=== PATIENT | female | born 1945 | race Caucasian/White ===

== ENCOUNTER 2017-07-23 12:07 | Inpatient (IN) | payer MEDICARE, OTHER ==
[~2017-07-23] VITALS: Ht 157.5 cm; Wt 73.9 kg
[~2017-07-23 12:07] MED LIST: ASPI-630 PO; CETI10CA12 PO; CITA40TA5 PO; HYDR-971 PO; HYDR12.58 PO; ISOS30TA4 PO; LEVO100T5 PO; LEVO500T59 PO; LOSA100T6 PO; NEBI10TA3 PO; POTA20TA4 PO; SIMV40TA3 PO; ZOLP10TA4 PO
[2017-07-23] MEDS ORDERED: NITROGLYCERIN SUBLINGUAL 0.4 MG BOTTLE OF 25. SL ONE (12:30)
--- NOTE | 2017-07-23 12:45 | RAD ---
INDICATION: Short of air, atrial fibrillation. TECHNIQUE: AP upright portable chest radiograph was obtained. Comparison is from December 03, 2015. FINDINGS: The lungs are clear. Calcified granuloma is noted on the right. The heart is not enlarged. The pulmonary vasculature is mildly cephalized. There is no interstitial prominence. There is no pleural effusion. Leads overlie the patient. IMPRESSION: Mild vascular congestion suspected. Electronically signed by: Rai Pandey MD (07/23/2017 12:42 PM) [id number]
[2017-07-23 12:53] LABS: BASO # 0.2 x10^3/uL (0.0-0.2); BASO % 1 % (0-3); EOS # 0.5 x10^3/uL (0.0-0.7); EOS % 5 % (0-3); HEMATOCRIT 48.8 % (36.0-47.0); HEMOGLOBIN 15.6 g/dL (12.0-15.5); LYMPH # 1.2 x10^3/uL (1.0-4.8); LYMPH % 10 % (24-48); MEAN CORPUSCULAR HEMOGLOBIN 24 pg (25-35); MEAN CORPUSCULAR HGB CONC 32 g/dL (31-37); MEAN CORPUSCULAR VOLUME 73 fL (79-100); MONO # 0.2 x10^3/uL (0.0-1.1); MONO % 2 % (0-9); NEUT # 9.8 x10^3uL (1.8-7.7); NEUT % 82 % (31-73); PLATELET COUNT 466 x10^3/uL (140-400); RED BLOOD COUNT 6.67 x10^6/uL (3.50-5.40); RED CELL DISTRIBUTION WIDTH 20.1 % (11.5-14.5); WHITE BLOOD COUNT 11.9 x10^3/uL (4.0-11.0)
[2017-07-23 13:13] LABS: ALBUMIN 3.6 g/dL (3.4-5.0); ALBUMIN/GLOBULIN RATIO 1.2 (1.0-1.7); CALCIUM 8.5 mg/dL (8.5-10.1); GFR 54.5; POTASSIUM 3.3 mmol/L (3.5-5.1); TOTAL BILIRUBIN 1.1 mg/dL (0.2-1.0); TOTAL PROTEIN 6.6 g/dL (6.4-8.2)
[2017-07-23 13:31] LABS: ANISOCYTOSIS MOD; HYPOCHROMIA SLIGHT; OVALOCYTES FEW; PLT ESTIMATE INCREASED (ADEQUATE); POLYCHROMASIA SLIGHT; SCHISTOCYTES OCC; TEAR DROP CELLS OCC
--- NOTE | 2017-07-23 13:45 | ED.ADGEN ---
Past History Past Medical History: A-Fib, COPD, MD, Migraines Past Surgical History: Appendectomy Alcohol Use: None Drug Use: None Adult General Chief Complaint Chief Complaint Dizziness HPI HPI Patient is a 8-year-old female with history of CAD, A. fib, currently on daily aspirin and COPD who presents with dizziness and confusion. Patient observed to have peculiar behavior not acting herself and appeared to have. Unsteady gait. Patient also reports mild epigastric pain and shortness breath over the past 3 days. Denies chest pain, palpitations, headache extremity weakness or loss of sensation. Patient does have chronic memory impairment and is a poor historian. Additional history obtained from the patient's daughter who is at bedside., The patient's on A. fib, rate controlled. The pressure is stable. Patient is unaware that she is currently in A. fib but has had prior diagnosis. She is not on anticoagulation therapy. Reports chronic smoker's cough. No nausea vomiting or sweats. No increased leg pain or swelling. No other acute symptoms or complaints. Patient is a current smoker. 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 Review of Systems Review of Systems ROS as per HPI. All other systems were reviewed and found to be within normal limits, except as documented in this note. Current Medications Current Medications Current Medications Medications (Trade) Dose Ordered Sig/[facility] Start Time Stop Time Status Last Admin Dose Admin Furosemide (Lasix) 20 mg 1X ONCE 07/23/17 13:45 07/23/17 13:46 UNV Nitroglycerin (Nitrostat) 0.4 mg 1X ONCE 07/23/17 12:30 07/23/17 12:31 DC 07/23/17 12:30 0.4 MG Allergies Allergies Allergies Coded Allergies Type Severity Reaction Last Updated Verified amlodipine Allergy Intermediate 08/11/14 Yes hydralazine Allergy Intermediate 08/11/14 Yes sulfamethoxazole Allergy Intermediate 08/11/14 Yes trimethoprim Allergy Intermediate 08/11/14 Yes morphine Adverse Reaction Intermediate 08/11/14 Yes Physical Exam Physical Exam Constitutional: Well developed, well nourished, no acute distress, non-toxic appearance. [] HENT: Normocephalic, atraumatic, bilateral external ears normal, oropharynx moist, no oral exudates, nose normal. [] Eyes: PERRLA, EOMI, conjunctiva normal, no discharge. [] Neck: Normal range of motion, no tenderness, supple, no stridor. [] Cardiovascular: Irregular. [] Lungs & Thorax: Bilateral breath sounds clear to auscultation [] Abdomen: Bowel sounds normal, soft, no tenderness, no masses, no pulsatile masses. [] Skin: Warm, dry.[] Back: No tenderness, no CVA tenderness. [] Extremities: No tenderness, no cyanosis, no clubbing, ROM intact, no edema. [] Neurologic: Alert and oriented X 2 normal motor function, normal sensory function, no focal deficits noted. [] Psychologic: Affect normal, judgement normal, mood normal. [] Current Patient Data Vital Signs Vital Signs Date Time Temp Pulse Resp B/P (MAP) Pulse Ox O2 Delivery O2 Flow Rate FiO2 07/23/17 13:13 74 22 171/72 (105) 98 07/23/17 12:19 97.7 Lab Results Laboratory Tests Test 07/23/17 12:38 White Blood Count 11.9 x10^3/uL (4.0-11.0) H Red Blood Count 6.67 x10^6/uL (3.50-5.40) H Hemoglobin 15.6 g/dL (12.0-15.5) H Hematocrit 48.8 % (36.0-47.0) H Mean Corpuscular Volume 73 fL (79-100) L Mean Corpuscular Hemoglobin 24 pg (25-35) L Mean Corpuscular Hemoglobin Concent 32 g/dL (31-37) Red Cell Distribution Width 20.1 % (11.5-14.5) H Platelet Count 466 x10^3/uL (140-400) H Neutrophils (%) (Auto) 82 % (31-73) H Lymphocytes (%) (Auto) 10 % (24-48) L Monocytes (%) (Auto) 2 % (0-9) Eosinophils (%) (Auto) 5 % (0-3) H Basophils (%) (Auto) 1 % (0-3) Neutrophils # (Auto) 9.8 x10^3uL (1.8-7.7) H Lymphocytes # (Auto) 1.2 x10^3/uL (1.0-4.8) Monocytes # (Auto) 0.2 x10^3/uL (0.0-1.1) Eosinophils # (Auto) 0.5 x10^3/uL (0.0-0.7) Basophils # (Auto) 0.2 x10^3/uL (0.0-0.2) Platelet Estimate Increased (ADEQUATE) Large Platelets Occ Polychromasia Slight Hypochromasia Slight Anisocytosis Mod Tear Drop Cells Occ Ovalocytes Few Schistocytes Occ Prothrombin Time 12.1 SEC (9.4-11.4) H Prothrombin Time INR 1.2 (0.9-1.1) H Sodium Level 139 mmol/L (136-145) Potassium Level 3.3 mmol/L (3.5-5.1) L Chloride Level 101 mmol/L (98-107) Carbon Dioxide Level 27 mmol/L (21-32) Anion Gap 11 (6-14) Blood Urea Nitrogen 9 mg/dL (7-20) Creatinine 1.0 mg/dL (0.6-1.0) Estimated GFR (Cockcroft-Gault) 54.5 BUN/Creatinine Ratio 9 (6-20) Glucose Level 132 mg/dL (70-99) H Calcium Level 8.5 mg/dL (8.5-10.1) Total Bilirubin 1.1 mg/dL (0.2-1.0) H Aspartate Amino Transferase (AST) 17 U/L (15-37) Alanine Aminotransferase (ALT) 13 U/L (14-59) L Alkaline Phosphatase 82 U/L (46-116) Troponin I Quantitative < 0.017 ng/mL (0-0.055) DD-Bbu-G-Type Natriuretic Peptide 2068 pg/mL (0-124) H Total Protein 6.6 g/dL (6.4-8.2) Albumin 3.6 g/dL (3.4-5.0) Albumin/Globulin Ratio 1.2 (1.0-1.7) EKG EKG [] Radiology/Procedures Radiology/Procedures [Chest x-ray: Pulmonary vascular congestion per radiology report.] Course & Med Decision Making Course & Med Decision Making Pertinent Labs and Imaging studies reviewed. (See chart for details) [Patient with A. fib with acute congestive heart failure. Rate controlled. No focal neurologic deficits on exam. Lasix given. Will admit to the hospital service. ] Final Impression Final Impression [1. Afib 2. CHF exacerbation] Dragon Disclaimer Dragon Disclaimer This electronic medical record was generated, in whole or in part, using a voice recognition dictation system. KADEN RODRÍGUEZ DO July 23, 2017 13:45
[2017-07-23] MEDS ORDERED: ONDANSETRON ODT 4 MG TAB.RAPDIS PO PRN (14:00)
[2017-07-23] MEDS ORDERED: FUROSEMIDE 40 MG/4 ML VIAL IVP ONE (14:00)
--- NOTE | 2017-07-23 15:01 | EKG ---
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
[2017-07-23] MEDS ORDERED: POTASSIUM CHLORIDE 20 MEQ TABLET.ER. PO ONE ×2 (15:30→17:00)
[2017-07-23 15:57] VITALS: BP 116/76
[2017-07-23] MEDS ORDERED: ZOLPIDEM 5 MG TABLET. PO PRN (17:30)
[2017-07-23] MEDS ORDERED: HYDROcodone/APAP 5/325MG 1 TAB TABLET PO PRN (17:30)
--- NOTE | 2017-07-23 18:35 | HP ---
ADMIT DATE: 07/23/2017 HISTORY OF PRESENT ILLNESS: The patient is a 72-year-old female patient who basically came to the Emergency Room with a complaint of dizziness and confusion and her daughter observed her mom to have abnormal behaviors today, not acting herself, appeared to have unsteady gait. The patient herself reported mild epigastric pain and shortness of breath over the last 3 days; however, she denied any chest pain, palpitation, headache, extremity weakness, or loss of sensation. She does have chronic memory impairment and she is a poor historian. Apparently, the patient is known to have atrial fibrillation, rate controlled. Her pressure is stable. The patient herself is unaware that she is currently in AFib, but has had prior diagnosis. She is not on anticoagulation therapy. She also used to be a heavy smoker, but denied any other complaint. 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 She was extensively investigated in the Emergency Room and was found to be in atrial fibrillation and what seemed to be congestive heart failure exacerbation. The patient was admitted to the hospital for further evaluation. Her first set of cardiac enzyme was normal at less than 0.017. She has also hypokalemia. Her EKG showed that she was in atrial fibrillation, but no evidence of ST segment elevation or depression, so we will do 2 more sets of cardiac enzyme and check her fasting lipid profile and also consult the Cardiology. PAST MEDICAL HISTORY: Significant for hyperlipidemia, hypertension, hypothyroidism, headaches. She is known to have coronary artery disease, status post myocardial infarction and she underwent PCI with stent deployment x 5, all done at [facility]. She is known to have chronic kidney disease and chronic bronchitis. She actually has obstructive sleep apnea and had multiple sleep studies, but she does not tolerate the CPAP or BiPAP. She is not even on oxygen at home. PAST SURGICAL HISTORY: Significant for bilateral cataract extractions, appendectomy, left foot fracture, status post open reduction and internal fixation. She has had coronary artery disease status post PCI with stent deployment x 5. She has also underwent colonoscopy. ALLERGIES: She is allergic to AMLODIPINE, HYDRALAZINE, MORPHINE, SULFAMETHOXAZOLE, and TRIMETHOPRIM. MEDICATIONS: She is currently on following medications: She is on Zyrtec 10 mg once a day, simvastatin 40 mg at bedtime, isosorbide mononitrate that she takes 30 mg, she takes only half a tablet. She is on Bystolic 10 mg once a day, losartan potassium 100 mg once a day, aspirin 81 mg once a day. She is on citalopram hydrobromide that she takes only 20 mg once a day, Ambien 10 mg at bedtime, potassium chloride 20 mEq once a day, hydrochlorothiazide 12.5 mg once a day, and levothyroxine that she takes only 50 mcg. FAMILY HISTORY: She has 2 brothers and 2 sisters. Her older brother in his 70s because of COPD, lung cancer, and liver cirrhosis. Her other brother is still alive and had coronary artery bypass surgery. Her oldest sister of CVA and myocardial infarction in her 70s and her younger sister at the age of 68 is known to have COPD. Her father at the age of 76 because of myocardial infarction, COPD, and TIA. Her mother in her 70s because of myocardial infarction. SOCIAL HISTORY: She is , has only 1 daughter, ex-smoker, quit 41 years ago. She used to smoke 4 packs per day and smoked for 20 years. She does not drink alcohol or use any recreational drugs. 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 REVIEW OF SYSTEMS: The patient denied any blurring of vision, cataract, glaucoma, or macular degeneration. Denied any earache, tinnitus, or sensorineural deafness. Denied any nosebleeds, stuffy nose or postnasal drip. Denied any sore throat, sore tongue, toothache, hoarseness of voice, or difficulty swallowing. Denied any nausea, vomiting, diarrhea, or constipation. Denied any hematemesis, melena, or hematochezia. Denied any dysuria, frequency, or hematuria. Did complain of chest pain occasionally on exertion, but denied any orthopnea or paroxysmal nocturnal dyspnea. Denied any cough, phlegm, or hemoptysis. Denied any chills, rigors, or fever. Denied any dizziness, lightheadedness, or vertigo. PHYSICAL EXAMINATION: GENERAL: On arrival to the Emergency Room, she apparently was somewhat pale, but no jaundice, cyanosis, or thyromegaly. No jugular venous distension. No limb edema. VITAL SIGNS: Her heart rate was 88, blood pressure was 171/72, temperature was 97.7, respiratory rate was 22, and oxygen saturation was 95% on room air. HEAD, EYES, EARS, NOSE, AND THROAT: Showed normocephalic, atraumatic. NECK: Supple. HEART: Showed normal first and second heart sounds. No gallop, rub, or murmur. CHEST: Clear to auscultation. No crepitation or rhonchi. ABDOMEN: Distended, soft, nontender. NEUROLOGIC: She is awake, alert, responding appropriately. All cranial nerves intact. She moves extremities without difficulty. She ambulates without assistance or assistive devices. LABORATORY DATA: On admission showed that her white cell count was 11,900; hemoglobin 15.6, hematocrit 48.8, MCV 73 and platelet count of 466,000 with normal manual differential. Her prothrombin time was 12.1, INR of 1.2. Her serum sodium was 139, potassium 3.3, chloride 101, bicarbonate 27, anion gap of 11, BUN 9, creatinine 1, estimated GFR was 55 mL per minute. Her glucose was 132, calcium was 8.5. Total bilirubin, AST, ALT, alkaline phosphatase were normal. Her total protein was 6.6, albumin 3.6. ASSESSMENT AND PLAN: In summary, this is a 72-year-old female patient who was admitted. Her chest x-ray showed that the lungs are clear. Calcified granuloma is noted on the right. The heart is not enlarged, no pneumothorax. She ____. There is no interstitial prominence. There is no pleural effusion, leads overlie the patient and the impression is that the patient has mild vascular congestion suspected. So the patient was admitted with atrial fibrillation and congestive heart failure, although when I saw her, the patient was really not in any respiratory distress, although she was already given Lasix by the time she arrived to the hospital. We will do 2 more sets of cardiac enzymes, monitor her heart rate, and we will consult the cardiology team tomorrow. MARIA E FERRARA MD DR: JAVI/francis JOB#: [id number] / [id number]
[2017-07-23 19:20] VITALS: BP 144/86
[2017-07-23] MEDS ORDERED: CITALOPRAM 20 MG TABLET. PO SCH (21:00)
[2017-07-23] MEDS ORDERED: SIMVASTATIN 40 MG TABLET. PO SCH (21:00)
[2017-07-23] MEDS: METOPROLOL TART IMMED RELEASE 50 MG TABLET PO SCH (21:19)
[2017-07-23 23:05] VITALS: BP 149/87
[2017-07-24 05:40] VITALS: BP 150/94
[2017-07-24 06:25] LABS: HEMOGLOBIN 15.8 g/dL (12.0-15.5); RED BLOOD COUNT 6.74 x10^6/uL (3.50-5.40); RED CELL DISTRIBUTION WIDTH 19.7 % (11.5-14.5); WHITE BLOOD COUNT 11.8 x10^3/uL (4.0-11.0)
[2017-07-24 06:42] LABS: ALBUMIN 3.7 g/dL (3.4-5.0); ALBUMIN/GLOBULIN RATIO 1.3 (1.0-1.7); C REACTIVE PROTEIN 1.5 mg/L (0-3.3); CALCIUM 8.9 mg/dL (8.5-10.1); GFR 54.5; POTASSIUM 3.8 mmol/L (3.5-5.1); TOTAL BILIRUBIN 0.9 mg/dL (0.2-1.0); TOTAL PROTEIN 6.6 g/dL (6.4-8.2)
[2017-07-24] MEDS ORDERED: LEVOTHYROXINE 50 MCG TABLET PO SCH (07:30)
[2017-07-24] MEDS ORDERED: LEVOTHYROXINE 100 MCG TABLET PO SCH (07:30)
[2017-07-24] MEDS ORDERED: ASPIRIN 81 MG TAB.CHEW PO SCH (08:00)
[2017-07-24] MEDS: METOPROLOL TART IMMED RELEASE 50 MG TABLET PO SCH (08:05)
[2017-07-24] MEDS ORDERED: hydroCHLOROthiazide 12.5 MG CAPSULE PO SCH (09:00)
[2017-07-24] MEDS ORDERED: POTASSIUM CHLORIDE 20 MEQ TABLET.ER. PO SCH (09:00)
[2017-07-24] MEDS ORDERED: ISOSORBIDE MONONITRATE ER 30 MG TAB.ER.24H PO SCH ×2 (09:00)
[2017-07-24] MEDS ORDERED: LOSARTAN 50 MG TABLET. PO SCH (09:00)
[2017-07-24] MEDS ORDERED: CETIRIZINE HCL 10 MG TABLET PO SCH (09:00)
--- NOTE | 2017-07-24 11:30 | PDOC2 ---
CONSULT Date of Admission DATE: 07/24/17 TIME: 11:30 Reason for Consult: Atrial fibrillation Referring Physician: Dr. Brady Chief Complaint Syncope Source: Chart review, Patient Problem List Problems Medical Problems: (1) Afib Status: Acute History of Present Illness 72-year-old female with history of coronary artery disease presented with 2-3 day history of shortness of breath and one episode of syncope prior to presentation. She denied any chest pain as such. She also denied any orthopnea/ PND, palpitations. She used to live in [place] and followed up with Dr. Duncan at [facility] and has recently moved to [place]. Past Medical History Coronary artery disease s/p PCI/stents placement Hypertension Hyperlipidemia Hypothyroidism Chronic kidney disease Obstructive sleep apnea Past Surgical History Cataract surgery Appendectomy Family History Coronary artery disease and stroke Social History Patient quit smoking 40 years ago and denied any alcohol or drug use Current Medications Current Medications Nitroglycerin (Nitrostat) 0.4 mg 1X ONCE SL Last administered on 07/23/17at 12: 30; Start 07/23/17 at 12:30; Stop 07/23/17 at 12:31; Status DC Furosemide (Lasix) 20 mg 1X ONCE IVP Last administered on 07/23/17at 13:53; Start 07/23/17 at 14:00; Stop 07/23/17 at 14:01; Status DC Ondansetron HCl (Zofran Odt) 4 mg PRN Q4HRS PRN PO NAUSEA/VOMITING Last administered on 07/23/17at 13:54; Start 07/23/17 at 14:00 Potassium Chloride (Klor-Con) 40 meq 1X ONCE PO Last administered on at 15:37; Start 07/23/17 at 15:30; Stop 07/23/17 at 15:31; Status DC Potassium Chloride (Klor-Con) 40 meq 1X ONCE PO Last administered on at 20:05; Start 07/23/17 at 17:00; Stop 07/23/17 at 17:01; Status DC Isosorbide Mononitrate (Imdur) 30 mg DAILY PO ; Start 07/24/17 at 09:00; Stop at 09:00; Status DC Levothyroxine Sodium (Synthroid) 100 mcg DAILYAC PO ; Start 07/24/17 at 07:30; Stop 07/24/17 at 07:30; Status DC Potassium Chloride (Klor-Con) 20 meq DAILY PO Last administered on 07/24/17at 08 :04; Start 07/24/17 at 09:00 Simvastatin (Zocor) 40 mg HS PO Last administered on 07/23/17 21:19; Start at 21:00 Aspirin (Children'S Aspirin) 81 mg DAILYWBKFT PO Last administered on at 08:02; Start 07/24/17 at 08:00 Cetirizine HCl (ZyrTEC) 10 mg DAILY PO Last administered on 07/24/17at 08:06; Start 07/24/17 at 09:00 Citalopram Hydrobromide (CeleXA) 40 mg HS PO ; Start 07/23/17 at 21:00; Stop at 21:00; Status DC Hydrochlorothiazide (Microzide) 12.5 mg DAILY PO Last administered on at 08:06; Start 07/24/17 at 09:00 Acetaminophen/ Hydrocodone Bitart (Lortab 5/325) 1 tab PRN Q6HRS PRN PO PAIN; Start 07/23/17 at 17:30 Losartan Potassium (Cozaar) 100 mg DAILY PO Last administered on 07/24/17at 08: 03; Start 07/24/17 at 09:00 Metoprolol Tartrate (Lopressor) 50 mg BID PO Last administered on 07/24/17at 08: 05; Start 07/23/17 at 21:00 Zolpidem Tartrate (Ambien) 10 mg PRN QHS PRN PO INSOMNIA Last administered on 21:19; Start 07/23/17 at 17:30 Citalopram Hydrobromide (CeleXA) 20 mg HS PO ; Start 07/24/17 at 21:00 Isosorbide Mononitrate (Imdur) 15 mg DAILY PO Last administered on 07/24/17at 08 :04; Start 07/24/17 at 09:00 Levothyroxine Sodium (Synthroid) 50 mcg DAILYAC PO Last administered on at 08:02; Start 07/24/17 at 07:30 Active Scripts Active Keene 5-325 Tablet (Hydrocodone Bit/Acetaminophen) 1 Each Tablet 1 Tab PO PRN Q6HRS PRN Reported Bystolic (Nebivolol Hcl) 10 Mg Tablet 10 Mg PO DAILY LAST DOSE GIVEN: DATE: TIME: AM NEXT DOSE DUE: DATE: TODAY TIME: AM Levothyroxine Sodium 100 Mcg Tablet 100 Mcg PO DAILYAC LAST DOSE GIVEN: DATE: TIME: AM NEXT DOSE DUE: DATE: ORR TIME: AM Isosorbide Mononitrate Er (Isosorbide Mononitrate) 30 Mg Tab.er.24h 30 Mg PO DAILY LAST DOSE GIVEN: DATE: TIME: AM NEXT DOSE DUE: DATE: ORR TIME: AM Hydrochlorothiazide Tablet (Hydrochlorothiazide) 12.5 Mg Tablet 12.5 Mg PO DAILY LAST DOSE GIVEN: DATE: TIME: AM NEXT DOSE DUE: DATE: TIME: AM Losartan Potassium 100 Mg Tablet 100 Mg PO DAILY LAST DOSE GIVEN: DATE: TIME: AM NEXT DOSE DUE: DATE: TIME: AM Citalopram Hbr (Citalopram Hydrobromide) 40 Mg Tablet 40 Mg PO QHS LAST DOSE GIVEN: DATE: TIME: AT BEDTIME NEXT DOSE DUE: DATE: TIME: AT BEDTIME Simvastatin 40 Mg Tablet 40 Mg PO HS LAST DOSE GIVEN: DATE: TIME: AT BEDTIME NEXT DOSE DUE: DATE: TIME: AT BEDTIME Aspirin 81 Mg Tab.chew 81 Mg PO DAILY LAST DOSE GIVEN: DATE: TIME: AM NEXT DOSE DUE: DATE: TIME: AM Klor-Con M20 (Potassium Chloride) 20 Meq Tab.er.prt 20 Meq PO DAILY LAST DOSE GIVEN: DATE: TIME: AM NEXT DOSE DUE: DATE: ORR TIME: AM Zolpidem Tartrate 10 Mg Tablet 10 Mg PO PRN QHS PRN LAST DOSE GIVEN: DATE: TIME: NEXT DOSE DUE: DATE: TIME: AT BEDTIME, IF NEEDED Wal-Zyr (Cetirizine HCl) 10 Mg Capsule 10 Mg PO DAILY LAST DOSE GIVEN: DATE: TIME: AM NEXT DOSE DUE: DATE: ORR TIME: AM Allergies: Coded Allergies: amlodipine (Verified Allergy, Intermediate, 08/11/14) hydralazine (Verified Allergy, Intermediate, 6/6/15) sulfamethoxazole (Verified Allergy, Intermediate, 08/11/14) trimethoprim (Verified Allergy, Intermediate, 08/11/14) morphine (Verified Adverse Reaction, Intermediate, 08/11/14) PSYCHOLOGICAL ROS: No: Hallucinations Eyes: No: Loss of vision HEENT: No: Epistaxis Respiratory: YES: Shortness of breath; No: Hemoptysis Cardiovascular: No: Palpitations Gastrointestinal: No: Vomiting, Diarrhea Neurological: YES: Other (syncope); No: Confusion, Seizures Skin: No: Rash General: Alert, Oriented X3 HEENT: Atraumatic, PERRLA Lungs: Clear to auscultation Heart: No murmurs, Other (HR irregular) Extremities: No edema Psych/Mental Status: Mood NL VITALS Vital Signs Date Time Temp Pulse Resp B/P (MAP) Pulse Ox O2 Delivery O2 Flow Rate FiO2 07/24/17 08:05 78 150/94 07/24/17 08:00 Room Air 07/24/17 05:40 98.5 14 93 Labs Laboratory Tests Test 07/23/17 12:38 07/23/17 16:35 07/24/17 05:53 White Blood Count 11.9 x10^3/uL (4.0-11.0) 11.8 x10^3/uL (4.0-11.0) Red Blood Count 6.67 x10^6/uL (3.50-5.40) 6.74 x10^6/uL (3.50-5.40) Hemoglobin 15.6 g/dL (12.0-15.5) 15.8 g/dL (12.0-15.5) Hematocrit 48.8 % (36.0-47.0) 49.0 % (36.0-47.0) Mean Corpuscular Volume 73 fL (79-100) 73 fL (79-100) Mean Corpuscular Hemoglobin 24 pg (25-35) 23 pg (25-35) Mean Corpuscular Hemoglobin Concent 32 g/dL (31-37) 32 g/dL (31-37) Red Cell Distribution Width 20.1 % (11.5-14.5) 19.7 % (11.5-14.5) Platelet Count 466 x10^3/uL (140-400) 443 x10^3/uL (140-400) Neutrophils (%) (Auto) 82 % (31-73) Lymphocytes (%) (Auto) 10 % (24-48) Monocytes (%) (Auto) 2 % (0-9) Eosinophils (%) (Auto) 5 % (0-3) Basophils (%) (Auto) 1 % (0-3) Neutrophils # (Auto) 9.8 x10^3uL (1.8-7.7) Lymphocytes # (Auto) 1.2 x10^3/uL (1.0-4.8) Monocytes # (Auto) 0.2 x10^3/uL (0.0-1.1) Eosinophils # (Auto) 0.5 x10^3/uL (0.0-0.7) Basophils # (Auto) 0.2 x10^3/uL (0.0-0.2) Platelet Estimate Increased (ADEQUATE) Large Platelets Occ Polychromasia Slight Hypochromasia Slight Anisocytosis Mod Tear Drop Cells Occ Ovalocytes Few Schistocytes Occ Prothrombin Time 12.1 SEC (9.4-11.4) Prothromb Time International Ratio 1.2 (0.9-1.1) Sodium Level 139 mmol/L (136-145) 141 mmol/L (136-145) Potassium Level 3.3 mmol/L (3.5-5.1) 3.8 mmol/L (3.5-5.1) Chloride Level 101 mmol/L (98-107) 101 mmol/L (98-107) Carbon Dioxide Level 27 mmol/L (21-32) 33 mmol/L (21-32) Anion Gap 11 (6-14) 7 (6-14) Blood Urea Nitrogen 9 mg/dL (7-20) 12 mg/dL (7-20) Creatinine 1.0 mg/dL (0.6-1.0) 1.0 mg/dL (0.6-1.0) Estimated GFR (Cockcroft-Gault) 54.5 54.5 BUN/Creatinine Ratio 9 (6-20) 12 (6-20) Glucose Level 132 mg/dL (70-99) 99 mg/dL (70-99) Calcium Level 8.5 mg/dL (8.5-10.1) 8.9 mg/dL (8.5-10.1) Total Bilirubin 1.1 mg/dL (0.2-1.0) 0.9 mg/dL (0.2-1.0) Aspartate Amino Transf (AST/SGOT) 17 U/L (15-37) 16 U/L (15-37) Alanine Aminotransferase (ALT/SGPT) 13 U/L (14-59) 12 U/L (14-59) Alkaline Phosphatase 82 U/L (46-116) 81 U/L (46-116) Troponin I Quantitative < 0.017 ng/mL (0-0.055) < 0.017 ng/mL (0-0.055) JJ-Prf-X-Type Natriuretic Peptide 2068 pg/mL (0-124) Total Protein 6.6 g/dL (6.4-8.2) 6.6 g/dL (6.4-8.2) Albumin 3.6 g/dL (3.4-5.0) 3.7 g/dL (3.4-5.0) Albumin/Globulin Ratio 1.2 (1.0-1.7) 1.3 (1.0-1.7) Erythrocyte Sedimentation Rate 1 (0-25) C-Reactive Protein 1.5 mg/L (0-3.3) Assessment/Plan 1. Atrial fibrillation, most probably newly diagnosed. Patient not sure if she had a previous history of atrial fibrillation but stated that she had event monitor placement by primary food and beverage analyst in the past. Heart rate well- controlled. Continue metoprolol. Start Eliquis for stroke prophylaxis and plan outpatient cardioversion in 4 weeks. Check 2-D echocardiogram as outpatient. 2. Mild congestive heart failure, most probably acute on chronic diastolic. Better compensated after diuretics given in ED. Check 2-D echo and Lexiscan nuclear stress test as an outpatient. 3. Syncope: Telemetry did not show any significant pauses. Plan for outpatient event monitor to rule out sick sinus syndrome. 4. Hypertensive: Controlled 5. Hyperlipidemia: Continue statins 6. Hypothyroidism: Continue levothyroxine 7. Coronary artery disease s/p multivessel PCI/stents placement in the past, presently chest pain-free. Continue current secondary prevention measures. Thank you for your consultation DYLAN SANTIAGO MD July 24, 2017 11:30
[2017-07-24 12:36] VITALS: BP 123/74
[2017-07-24] MEDS ORDERED: APIX5TAB3 PO (16:48)
[2017-07-24] MEDS ORDERED: APIXABAN 5 MG TABLET. PO SCH (21:00)
[2017-07-24] MEDS ORDERED: CITALOPRAM 20 MG TABLET. PO SCH (21:00)
--- NOTE | 2017-07-25 08:57 | DS ---
DATE OF DISCHARGE: 07/24/2017 HOSPITAL COURSE: The patient was admitted what seems to be syncopal episode. She also was found to have an atrial fibrillation, although it is not clear whether this is a new presentation or she had it before; however, she denied any chest pain and denied any dyspnea, orthopnea, nocturnal dyspnea. She was extensively investigated, has had 3 sets of cardiac enzymes, so the myocardial infarction was ruled out. We did consult the Cardiology team and they basically recommended that the patient can be discharged. She was started on Eliquis for stroke prevention and to continue with metoprolol for outpatient cardioversion in 4 weeks' time. I also checked 2-dimensional echocardiogram as an outpatient and also a Lexiscan nuclear stress test as an outpatient. They will also arrange for an event monitor as an outpatient to rule out sick sinus syndrome. PHYSICAL EXAMINATION: GENERAL: When I saw her today, she looked well and was clearly in no apparent respiratory distress, slightly pale, but no jaundice, cyanosis, or thyromegaly. No jugular venous distension. No limb edema. VITAL SIGNS: Her heart rate was 18, blood pressure 123/74, temperature was 98.2, respiratory rate was 18, and oxygen saturation was 95%. HEAD, EYES, EARS, NOSE, AND THROAT: Showed normocephalic, atraumatic. NECK: Supple. HEART: Showed normal first and second heart sounds with no gallop, rub, or murmur. CHEST: Clear to auscultation. No crepitation or rhonchi. ABDOMEN: Distended, soft, nontender. No guarding or rigidity. No organomegaly. Hernial orifice intact. Bowel sounds normal. NEUROLOGIC: She was awake, alert, responding appropriately. Cranial nerves intact. EXTREMITIES: She moves extremities without difficulty. She ambulates without assistance or assistive devices. LABORATORY DATA: This morning showed a serum sodium 141, potassium 3.8, chloride 101, bicarbonate 33, anion gap of 7, BUN 12, creatinine 1, estimated GFR was 55 mL per minute. Her glucose was 99, calcium was 8.9. Total bilirubin, AST, ALT, alkaline phosphatase were normal. Her total protein was 6.6, albumin 3.7. Her sed rate was 1 and C-reactive protein was 1.5 mg/dL. Her white cell count was 11,800, hemoglobin 15.8, hematocrit 49, MCV 73, and platelet count of 443,000. Her prothrombin time was 12.1, INR 1.2. DISCHARGE MEDICATIONS: The patient was discharged home to continue on her apixaban 5 mg p.o. b.i.d., citalopram hydrobromide 20 mg at bedtime, isosorbide mononitrate 50 mg daily, losartan potassium 100 mg once a day, hydrochlorothiazide 12.5 mg daily, cetirizine 10 mg once a day, potassium chloride 20 mEq once a day, aspirin 81 mg once a day, levothyroxine 50 mcg once a day, metoprolol tartrate 50 mg twice a day, simvastatin 40 mg at bedtime, Ambien 10 mg at bedtime, hydrocodone/CPAP one tablet every 6 hours, and ondansetron 4 mg every 4 hours as needed. FINAL DISCHARGE DIAGNOSES: 1. Atrial fibrillation, rate controlled. To continue with metoprolol and Eliquis was added for stroke prophylaxis in preparation for outpatient cardioversion in 4 weeks' time. 2. Mild congestive heart failure, improved. 3. Syncope. Telemetry did not show any significant pauses. Plan for outpatient event monitor to rule out sick sinus syndrome. 4. Hypertension, well controlled. 5. Hyperlipidemia, on statins. 6. Hypothyroidism, to continue with levothyroxine. 7. Coronary artery disease status post multivessel percutaneous coronary intervention and stent placement in the past. She is chest pain free. The Cardiology team will call the patient to arrange for cardioversion in 4 weeks' time. She will also have an echocardiogram as an outpatient as well as Lexiscan nuclear stress test and event monitor. MARIA E FERRARA MD DR: JAVI/francis JOB#: [id number] / [id number]
== END 2017-07-24 17:46 | disposition home or self-care (01) | DRG 309 ==
LOC: ER 12:07 → 1 SOUTH 15:39
PROVIDERS: ADMIT Internal Medicine; ATTEND Internal Medicine
DX: I48.91 Unspecified atrial fibrillation (principal); I13.0 Hypertensive heart and chronic kidney disease with heart failure and stage 1 through stage 4 chronic kidney disease, or unspecified chronic kidney disease; I50.9 Heart failure, unspecified; I49.5 Sick sinus syndrome; J44.9 Chronic obstructive pulmonary disease, unspecified; E03.9 Hypothyroidism, unspecified; E78.5 Hyperlipidemia, unspecified; E87.6 Hypokalemia; F17.200 Nicotine dependence, unspecified, uncomplicated; G47.33 Obstructive sleep apnea (adult) (pediatric); I25.10 Atherosclerotic heart disease of native coronary artery without angina pectoris; N18.9 Chronic kidney disease, unspecified; G43.909 Migraine, unspecified, not intractable, without status migrainosus; I25.2 Old myocardial infarction; Z79.82 Long term (current) use of aspirin; Z80.1 Family history of malignant neoplasm of trachea, bronchus and lung; Z82.3 Family history of stroke; Z82.49 Family history of ischemic heart disease and other diseases of the circulatory system; Z82.5 Family history of asthma and other chronic lower respiratory diseases; Z90.49 Acquired absence of other specified parts of digestive tract; Z95.5 Presence of coronary angioplasty implant and graft; Z98.41 Cataract extraction status, right eye; Z98.42 Cataract extraction status, left eye; Z88.2 Allergy status to sulfonamides; Z88.8 Allergy status to other drugs, medicaments and biological substances
CPT/HCPCS: 36415; 71045; 80053; 83880; 84484; 85025; 85027; 85610; 85651; 86140; 93005; 96374; J1940; Q0162; 99285-25

== ENCOUNTER 2018-07-29 11:51 | Inpatient (IN) | payer MEDICARE, OTHER ==
[~2018-07-29] VITALS: Ht 157.5 cm; Wt 56.8 kg
[~2018-07-29 11:51] MED LIST changes: +APIX5TAB3 PO; +HYDR-3165 PO; -HYDR-971 PO; +LOSA100T14 PO; -LOSA100T6 PO
[2018-07-29 12:14] LABS: BASO % 0 % (0-3); EOS # 0.1 x10^3/uL (0.0-0.7); EOS % 1 % (0-3); HEMATOCRIT 48.7 % (36.0-47.0); HEMOGLOBIN 15.6 g/dL (12.0-15.5); LYMPH # 0.8 x10^3/uL (1.0-4.8); LYMPH % 5 % (24-48); MEAN CORPUSCULAR HEMOGLOBIN 27 pg (25-35); MEAN CORPUSCULAR HGB CONC 32 g/dL (31-37); MEAN CORPUSCULAR VOLUME 85 fL (79-100); MONO # 0.4 x10^3/uL (0.0-1.1); MONO % 3 % (0-9); NEUT % 92 % (31-73); PLATELET COUNT 538 x10^3/uL (140-400); RED BLOOD COUNT 5.73 x10^6/uL (3.50-5.40); RED CELL DISTRIBUTION WIDTH 18.7 % (11.5-14.5); WHITE BLOOD COUNT 16.3 x10^3/uL (4.0-11.0)
--- NOTE | 2018-07-29 12:21 | PHYS DOC ---
Past History Past Medical History: A-Fib, COPD, MS, Migraines Past Surgical History: Appendectomy Smoking: Quit Greater Than 1 Year Alcohol Use: None Drug Use: None Adult General Chief Complaint Chief Complaint: CHEST PAIN HPI HPI Patient is a 73-year-old female presents with lower chest discomfort that has b een present for the past 2 days. Nothing seems to make it better or worse. There is no radiation. No nausea or vomiting. Patient was brought in by EMS and was given aspirin in route. She reports the pain is mild to moderate in intensity. She was admitted earlier this month to the hospital for syncopal episode and noted to be in atrial fibrillation at that time and was started apixaban. She denies any more recent syncopal episode, no new head injury. [] Review of Systems Review of Systems Constitutional: Denies fever or chills [] Eyes: Denies change in visual acuity, redness, or eye pain [] HENT: Denies nasal congestion or sore throat [] Respiratory: Denies cough or shortness of breath [] Cardiovascular: No additional information not addressed in HPI [] GI: Denies abdominal pain, nausea, vomiting, bloody stools or diarrhea [] : Denies dysuria or hematuria [] Musculoskeletal: Denies back pain or joint pain [] Integument: Denies rash or skin lesions [] Neurologic: Denies headache, focal weakness or sensory changes [] Endocrine: Denies polyuria or polydipsia [] All other systems were reviewed and found to be within normal limits, except as documented in this note. Allergies Allergies Allergies Coded Allergies Type Severity Reaction Last Updated Verified amlodipine Allergy Intermediate 08/11/14 Yes hydralazine Allergy Intermediate 08/11/14 Yes sulfamethoxazole Allergy Intermediate 08/11/14 Yes trimethoprim Allergy Intermediate 08/11/14 Yes morphine Adverse Reaction Intermediate 08/11/14 Yes Physical Exam Physical Exam Constitutional: Well developed, well nourished, no acute distress, non-toxic appearance. [] HENT: Normocephalic, atraumatic, bilateral external ears normal, oropharynx moist, no oral exudates, nose normal. [] Eyes: PERRLA, EOMI, conjunctiva normal, no discharge. [] Neck: Normal range of motion, no tenderness, supple, no stridor. [] Cardiovascular:Heart rate is tachycardic with an irregularly irregular rhythm, no murmur [] Lungs & Thorax: Bilateral breath sounds clear to auscultation [] Abdomen: Bowel sounds normal, soft, no tenderness, no masses, no pulsatile masses. [] Skin: Warm, dry, no erythema, no rash. [] Back: No tenderness, no CVA tenderness. [] Extremities: No tenderness, no cyanosis, no clubbing, ROM intact, no edema. [] Neurologic: Alert and oriented X 3, normal motor function, normal sensory function, no focal deficits noted. [] Psychologic: Affect normal, judgement normal, mood normal. [] EKG EKG EKG shows atrial fibrillation with rapid ventricular response, heart rate of 129 bpm, left axis, QTC of 491 ms. When compared with EKG of 07/23/2017, there are ST depressions present now, patient was in atrial fibrillation in July 2017 with a rate of 70 bpm. There are no ST elevations present today. This was interpreted by me at 1203[] Radiology/Procedures Radiology/Procedures PROCEDURE: PORTABLE CHEST 1V EXAM: AP View of the chest DATE: 07/29/2018 12:03 PM INDICATION: Chest pain COMPARISON: 07/23/2017, 12/03/2015 FINDINGS: Moderate cardiomegaly. Atherosclerotic calcifications of the tortuous aorta are seen. Mediastinal and hilar contours are stable. No focal parenchymal airspace opacity. Right upper lung calcified granulomas again seen. No pleural effusion or pneumothorax. IMPRESSION: 1. No radiographic evidence for acute cardiopulmonary process. 2. Stable cardiomegaly and tortuous aorta[] Course & Med Decision Making Course & Med Decision Making Pertinent Labs and Imaging studies reviewed. (See chart for details) ED course: Patient arrived, was placed in bed, and tolerated exam well. She was given a dose of beta aaron given her calcium channel aaron allergy which improved her heart rate down into the lower 100s to 110s which improved her discomfort and eliminated it. Given the EKG changes and the improvement in her discomfort with rate control, consultation was made with the hospitalist service who graciously admitted the patient. Medical decision making: Patient is anticoagulated on apixaban , while the d- dimer is noted to be elevated, she is not a candidate for CT angiogram given her low GFR. That this is a cardiac issue rather than pulmonary issue/PE issue given that her discomfort improved with rate control. There is no evidence of pneumonia, pneumothorax, dissecting thoracic aneurysm, nor esophageal rupture based on history, imaging, and physical exam findings.[] Dragon Disclaimer Dragon Disclaimer This electronic medical record was generated, in whole or in part, using a voice recognition dictation system. Departure Departure: Impression: Primary Impression: Chest pain Additional Impressions: Atrial fibrillation with rapid ventricular response Elevated brain natriuretic peptide (BNP) level Disposition: ADMITTED INPATIENT Admitting Physician: Henry Brady Condition: IMPROVED Referrals: PCP,UNKNOWN (PCP) Problem Qualifiers Primary Impression: Chest pain Chest pain type: unspecified Qualified Codes: R07.9 - Chest pain, unspecified MIGUEL A MACE DO July 29, 2018 12:21
--- NOTE | 2018-07-29 12:22 | RAD ---
EXAM: AP View of the chest DATE: 07/29/2018 12:03 PM INDICATION: Chest pain COMPARISON: 07/23/2017, 12/03/2015 FINDINGS: Moderate cardiomegaly. Atherosclerotic calcifications of the tortuous aorta are seen. Mediastinal and hilar contours are stable. No focal parenchymal airspace opacity. Right upper lung calcified granulomas again seen. No pleural effusion or pneumothorax. IMPRESSION: 1. No radiographic evidence for acute cardiopulmonary process. 2. Stable cardiomegaly and tortuous aorta Electronically signed by: Davonte Lopez MD (07/29/2018 12:20 PM) [facility]
--- NOTE | 2018-07-29 12:27 | EKG ---
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
[2018-07-29] MEDS ORDERED: METOPROLOL TARTRATE 5 MG/5 ML VIAL. IV ONE (12:30)
[2018-07-29 12:36] LABS: ALBUMIN 4.1 g/dL (3.4-5.0); ALBUMIN/GLOBULIN RATIO 1.4 (1.0-1.7); CALCIUM 9.7 mg/dL (8.5-10.1); CREATININE 1.3 mg/dL (0.6-1.0); GFR 40.2; MAGNESIUM 1.9 mg/dL (1.8-2.4); POTASSIUM 4.1 mmol/L (3.5-5.1); TOTAL BILIRUBIN 1.9 mg/dL (0.2-1.0)
[2018-07-29 13:00] LABS: % BANDS 10 % (0-9); % BASOS 1 % (0-3); % EOS 0 % (0-5); % LYMPHS 2 % (24-48); % MONOS 3 % (0-10); % SEGS 84 % (35-66); ANISOCYTOSIS PRESENT; PLT ESTIMATE INCREASED (ADEQUATE); TEAR DROP CELLS PRESENT
[2018-07-29] MEDS ORDERED: ONDANSETRON PF 4 MG/2 ML VIAL. IV PRN (13:00)
[2018-07-29] MEDS ORDERED: ACETAMINOPHEN 325 MG TABLET PO PRN (13:00)
--- NOTE | 2018-07-29 13:20 | NUR ---
NURSING NOTE ADMIT PT ADMIT TO ROOM 124 AT 1316 VIA EMS FOR DX OF CHEST PAIN, A FIB RVR. PT STATES SHE HAS BEEN HAVING TROUBLE BREATHING, WEIGHT LOSS OF OVER 20 POUNDS, NAUSEA. PT STATES HER DAUGHTER ON JULY 06. PT STATES SHE IS HAVING DEPRESSION, STATES SHE DOESNT HAVE A WILL TO LIVE. PT HAS GIVEN SEVERAL NUMBERS TO CONTACT FAMILY. SISTER JUAN LUIS [phone] BROTHER ROXANA NO NUMBER ALSO GAVE ME [phone] NOT WORKING. CALLED [employer] TO FIND OUT IF THEY CAN HELP, UNABLE TO FIND ANY INFORMATION. PT SETTLED IN ROOM 124.
[2018-07-29] MEDS ORDERED: LORA0.5T PO (13:29)
[2018-07-29 13:35] VITALS: BP 175/102
[2018-07-29] MEDS ORDERED: DIGOXIN IV 500 MCG/2 ML AMPUL. IV ONE (14:30)
--- NOTE | 2018-07-29 14:44 | NUR ---
CONSULT CARDIOLOGY CONSULT CALLED AT 0652. TERRY REA
[2018-07-29] MEDS ORDERED: HYDROcodone/APAP 5/325MG 1 TAB TABLET PO PRN (14:45)
--- NOTE | 2018-07-29 14:54 | HP ---
ADMIT DATE: 07/29/2018 HISTORY OF PRESENT ILLNESS: The patient is a 73-year-old female patient who presented to the Emergency Room with a complaint of lower chest discomfort that has been present for the last 2 days. Nothing seems to make it better or worse. There is no radiation, no nausea, no vomiting. She did complain of shortness of breath, but denied any diaphoresis. The EMS had given her an aspirin en route. She reports the pain is mild to moderate intensity. She was admitted in July of last year for syncope. At that time, she was found to be in atrial fibrillation with rapid ventricular response, for which she was started on apixaban. She apparently lost her daughter recently to a massive heart attack and since then has been extremely depressed, has some suicidal ideation, although no specific plan. She has not also been compliant with her medication and has not been taking them on a regular basis as she should be, according to her. She just basically extremely tired, depressed and has no interest in staying around, would like to follow her daughter, according to her. She was investigated in the Emergency Room and she was in atrial fibrillation with rapid ventricular response with a heart rate of 129 beats per minute. Compared to previous EKG, she has ST depression present now, but there is no ST segment elevation. Her chest x-ray showed mild cardiomegaly, atherosclerotic calcification and the tortuous aorta is seen. Mediastinal hilar contours are stable. No focal parenchymal airspace opacity. Right upper lobe calcified granulomas again seen, but the patient has no pleural effusion or pneumothorax. The patient did complain of dysuria and burning sensation, but denied any fever, chills or rigors. Her lab work also revealed that she has elevated D-dimer with D-dimer of 2.31 and she has leukocytosis with a white cell count of 16,300. She has also acute kidney injury as her creatinine 1 year ago was only 1, now it is 1.3. Her first set of cardiac enzyme was less than 0.017. The patient was admitted with atrial fibrillation with rapid ventricular response. She has also acute on chronic kidney injury, leukocytosis and possible urinary tract infection. She has been noncompliant and her D-dimer is high, which obviously with this D-dimer, chest discomfort and shortness of breath, makes the possibility of a PE highly likely. PLAN: I spoke with the radiology team and the plan was to hydrate her from now so that tomorrow hopefully her kidney function improves, then we can do CT angio of the chest. Meanwhile, I will resume all her medication. I will start her on IV fluid at 75 mL per hour and IV ceftriaxone after obtaining urine for culture and sensitivity. We will consult Dr. Ballesteros to evaluate and treat her depression and suicidal ideation. We will also consult the cardiology team to assist for management of her atrial fibrillation. She is already on Nebivolol; however, she apparently has been noncompliant given her severe depression after the of her daughter. MARIA E FERRARA MD DR: JAVI/francis JOB#: [id number] / [id number]
[2018-07-29] MEDS: IV DEXTROSE 5 %-0.45 % NACL 1,000 ML IV SCH (15:02)
[2018-07-29] MEDS: ISOSORBIDE MONONITRATE ER 30 MG TAB.ER.24H PO SCH (15:05)
[2018-07-29] MEDS: METOPROLOL TART IMMED RELEASE 50 MG TABLET PO SCH ×2 (15:06→20:50)
[2018-07-29 15:21] LABS: BILIRUBIN,URINE MOD (NEG); CLARITY,URINE CLOUDY; COLOR,URINE AMBER; GLUCOSE,URINE NEG (NEG); NITRITE,URINE NEG (NEG); UROBILINOGEN,URINE 1 mg/dL (0.2 mg/dL)
[2018-07-29 15:22] LABS: BACTERIA,URINE MOD /HPF (0-FEW); SQUAMOUS EPITHELIAL CELL,UR OCC /LPF; WBC,URINE 20-40 /HPF (0-4)
--- NOTE | 2018-07-29 15:56 | NUR ---
CONSULT DR WEBER FAXED FOR DEPRESSION TERRY REA.
--- NOTE | 2018-07-29 17:07 | PDOC2 ---
CONSULT Date of Admission DATE: 07/29/18 TIME: 17:06 Reason for Consult: Atrial fibrillation Referring Physician: Dr. Brady Chief Complaint Chest pain Source: Chart review, Patient Problem List Problems Medical Problems: (1) Atrial fibrillation with rapid ventricular response Status: Acute (2) Chest pain Status: Acute (3) Elevated brain natriuretic peptide (BNP) level Status: Acute History of Present Illness 73 y/o female with history of atrial fibrillation diagnosed one year ago at [facility] presented with retrosternal aching chest pain. The only daughter she had apparently from heart attack one month ago and she has been severely depressed and has not been taking her medications. She was found to be in atrial fibrillation with RVR and admitted for further management. She denied any orthopnea/PND, palpitations or syncope. Cardiovascular: AFIB, CAD, HTN, hyperipidemia Endocrine: Hypothyroidism Past Surgical History: Appendectomy, Cataract Removal Family History: Coronary Artery Disease, Hypertension Smoke: No ALCOHOL: none Drugs: None Current Medications Current Medications Metoprolol Tartrate (Lopressor Vial) 5 mg 1X ONCE IV Last administered on 07/29/18at 12:22; Start 07/29/18 at 12:30; Stop 07/29/18 at 12:31; Status DC Ondansetron HCl (Zofran) 4 mg PRN Q4HRS PRN IV NAUSEA/VOMITING; Start 07/29/18 at 13:00; Stop 07/30/18 at 12:59 Acetaminophen (Tylenol) 650 mg PRN Q4HRS PRN PO FEVER; Start 07/29/18 at 13:00; Stop 07/30/18 at 12:59 Ceftriaxone Sodium 1 gm/ Sodium Chloride 50 ml @ 100 mls/hr Q24H IV Last administered on 07/29/18at 16:26; Start 07/29/18 at 14:30 Dextrose/Sodium Chloride 1,000 ml @ 75 mls/hr [id number] IV Last administered on 07/29/18at 15:02; Start 07/29/18 at 14:30 Isosorbide Mononitrate (Imdur) 15 mg DAILY PO Last administered on 07/29/18at 15:05; Start 07/29/18 at 15:00 Levothyroxine Sodium (Synthroid) 75 mcg DAILY06 PO ; Start 07/30/18 at 06:00 Simvastatin (Zocor) 40 mg HS PO ; Start 07/29/18 at 21:00 Citalopram Hydrobromide (CeleXA) 40 mg QHS PO ; Start 07/29/18 at 21:00 Acetaminophen/ Hydrocodone Bitart (Lortab 5/325) 1 tab PRN Q6HRS PRN PO PAIN; Start 07/29/18 at 14:45 Lorazepam (Ativan) 0.5 mg Q8HRS PO ; Start 07/29/18 at 22:00 Metoprolol Tartrate (Lopressor) 50 mg BID PO Last administered on 07/29/18at 15:06; Start 07/29/18 at 15:00 Zolpidem Tartrate (Ambien) 10 mg PRN QHS PRN PO INSOMNIA; Start 07/29/18 at 14:45 Apixaban (Eliquis) 5 mg BID PO ; Start 07/29/18 at 21:00 Digoxin (Lanoxin) 500 mcg 1X ONCE IV Last administered on 07/29/18at 14:56; Start 07/29/18 at 14:30; Stop 07/29/18 at 14:42; Status DC Active Scripts Active Eliquis (Apixaban) 5 Mg Tablet 5 Mg PO BID 30 Days [place] 5-325 Tablet (Hydrocodone Bit/Acetaminophen) 1 Each Tablet 1 Tab PO PRN Q6HRS PRN Reported Lorazepam 0.5 Mg Tablet 1 Tab PO Q8HRS Bystolic (Nebivolol Hcl) 10 Mg Tablet 20 Mg PO DAILY LAST DOSE GIVEN: DATE: TODAY TIME: AM NEXT DOSE DUE: DATE: TODAY TIME: AM Levothyroxine Sodium 100 Mcg Tablet 75 Mcg PO DAILYAC LAST DOSE GIVEN: DATE: TODAY TIME: AM NEXT DOSE DUE: DATE: TOMORROW TIME: AM Isosorbide Mononitrate Er (Isosorbide Mononitrate) 30 Mg Tab.er.24h 15 Mg PO DAILY LAST DOSE GIVEN: DATE: TODAY TIME: AM NEXT DOSE DUE: DATE: TOMORROW TIME: AM Losartan Potassium 100 Mg Tablet 100 Mg PO DAILY LAST DOSE GIVEN: DATE: TODAY TIME: AM NEXT DOSE DUE: DATE: TOMORROW TIME: AM Citalopram Hbr (Citalopram Hydrobromide) 40 Mg Tablet 40 Mg PO QHS LAST DOSE GIVEN: DATE: YESTERDAY TIME: AT BEDTIME NEXT DOSE DUE: DATE: TODAY TIME: AT BEDTIME Simvastatin 40 Mg Tablet 40 Mg PO HS LAST DOSE GIVEN: DATE: YESTERDAY TIME: AT BEDTIME NEXT DOSE DUE: DATE: TODAY TIME: AT BEDTIME Zolpidem Tartrate 10 Mg Tablet 10 Mg PO PRN QHS PRN LAST DOSE GIVEN: DATE: TIME: NEXT DOSE DUE: DATE: TODAY TIME: AT BEDTIME, IF NEEDED Allergies: Coded Allergies: amlodipine (Verified Allergy, Intermediate, 08/11/14) hydralazine (Verified Allergy, Intermediate, 08/11/14) sulfamethoxazole (Verified Allergy, Intermediate, 08/11/14) trimethoprim (Verified Allergy, Intermediate, 08/11/14) morphine (Verified Adverse Reaction, Intermediate, 08/11/14) PSYCHOLOGICAL ROS: No: Hallucinations Eyes: No: Loss of vision HEENT: No: Epistaxis Respiratory: No: Hemoptysis Cardiovascular: yes: Chest Pain Gastrointestinal: No: Vomiting, Diarrhea Genitourinary: No: [place] Neurological: No: Seizures Skin: No: Rash General: Alert, No acute distress HEENT: Atraumatic, PERRLA Lungs: Clear to auscultation Heart: Other Abdomen: Soft, No tenderness Extremities: No edema Neuro: Normal speech VITALS Vital Signs Date Time Temp Pulse Resp B/P (MAP) Pulse Ox O2 Delivery O2 Flow Rate FiO2 07/29/18 15:29 Room Air 07/29/18 15:06 115 175/102 07/29/18 13:35 98.1 20 97 Labs Laboratory Tests Test 07/29/18 11:57 07/29/18 14:45 07/29/18 16:08 White Blood Count 16.3 x10^3/uL (4.0-11.0) Red Blood Count 5.73 x10^6/uL (3.50-5.40) Hemoglobin 15.6 g/dL (12.0-15.5) Hematocrit 48.7 % (36.0-47.0) Mean Corpuscular Volume 85 fL (79-100) Mean Corpuscular Hemoglobin 27 pg (25-35) Mean Corpuscular Hemoglobin Concent 32 g/dL (31-37) Red Cell Distribution Width 18.7 % (11.5-14.5) Platelet Count 538 x10^3/uL (140-400) Neutrophils (%) (Auto) 92 % (31-73) Lymphocytes (%) (Auto) 5 % (24-48) Monocytes (%) (Auto) 3 % (0-9) Eosinophils (%) (Auto) 1 % (0-3) Basophils (%) (Auto) 0 % (0-3) Neutrophils # (Auto) 15.0 x10^3uL (1.8-7.7) Lymphocytes # (Auto) 0.8 x10^3/uL (1.0-4.8) Monocytes # (Auto) 0.4 x10^3/uL (0.0-1.1) Eosinophils # (Auto) 0.1 x10^3/uL (0.0-0.7) Basophils # (Auto) 0.0 x10^3/uL (0.0-0.2) Segmented Neutrophils % 84 % (35-66) Band Neutrophils % 10 % (0-9) Lymphocytes % 2 % (24-48) Monocytes % 3 % (0-10) Eosinophils % 0 % (0-5) Basophils % 1 % (0-3) Platelet Estimate Increased (ADEQUATE) Large Platelets Few Anisocytosis Present Tear Drop Cells Present Crenated Cell Present Prothrombin Time 13.8 SEC (9.4-11.4) Prothromb Time International Ratio 1.4 (0.9-1.1) Activated Partial Thromboplast Time 28 SEC (23-33) D-Dimer (Tracy) 2.31 mg/L (0.00-0.50) Sodium Level 142 mmol/L (136-145) Potassium Level 4.1 mmol/L (3.5-5.1) Chloride Level 102 mmol/L (98-107) Carbon Dioxide Level 28 mmol/L (21-32) Anion Gap 12 (6-14) Blood Urea Nitrogen 18 mg/dL (7-20) Creatinine 1.3 mg/dL (0.6-1.0) Estimated GFR (Cockcroft-Gault) 40.2 BUN/Creatinine Ratio 14 (6-20) Glucose Level 144 mg/dL (70-99) Calcium Level 9.7 mg/dL (8.5-10.1) Magnesium Level 1.9 mg/dL (1.8-2.4) Total Bilirubin 1.9 mg/dL (0.2-1.0) Aspartate Amino Transf (AST/SGOT) 22 U/L (15-37) Alanine Aminotransferase (ALT/SGPT) 20 U/L (14-59) Alkaline Phosphatase 82 U/L (46-116) Troponin I Quantitative < 0.017 ng/mL (0-0.055) < 0.017 ng/mL (0-0.055) PT-Oiv-H-Type Natriuretic Peptide 32408 pg/mL (0-124) Total Protein 7.0 g/dL (6.4-8.2) Albumin 4.1 g/dL (3.4-5.0) Albumin/Globulin Ratio 1.4 (1.0-1.7) Lipase 99 U/L (73-393) Urine Collection Type Unknown Urine Color Janiya Urine Clarity Cloudy Urine pH 6.0 Urine Specific [place] 1.025 Urine Protein 100 mg/dl (NEG-TRACE) Urine Glucose (UA) Neg mg/dL (NEG) Urine Ketones (Stick) 15 mg/dL (NEG) Urine Blood Neg (NEG) Urine Nitrite Neg (NEG) Urine Bilirubin Mod (NEG) Urine Urobilinogen Dipstick 1 mg/dL (0.2 mg/dL) Urine Leukocyte Esterase Small (NEG) Urine RBC 3-5 /HPF (0-2) Urine WBC 20-40 /HPF (0-4) Urine Squamous Epithelial Cells Occ /LPF Urine Bacteria Mod /HPF (0-FEW) Urine Mucus Mod /LPF Assessment/Plan 1. Persistent Atrial fibrillation with RVR probably from stopping all her meds. Start metoprolol for rate control and resume her eliquis for stroke prophylaxis. Plan 2D echo as outpatient. 2. Chest pain probably from RVR: presently resolved. CA ruled out. She has hi story of CAD with remote PCI. Plan Lexiscan nuclear stress test as outpatient. 3. HTN: BP elevated. Start metoprolol as stated above 4. HLP: statins 5. Depression with suicidal ideation: Psych consult Thank you for your consultation DYLAN SANTIAGO MD July 29, 2018 17:07
--- NOTE | 2018-07-29 18:51 | NUR ---
NURSING NOTE DR GUS WEBER SUGGEST THAT PT COME UPSTAIRS FOR MEDICATION ADJUSTMENT AFTER MEDICALLY STABLE. PT SEVERELY DEPRESSED AND VOICING SUICIDAL THOUGHTS. TERRY REA.
[2018-07-29 19:27] VITALS: BP 198/101
[2018-07-29] MEDS ORDERED: LABETALOL 20 MG/4 ML DISP.SYRIN. IVP PRN (19:30)
[2018-07-29] MEDS: APIXABAN 5 MG TABLET. PO SCH (20:46)
[2018-07-29] MEDS: SIMVASTATIN 40 MG TABLET. PO SCH (20:46)
[2018-07-29] MEDS: LORazepam 0.5 MG TABLET PO SCH (20:53)
--- NOTE | 2018-07-29 20:57 | NUR ---
2200 Ativan given early per Patient request. Patient stated "I want to go to sleep."
[2018-07-29] MEDS ORDERED: CITALOPRAM 20 MG TABLET. PO SCH (21:00)
[2018-07-29] MEDS: cloNIDine HCL 0.1 MG TABLET PO PRN (21:08)
--- NOTE | 2018-07-29 21:08 | NUR ---
B/P 188/105, pulse 78. Scheduled metoprolol given earlier and call to [facility] Pharmacist to verify giving PRN B?P med with metoprolol. [facility] stated Clonidine okay to give with metoprolol. Clonidine given per order. Will monitor.
[2018-07-29 22:12] VITALS: BP 185/94
[2018-07-30] VITALS (7 sets, daily range): BP systolic 99–200; BP diastolic 61–103
[2018-07-30] MEDS: LORazepam 0.5 MG TABLET PO SCH ×3 (05:16→21:09)
[2018-07-30] MEDS: IV DEXTROSE 5 %-0.45 % NACL 1,000 ML IV SCH ×2 (05:16→19:56)
[2018-07-30] MEDS: LEVOTHYROXINE 75 MCG TABLET PO SCH (05:16)
[2018-07-30] MEDS: APIXABAN 5 MG TABLET. PO SCH ×2 (09:16→21:09)
[2018-07-30] MEDS: LACTOBACILLUS RHAMNOSUS GG 1 CAPSULE. PO SCH ×2 (09:16→21:09)
[2018-07-30] MEDS: ISOSORBIDE MONONITRATE ER 30 MG TAB.ER.24H PO SCH (09:16)
[2018-07-30] MEDS: METOPROLOL TART IMMED RELEASE 50 MG TABLET PO SCH ×2 (09:16→21:09)
[2018-07-30 13:46] LABS: HEMATOCRIT 42.9 % (36.0-47.0); HEMOGLOBIN 13.9 g/dL (12.0-15.5); RED BLOOD COUNT 5.06 x10^6/uL (3.50-5.40); RED CELL DISTRIBUTION WIDTH 18.5 % (11.5-14.5); WHITE BLOOD COUNT 9.8 x10^3/uL (4.0-11.0)
[2018-07-30 13:54] LABS: CALCIUM 8.3 mg/dL (8.5-10.1); CREATININE 1.1 mg/dL (0.6-1.0); GFR 48.7; POTASSIUM 3.3 mmol/L (3.5-5.1)
--- NOTE | 2018-07-30 14:19 | PN ---
DATE: 07/30/2018 SUBJECTIVE: The patient is resting slightly propped up in bed, in no apparent distress. Awake, alert. On questioning her, she denied any chest discomfort. Denied any dysuria or frequency. The nursing staff stated that apparently she has had episodes of anxiety, during which her blood pressure was high, however her heart rate is much better now that she is on metoprolol 50 mg twice a day. OBJECTIVE: GENERAL: When I examined her, there is no pallor, jaundice, cyanosis, or thyromegaly. No jugular venous distension. No lower limb edema. VITAL SIGNS: Her heart rate was 84, blood pressure was 125/83, temperature was 98.2, respiratory rate was 22, and oxygen saturation was 95%. HEAD, EYES, EARS, NOSE, AND THROAT: Showed normocephalic, atraumatic. NECK: Supple. HEART: Showed normal first and second heart sounds. No gallop, rub, or murmur. CHEST: Clear to auscultation. No crepitation or rhonchi. ABDOMEN: Slightly distended, soft, nontender. No guarding or rigidity. No organomegaly. All hernial orifices were intact. Bowel sounds normal. NEUROLOGIC: She was awake, alert, responding appropriately. All her cranial nerves were intact. She moved her extremities without difficulty. ASSESSMENT: 1. Atrial fibrillation with rapid ventricular response. 2. Chest pain, for which she had 3 sets of cardiac enzymes which were all negative. Her D-dimer was high at 2.3. The patient was supposed to be on apixaban. However, after the of her daughter, she was not really compliant with her medication. Unfortunately, we could not do the CT angio yesterday because of her impaired kidney function and we did start her on IV fluid. Today's labs are still pending at the time of this dictation. 3. Other medical problems include hypertension, hyperlipidemia, and hypothyroidism. PLAN: To continue with IV antibiotic in the form of ceftriaxone. Await the result of the urine culture and sensitivity. Continue with IV fluid for now and await the results of the lab work and continue with metoprolol. We will start a course of physical and occupational therapy and we have consulted Dr. Ballesteros as the patient continued to be extremely depressed and has some suicidal ideation after the of her daughter. MARIA E FERRARA MD DR: Sharmin JOB#: [id number] / [id number]
[2018-07-30] MEDS: cloNIDine HCL 0.1 MG TABLET PO PRN ×3 (16:03→21:51)
--- NOTE | 2018-07-30 19:41 | CONS ---
DATE OF CONSULTATION: 07/30/2018 PSYCHIATRIC CONSULTATION This late entry, 07/29/2018, covers elements not covered in my initial note of 07/29/2018. I met with the patient evening of 07/29/2018. Discussed with nursing staff, reviewed the chart. IDENTIFYING DATA: The patient is a 73-year-old female seen in bed 124, 1 [facility] for a psychiatric consult requested by Dr. Brady on account of the patient's worsening symptoms of depression, anxiety, presenting with somatic symptoms, hopelessness, suicidal ideation, but with no active plan, intent or attempt. All of this has worsened since the sudden of her approximately 50-year-old daughter who of an CA within the last 3 weeks. The patient had been living with the daughter and essentially the two of them were the entire support for each other. I have been asked to consult from a psychiatric standpoint to make recommendations for her depression and suicidal ideation. CHIEF COMPLAINT: "Yes, I have been depressed. I can't go on living without my daughter. She of heart attack 2 days ago." The patient is confused, somewhat forgetful. In fact, the daughter around 07/06/2018 and the patient believes is 07/08/2018 and therefore believes it, which is 2 days ago. HISTORY OF PRESENT ILLNESS: The patient has a history of worsening symptoms of bereavement/depression. She has had significant insomnia admits to feeling helpless, hopeless and worthless. She has had some short-term memory deficits. No clear history of psychotic symptoms, but suicidal ideation noted above. No homicidal ideation. No history of bipolar disorder. PAST PSYCHIATRIC HISTORY: As above. MEDICAL HISTORY: Positive for chest pain and the patient presented to the ER for this. She has leukocytosis, acute kidney injury, possible history of pulmonary embolism, atrial fibrillation with RVR and hypothyroidism. DRUG ALLERGIES: AMLODIPINE, HYDRALAZINE, MORPHINE, SULFAMETHOXAZOLE, TRIMETHOPRIM. CURRENT PSYCHOTROPICS: Ambien 10 mg at bedtime p.r.n., Celexa 40 mg a day, Ativan 0.5 mg q. 8 hours scheduled. She is also on Zocor, metoprolol, Synthroid 75 mcg a day and she is on Rocephin as well. FAMILY HISTORY: Noncontributory. 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 She just had the one daughter who recently. No alcohol or drug abuse. MENTAL STATUS EXAMINATION: The patient was seen individually evening of 07/29/2018. She is oriented to herself, situation, unaware of the date, but knew the year. She knew the name of the president. Speech coherent, has some latency. Abstraction fair, computation impaired, language function intact, attention span short. Mood is depressed, anxious. Affect is mood congruent. No active suicidal ideation, but she does admit to feeling hopeless, helpless, worthless with fleeting suicidal ideation. LABORATORY DATA: Reviewed. IMPRESSION: Major depressive disorder, recurrent; bereavement; mild cognitive impairment versus major neurocognitive disorder; early vascular with depression; anxiety disorder, unspecified. Rest as above. PLAN: From a psychiatric standpoint, I would suggest changing the Celexa to Zoloft 50 mg a day, may need to be increased gradually and add Abilify 2 mg a day to augment the Zoloft given the fact that she has failed treatment on Celexa 40 mg a day. She may need to be transferred [facility] when she is medically stabilized and may need out of home placement depending on what services can be provided in the home. Dr. Brady, thank you for the opportunity to participate in your patient's care. We will follow with you. LEMUEL WEBER MD DR: MARCELO/francis JOB#: [id number] / [id number]
[2018-07-30] MEDS: SIMVASTATIN 40 MG TABLET. PO SCH (21:09)
[2018-07-30] MEDS: ZOLPIDEM 5 MG TABLET. PO PRN (21:52)
--- NOTE | 2018-07-30 23:13 | PDOC ---
Exam Note: Konstantin Note: Please also refer to the separate dictated note~for this date of service dictated separately.~Patient seen individually. Discussed the patient with Nursing staff reviewed the chart.~Reviewed interim history and current functioning. Reviewed vital signs,~Labs/ Radiology~and current medications noted below. Continue current treatment with the changes noted in the dictated addendum note Assessment: Vital Signs: Vital Signs Date Time Temp Pulse Resp B/P (MAP) Pulse Ox O2 Delivery O2 Flow Rate FiO2 07/30/18 21:56 97.0 77 18 99/61 (74) 97 Room Air I&O Intake and Output 07/30/18 06:59 Intake Total 1290 ml Output Total 100 ml Balance 1190 ml Intake Oral 240 ml IV Total 1050 ml Output Urine Total 100 ml # Voids 1 Labs: Laboratory Tests Test 07/30/18 13:40 White Blood Count 9.8 x10^3/uL (4.0-11.0) Red Blood Count 5.06 x10^6/uL (3.50-5.40) Hemoglobin 13.9 g/dL (12.0-15.5) Hematocrit 42.9 % (36.0-47.0) Mean Corpuscular Volume 85 fL (79-100) Mean Corpuscular Hemoglobin 27 pg (25-35) Mean Corpuscular Hemoglobin Concent 32 g/dL (31-37) Red Cell Distribution Width 18.5 % (11.5-14.5) H Platelet Count 338 x10^3/uL (140-400) Sodium Level 142 mmol/L (136-145) Potassium Level 3.3 mmol/L (3.5-5.1) L Chloride Level 104 mmol/L (98-107) Carbon Dioxide Level 30 mmol/L (21-32) Anion Gap 8 (6-14) Blood Urea Nitrogen 12 mg/dL (7-20) Creatinine 1.1 mg/dL (0.6-1.0) H Estimated GFR (Cockcroft-Gault) 48.7 Glucose Level 89 mg/dL (70-99) Calcium Level 8.3 mg/dL (8.5-10.1) L Current Medications: Meds: Current Medications Metoprolol Tartrate (Lopressor Vial) 5 mg 1X ONCE IV Last administered on 07/29/18at 12:22; Start 07/29/18 at 12:30; Stop 07/29/18 at 12:31; Status DC Ondansetron HCl (Zofran) 4 mg PRN Q4HRS PRN IV NAUSEA/VOMITING; Start 07/29/18 at 13:00; Stop 07/30/18 at 12:59; Status DC Acetaminophen (Tylenol) 650 mg PRN Q4HRS PRN PO FEVER; Start 07/29/18 at 13:00; Stop 07/30/18 at 12:59; Status DC Ceftriaxone Sodium 1 gm/ Sodium Chloride 50 ml @ 100 mls/hr Q24H IV Last administered on 07/30/18 14:04; Start 07/29/18 at 14:30 Dextrose/Sodium Chloride 1,000 ml @ 75 mls/hr [id number] IV Last administered on 07/30/18 19:56; Start 07/29/18 at 14:30 Isosorbide Mononitrate (Imdur) 15 mg DAILY PO Last administered on 07/30/18 09:16; Start 07/29/18 at 15:00 Levothyroxine Sodium (Synthroid) 75 mcg DAILY06 PO Last administered on 07/30/18 05:16; Start 07/30/18 at 06:00 Simvastatin (Zocor) 40 mg HS PO Last administered on 07/30/18 21:09; Start 07/29/18 at 21:00 Citalopram Hydrobromide (CeleXA) 40 mg QHS PO Last administered on 07/29/18 20:46; Start 07/29/18 at 21:00; Stop 07/30/18 at 18:49; Status DC Acetaminophen/ Hydrocodone Bitart (Lortab 5/325) 1 tab PRN Q6HRS PRN PO PAIN; Start 07/29/18 at 14:45 Lorazepam (Ativan) 0.5 mg Q8HRS PO Last administered on 07/30/18 21:09; Start 07/29/18 at 22:00 Metoprolol Tartrate (Lopressor) 50 mg BID PO Last administered on 07/30/18 21:09; Start 07/29/18 at 15:00 Zolpidem Tartrate (Ambien) 10 mg PRN QHS PRN PO INSOMNIA Last administered on 5/25/19at 21:52; Start 07/29/18 at 14:45 Apixaban (Eliquis) 5 mg BID PO Last administered on 07/30/18at 21:09; Start 07/29/18 at 21:00 Digoxin (Lanoxin) 500 mcg 1X ONCE IV Last administered on 07/29/18at 14:56; Start 07/29/18 at 14:30; Stop 07/29/18 at 14:42; Status DC Labetalol HCl (Normodyne) 10 mg PRN Q2HR PRN IVP HYPERTENSION; Start 07/29/18 at 19:30 Clonidine HCl (Catapres) 0.1 mg PRN Q2HR PRN PO HYPERTENSION Last administered on 07/30/18at 21:51; Start 07/29/18 at 19:30 Lactobacillus Rhamnosus (Culturelle) 1 cap BID PO Last administered on 07/30/18at 21:09; Start 07/30/18 at 09:00 Sertraline HCl (Zoloft) 50 mg DAILY PO ; Start 07/31/18 at 09:00 Aripiprazole (Abilify) 2 mg DAILY PO ; Start 07/31/18 at 09:00 Active Scripts Active Eliquis (Apixaban) 5 Mg Tablet 5 Mg PO BID 30 Days [place] 5-325 Tablet (Hydrocodone Bit/Acetaminophen) 1 Each Tablet 1 Tab PO PRN Q6HRS PRN Reported Lorazepam 0.5 Mg Tablet 1 Tab PO Q8HRS Bystolic (Nebivolol Hcl) 10 Mg Tablet 20 Mg PO DAILY LAST DOSE GIVEN: DATE: TODAY TIME: AM NEXT DOSE DUE: DATE: TODAY TIME: AM Levothyroxine Sodium 100 Mcg Tablet 75 Mcg PO DAILYAC LAST DOSE GIVEN: DATE: TODAY TIME: AM NEXT DOSE DUE: DATE: TOMORROW TIME: AM Isosorbide Mononitrate Er (Isosorbide Mononitrate) 30 Mg Tab.er.24h 15 Mg PO DAILY LAST DOSE GIVEN: DATE: TODAY TIME: AM NEXT DOSE DUE: DATE: TOMORROW TIME: AM Losartan Potassium 100 Mg Tablet 100 Mg PO DAILY LAST DOSE GIVEN: DATE: TODAY TIME: AM NEXT DOSE DUE: DATE: TOMORROW TIME: AM Citalopram Hbr (Citalopram Hydrobromide) 40 Mg Tablet 40 Mg PO QHS LAST DOSE GIVEN: DATE: YESTERDAY TIME: AT BEDTIME NEXT DOSE DUE: DATE: TODAY TIME: AT BEDTIME Simvastatin 40 Mg Tablet 40 Mg PO HS LAST DOSE GIVEN: DATE: YESTERDAY TIME: AT BEDTIME NEXT DOSE DUE: DATE: TODAY TIME: AT BEDTIME Zolpidem Tartrate 10 Mg Tablet 10 Mg PO PRN QHS PRN LAST DOSE GIVEN: DATE: TIME: NEXT DOSE DUE: DATE: TODAY TIME: AT BEDTIME, IF NEEDED I have reviewed the current psychotropics carefully including drug interactions. Risk benefit ratio favors no change other than as noted in my dictated progress note. Diagnosis: Problems: (1) Anxiety disorder (2) Major depressive disorder, recurrent episode (3) Mild cognitive impairment (4) Major neurocognitive disorder (5) Syncope LEMUEL WEBER MD July 30, 2018 23:13
--- NOTE | 2018-07-31 04:42 | NUR ---
Per Dr. Ballesteros, new medications to be started 07/31 am. Discussed new medications with PT. PT stated she needed something for sleep and was given her PRN Ambien. PT has been very disoriented throughout the night following administration of Ambien which is outside normal for her. PT still stating suicide thoughts, no plan. PT has been either sitting quietly watching TV or sleeping throughout the night for this shift. PT is very pleasant and cooperative with cares and medications.
[2018-07-31] MEDS: LEVOTHYROXINE 75 MCG TABLET PO SCH (06:17)
[2018-07-31] MEDS: LORazepam 0.5 MG TABLET PO SCH ×3 (06:17→21:16)
[2018-07-31 06:27] VITALS: BP 169/100
[2018-07-31 07:32] LABS: CALCIUM 8.5 mg/dL (8.5-10.1); CREATININE 0.9 mg/dL (0.6-1.0); GFR 61.4; HEMATOCRIT 45.3 % (36.0-47.0); HEMOGLOBIN 14.7 g/dL (12.0-15.5); RED BLOOD COUNT 5.34 x10^6/uL (3.50-5.40); RED CELL DISTRIBUTION WIDTH 18.3 % (11.5-14.5); WHITE BLOOD COUNT 8.6 x10^3/uL (4.0-11.0)
[2018-07-31 07:57] LABS: POTASSIUM 2.9 mmol/L (3.5-5.1)
[2018-07-31] MEDS ORDERED: POTASSIUM CHLORIDE 20 MEQ TABLET.ER. PO ONE ×3 (08:30→10:30)
[2018-07-31] MEDS: LACTOBACILLUS RHAMNOSUS GG 1 CAPSULE. PO SCH ×2 (08:56→20:49)
[2018-07-31] MEDS: APIXABAN 5 MG TABLET. PO SCH ×2 (08:57→20:49)
[2018-07-31] MEDS: SERTRALINE 50 MG TABLET. PO SCH (08:57)
[2018-07-31] MEDS: ARIPiprazole 2 MG TABLET PO SCH (08:57)
[2018-07-31] MEDS: ISOSORBIDE MONONITRATE ER 30 MG TAB.ER.24H PO SCH (08:58)
[2018-07-31] MEDS: METOPROLOL TART IMMED RELEASE 50 MG TABLET PO SCH ×2 (08:58→20:49)
[2018-07-31] MEDS: IV DEXTROSE 5 %-0.45 % NACL 1,000 ML IV SCH (09:48)
[2018-07-31] MEDS ORDERED: POTASSIUM CHLORIDE 20 MEQ/15 ML ORAL LIQUID. PEG ONE ×2 (10:00→11:00)
[2018-07-31 11:13] VITALS: BP 189/107
[2018-07-31 12:54] LABS: CALCIUM 8.5 mg/dL (8.5-10.1); GFR 54.3; POTASSIUM 4.2 mmol/L (3.5-5.1)
[2018-07-31 13:06] LABS: THYROXINE 10.9 ug/dL (4.5-12.0)
[2018-07-31 14:51] VITALS: BP 197/122
--- NOTE | 2018-07-31 19:17 | PN ---
DATE: 07/30/2018 PSYCHIATRIC PROGRESS NOTE This late entry 07/30/2018 covers elements not covered in my initial note. SUBJECTIVE: I met with the patient in the evening of 07/30/2018. Overall, per nursing report, the patient is doing a little better. She is still depressed, hopeless, somewhat worthless, but denies active suicidal ideation. She remains on q.15-minute checks. REVIEW OF SYSTEMS: Positive for impaired ambulation, lying in her bed. No CV, , pulmonary, eye, ENT system symptoms on review. MENTAL STATUS EXAM: Oriented to herself and situation. Speech has some latency, low in rate and rhythm, low in volume. Abstraction fair, computation impaired, language function intact, attention span short. Mood and affect remains depressed, anxious. LABORATORY DATA: Reviewed. IMPRESSION: 1. Major depressive disorder, severe. 2. Bereavement. PLAN: We had a lengthy discussion. We have changed the Celexa to Zoloft 50 mg a day and augmented it with Abilify 2 mg daily. I have received informed consent from the patient for this. She may need [facility] when she is medically stable. Given her ongoing significant depressive symptoms, suicidal ideation, even though they are not active remain problematic because she lives alone at home. There is limited family involvement and the main support system she had was with her daughter who was noted has recently . We had to have to all this assessed and stabilized prior to appropriate transition to a level of care, appropriate for her functioning and suicidality and mood symptoms. LEMUEL WEBER MD DR: MARCELO/francis JOB#: [id number] / [id number]
[2018-07-31 19:50] VITALS: BP 162/88
--- NOTE | 2018-07-31 20:12 | NUR ---
Went over plan of care with patient. Patient voiced understanding. Call light within reach. Will continue to monitor.
[2018-07-31] MEDS: SIMVASTATIN 40 MG TABLET. PO SCH (20:49)
[2018-07-31 21:05] VITALS: BP 146/82
--- NOTE | 2018-07-31 21:33 | PDOC ---
Exam Note: Konstantin Note: Please also refer to the separate dictated note~for this date of service dictated separately.~Patient seen individually. Discussed the patient with Nursing staff reviewed the chart.~Reviewed interim history and current functioning. Reviewed vital signs,~Labs/ Radiology~and current medications noted below. Continue current treatment with the changes noted in the dictated addendum note Assessment: Vital Signs: Vital Signs Date Time Temp Pulse Resp B/P (MAP) Pulse Ox O2 Delivery O2 Flow Rate FiO2 07/31/18 21:05 97 20 146/82 (103) 96 Room Air 07/31/18 19:50 98.2 I&O Intake and Output 07/31/18 07:00 Intake Total 1890 ml Output Total 1300 ml Balance 590 ml Intake Oral 840 ml IV Total 1050 ml Output Urine Total 1300 ml # Voids 2 Labs: Laboratory Tests Test 07/31/18 06:36 07/31/18 12:42 White Blood Count 8.6 x10^3/uL (4.0-11.0) Red Blood Count 5.34 x10^6/uL (3.50-5.40) Hemoglobin 14.7 g/dL (12.0-15.5) Hematocrit 45.3 % (36.0-47.0) Mean Corpuscular Volume 85 fL (79-100) Mean Corpuscular Hemoglobin 28 pg (25-35) Mean Corpuscular Hemoglobin Concent 33 g/dL (31-37) Red Cell Distribution Width 18.3 % (11.5-14.5) H Platelet Count 335 x10^3/uL (140-400) Sodium Level 142 mmol/L (136-145) 141 mmol/L (136-145) Potassium Level 2.9 mmol/L (3.5-5.1) *L 4.2 mmol/L (3.5-5.1) # Chloride Level 104 mmol/L (98-107) 105 mmol/L (98-107) Carbon Dioxide Level 29 mmol/L (21-32) 30 mmol/L (21-32) Anion Gap 9 (6-14) 6 (6-14) Blood Urea Nitrogen 10 mg/dL (7-20) 8 mg/dL (7-20) Creatinine 0.9 mg/dL (0.6-1.0) 1.0 mg/dL (0.6-1.0) Estimated GFR (Cockcroft-Gault) 61.4 54.3 Glucose Level 99 mg/dL (70-99) 104 mg/dL (70-99) H Calcium Level 8.5 mg/dL (8.5-10.1) 8.5 mg/dL (8.5-10.1) Current Medications: Meds: Current Medications Metoprolol Tartrate (Lopressor Vial) 5 mg 1X ONCE IV Last administered on 07/29/18at 12:22; Start 07/29/18 at 12:30; Stop 07/29/18 at 12:31; Status DC Ondansetron HCl (Zofran) 4 mg PRN Q4HRS PRN IV NAUSEA/VOMITING; Start 07/29/18 at 13:00; Stop 07/30/18 at 12:59; Status DC Acetaminophen (Tylenol) 650 mg PRN Q4HRS PRN PO FEVER; Start 07/29/18 at 13:00; Stop 07/30/18 at 12:59; Status DC Ceftriaxone Sodium 1 gm/ Sodium Chloride 50 ml @ 100 mls/hr Q24H IV Last administered on 07/31/18 14:09; Start 07/29/18 at 14:30 Dextrose/Sodium Chloride 1,000 ml @ 75 mls/hr [id number] IV Last administered on 07/31/18at 09:48; Start 07/29/18 at 14:30; Stop 07/31/18 at 15:18; Status DC Isosorbide Mononitrate (Imdur) 15 mg DAILY PO Last administered on 07/31/18at 08:58; Start 07/29/18 at 15:00 Levothyroxine Sodium (Synthroid) 75 mcg DAILY06 PO Last administered on 07/31/18 06:17; Start 07/30/18 at 06:00 Simvastatin (Zocor) 40 mg HS PO Last administered on 07/31/18at 20:49; Start 07/29/18 at 21:00 Citalopram Hydrobromide (CeleXA) 40 mg QHS PO Last administered on 07/29/18at 20:46; Start 07/29/18 at 21:00; Stop 07/30/18 at 18:49; Status DC Acetaminophen/ Hydrocodone Bitart (Lortab 5/325) 1 tab PRN Q6HRS PRN PO PAIN; Start 07/29/18 at 14:45 Lorazepam (Ativan) 0.5 mg Q8HRS PO Last administered on 07/31/18 21:16; Start 07/29/18 at 22:00 Metoprolol Tartrate (Lopressor) 50 mg BID PO Last administered on 07/31/18 20:49; Start 07/29/18 at 15:00 Zolpidem Tartrate (Ambien) 10 mg PRN QHS PRN PO INSOMNIA Last administered on 07/30/18 21:52; Start 07/29/18 at 14:45 Apixaban (Eliquis) 5 mg BID PO Last administered on 07/31/18 20:49; Start 07/29/18 at 21:00 Digoxin (Lanoxin) 500 mcg 1X ONCE IV Last administered on 07/29/18 14:56; Start 07/29/18 at 14:30; Stop 07/29/18 at 14:42; Status DC Labetalol HCl (Normodyne) 10 mg PRN Q2HR PRN IVP HYPERTENSION; Start 07/29/18 at 19:30 Clonidine HCl (Catapres) 0.1 mg PRN Q2HR PRN PO HYPERTENSION Last administered on 07/30/18 21:51; Start 07/29/18 at 19:30 Lactobacillus Rhamnosus (Culturelle) 1 cap BID PO Last administered on 07/31/18 20:49; Start 07/30/18 at 09:00 Sertraline HCl (Zoloft) 50 mg DAILY PO Last administered on 07/31/18 08:57; Start 07/31/18 at 09:00 Aripiprazole (Abilify) 2 mg DAILY PO Last administered on 07/31/18 08:57; Start 07/31/18 at 09:00 Potassium Chloride (Klor-Con) 40 meq 1X ONCE PO Last administered on 07/31/18 08:57; Start 07/31/18 at 08:30; Stop 07/31/18 at 08:31; Status DC Potassium Chloride (Klor-Con) 40 meq 1X ONCE PO ; Start 07/31/18 at 09:30; Stop 07/31/18 at 09:31; Status Cancel Potassium Chloride (Klor-Con) 40 meq 1X ONCE PO ; Start 07/31/18 at 10:30; Stop 07/31/18 at 10:31; Status Cancel Potassium Chloride (KCl Oral Soln) 40 meq 1X ONCE PEG Last administered on 07/31/18at 10:31; Start 07/31/18 at 10:00; Stop 07/31/18 at 10:01; Status DC Potassium Chloride (KCl Oral Soln) 40 meq 1X ONCE PEG Last administered on 07/31/18at 11:40; Start 07/31/18 at 11:00; Stop 07/31/18 at 11:01; Status DC Active Scripts Active Eliquis (Apixaban) 5 Mg Tablet 5 Mg PO BID 30 Days [place] 5-325 Tablet (Hydrocodone Bit/Acetaminophen) 1 Each Tablet 1 Tab PO PRN Q6HRS PRN Reported Lorazepam 0.5 Mg Tablet 1 Tab PO Q8HRS Bystolic (Nebivolol Hcl) 10 Mg Tablet 20 Mg PO DAILY LAST DOSE GIVEN: DATE: TODAY TIME: AM NEXT DOSE DUE: DATE: TODAY TIME: AM Levothyroxine Sodium 100 Mcg Tablet 75 Mcg PO DAILYAC LAST DOSE GIVEN: DATE: TODAY TIME: AM NEXT DOSE DUE: DATE: TOMORROW TIME: AM Isosorbide Mononitrate Er (Isosorbide Mononitrate) 30 Mg Tab.er.24h 15 Mg PO D AILY LAST DOSE GIVEN: DATE: TODAY TIME: AM NEXT DOSE DUE: DATE: TOMORROW TIME: AM Losartan Potassium 100 Mg Tablet 100 Mg PO DAILY LAST DOSE GIVEN: DATE: TODAY TIME: AM NEXT DOSE DUE: DATE: TOMORROW TIME: AM Citalopram Hbr (Citalopram Hydrobromide) 40 Mg Tablet 40 Mg PO QHS LAST DOSE GIVEN: DATE: YESTERDAY TIME: AT BEDTIME NEXT DOSE DUE: DATE: TODAY TIME: AT BEDTIME Simvastatin 40 Mg Tablet 40 Mg PO HS LAST DOSE GIVEN: DATE: YESTERDAY TIME: AT BEDTIME NEXT DOSE DUE: DATE: TODAY TIME: AT BEDTIME Zolpidem Tartrate 10 Mg Tablet 10 Mg PO PRN QHS PRN LAST DOSE GIVEN: DATE: TIME: NEXT DOSE DUE: DATE: TODAY TIME: AT BEDTIME, IF NEEDED I have reviewed the current psychotropics carefully including drug interactions. Risk benefit ratio favors no change other than as noted in my dictated progress note. Diagnosis: Problems: (1) Major depressive disorder, recurrent episode (2) Anxiety disorder (3) Mild cognitive impairment LEMUEL WEBER MD July 31, 2018 21:33
--- NOTE | 2018-08-01 00:33 | PN ---
DATE: 07/31/2018 SUBJECTIVE: The patient is resting slightly propped up in bed, in no apparent distress. She denied any further episodes of dysuria or frequency. Denied any chills, rigors or fever. She continued to be depressed and has some suicidal ideation. Her potassium was low, also down to 2.9. OBJECTIVE: GENERAL: When I examined her, she was somewhat pale, but no jaundice, cyanosis, or thyromegaly. No jugular venous distension. No lower limb edema. VITAL SIGNS: Her heart rate was 67, blood pressure was 169/100, temperature was 98, respiratory rate was 18 and oxygen saturation was 94% on room air. HEAD, EYES, EARS, NOSE AND THROAT: Normocephalic, atraumatic. NECK: Supple. HEART: Showed normal first and second heart sounds with no gallop, rub or murmur. CHEST: Clear to auscultation. No crepitation or rhonchi. ABDOMEN: Distended, soft, nontender. No guarding or rigidity. No organomegaly. All hernial orifice intact. Bowel sounds normal. NEUROLOGIC: She is awake, alert, responding appropriately. All cranial nerves intact. He moves extremities without difficulty. She ambulates without assistance or assistive devices. Her intake over the last 24 hours was 1300, no output was recorded. LABORATORY DATA: Her lab work this morning showed a serum sodium 142, potassium 2.9, chloride 104, bicarbonate 29, anion gap of 9, BUN 10, creatinine 0.9, estimated GFR was 61 mL per minute. Her glucose was 99, calcium was 8.5. ASSESSMENT: 1. Atrial fibrillation with rapid ventricular response, much improved now. Her heart rate is well controlled. 2. Chest pain for which she has 3 sets of cardiac enzymes, they were all negative. Her D-dimer was elevated. I could not do the CT angio because of her abnormal kidney function initially; however, she is already on apixaban and I decided against doing the CT angio of the chest. 3. Urinary tract infection, responding to IV ceftriaxone. Her white cell count is down from 16,000 to 8000. 4. Other medical problems including: A. Hypertension. B. Hyperlipidemia. C. Hypothyroidism, however, her TSH was extremely low, so I did order T3, T4, free T4. 5. Severe depression with suicidal ideation for which she was seen by Dr. Ballesteros, who discontinued her Celexa and start her on Zoloft and Abilify. 6. Hypokalemia with serum potassium 2.9 for which we will start her on oral replacement protocol. I will repeat her labs tomorrow and we will decide whether she might require to go [facility] for [facility] psychiatric stabilization. MARIA E FERRARA MD DR: JAVI/francis JOB#: [id number] / [id number]
[2018-08-01] MEDS: LORazepam 0.5 MG TABLET PO SCH ×3 (05:05→21:40)
[2018-08-01] MEDS: LEVOTHYROXINE 75 MCG TABLET PO SCH (05:05)
[2018-08-01 05:55] VITALS: BP 157/87
[2018-08-01 06:28] LABS: CREATININE 0.9 mg/dL (0.6-1.0); GFR 61.4; MAGNESIUM 1.8 mg/dL (1.8-2.4); POTASSIUM 4.2 mmol/L (3.5-5.1)
[2018-08-01] MEDS: LACTOBACILLUS RHAMNOSUS GG 1 CAPSULE. PO SCH ×2 (08:15→21:40)
[2018-08-01] MEDS: METOPROLOL TART IMMED RELEASE 50 MG TABLET PO SCH (08:16)
[2018-08-01] MEDS: SERTRALINE 50 MG TABLET. PO SCH (08:18)
[2018-08-01] MEDS: APIXABAN 5 MG TABLET. PO SCH ×2 (08:18→21:40)
[2018-08-01] MEDS: ISOSORBIDE MONONITRATE ER 30 MG TAB.ER.24H PO SCH (08:18)
[2018-08-01] MEDS: ARIPiprazole 2 MG TABLET PO SCH (08:18)
--- NOTE | 2018-08-01 09:21 | NUR ---
NURSING NOTE SPOKE WITH PT THIS AM, TOLD HER DR WEBER MENTIONED ADMITTING HER UPSTAIRS ON OUR [facility] UNIT SO THAT WE CAN MONITOR HER MEDICATIONS AND SAFETY. PT STATES SHE WOULD BE OKAY WITH THAT. PT WAS STATED SHE IS DEPRESSED AND HAS NO WILL TO LIVE. PT HAS NO CURRENT PLAN OF SUICIDE BUT DOES STATE THAT SHE HAS SUICIDAL THOUGHTS AND THAT SHE DOES NOT LIKE TO BE HOME ALONE. TERRY REA.
--- NOTE | 2018-08-01 10:42 | NUR ---
NURSING NOTE CONTACT INFORMATION PT WAS HAVING A LOT OF TROUBLE REMEMBERING PHONE NUMBERS WHEN SHE FIRST WAS ADMITTED LAST WEEK. TODAY PT RECEIVED A CALL FROM JAC. [phone] CELL [phone] HOME CAN USE THIS HER CONTACT INFORMATION. TERRY REA.
[2018-08-01 11:00] VITALS: BP 170/107
[2018-08-01] MEDS: cloNIDine HCL 0.1 MG TABLET PO PRN ×4 (11:05→22:55)
[2018-08-01 15:28] VITALS: BP 180/100
--- NOTE | 2018-08-01 17:19 | PDOC ---
PROVIDER NOTE PROVIDER NOTE PROVIDER NOTE S: No new events. Awaiting transfer to psych floor. O: VS- BP elevated. 180/80's Irregular heart tones. Normal lung sounds. No edema. Labs reviewed: hgb/plts/cr/k stable. Meds: Metoprolol 50mg bid. Losartan 100mg daily Eliquis 5mg bid simvastatin 40mg daily Clonidine 0.1 mg prn Imdur 15mg daily Impression: 1. Afib with RVR -stable 2. Labile BP's. 3. Acute psychosis with MDD Plan 1. Stop metoprolol. Change to diltiazem. Noted several BP med allergies. Continue other meds. Supportive care. Thanks. RAJ BIRD MD August 01, 2018 17:19
[2018-08-01] MEDS: MIRTAZAPINE 7.5 MG TABLET. PO SCH (21:40)
[2018-08-01] MEDS: SIMVASTATIN 40 MG TABLET. PO SCH (21:40)
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
--- NOTE | 2018-08-01 22:24 | PN ---
DATE: 07/31/2018 PSYCHIATRIC PROGRESS NOTE This late entry 07/31/2018 covers elements not covered in my initial note. SUBJECTIVE: I met with the patient in the evening of 07/31/2018. Per nursing report, the patient remains depressed with some short-term memory deficits, fleeting suicidal ideation. Short term memory is impaired. She still believes her daughter about 2 days previously, whereas in fact she lost her daughter on 07/06/2018. She does complain of some ongoing insomnia. REVIEW OF SYSTEMS: No CV, , pulmonary, eye, ENT system symptoms on review. Reliability varies. MENTAL STATUS EXAM: Oriented to herself and situation. Speech coherent, abstraction fair, computation impaired, language function intact, attention span short. Mood and affect still remains depressed. LABORATORY DATA: Reviewed. IMPRESSION: Major depressive disorder, recurrent bereavement; anxiety disorder, unspecified; mild cognitive impairment. PLAN: Continue psychotropics from initial note. Add Remeron 7.5 mg p.o. at bedtime for insomnia and anxiety. She may need transfer to inpatient psychiatric service when she is medically stabilized. We will reassess this at that time. LEMUEL WEBER MD DR: MARCELO/francis JOB#: [id number] / [id number]
--- NOTE | 2018-08-01 23:38 | PN ---
DATE: 08/01/2018 SUBJECTIVE: The patient is resting, slightly propped up in bed, in no apparent respiratory distress. She is awake, alert, continues obviously to complain of being depressed and suicidal and the suicidal ideation continued to be persistent. Her hypokalemia resolved. Her white cell count came down from 16,000 to 8000. Her TSH was undetectable and therefore we checked her T3, T4 and free T4, and clearly her free T4 was high at 1.67, so I cut down her Synthroid or levothyroxine from 75 to 50. Her urine culture showed growth of Staphylococcus saprophyticus, which is basically sensitive to all antibiotic, although there is only 25,000 colony forming units per mL. PHYSICAL EXAMINATION: GENERAL: When I examined her this afternoon, she looked well and was clearly in no apparent respiratory distress, pale, but no jaundice, cyanosis, or thyromegaly. No jugular venous distension. No lower limb edema. VITAL SIGNS: Her heart rate was 88, blood pressure was 170/107, temperature was 97.8, respiratory rate was 18 and oxygen saturation was 96% on room air. HEAD, EYES, EARS, NOSE AND THROAT: Showed normocephalic, atraumatic. NECK: Supple. HEART: Showed normal first and second heart sounds. No gallop, rub or murmur. CHEST: Clear to auscultation. No crepitation or rhonchi. ABDOMEN: Distended, soft, nontender. No guarding or rigidity. No organomegaly. All hernial orifice intact. Bowel sounds normal. NEUROLOGIC: She was awake, alert, responding appropriately. All cranial nerves are intact. She moves extremities without difficulty. She ambulates without assistance or assistive devices. Her intake over the last 24 hours was 1890, output was 1300. LABORATORY DATA: Her lab work this morning showed a white cell count of 8600, hemoglobin 15, hematocrit 45, MCV 85 and platelet count of 335,000. Her serum sodium was 141, potassium 4.2, chloride 104, bicarbonate 31, anion gap of 6, BUN 10, creatinine 0.9. Estimated GFR was 61 mL per minute. Her glucose was 85, calcium was 9, magnesium was 1.8. Her TSH was extremely low at 0.286. Her free T4 was high at 1.67. The upper limit of normal is 1.46. Her free T4 was 10.9 and total T3 was 102 ng/dL. ASSESSMENT: 1. Atrial fibrillation with rapid ventricular response, much improved now. Her heart rate is well controlled. 2. Hypertension, suboptimally controlled, so I added lisinopril as she is ALLERGIC TO AMLODIPINE and HYDRALAZINE. She was actually on losartan. For her low TSH and high free T4, I cut down her Synthroid or levothyroxine to 50 mcg once a day. I will resume her losartan and apparently the plan was for her to go [facility] inpatient psychiatric stabilization for depression and suicidal ideation; however, her insurance would not authorize that transfer unless she was refused by other Psych Unit. MARIA E FERRARA MD DR: JAVI/francis JOB#: [id number] / [id number]
[2018-08-01 23:53] VITALS: BP 178/107
[2018-08-02] VITALS (7 sets, daily range): BP systolic 102–164; BP diastolic 63–85
[2018-08-02] MEDS: LEVOTHYROXINE 50 MCG TABLET PO SCH (05:11)
[2018-08-02] MEDS: LORazepam 0.5 MG TABLET PO SCH ×3 (05:12→21:02)
[2018-08-02] MEDS: LACTOBACILLUS RHAMNOSUS GG 1 CAPSULE. PO SCH ×2 (07:54→21:02)
[2018-08-02] MEDS: SERTRALINE 50 MG TABLET. PO SCH (07:54)
[2018-08-02] MEDS: APIXABAN 5 MG TABLET. PO SCH ×2 (07:55→21:03)
[2018-08-02] MEDS: ARIPiprazole 2 MG TABLET PO SCH (07:55)
[2018-08-02] MEDS: ISOSORBIDE MONONITRATE ER 30 MG TAB.ER.24H PO SCH (07:56)
[2018-08-02] MEDS ORDERED: LOSARTAN 50 MG TABLET. PO SCH (09:00)
[2018-08-02] MEDS ORDERED: LISINOPRIL 10 MG TABLET PO SCH (09:00)
--- NOTE | 2018-08-02 11:36 | NUR ---
NURSING NOTE BLOOD PRESSURE PT BLOOD PRESSURE HAS BEEN ELEVATED. SPOKE WITH DR Huddleston LAST NIGHT AND ADDED CARDIZEM. PT BLOOD PRESSURE THIS MORNING WAS 129/69 WITH PULSE OF 63. CARDIZEM AND IMDUR ADMINISTERED. LOSARTAN HELD FOR A BIT UNTIL BLOOD PRESSURE CAN BE RECHECKED AND HASNT DROPPED. RECHECK BLOOD PRESSURE AT 11 VITAS, BLOOD PRESSURE IS 105/65 PULSE 53. PT STATES SHE IS DIZZY WHEN SHE STANDS UP TO WALK TO THE BATHROOM. DR FERRARA NOTIFIED. DR FERRARA IS HERE, WILL SEE PT AND ADJUST MEDICATIONS IF NEEDED. TERRY REA.
--- NOTE | 2018-08-02 11:55 | NUR ---
NURSING NOTE BLOOD PRESSURE 250 mL BOLUS STARTED FOR PT PER DR FERRARA, PT C/O DIZZY WHEN STANDING UP. TERRY REA.
[2018-08-02] MEDS ORDERED: IV NORMAL SALINE 500ML 500 ML IV ONE (12:00)
--- NOTE | 2018-08-02 14:43 | NUR ---
NURSING NOTE BLOOD PRESSURE MEDICATION ADJUSTMENT CALLED DR BIRD, DECREASED CARDIZEM TO 120MG, AND DECREASED LOSARTAN TO 50MG. HOLD ALL FOR TONIGHT. RESTART TOMORROW IF WNL. TERRY REA
--- NOTE | 2018-08-02 19:19 | PDOC ---
Exam Note: Konstantin Note: Please also refer to the separate dictated note~for this date of service dictated separately.~Patient seen individually. Discussed the patient with Nursing staff reviewed the chart.~Reviewed interim history and current functioning. Reviewed vital signs,~Labs/ Radiology~and current medications noted below. Continue current treatment with the changes noted in the dictated addendum note Assessment: Vital Signs: Vital Signs Date Time Temp Pulse Resp B/P (MAP) Pulse Ox O2 Delivery O2 Flow Rate FiO2 08/02/18 14:52 97.6 45 102/63 (76) 95 08/02/18 08:00 Room Air 08/02/18 05:43 16 I&O Intake and Output 08/02/18 07:00 Intake Total 1390 ml Output Total 650 ml Balance 740 ml Intake Oral 1340 ml IV Total 50 ml Output Urine Total 650 ml # Voids 6 Current Medications: Meds: Current Medications Metoprolol Tartrate (Lopressor Vial) 5 mg 1X ONCE IV Last administered on 07/29/18at 12:22; Start 07/29/18 at 12:30; Stop 07/29/18 at 12:31; Status DC Ondansetron HCl (Zofran) 4 mg PRN Q4HRS PRN IV NAUSEA/VOMITING; Start 07/29/18 at 13:00; Stop 07/30/18 at 12:59; Status DC Acetaminophen (Tylenol) 650 mg PRN Q4HRS PRN PO FEVER; Start 07/29/18 at 13:00; Stop 07/30/18 at 12:59; Status DC Ceftriaxone Sodium 1 gm/ Sodium Chloride 50 ml @ 100 mls/hr Q24H IV Last administered on 08/02/18at 14:32; Start 07/29/18 at 14:30; Stop 08/02/18 at 15:26; Status DC Dextrose/Sodium Chloride 1,000 ml @ 75 mls/hr [id number] IV Last administered on 07/31/18at 09:48; Start 07/29/18 at 14:30; Stop 07/31/18 at 15:18; Status DC Isosorbide Mononitrate (Imdur) 15 mg DAILY PO Last administered on 08/02/18at 07:56; Start 07/29/18 at 15:00 Levothyroxine Sodium (Synthroid) 75 mcg DAILY06 PO Last administered on 08/01/18 05:05; Start 07/30/18 at 06:00; Stop 08/01/18 at 11:30; Status DC Simvastatin (Zocor) 40 mg HS PO Last administered on 08/01/18 21:40; Start 07/29/18 at 21:00 Citalopram Hydrobromide (CeleXA) 40 mg QHS PO Last administered on 07/29/18 20:46; Start 07/29/18 at 21:00; Stop 07/30/18 at 18:49; Status DC Acetaminophen/ Hydrocodone Bitart (Lortab 5/325) 1 tab PRN Q6HRS PRN PO PAIN; Start 07/29/18 at 14:45 Lorazepam (Ativan) 0.5 mg Q8HRS PO Last administered on 08/02/18 05:12; Start 07/29/18 at 22:00 Metoprolol Tartrate (Lopressor) 50 mg BID PO Last administered on 08/01/18 08:16; Start 07/29/18 at 15:00; Stop 08/01/18 at 16:12; Status DC Zolpidem Tartrate (Ambien) 10 mg PRN QHS PRN PO INSOMNIA Last administered on 07/30/18 21:52; Start 07/29/18 at 14:45 Apixaban (Eliquis) 5 mg BID PO Last administered on 08/02/18 07:55; Start 07/29/18 at 21:00 Digoxin (Lanoxin) 500 mcg 1X ONCE IV Last administered on 07/29/18 14:56; Start 07/29/18 at 14:30; Stop 07/29/18 at 14:42; Status DC Labetalol HCl (Normodyne) 10 mg PRN Q2HR PRN IVP HYPERTENSION; Start 07/29/18 at 19:30 Clonidine HCl (Catapres) 0.1 mg PRN Q2HR PRN PO HYPERTENSION Last administered on 08/01/18 22:55; Start 07/29/18 at 19:30 Lactobacillus Rhamnosus (Culturelle) 1 cap BID PO Last administered on 08/02/18 07:54; Start 07/30/18 at 09:00 Sertraline HCl (Zoloft) 50 mg DAILY PO Last administered on 5/28/19at 07:54; Start 07/31/18 at 09:00 Aripiprazole (Abilify) 2 mg DAILY PO Last administered on 08/02/18at 07:55; Start 07/31/18 at 09:00 Potassium Chloride (Klor-Con) 40 meq 1X ONCE PO Last administered on 07/31/18at 08:57; Start 07/31/18 at 08:30; Stop 07/31/18 at 08:31; Status DC Potassium Chloride (Klor-Con) 40 meq 1X ONCE PO ; Start 07/31/18 at 09:30; Stop 07/31/18 at 09:31; Status Cancel Potassium Chloride (Klor-Con) 40 meq 1X ONCE PO ; Start 07/31/18 at 10:30; Stop 07/31/18 at 10:31; Status Cancel Potassium Chloride (KCl Oral Soln) 40 meq 1X ONCE PEG Last administered on 07/31/18at 10:31; Start 07/31/18 at 10:00; Stop 07/31/18 at 10:01; Status DC Potassium Chloride (KCl Oral Soln) 40 meq 1X ONCE PEG Last administered on 07/31/18at 11:40; Start 07/31/18 at 11:00; Stop 07/31/18 at 11:01; Status DC Mirtazapine (Remeron) 7.5 mg QHS PO Last administered on 08/01/18at 21:40; Start 08/01/18 at 21:00 Lisinopril (Prinivil) 10 mg DAILY PO ; Start 08/02/18 at 09:00; Stop 08/02/18 at 09:00; Status DC Levothyroxine Sodium (Synthroid) 50 mcg DAILY06 PO Last administered on 08/02/18at 05:11; Start 08/02/18 at 06:00 Losartan Potassium (Cozaar) 100 mg DAILY PO ; Start 08/02/18 at 09:00; Stop 08/02/18 at 14:03; Status DC Diltiazem HCl (Cardizem 24hr Cd) 240 mg DAILY PO Last administered on 08/02/18at 07:54; Start 08/01/18 at 16:30; Stop 08/02/18 at 14:03; Status DC Sodium Chloride 500 ml @ 0 mls/hr 1X ONCE IV Last administered on 08/02/18at 12:11; Start 08/02/18 at 12:00; Stop 08/02/18 at 12:01; Status DC Diltiazem HCl (Cardizem 24hr Cd) 120 mg DAILY PO ; Start 08/03/18 at 09:00 Losartan Potassium (Cozaar) 50 mg DAILY PO ; Start 08/03/18 at 09:00 Levofloxacin (Levaquin) 500 mg DAILY06 PO ; Start 08/03/18 at 06:00 Active Scripts Active Eliquis (Apixaban) 5 Mg Tablet 5 Mg PO BID 30 Days [place] 5-325 Tablet (Hydrocodone Bit/Acetaminophen) 1 Each Tablet 1 Tab PO PRN Q6HRS PRN Reported Lorazepam 0.5 Mg Tablet 1 Tab PO Q8HRS Bystolic (Nebivolol Hcl) 10 Mg Tablet 20 Mg PO DAILY LAST DOSE GIVEN: DATE: TODAY TIME: AM NEXT DOSE DUE: DATE: TODAY TIME: AM Levothyroxine Sodium 100 Mcg Tablet 75 Mcg PO DAILYAC LAST DOSE GIVEN: DATE: TODAY TIME: AM NEXT DOSE DUE: DATE: TOMORROW TIME: AM Isosorbide Mononitrate Er (Isosorbide Mononitrate) 30 Mg Tab.er.24h 15 Mg PO DAILY LAST DOSE GIVEN: DATE: TODAY TIME: AM NEXT DOSE DUE: DATE: TOMORROW TIME: AM Losartan Potassium 100 Mg Tablet 100 Mg PO DAILY LAST DOSE GIVEN: DATE: TODAY TIME: AM NEXT DOSE DUE: DATE: TOMORROW TIME: AM Citalopram Hbr (Citalopram Hydrobromide) 40 Mg Tablet 40 Mg PO QHS LAST DOSE GIVEN: DATE: YESTERDAY TIME: AT BEDTIME NEXT DOSE DUE: DATE: TODAY TIME: AT BEDTIME Simvastatin 40 Mg Tablet 40 Mg PO HS LAST DOSE GIVEN: DATE: YESTER TIME: AT BEDTIME NEXT DOSE DUE: DATE: TODAY TIME: AT BEDTIME Zolpidem Tartrate 10 Mg Tablet 10 Mg PO PRN QHS PRN LAST DOSE GIVEN: DATE: TIME: NEXT DOSE DUE: DATE: TODAY TIME: AT BEDTIME, IF NEEDED I have reviewed the current psychotropics carefully including drug interactions. Risk benefit ratio favors no change other than as noted in my dictated progress note. Diagnosis: Problems: (1) Major neurocognitive disorder (2) Mild cognitive impairment (3) Major depressive disorder, recurrent episode (4) Anxiety disorder GUS,MAN M MD August 02, 2018 19:18
[2018-08-02] MEDS ORDERED: POLYETHYLENE GLYCOL 3350 17 GM PACKET. PO PRN (21:00)
[2018-08-02] MEDS: MIRTAZAPINE 7.5 MG TABLET. PO SCH (21:02)
[2018-08-02] MEDS: SIMVASTATIN 40 MG TABLET. PO SCH (21:02)
--- NOTE | 2018-08-02 22:17 | PN ---
DATE: 08/01/2018 PSYCHIATRIC PROGRESS NOTE This late entry 08/01/2018 covers elements not covered in my initial note. SUBJECTIVE: I met with the patient in the evening in her room. Per nursing report, the patient is doing better, still depressed about the loss of her daughter. She lives alone at home and consideration is being given to transitioning to an inpatient psychiatry unit before finding appropriate placement for her in-home or out of home. She will be receiving Remeron for the first time night of 08/01/2018 for her insomnia. REVIEW OF SYSTEMS: Positive for some tiredness. No CV, , pulmonary, eye system symptoms on review. Family has expressed concerns about her short-term memory deficits and these are evident. MENTAL STATUS EXAM: Oriented to herself and situation. Speech has some latency, coherent. Abstraction fair, computation impaired, language function intact. Mood and affect still depressed, but she denies active suicidal ideation. LABORATORY DATA: Reviewed. IMPRESSION: Major depressive disorder, recurrent. Bereavement. Mild cognitive impairment versus major neurocognitive disorder, Alzheimer, vascular with depression. PLAN: Continue psychotropics mentioned in my initial note. Start Remeron 7.5 mg p.o. at bedtime. Rest unchanged. MAN Stevie WEBER MD DR: MARCELO/francis JOB#: [id number] / [id number]
--- NOTE | 2018-08-03 03:49 | PN ---
DATE: 08/02/2018 SUBJECTIVE: The patient is resting slightly propped up in bed, in no apparent respiratory distress. She was supposed to be discharged to an inpatient psych unit. Unfortunately, she developed marked bradycardia and dizziness. 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 She was started on diltiazem 240 mg and this was marked sinus bradycardia as well as hypertension, and therefore, a decision was made to postpone the discharge. We cut down her Cardizem as well as losartan and we will evaluate her again tomorrow, and if she is medically stable, she can be discharged to the inpatient psychiatric unit. OBJECTIVE: GENERAL: When I saw her this afternoon, she looked pale, but no jaundice, cyanosis, or thyromegaly. No jugular venous distension. No lower limb edema. VITAL SIGNS: Her heart rate was 45, blood pressure was 102/63, temperature was 97.6, respiratory rate was 18 and oxygen saturation was 95%. HEAD, EYES, EARS, NOSE AND THROAT: Showed normocephalic, atraumatic. NECK: Supple. HEART: Showed normal first and second heart sounds with no gallop, rub or murmur. CHEST: Clear to auscultation. No crepitation or rhonchi. ABDOMEN: Distended, soft, nontender. No guarding or rigidity. No organomegaly. All hernial orifice intact. Bowel sounds normal. NEUROLOGIC: She is awake, alert, responding appropriately. All cranial nerves are intact. She moves extremities without difficulty. Her intake over the last 24 hours was 1390, output was 650. LABORATORY DATA: As of yesterday, her serum sodium 141, potassium 4.2, chloride 104, bicarbonate 31, anion gap of 6, BUN 10, creatinine 0.9. Estimated GFR was 61 mL per minute. Her glucose was 85, calcium was 9 and magnesium was 1.8. Her white cell count was 8600, hemoglobin 14, hematocrit 45, MCV 85 and platelet count 335,000. ASSESSMENT: 1. Atrial fibrillation with rapid ventricular response, rate controlled. In fact, the patient is now in marked bradycardia and hypotension, so we cut down losartan and Cardizem. 2. Hypertension, much better controlled. 3. Chest pain for which she has 3 sets of cardiac enzymes that were all negative. The D-dimer was elevated. Initially, I could not do the CT angio of the chest because of her abnormal kidney function; however, she is already on apixaban and decided against doing CT scan as her treatment would be the same. 4. Urinary tract infection growing, responding to IV ceftriaxone. Her white cell count came down from 16,000 to 8000. 5. Other medical problems include hyperlipidemia, hypothyroidism. Her T3, T4 were normal. Free T4 was elevated and TSH was undetectable, and therefore, we cut down her levothyroxine to 50 mcg. 6. Hypokalemia with serum potassium that has improved to about 4. PLAN: My plan is to repeat her lab works tomorrow, and if she remained hemodynamically stable, she will be discharged to inpatient psychiatric unit. MARIA E FERRARA MD DR: JAVI/francis JOB#: [id number] / [id number]
[2018-08-03 05:10] VITALS: BP 154/75
[2018-08-03] MEDS: LORazepam 0.5 MG TABLET PO SCH ×3 (05:41→21:24)
[2018-08-03] MEDS: levoFLOXacin 500 MG TABLET PO SCH (05:41)
[2018-08-03] MEDS: LEVOTHYROXINE 50 MCG TABLET PO SCH (05:41)
[2018-08-03 07:01] LABS: BASO # 0.1 x10^3/uL (0.0-0.2); BASO % 1 % (0-3); EOS # 0.5 x10^3/uL (0.0-0.7); EOS % 4 % (0-3); HEMATOCRIT 47.4 % (36.0-47.0); HEMOGLOBIN 15.2 g/dL (12.0-15.5); LYMPH # 1.1 x10^3/uL (1.0-4.8); LYMPH % 9 % (24-48); MEAN CORPUSCULAR HEMOGLOBIN 27 pg (25-35); MEAN CORPUSCULAR HGB CONC 32 g/dL (31-37); MEAN CORPUSCULAR VOLUME 84 fL (79-100); MONO # 0.3 x10^3/uL (0.0-1.1); MONO % 3 % (0-9); NEUT # 10.6 x10^3uL (1.8-7.7); NEUT % 83 % (31-73); PLATELET COUNT 380 x10^3/uL (140-400); RED BLOOD COUNT 5.63 x10^6/uL (3.50-5.40); WHITE BLOOD COUNT 12.6 x10^3/uL (4.0-11.0)
[2018-08-03 07:12] LABS: ALBUMIN 3.6 g/dL (3.4-5.0); ALBUMIN/GLOBULIN RATIO 1.2 (1.0-1.7); CALCIUM 9.3 mg/dL (8.5-10.1); GFR 54.3; POTASSIUM 3.7 mmol/L (3.5-5.1); TOTAL BILIRUBIN 0.8 mg/dL (0.2-1.0); TOTAL PROTEIN 6.5 g/dL (6.4-8.2)
[2018-08-03] MEDS: LACTOBACILLUS RHAMNOSUS GG 1 CAPSULE. PO SCH ×2 (07:54→20:47)
[2018-08-03] MEDS: ISOSORBIDE MONONITRATE ER 30 MG TAB.ER.24H PO SCH (07:54)
[2018-08-03] MEDS: SERTRALINE 50 MG TABLET. PO SCH (07:55)
[2018-08-03] MEDS: APIXABAN 5 MG TABLET. PO SCH ×2 (07:55→20:48)
[2018-08-03] MEDS: LOSARTAN 50 MG TABLET. PO SCH (07:55)
[2018-08-03] MEDS: ARIPiprazole 2 MG TABLET PO SCH (07:55)
[2018-08-03] MEDS ORDERED: hydrALAZINE 20 MG/ML VIAL. IV PRN (08:45)
--- NOTE | 2018-08-03 08:51 | PDOC ---
CARDIO Progress Notes Date & Time Date of Service DATE: 08/03/18 TIME: 08:49 Time of Evaluation 08:49 Subjective Notes Feeling better overall. Vitals Vitals Vital Signs Date Time Temp Pulse Resp B/P (MAP) Pulse Ox O2 Delivery O2 Flow Rate FiO2 08/03/18 08:01 58 154/75 08/03/18 05:10 98.3 18 94 Room Air Weight Weight [ ] Input and Output I.O. Intake and Output 08/03/18 07:00 Intake Total 895 ml Balance 895 ml Intake Oral 570 ml IV Total 325 ml # Voids 4 Laboratory Labs Laboratory Tests Test 08/03/18 06:28 White Blood Count 12.6 x10^3/uL (4.0-11.0) Red Blood Count 5.63 x10^6/uL (3.50-5.40) Hemoglobin 15.2 g/dL (12.0-15.5) Hematocrit 47.4 % (36.0-47.0) Mean Corpuscular Volume 84 fL (79-100) Mean Corpuscular Hemoglobin 27 pg (25-35) Mean Corpuscular Hemoglobin Concent 32 g/dL (31-37) Red Cell Distribution Width 19.0 % (11.5-14.5) Platelet Count 380 x10^3/uL (140-400) Neutrophils (%) (Auto) 83 % (31-73) Lymphocytes (%) (Auto) 9 % (24-48) Monocytes (%) (Auto) 3 % (0-9) Eosinophils (%) (Auto) 4 % (0-3) Basophils (%) (Auto) 1 % (0-3) Neutrophils # (Auto) 10.6 x10^3uL (1.8-7.7) Lymphocytes # (Auto) 1.1 x10^3/uL (1.0-4.8) Monocytes # (Auto) 0.3 x10^3/uL (0.0-1.1) Eosinophils # (Auto) 0.5 x10^3/uL (0.0-0.7) Basophils # (Auto) 0.1 x10^3/uL (0.0-0.2) Sodium Level 143 mmol/L (136-145) Potassium Level 3.7 mmol/L (3.5-5.1) Chloride Level 105 mmol/L (98-107) Carbon Dioxide Level 29 mmol/L (21-32) Anion Gap 9 (6-14) Blood Urea Nitrogen 15 mg/dL (7-20) Creatinine 1.0 mg/dL (0.6-1.0) Estimated GFR (Cockcroft-Gault) 54.3 BUN/Creatinine Ratio 15 (6-20) Glucose Level 98 mg/dL (70-99) Calcium Level 9.3 mg/dL (8.5-10.1) Total Bilirubin 0.8 mg/dL (0.2-1.0) Aspartate Amino Transf (AST/SGOT) 14 U/L (15-37) Alanine Aminotransferase (ALT/SGPT) 14 U/L (14-59) Alkaline Phosphatase 72 U/L (46-116) Total Protein 6.5 g/dL (6.4-8.2) Albumin 3.6 g/dL (3.4-5.0) Albumin/Globulin Ratio 1.2 (1.0-1.7) Microbiology Micro Microbiology 07/29/18 Urine Culture - Final, Complete 07/29/18 Urine Culture Result 1 (SEAN) - Final, Complete 07/29/18 Antimicrobic Susceptibility - Final, Complete Physical Exams HEENT: Neck Supple W Full Motion Chest: Symmetric Lungs: Clear to Auscultation Heart: S1S2, irregularly irregular Abdomen: Soft N/T Extremities: No Edema Neurology: alert, oriented, follow commands Assessment Assessment 1. AFIB wtih RVR. Remains in AFIB. 2. Bradycardia; lowest HR 40. Now low 60's- Cardizem held 3. Hypertension; labile 4. CAD s/p PCI/stent 5. Hyperlipidemia; statin 6. Hyperthyroidism 7. Depression secondary to recent loss of daughter Recommendations D/c clonidine Convert cardizem to short acting BID and hold as warranted for bradycardia Outpatient event monitor; patient would like this conducted through primary labor commissioner, Dr. Perla Schroeder for stroke prevention Increase losartan if BP remains labile Consider outpatient ischemic evaluation; will defer to primary labor commissioner PRERNA SPAIN APRN August 03, 2018 08:51
[2018-08-03 11:01] VITALS: BP 171/69
[2018-08-03] MEDS ORDERED: dilTIAZem HCL 30 MG TABLET PO SCH (12:00)
--- NOTE | 2018-08-03 13:07 | NUR ---
On 08/02/18 was informed that Philly needed in patient psych treatment for mood. Philly has [facility] part C plan which is out of network for [facility]. Call placed to [facility] who is an in network provider and faxed referral for review. However, Philly had BP incident and was not medically stable for transfer. Follow up call placed to [facility] unit this date. Re-faxed referral information for review. Awaiting outcome.
[2018-08-03 14:55] VITALS: BP 174/73
--- NOTE | 2018-08-03 16:25 | NUR ---
NURSING NOTE PT FAMILY MEMBER CALLED, STATES THEY WENT TO HER HOUSE LOOKING FOR HER INSURANCE CARDS, STATES THE WHOLE HOUSE WAS TORE UP, MATTRESS FLIPPED OFF THE RAILS, PULLED BLINDS OFF WINDOWS, TV KICKED OVER AND SOME OTHER THINGS. TERRY REA.
[2018-08-03 19:41] VITALS: BP 186/91
[2018-08-03] MEDS: MIRTAZAPINE 7.5 MG TABLET. PO SCH (20:47)
[2018-08-03] MEDS: dilTIAZem HCL 30 MG TABLET PO SCH (20:47)
[2018-08-03] MEDS: SIMVASTATIN 40 MG TABLET. PO SCH (20:47)
--- NOTE | 2018-08-03 21:34 | NUR ---
Patient noted to be increasingly more restless and confused this evening. Patient wandering down the cochran, saying that she need to find the number she left on the fridge. Reoriented patient to hospital environment, to which she state, "Oh, I know honey." Attempted to call her niece, Julienne, with no answer. Patient reported to staff that she is a psychic and she had predicted her brother's car accident. Patient then tells this nurse that she needs to cover her up. When asked who we were covering up, patient gestures to the chair next to the bed saying we need to cover Julienne up. Attempted to reoriented, she states that Julienne will need a cover in the morning when she comes. Reassured patient that if Julienne came we would help her out, but it was getting late so we should try to get some rest. Patient is assisted back to bed and bed alarm in placed.
--- NOTE | 2018-08-03 21:53 | PN ---
DATE: 08/02/2018 PSYCHIATRIC PROGRESS NOTE This late entry 08/02/2018 covers elements not covered in my initial note 08/02/2018. Discussed with nursing staff, reviewed the chart and earlier in the day, I discussed with nursing staff as well as the patient's health insurance is unable to cover her [facility]. She remains somewhat depressed, though she denies active suicidal ideation. She would benefit from inpatient psychiatric care and we discussed looking at alternate options for this. In the interim, the patient did sleep better on the Remeron 7.5 mg p.o. at bedtime. REVIEW OF SYSTEMS: No CV, , pulmonary, eye system symptoms on review. MENTAL STATUS EXAM: Oriented to herself and situation. Speech is coherent, has some latency. Abstraction fair, computation impaired, language function intact. Short-term memory has some deficits. She was somewhat confused about her discussion about transition to [facility] and I discussed various options. LABORATORY DATA: Reviewed. IMPRESSION: Major depressive disorder, recurrent. Bereavement. Mild cognitive impairment. Rest unchanged. PLAN: From a psychiatric standpoint, I would not recommend any further changes in her psychotropics. She should be assessed for transition to an inpatient psychiatric service if this can be arranged. We will defer to case management to help facilitate this. LEMUEL WEBER MD DR: MARCELO/francis JOB#: [id number] / [id number]
[2018-08-03 22:05] VITALS: BP 176/89
--- NOTE | 2018-08-03 22:17 | PDOC ---
Exam Note: Konstantin Note: Please also refer to the separate dictated note~for this date of service dictated separately.~Patient seen individually. Discussed the patient with Nursing staff reviewed the chart.~Reviewed interim history and current functioning. Reviewed vital signs,~Labs/ Radiology~and current medications noted below. Continue current treatment with the changes noted in the dictated addendum note Assessment: Vital Signs: Vital Signs Date Time Temp Pulse Resp B/P (MAP) Pulse Ox O2 Delivery O2 Flow Rate FiO2 08/03/18 22:05 73 176/89 (118) 08/03/18 19:41 98.2 22 96 08/03/18 19:30 Room Air I&O Intake and Output 08/03/18 07:00 Intake Total 895 ml Balance 895 ml Intake Oral 570 ml IV Total 325 ml # Voids 4 Labs: Laboratory Tests Test 08/03/18 06:28 White Blood Count 12.6 x10^3/uL (4.0-11.0) H Red Blood Count 5.63 x10^6/uL (3.50-5.40) H Hemoglobin 15.2 g/dL (12.0-15.5) Hematocrit 47.4 % (36.0-47.0) H Mean Corpuscular Volume 84 fL (79-100) Mean Corpuscular Hemoglobin 27 pg (25-35) Mean Corpuscular Hemoglobin Concent 32 g/dL (31-37) Red Cell Distribution Width 19.0 % (11.5-14.5) H Platelet Count 380 x10^3/uL (140-400) Neutrophils (%) (Auto) 83 % (31-73) H Lymphocytes (%) (Auto) 9 % (24-48) L Monocytes (%) (Auto) 3 % (0-9) Eosinophils (%) (Auto) 4 % (0-3) H Basophils (%) (Auto) 1 % (0-3) Neutrophils # (Auto) 10.6 x10^3uL (1.8-7.7) H Lymphocytes # (Auto) 1.1 x10^3/uL (1.0-4.8) Monocytes # (Auto) 0.3 x10^3/uL (0.0-1.1) Eosinophils # (Auto) 0.5 x10^3/uL (0.0-0.7) Basophils # (Auto) 0.1 x10^3/uL (0.0-0.2) Sodium Level 143 mmol/L (136-145) Potassium Level 3.7 mmol/L (3.5-5.1) Chloride Level 105 mmol/L (98-107) Carbon Dioxide Level 29 mmol/L (21-32) Anion Gap 9 (6-14) Blood Urea Nitrogen 15 mg/dL (7-20) Creatinine 1.0 mg/dL (0.6-1.0) Estimated GFR (Cockcroft-Gault) 54.3 BUN/Creatinine Ratio 15 (6-20) Glucose Level 98 mg/dL (70-99) Calcium Level 9.3 mg/dL (8.5-10.1) Total Bilirubin 0.8 mg/dL (0.2-1.0) Aspartate Amino Transferase (AST) 14 U/L (15-37) L Alanine Aminotransferase (ALT) 14 U/L (14-59) Alkaline Phosphatase 72 U/L (46-116) Total Protein 6.5 g/dL (6.4-8.2) Albumin 3.6 g/dL (3.4-5.0) Albumin/Globulin Ratio 1.2 (1.0-1.7) Current Medications: Meds: Current Medications Metoprolol Tartrate (Lopressor Vial) 5 mg 1X ONCE IV Last administered on 07/29/18at 12:22; Start 07/29/18 at 12:30; Stop 07/29/18 at 12:31; Status DC Ondansetron HCl (Zofran) 4 mg PRN Q4HRS PRN IV NAUSEA/VOMITING; Start 07/29/18 at 13:00; Stop 07/30/18 at 12:59; Status DC Acetaminophen (Tylenol) 650 mg PRN Q4HRS PRN PO FEVER; Start 07/29/18 at 13:00; Stop 07/30/18 at 12:59; Status DC Ceftriaxone Sodium 1 gm/ Sodium Chloride 50 ml @ 100 mls/hr Q24H IV Last administered on 08/02/18at 14:32; Start 07/29/18 at 14:30; Stop 08/02/18 at 15:26; Status DC Dextrose/Sodium Chloride 1,000 ml @ 75 mls/hr [id number] IV Last administered on 07/31/18 09:48; Start 07/29/18 at 14:30; Stop 07/31/18 at 15:18; Status DC Isosorbide Mononitrate (Imdur) 15 mg DAILY PO Last administered on 08/03/18 07:54; Start 07/29/18 at 15:00 Levothyroxine Sodium (Synthroid) 75 mcg DAILY06 PO Last administered on 08/01/18 05:05; Start 07/30/18 at 06:00; Stop 08/01/18 at 11:30; Status DC Simvastatin (Zocor) 40 mg HS PO Last administered on 08/03/18 20:47; Start 07/29/18 at 21:00 Citalopram Hydrobromide (CeleXA) 40 mg QHS PO Last administered on 07/29/18 20:46; Start 07/29/18 at 21:00; Stop 07/30/18 at 18:49; Status DC Acetaminophen/ Hydrocodone Bitart (Lortab 5/325) 1 tab PRN Q6HRS PRN PO PAIN; Start 07/29/18 at 14:45 Lorazepam (Ativan) 0.5 mg Q8HRS PO Last administered on 08/03/18 21:24; Start 07/29/18 at 22:00 Metoprolol Tartrate (Lopressor) 50 mg BID PO Last administered on 08/01/18 08:16; Start 07/29/18 at 15:00; Stop 08/01/18 at 16:12; Status DC Zolpidem Tartrate (Ambien) 10 mg PRN QHS PRN PO INSOMNIA Last administered on 07/30/18 21:52; Start 07/29/18 at 14:45 Apixaban (Eliquis) 5 mg BID PO Last administered on 08/03/18 20:48; Start 07/29/18 at 21:00 Digoxin (Lanoxin) 500 mcg 1X ONCE IV Last administered on 07/29/18 14:56; Start 07/29/18 at 14:30; Stop 07/29/18 at 14:42; Status DC Labetalol HCl (Normodyne) 10 mg PRN Q2HR PRN IVP HYPERTENSION; Start 07/29/18 at 19:30 Clonidine HCl (Catapres) 0.1 mg PRN Q2HR PRN PO HYPERTENSION Last administered on 08/01/18 22:55; Start 07/29/18 at 19:30; Stop 08/03/18 at 08:37; Status DC Lactobacillus Rhamnosus (Culturelle) 1 cap BID PO Last administered on 08/03/18at 20:47; Start 07/30/18 at 09:00 Sertraline HCl (Zoloft) 50 mg DAILY PO Last administered on 08/03/18at 07:55; Start 07/31/18 at 09:00 Aripiprazole (Abilify) 2 mg DAILY PO Last administered on 08/03/18at 07:55; Start 07/31/18 at 09:00 Potassium Chloride (Klor-Con) 40 meq 1X ONCE PO Last administered on 07/31/18 08:57; Start 07/31/18 at 08:30; Stop 07/31/18 at 08:31; Status DC Potassium Chloride (Klor-Con) 40 meq 1X ONCE PO ; Start 07/31/18 at 09:30; Stop 07/31/18 at 09:31; Status Cancel Potassium Chloride (Klor-Con) 40 meq 1X ONCE PO ; Start 07/31/18 at 10:30; Stop 07/31/18 at 10:31; Status Cancel Potassium Chloride (KCl Oral Soln) 40 meq 1X ONCE PEG Last administered on 07/31/18at 10:31; Start 07/31/18 at 10:00; Stop 07/31/18 at 10:01; Status DC Potassium Chloride (KCl Oral Soln) 40 meq 1X ONCE PEG Last administered on 07/31/18at 11:40; Start 07/31/18 at 11:00; Stop 07/31/18 at 11:01; Status DC Mirtazapine (Remeron) 7.5 mg QHS PO Last administered on 08/03/18at 20:47; Start 08/01/18 at 21:00 Lisinopril (Prinivil) 10 mg DAILY PO ; Start 08/02/18 at 09:00; Stop 08/02/18 at 09:00; Status DC Levothyroxine Sodium (Synthroid) 50 mcg DAILY06 PO Last administered on 08/03/18at 05:41; Start 08/02/18 at 06:00 Losartan Potassium (Cozaar) 100 mg DAILY PO ; Start 08/02/18 at 09:00; Stop 08/02/18 at 14:03; Status DC Diltiazem HCl (Cardizem 24hr Cd) 240 mg DAILY PO Last administered on 08/02/18at 07:54; Start 08/01/18 at 16:30; Stop 08/02/18 at 14:03; Status DC Sodium Chloride 500 ml @ 0 mls/hr 1X ONCE IV Last administered on 08/02/18at 1 2:11; Start 08/02/18 at 12:00; Stop 08/02/18 at 12:01; Status DC Diltiazem HCl (Cardizem 24hr Cd) 120 mg DAILY PO ; Start 08/03/18 at 09:00; Stop 08/03/18 at 09:00; Status DC Losartan Potassium (Cozaar) 50 mg DAILY PO Last administered on 08/03/18at 07:5 5; Start 08/03/18 at 09:00 Levofloxacin (Levaquin) 500 mg DAILY06 PO Last administered on 08/03/18at 05:41; Start 08/03/18 at 06:00 Polyethylene Glycol (miraLAX) 17 gm PRN DAILY PRN PO CONSTIPATION Last administered on 08/02/18at 22:11; Start 08/02/18 at 21:00 Hydralazine HCl (Apresoline) 10 mg PRN Q4HRS PRN IV ELEVATED BP, SEE COMMENTS; Start 08/03/18 at 08:45; Stop 08/03/18 at 09:28; Status DC Diltiazem HCl (Cardizem) 30 mg Q6HRS PO ; Start 08/03/18 at 12:00; Stop 08/03/18 at 12:11; Status DC Diltiazem HCl (Cardizem) 30 mg BID PO Last administered on 08/03/18at 20:47; Start 08/03/18 at 21:00 Active Scripts Active Eliquis (Apixaban) 5 Mg Tablet 5 Mg PO BID 30 Days [place] 5-325 Tablet (Hydrocodone Bit/Acetaminophen) 1 Each Tablet 1 Tab PO PRN Q6HRS PRN Reported Lorazepam 0.5 Mg Tablet 1 Tab PO Q8HRS Bystolic (Nebivolol Hcl) 10 Mg Tablet 20 Mg PO DAILY LAST DOSE GIVEN: DATE: TODAY TIME: AM NEXT DOSE DUE: DATE: TODAY TIME: AM Levothyroxine Sodium 100 Mcg Tablet 75 Mcg PO DAILYAC LAST DOSE GIVEN: DATE: TIME: AM NEXT DOSE DUE: DATE: ORR TIME: AM Isosorbide Mononitrate Er (Isosorbide Mononitrate) 30 Mg Tab.er.24h 15 Mg PO DAILY LAST DOSE GIVEN: DATE: TIME: AM NEXT DOSE DUE: DATE: ORR TIME: AM Losartan Potassium 100 Mg Tablet 100 Mg PO DAILY LAST DOSE GIVEN: DATE: TIME: AM NEXT DOSE DUE: DATE: ORR TIME: AM Citalopram Hbr (Citalopram Hydrobromide) 40 Mg Tablet 40 Mg PO QHS LAST DOSE GIVEN: DATE: YESTER TIME: AT BEDTIME NEXT DOSE DUE: DATE: TIME: AT BEDTIME Simvastatin 40 Mg Tablet 40 Mg PO HS LAST DOSE GIVEN: DATE: YES TIME: AT BEDTIME NEXT DOSE DUE: DATE: TIME: AT BEDTIME Zolpidem Tartrate 10 Mg Tablet 10 Mg PO PRN QHS PRN LAST DOSE GIVEN: DATE: TIME: NEXT DOSE DUE: DATE: TODAY TIME: AT BEDTIME, IF NEEDED I have reviewed the current psychotropics carefully including drug interactions. Risk benefit ratio favors no change other than as noted in my dictated progress note. Diagnosis: Problems: (1) Major neurocognitive disorder (2) Major depressive disorder, recurrent episode (3) Mild cognitive impairment (4) Anxiety disorder (5) Syncope LEMUEL WEBER MD August 03, 2018 22:17
[2018-08-03 23:07] VITALS: BP 180/66
[2018-08-04] MEDS: ZOLPIDEM 5 MG TABLET. PO PRN (01:34)
[2018-08-04] MEDS: OLANZapine 2.5 MG TABLET PO PRN ×3 (01:50→13:17)
--- NOTE | 2018-08-04 02:00 | NUR ---
Patient is growing very suspicious of staff, stating, "I don't know what kind of game you are playing!" Patient requesting her belongings at this time, belongings found in the table at the bedside. Patient then starts sorting through her purse, accusing staff of taking all her money and keys. Attempted to deescalated and redirect patient, patient increasingly more agitated towards staff. Patient starts demanding to call her daughter, saying, "You don't want to get her upset", "It's really important that I get in contact with my daughter now, you don't get it". Patient refusing to take anything from staff members, and starts to get dressed in her personal clothes. Patient attempting to walk off the unit, she was redirected back to her room. Dr. Ballesteros notified and PRN IV Ativan orders obtained and administered. Patient attempting to pull out her IV, saying she does not need it, this is where the infection is. Patient agreed to let staff members to assist her with braiding her hair, while coffee was made. Patient talk into laying back into bed, until breakfast and so she could talk to the doctor in the morning. Staff member at bedside with patient at this time.
[2018-08-04 04:07] LABS: BACTERIA,URINE 0 /HPF (0-FEW); BILIRUBIN,URINE NEG (NEG); CLARITY,URINE CLEAR; COLOR,URINE YELLOW; GLUCOSE,URINE NEG (NEG); NITRITE,URINE NEG (NEG); RBC,URINE 0 /HPF (0-2); SQUAMOUS EPITHELIAL CELL,UR OCC /LPF; UROBILINOGEN,URINE 0.2 mg/dL (0.2 mg/dL); WBC,URINE OCC /HPF (0-4)
--- NOTE | 2018-08-04 05:28 | NUR ---
patient removed her alarm security or surveillance monitor and refusing to leave it in place.
[2018-08-04] MEDS: LORazepam 0.5 MG TABLET PO SCH ×3 (06:00→12:49)
[2018-08-04] MEDS ORDERED: ISOSORBIDE MONONITRATE ER 30 MG TAB.ER.24H PO SCH (09:00)
[2018-08-04] MEDS: levoFLOXacin 500 MG TABLET PO SCH (10:25)
[2018-08-04] MEDS: dilTIAZem HCL 30 MG TABLET PO SCH (10:25)
[2018-08-04] MEDS: LEVOTHYROXINE 50 MCG TABLET PO SCH (10:25)
[2018-08-04] MEDS: SERTRALINE 50 MG TABLET. PO SCH (10:25)
[2018-08-04] MEDS: ARIPiprazole 2 MG TABLET PO SCH (10:26)
[2018-08-04] MEDS: LOSARTAN 50 MG TABLET. PO SCH (10:26)
[2018-08-04] MEDS: APIXABAN 5 MG TABLET. PO SCH (10:26)
[2018-08-04] MEDS: LACTOBACILLUS RHAMNOSUS GG 1 CAPSULE. PO SCH (10:27)
[2018-08-04 11:05] VITALS: BP 194/93
--- NOTE | 2018-08-04 13:06 | PN ---
DATE: 08/03/2018 SUBJECTIVE: The patient is resting, sitting on the edge of the bed comfortably, in no apparent respiratory distress. On questioning her, denied any complaint except she continued to have the suicidal ideation. Her heart rate is slightly better now. PHYSICAL EXAMINATION: GENERAL: When I examined her, she was pale, but no jaundice, cyanosis or thyromegaly. No jugular venous distention. No lower limb edema. VITAL SIGNS: Her heart rate was 61, blood pressure was 174/73, temperature was 98.1, respiratory rate was 20 and oxygen saturation was 93%. HEENT: Examination of the head, eyes, ears, nose and throat showed normocephalic, atraumatic. NECK: Supple. HEART: Showed normal first and second heart sounds. No gallop, rub or murmur. CHEST: Clear to auscultation. No crepitation or rhonchi. ABDOMEN: Distended, soft, nontender. No guarding or rigidity. No organomegaly. All hernial orifices are intact. Bowel sounds normal. NEUROLOGIC: She was awake, alert, responding appropriately. All her cranial nerves are intact. She moves extremities without difficulty. She ambulates without assistance or assistive devices. LABORATORY DATA: Her lab work showed a white cell count 12,600, hemoglobin 15, hematocrit 47, MCV 84 and platelet count of 380,000. Her serum sodium was 143, potassium 3.7, chloride 105, bicarbonate 29, anion gap of 9, BUN 15, creatinine 1, estimated GFR was 54 mL per minute. Her glucose was 98, calcium was 9.3, magnesium was 1.8. Total bilirubin, AST, ALT, alkaline phosphatase were normal. Total protein was 6.5, albumin 3.6. Her prothrombin time was 15.8, INR 1.4, aPTT was 28 and D-dimer was 2.31. Urinalysis showed that she was positive for leukocyte esterase. There were 20-40 WBCs and moderate amount of bacteria. Her urine culture has grown Staphylococcus saprophyticus and did grow 10,000-25,000 colony forming units per mL, sensitive to all antibiotics. ASSESSMENT AND PLAN: 1. Atrial fibrillation with rapid ventricular response, rate controlled. The patient developed bradycardia and hypotension, on 240 mg of diltiazem. She is now on Cardizem 30 mg twice a day. 2. Hypertension. Reasonably controlled. 3. Chest pain for which she had 3 sets of cardiac enzymes that were all negative. The D-dimer was elevated. Initially, I could not do the CT angio because of normal kidney function; however, she is already on apixaban, I decided against doing CT scan. 4. Urinary tract infection, although she treated initially with IV ceftriaxone. Her white cell count came down from 16,000-8000. She did grow Staphylococcus saprophyticus. 5. Other medical problems include, A. Hyperlipidemia. B. Hypothyroidism. Her TSH was undetectable and free T4 was high, so I cut down her Synthroid to only 50 mcg. C. Hypokalemia. Her serum potassium has actually improved. We are waiting for placement for her to be discharged to an inpatient psychiatric unit. MARIA E FERRARA MD DR: JAVI/francis JOB#: [id number] / [id number]
--- NOTE | 2018-08-04 13:23 | NUR ---
NURSING NOTE BEHAVIOR PT IS RESTLESS TODAY, PACING THE HALLS, STATES SHE IS LEAVING AND IS NOT STAYING HERE ANY LONGER IN THIS CORRECTION. PT IS CONFUSED, WANDERING INTO OTHER PATIENTS ROOMS, PT IS SUSPICIOUS OF STAFF STATING THAT WE ARE GIVING HER MEDICATIONS TO MAKE HER ACT LIKE THIS. PT REFUSING ALL CARE AND NOT EASILY REDIRECTED. PRN ZYPREXA GIVEN TO PT TO HELP PT RELAX. REACHED OUT TO THE FAMILY, THEY STATE THEY ARE GOING TO TRY AND GET EMERGENCY DPOA PAPERWORK. AT THIS TIME, PT IS NOT ABLE TO SIGN HERSELF IN TO [facility] AT THIS TIME, [place], PT IS REFUSING TO GO NOW. PT HAS A BROTHER NAME ROXANA WHO LIVES IN [place] AND A SISTER NAMED JUAN LUIS, AND 2 NIECES WHO SHE IS IN TOUCH WITH SINCE SHE HAS BEEN IN THE HOSPITAL. SPEAKING WITH JAC NIECE, STATES SHE CANNOT TAKE CARE OF HER, HER SISTER JUAN LUIS IS NOT ABLE TO TAKE CARE OF HER DUE TO RESPIRATORY ISSUES. PT OTHER NIECE SHUKRI GOING TO SEE ABOUT DPOA AND SEE IF THEY CAN GET HER INTO A FACILITY. WILL CONTINUE TO MONITOR. TERRY REA.
--- NOTE | 2018-08-04 15:54 | NUR ---
NURSING NOTE BEHAVIOR PT BROTHER, ROXANA, HERE TO VISIT PT TO HELP CALM HER DOWN. PT CURRENTLY REFUSING VITALS AND HEART MONITOR AND IS IN THE ROOM SPEAKING WITH HER BROTHER. PT BROTHER STATES THE OA PAPERWORK COSTS OVER 500 DOLLARS AND THEY CANNOT AFFORD IT. TERRY REA.
--- NOTE | 2018-08-04 16:04 | NUR ---
NURSING NOTE DPOA DISCUSSION WITH FAMILY PT FAMILY (BROTHER ROXANA ) STATES THEY CANNOT AFFORD TO OBTAIN DPOA PAPERWORK OVER THE PATIENT. EXPLAINED TO FAMILY THAT SHE IS MEDICALLY STABLE AND PT IS TO BE DISCHARGED. PT IS CURRENTLY REFUSING TO SIGN INTO A PSYCH FACILITY TO RECEIVE HELP. PT IS REFUSING ALL CARE HERE AT THE HOSPITAL AT THIS TIME, VITALS, TELE, MEDS, ETC. IF SOMEONE OBTAINED THE DPOA, THEY WOULD BE ABLE TO SIGN HER IN TO A UNIT TO GET HELP FOR HER SUICIDAL THOUGHTS, DEPRESSION, AND PSYCHOSIS. PT HAS BEEN IN HER ROOM FOR THE LAST 20 MIN WITH HER BROTHER ROXANA DURING THE DISCUSSION OF THIS MATTER AND STATES SHE IS GOING BACK TO HER HOUSE AND "NO ONE CAN STOP ME". TERRY REA.
[2018-08-04 16:25] VITALS: BP 176/97
[2018-08-04] MEDS ORDERED: ARIP2TAB35 PO (16:36)
[2018-08-04] MEDS ORDERED: SERT50TA PO (16:36)
[2018-08-04] MEDS ORDERED: MIRT15TA3 PO (16:36)
--- NOTE | 2018-08-04 17:10 | NUR ---
NURSING NOTE DISCHARGE PT DISCHARGED TO HOME VIA AMBULATION ACCOMPANIED BY SILVERIO RANDOLPH AT 1710. WRITTEN AND VERBAL DISCHARGE INSTRUCTIONS GIVEN TO PT. WRITTEN SCRIPTS GIVEN TO PT. PT FAMILY INFORMED THAT WITH NO DPOA PT IS A SELF SIGN TO GET HELP. PT REFUSING ALL CARE AND TO GET HELP AT THIS TIME. PT FAMILY UNDERSTANDS THE RISKS OF PT BEING DISCHARGED HOME. PT FAMILY INFORMED THAT PT SHOULD BE ADMITTED TO A PSYCHIATRIC FACILITY TO BE EVALUATED AND TREATED FOR HER DEPRESSION, SUICIDAL THOUGHTS, AND PSYCHOSIS. PT IS NO LONGER ABLE TO MAKE SAFE DECISIONS FOR HERSELF. TERRY REA.
--- NOTE | 2018-08-04 23:10 | PN ---
DATE: 08/03/2018 PSYCHIATRIC PROGRESS NOTE This late entry 08/03/2018 covers elements not covered in my initial note. SUBJECTIVE: I met with the patient in the evening of 08/03/2018. Per nursing report, the patient has done somewhat better. The patient still remains depressed, hopeless, helpless, able to state that she does not know how she could live without her daughter who has . She does appear more confused with short-term memory deficits. I was called by nursing staff around midnight or soon after that on account of the patient's agitation, confusion, psychotic symptoms and being unmanageable. She was refusing all her medications. We did give an order for IV Ativan to be repeated x 1. We will consider using Haldol as well. REVIEW OF SYSTEMS: No CV, , pulmonary, eye system symptoms on review. Does admit to some tiredness. MENTAL STATUS EXAM: Oriented to herself, situations. Speech has some latency, coherent. Abstraction fair, computation impaired, short-term memory deficits are evident. She denies active plans to hurt herself, but does admit to the fleeting suicidal ideation and the hopelessness. IMPRESSION: Unchanged from initial note. PLAN: No change from initial note. Case management is still looking for inpatient psychiatric hospitalization options for the patient since she is unable to be transferred to the [facility]. LEMUEL WEBER MD DR: MARCELO/francis JOB#: [id number] / [id number]
--- NOTE | 2018-08-05 01:38 | DS ---
DATE OF DISCHARGE: 08/04/2018 HOSPITAL COURSE: The patient is a 73-year-old female patient who was originally admitted on 07/29/2018 complaining of chest pain for which she has 3 sets of cardiac enzymes, which were all negative. Her D-dimer was elevated at 2.3; however, she was supposed to be on apixaban, but after the of her daughter, she was not really compliant with her medication. Unfortunately, I could not do the CT angio because of her impaired kidney function and we did start her on IV fluid. She was also noted to be in atrial fibrillation with rapid ventricular response for which initially she was treated with metoprolol 50 mg twice a day; however, her blood pressure was not well controlled, so she was started on diltiazem 240 mg that caused marked hypotension, dizziness and severe bradycardia. The dose of diltiazem was cut down to 120. The patient continued to have symptomatic bradycardia and therefore she was switched to diltiazem immediate release 30 mg and it was tapered down. Eventually, she is on diltiazem 30 mg twice a day only. Her blood pressure and heart rate are well controlled and she did have also urinary tract infection and she grew Staphylococcus saprophyticus. We did treat her with IV ceftazidime and was switched to oral Levaquin to which is she is sensitive and she was here for almost 6 days and they felt that she has received enough antibiotics beside a number of colonies was only 10,000-25,000. The patient also was extremely depressed and has suicidal ideation and thoughts of harming himself that she has nothing left to live for after the of her daughter and we did consult Dr. Ballesteros and the recommendation was for her to being as an inpatient and admit her to a psychiatric facility. She refused to go there, signed for herself voluntarily and her family refused to pay for the [facility] and basically we could not force her and a decision was made to discharge her home and to inform the senior services and other protective services. PHYSICAL EXAMINATION: GENERAL: When I saw her today, she looked well and was clearly in no apparent respiratory distress. No pallor, jaundice, cyanosis, or thyromegaly. No jugular venous distension. No lower limb edema. VITAL SIGNS: Her heart rate was 81, blood pressure was 176/97, temperature was 98.2, respiratory rate 20 and oxygen saturation was 97%. HEENT: Examination of the head, eyes, ears, nose and throat showed normocephalic, atraumatic. NECK: Supple. HEART: Showed normal first and second heart sounds with no gallop, rub or murmur. CHEST: Clear to auscultation. No crepitation or rhonchi. ABDOMEN: Distended, soft, nontender and no guarding or rigidity. No organomegaly. All hernial orifices are intact. Bowel sounds normal. NEUROLOGIC: She is awake, alert, responding appropriately. All her cranial nerves are intact. EXTREMITIES: She moves extremities without difficulty. She ambulates without assistance or assistive devices. LABORATORY DATA: Her most recent lab work showed a serum sodium 143, potassium 3.7, chloride 105, bicarbonate 29, anion gap of 9, BUN 15, creatinine 1, estimated GFR was 54 mL per minute. Her glucose was 98, calcium was 9.3. Total bilirubin, AST, ALT, alkaline phosphatase were normal. Total protein was 6.5, albumin was 3.6. Her TSH was extremely low at 0.86. Her free T4 was high at 1.67 making her chemically thyrotoxic, so I cut down her Synthroid to 50 mcg instead of 75. DISCHARGE MEDICATIONS: She was discharged home to continue isosorbide mononitrate 30 mg once a day, diltiazem 30 mg twice a day, losartan potassium 50 mg daily, polyethylene glycol 17 grams daily, levothyroxine sodium 50 mcg once a day, mirtazapine 7.5 mg at bedtime, aripiprazole 2 mg daily, sertraline 50 mg daily, lactobacillus rhamnosus 1 capsule twice a day, lorazepam 0.5 mg every 8 hours, apixaban 5 mg twice a day, simvastatin 40 mg daily, Ambien 10 mg at bedtime, and hydrocodone/APAP 5/325 one tablet every 6 hours. FINAL DISCHARGE DIAGNOSES: 1. Atrial fibrillation with rapid ventricular response, rate controlled. The patient developed marked bradycardia and hypotension and was on Cardizem of 240 mg she is now on only 30 mg twice a day. 2. Hypertension, reasonably controlled. 3. Chest pain for which she had 3 sets of cardiac enzymes that were all negative. D-dimer was elevated initially, I could not do the CT angio because of abnormal kidney function; however, she is already on apixaban, I decided again doing CT scan. 4. Urinary tract infection, although she was treated initially with IV ceftriaxone. Her white cell count came down from 16,000-8000. She did grow Staphylococcus saprophyticus and I switched her to Levaquin. 5. Acute kidney injury, resolved. 6. The patient has multiple other medical problems including: A. Hyperlipidemia. B. Hypothyroidism and she was chemically thyrotoxic, so I cut down her Synthroid from 75 to 50. C. Hypokalemia with the serum potassium that has actually improved. 7. Severe depression and suicidal ideation. DISPOSITION: The patient refused to go voluntarily. She was accepted at ____ psych unit and given that she was psychotic, we actually held the family to obtain DPOA from the court as they refused to pay 500 dollars. The patient basically was discharged home and we made it clear to her and her brother and [id number] that she is going home at her own risks. MARIA E FERRARA MD DR: JAVI/francis JOB#: [id number] / [id number]
== END 2018-08-04 17:13 | disposition home or self-care (01) | DRG 871 ==
LOC: ER 11:51 → 1 SOUTH 13:08
PROVIDERS: ADMIT Internal Medicine; ATTEND Internal Medicine
DX: A41.9 Sepsis, unspecified organism (principal); N17.0 Acute kidney failure with tubular necrosis; N39.0 Urinary tract infection, site not specified; F33.2 Major depressive disorder, recurrent severe without psychotic features; F23 Brief psychotic disorder; I48.1 Persistent atrial fibrillation; J44.0 Chronic obstructive pulmonary disease with (acute) lower respiratory infection; R45.851 Suicidal ideations; E03.9 Hypothyroidism, unspecified; E05.90 Thyrotoxicosis, unspecified without thyrotoxic crisis or storm; E78.5 Hyperlipidemia, unspecified; E87.6 Hypokalemia; F01.50 Vascular dementia, unspecified severity, without behavioral disturbance, psychotic disturbance, mood disturbance, and anxiety; F02.80 Dementia in other diseases classified elsewhere, unspecified severity, without behavioral disturbance, psychotic disturbance, mood disturbance, and anxiety; G30.9 Alzheimer's disease, unspecified; I13.10 Hypertensive heart and chronic kidney disease without heart failure, with stage 1 through stage 4 chronic kidney disease, or unspecified chronic kidney disease; F41.9 Anxiety disorder, unspecified; I25.10 Atherosclerotic heart disease of native coronary artery without angina pectoris; G43.909 Migraine, unspecified, not intractable, without status migrainosus; J20.9 Acute bronchitis, unspecified; J70.5 Respiratory conditions due to smoke inhalation; N18.9 Chronic kidney disease, unspecified; T59.811A Toxic effect of smoke, accidental (unintentional), initial encounter; Z63.4 Disappearance and death of family member; Z79.01 Long term (current) use of anticoagulants; Z79.899 Other long term (current) drug therapy; Z82.49 Family history of ischemic heart disease and other diseases of the circulatory system; Z90.49 Acquired absence of other specified parts of digestive tract; Z91.14 Patient's other noncompliance with medication regimen; Z91.19 Patient's noncompliance with other medical treatment and regimen; Z95.5 Presence of coronary angioplasty implant and graft; Z87.891 Personal history of nicotine dependence; B95.8 Unspecified staphylococcus as the cause of diseases classified elsewhere
CPT/HCPCS: 36415; 71045; 80048; 80053; 81001; 83690; 83735; 83880; 84436; 84439; 84443; 84480; 84484; 85007; 85025; 85027; 85379; 85610; 85730; 87086; 87186; 93005; 96374; J0696; J1160; J2060; J3490; J7040; 99285-25

== ENCOUNTER 2018-09-06 15:01 | Emergency (ER) | payer MEDICARE ==
[~2018-09-06] VITALS: Ht 157.5 cm; Wt 58.1 kg
[~2018-09-06 15:01] MED LIST changes: +ARIP2TAB35 PO; +LORA0.5T PO; +MIRT15TA3 PO; +SERT50TA PO
[2018-09-06 15:10] VITALS: BP 144/74
--- NOTE | 2018-09-06 16:17 | RAD ---
2 view study of the left hip and AP view of the pelvis Clinical indications: Left hip and buttock pain. FINDINGS: No acute fracture or dislocation or lytic process is seen. No significant arthritic change is evident. Contrast is seen within the urinary bladder consistent with a recent contrast study. IMPRESSION: No acute osseous abnormality. Electronically signed by: Parker Tamayo MD (09/06/2018 4:15 PM) [facility]
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
[2018-09-06] MEDS: ACETAMINOPHEN 325 MG TABLET PO ONE (16:49)
[2018-09-06] MEDS: KETOROLAC 60 MG/2 ML VIAL. IM ONE (16:49)
== END 2018-09-06 18:13 | disposition home or self-care (01) ==
LOC: ER 15:01
DX: S70.02XA Contusion of left hip, initial encounter (principal); S50.12XA Contusion of left forearm, initial encounter; M54.5 Low back pain; I48.91 Unspecified atrial fibrillation; E78.00 Pure hypercholesterolemia, unspecified; I10 Essential (primary) hypertension; G43.909 Migraine, unspecified, not intractable, without status migrainosus; Z90.89 Acquired absence of other organs; Z87.891 Personal history of nicotine dependence; Z88.8 Allergy status to other drugs, medicaments and biological substances; Z88.5 Allergy status to narcotic agent; Z88.1 Allergy status to other antibiotic agents; Z88.2 Allergy status to sulfonamides; Y04.2XXA Assault by strike against or bumped into by another person, initial encounter; Y93.89 Activity, other specified; Y92.89 Other specified places as the place of occurrence of the external cause; Y99.8 Other external cause status
CPT/HCPCS: 73502; 96372; 99284; J1885

== ENCOUNTER 2019-12-13 04:21 | Inpatient (IN) | payer MEDICARE ==
[~2019-12-13] VITALS: Ht 157.5 cm; Wt 59.5 kg
[2019-12-13] VITALS (14 sets, daily range): BP systolic 105–168; BP diastolic 53–103
[~2019-12-13 04:21] MED LIST changes: +SIMV40TA18 PO; -SIMV40TA3 PO
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
--- NOTE | 2019-12-13 05:07 | RAD ---
AP chest x-ray HISTORY: Shortness of breath. COMPARISON: Chest x-ray July 29, 2018. FINDINGS: Skinfold artifact right lateral lung base. Cardiomegaly stable. Aortic arch calcified plaque. No pneumothorax. No pleural effusions. Development of pulmonary vascular congestion and pulmonary edema with interstitial edema and fissural thickening. IMPRESSION: Congestive heart failure with moderate cardiomegaly, pulmonary vascular congestion and pulmonary interstitial edema. No pleural effusions. Electronically signed by: Nagi Noble MD (12/13/2019 5:04 AM) [facility]
[2019-12-13] MEDS ORDERED: METOPROLOL TARTRATE 5 MG/5 ML VIAL. IV ONE ×2 (05:15→07:00)
[2019-12-13] MEDS ORDERED: CONTRAST GIVEN. MC PRN (05:15)
[2019-12-13] MEDS ORDERED: ONDANSETRON PF 4 MG/2 ML VIAL. IVP ONE ×2 (05:30→07:45)
[2019-12-13 05:37] LABS: CALCIUM 8.6 mg/dL (8.5-10.1); CREATININE 1.3 mg/dL (0.6-1.0); POTASSIUM 4.9 mmol/L (3.5-5.1)
[2019-12-13 05:41] LABS: BASO # 0.1 x10^3/uL (0.0-0.2); BASO % 1 % (0-3); EOS # 0.4 x10^3/uL (0.0-0.7); EOS % 2 % (0-3); HEMATOCRIT 42.2 % (36.0-47.0); HEMOGLOBIN 12.7 g/dL (12.0-15.5); LYMPH # 1.9 x10^3/uL (1.0-4.8); LYMPH % 9 % (24-48); MEAN CORPUSCULAR HEMOGLOBIN 27 pg (25-35); MEAN CORPUSCULAR HGB CONC 30 g/dL (31-37); MEAN CORPUSCULAR VOLUME 89 fL (79-100); MONO # 0.4 x10^3/uL (0.0-1.1); MONO % 2 % (0-9); NEUT # 18.3 x10^3uL (1.8-7.7); NEUT % 87 % (31-73); PLATELET COUNT 572 x10^3/uL (140-400); RED BLOOD COUNT 4.76 x10^6/uL (3.50-5.40); RED CELL DISTRIBUTION WIDTH 27.3 % (11.5-14.5); WHITE BLOOD COUNT 21.1 x10^3/uL (4.0-11.0)
[2019-12-13] MEDS: IOHEXOL 350 MG/ML 100 ML VIAL. IV ONE ×2 (05:46→06:21)
[2019-12-13 05:49] LABS: ALBUMIN 3.5 g/dL (3.4-5.0); ALBUMIN/GLOBULIN RATIO 1.1 (1.0-1.7); TOTAL BILIRUBIN 1.7 mg/dL (0.2-1.0); TOTAL PROTEIN 6.6 g/dL (6.4-8.2)
[2019-12-13 05:56] LABS: % BANDS 5 % (0-9); % LYMPHS 7 % (24-48); % MONOS 1 % (0-10); % SEGS 87 % (35-66); ANISOCYTOSIS MOD; MICROCYTOSIS SLIGHT; PLT ESTIMATE INCREASED (ADEQUATE)
[2019-12-13] MEDS ORDERED: VANCOMYCIN PER PHARMACY MC PRN (06:30)
[2019-12-13] MEDS ORDERED: IV NORMAL SALINE 1,000ML 1,000 ML IV ONE ×2 (06:45)
[2019-12-13] MEDS ORDERED: BUMETANIDE 1 MG/4 ML VIAL. IVP ONE (06:45)
[2019-12-13] MEDS ORDERED: ASPIRIN 325 MG TABLET PO ONE (06:45)
[2019-12-13] MEDS ORDERED: VANCOMYCIN 1.5 GM in IV NORMAL SALINE 500ML 500 ML IV ONE (07:00)
[2019-12-13] MEDS ORDERED: PIPERACILLIN/TAZOBACTAM 4.5 GM in IV NORMAL SALINE 50ML 50 ML IV ONE (07:00)
[2019-12-13] MEDS ORDERED: IV NORMAL SALINE 50ML 50 ML ONE (07:08)
[2019-12-13] MEDS ORDERED: PIPERACILLIN/TAZOBACTAM 4.5 GM VIAL IV ONE (07:08)
[2019-12-13] MEDS ORDERED: DIGOXIN IV 500 MCG/2 ML AMPUL. IV ONE ×2 (07:30→09:45)
--- NOTE | 2019-12-13 08:41 | RAD ---
VENOUS LOWER EXT BILATERAL History: Reason: BLE edema, elevated d-dimer / Spl. Instructions: PULSATILE FLOW SEEN BILAT / History: Comparison: None. Discussion: Multiple longitudinal and transverse high resolution real-time images of the venous system of bilateral lower extremity were obtained with color and Doppler sampling. The common femoral, superficial femoral, popliteal and proximal calf veins are all patent and demonstrate normal flow and compressibility. Normal respiratory phasicity and augmentation is present. Impression: 1. No evidence of deep vein thrombosis. Electronically signed by: Partha Sofia DO (12/13/2019 8:38 AM) [id number]
--- NOTE | 2019-12-13 08:43 | PDOC2 ---
CARDIAC CONSULT DATE OF CONSULT DOS: DATE: 12/13/19 TIME: 08:39 REASON FOR CONSULT Reason for Consult CHF AFIB with RVR REFERRING PHYSICIAN Referring Physician Dr. Rucker SOURCE Source: Chart review, Patient HPI History of Present Illness This is a 74 yo female who presented secondary to shortness of breath. Reports she has been more short of breath for the last couple of days. Significantly worse yesterday. Also noted with palpitations, chest pressure. No dizziness, diaphoresis, or nausea/vomiting. Was noted in AFIB with RVR upon arrival. CXR with CHF. Does have a history of PAFIB. Previous admission for RVR and also noted with bradycardia. Follow with [facility] cardiology, Dr. Duncan. Reports having recent event monitor, which she cannot tell me the results of. Does not have a med list available. States some medication that she krissenlty takes, but does not reports any rate control medications. Is on Eliquis for stroke prophylaxis. Did have a fall 2-3 weeks ago. Have facial contusion requiring sutures. Was treated at [place]. PAST MEDICAL HISTORY Past Medical History Coronary artery disease s/p PCI/stents placement CHF PAFIB Hypertension Hyperlipidemia Hypothyroidism Chronic kidney disease Obstructive sleep apnea PAST SURGICAL HISTORY Past Surgical History Cataract surgery Appendectomy FAMILY HISTORY Family History Coronary artery disease and stroke SOCIAL HISTORY Smoke: Quit ALCOHOL: none Drugs: None Lives: with Family CURRENT MEDICATIONS Current Medications Current Medications Metoprolol Tartrate (Lopressor Vial) 5 mg 1X ONCE IV Last administered on 12/13/19at 05:32; Start 12/13/19 at 05:15; Stop 12/13/19 at 05:16; Status DC Iohexol (Omnipaque 350 Mg/ml) 100 ml 1X ONCE IV ; Start 12/13/19 at 05:15; Stop 12/13/19 at 06:25; Status DC Info (Do NOT chart on this entry -- for MONITORING) 1 each PRN DAILY PRN MC SEE COMMENTS; Start 12/13/19 at 05:15; Stop 12/13/19 at 06:25; Status DC Ondansetron HCl (Zofran) 4 mg 1X ONCE IVP Last administered on 12/13/19at 0 5:31; Start 12/13/19 at 05:30; Stop 12/13/19 at 05:39; Status DC Piperacillin Sod/ Tazobactam Sod 4.5 gm/Sodium Chloride 50 ml @ 100 mls/hr 1X ONCE IV Last administered on 12/13/19at 07:25; Start 12/13/19 at 07:00; Stop 12/13/19 at 07:29; Status DC Bumetanide (Bumex) 0.5 mg 1X ONCE IVP Last administered on 12/13/19at 07:43; Start 12/13/19 at 06:45; Stop 12/13/19 at 06:46; Status DC Aspirin (José Aspirin) 325 mg 1X ONCE PO Last administered on 12/13/19at 07:25; Start 12/13/19 at 06:45; Stop 12/13/19 at 06:46; Status DC Vancomycin HCl (Vanco Per Pharmacy) 1 each PRN DAILY PRN MC SEE COMMENTS; Start 12/13/19 at 06:30 Sodium Chloride 1,000 ml @ 1,000 mls/hr 1X ONCE IV Last administered on 12/13/19at 07:17; Start 12/13/19 at 06:45; Stop 12/13/19 at 07:18; Status DC Sodium Chloride 1,000 ml @ 1,000 mls/hr 1X ONCE IV Last administered on 12/13/19at 07:18; Start 12/13/19 at 06:45; Stop 12/13/19 at 07:44; Status DC Vancomycin HCl 1.5 gm/Sodium Chloride 500 ml @ 250 mls/hr 1X ONCE IV Last administered on 12/13/19at 07:52; Start 12/13/19 at 07:00; Stop 12/13/19 at 08:59 Metoprolol Tartrate (Lopressor Vial) 5 mg 1X ONCE IV Last administered on 12/13/19at 07:35; Start 12/13/19 at 07:00; Stop 12/13/19 at 07:01; Status DC Sodium Chloride 50 ml @ As Directed STK-MED ONCE .ROUTE ; Start 12/13/19 at 07:08; Stop 12/13/19 at 07:09; Status DC Piperacillin Sod/ Tazobactam Sod (Zosyn) 4.5 gm STK-MED ONCE IV ; Start 12/13/19 at 07:08; Stop 12/13/19 at 07:09; Status DC Digoxin (Lanoxin) 250 mcg 1X ONCE IV ; Start 12/13/19 at 07:30; Stop 12/13/19 at 07:34; Status DC Ondansetron HCl (Zofran) 4 mg 1X ONCE IVP ; Start 12/13/19 at 07:45; Stop 12/13/19 at 07:46; Status DC Acetaminophen (Tylenol) 650 mg PRN Q6HRS PRN PO MILD PAIN / TEMP > 100.3'F; Start 12/13/19 at 08:45 Ondansetron HCl (Zofran) 4 mg PRN Q6HRS PRN IVP NAUSEA/VOMITING; Start 12/13/19 at 08:45 Active Scripts Active Mirtazapine 15 Mg Tablet 0.5 Tab PO QHS Zoloft (Sertraline Hcl) 50 Mg Tablet 1 Tab PO DAILY Abilify (Aripiprazole) 2 Mg Tablet 2 Mg PO DAILY 30 Days Eliquis (Apixaban) 5 Mg Tablet 5 Mg PO BID 30 Days [place] 5-325 Tablet (Hydrocodone Bit/Acetaminophen) 1 Each Tablet 1 Tab PO PRN Q6HRS PRN Reported Lorazepam 0.5 Mg Tablet 1 Tab PO Q8HRS Levothyroxine Sodium 100 Mcg Tablet 75 Mcg PO DAILYAC LAST DOSE GIVEN: DATE: TODAY TIME: AM NEXT DOSE DUE: DATE: TOMORROW TIME: AM Isosorbide Mononitrate Er (Isosorbide Mononitrate) 30 Mg Tab.er.24h 15 Mg PO DAILY LAST DOSE GIVEN: DATE: TODAY TIME: AM NEXT DOSE DUE: DATE: TOMORROW TIME: AM Losartan Potassium 100 Mg Tablet 100 Mg PO DAILY LAST DOSE GIVEN: DATE: TODAY TIME: AM NEXT DOSE DUE: DATE: TOMORROW TIME: AM Citalopram Hbr (Citalopram Hydrobromide) 40 Mg Tablet 40 Mg PO QHS LAST DOSE GIVEN: DATE: YESTERDAY TIME: AT BEDTIME NEXT DOSE DUE: DATE: TODAY TIME: AT BEDTIME Simvastatin 40 Mg Tablet 40 Mg PO HS LAST DOSE GIVEN: DATE: YESTERDAY TIME: AT BEDTIME NEXT DOSE DUE: DATE: TODAY TIME: AT BEDTIME Zolpidem Tartrate 10 Mg Tablet 10 Mg PO PRN QHS PRN LAST DOSE GIVEN: DATE: TIME: NEXT DOSE DUE: DATE: TODAY TIME: AT BEDTIME, IF NEEDED ALLERGIES Allergies: Coded Allergies: amlodipine (Verified Allergy, Intermediate, 08/11/14) hydralazine (Verified Allergy, Intermediate, 08/11/14) sulfamethoxazole (Verified Allergy, Intermediate, 08/11/14) trimethoprim (Verified Allergy, Intermediate, 08/11/14) morphine (Verified Adverse Reaction, Intermediate, 08/11/14) ROS Review of Systems 14 point ROS conducted with pertinent positives noted above in HPI PHYSICAL EXAM General: Alert, Oriented X3, Cooperative, No acute distress HEENT: Mucous membr. moist/pink, Other (Faiding facial bruising) Lungs: Other (bibasilar crackles ) Heart: Other (AFIB with RVR) Abdomen: Soft, No tenderness Extremities: Other (trace bilateral LE edema. right richards heeling abrasion. ) Skin: No rashes Neuro: Normal speech, Sensation intact Psych/Mental Status: Mental status NL, Mood NL MUSCULOSKELETAL: Osteoarthritic changes both hands VITALS Vital Signs Vital Signs Date Time Temp Pulse Resp B/P (MAP) Pulse Ox O2 Delivery O2 Flow Rate FiO2 12/13/19 08:23 113 26 126/84 (98) 99 Nasal Cannula 2.0 12/13/19 04:56 97.7 LABS LABS Laboratory Tests Test 12/13/19 05:08 12/13/19 06:57 White Blood Count 21.1 x10^3/uL (4.0-11.0) Red Blood Count 4.76 x10^6/uL (3.50-5.40) Hemoglobin 12.7 g/dL (12.0-15.5) Hematocrit 42.2 % (36.0-47.0) Mean Corpuscular Volume 89 fL (79-100) Mean Corpuscular Hemoglobin 27 pg (25-35) Mean Corpuscular Hemoglobin Concent 30 g/dL (31-37) Red Cell Distribution Width 27.3 % (11.5-14.5) Platelet Count 572 x10^3/uL (140-400) Neutrophils (%) (Auto) 87 % (31-73) Lymphocytes (%) (Auto) 9 % (24-48) Monocytes (%) (Auto) 2 % (0-9) Eosinophils (%) (Auto) 2 % (0-3) Basophils (%) (Auto) 1 % (0-3) Neutrophils # (Auto) 18.3 x10^3uL (1.8-7.7) Lymphocytes # (Auto) 1.9 x10^3/uL (1.0-4.8) Monocytes # (Auto) 0.4 x10^3/uL (0.0-1.1) Eosinophils # (Auto) 0.4 x10^3/uL (0.0-0.7) Basophils # (Auto) 0.1 x10^3/uL (0.0-0.2) Segmented Neutrophils % 87 % (35-66) Band Neutrophils % 5 % (0-9) Lymphocytes % 7 % (24-48) Monocytes % 1 % (0-10) Platelet Estimate Increased (ADEQUATE) Anisocytosis Mod Microcytosis Slight Sodium Level 140 mmol/L (136-145) Potassium Level 4.9 mmol/L (3.5-5.1) Chloride Level 103 mmol/L (98-107) Carbon Dioxide Level 25 mmol/L (21-32) Anion Gap 12 (6-14) Blood Urea Nitrogen 23 mg/dL (7-20) Creatinine 1.3 mg/dL (0.6-1.0) Estimated GFR (Cockcroft-Gault) 40.0 BUN/Creatinine Ratio 18 (6-20) Glucose Level 119 mg/dL (70-99) Lactic Acid Level 3.1 mmol/L (0.4-2.0) Calcium Level 8.6 mg/dL (8.5-10.1) Total Bilirubin 1.7 mg/dL (0.2-1.0) Aspartate Amino Transf (AST/SGOT) 57 U/L (15-37) Alanine Aminotransferase (ALT/SGPT) 37 U/L (14-59) Alkaline Phosphatase 139 U/L (46-116) Troponin I Quantitative 0.019 ng/mL (0-0.055) LW-Cfa-D-Type Natriuretic Peptide 92947 pg/mL (0-124) Total Protein 6.6 g/dL (6.4-8.2) Albumin 3.5 g/dL (3.4-5.0) Albumin/Globulin Ratio 1.1 (1.0-1.7) Prothrombin Time 12.7 SEC (9.4-11.4) Prothromb Time International Ratio 1.2 (0.9-1.1) Activated Partial Thromboplast Time 27 SEC (23-33) D-Dimer (Tracy) 2.24 mg/L (0.00-0.50) ASSESSMENT/PLAN Assessment/Plan 1. Acute on chronic probable diastolic CHF; improved with IV diuresis in ED. induced by RVR? 2. PAFIB with RVR; rate remains uncontrolled despite metoprolol IV 5mg x2 3. H/o bradycardia. ? tachy-kathy. Reports recent event monitor with primary diaper folder, [facility]. Duncan at [facility] 4. Leukocytosis, lactic acidosis; received IV antibiotic therapy 5. Hypertension; controlled overall 6. CAD s/p PCI/stents; primary diaper folder, Dr. Duncan 7. Hyperlipidemia; statin 8. YUE on CKD 9. Hypothyroidism Recommendations Div IV x1 now TSH, lipids Diuresis with monitoring of renal function Obtain accurate med list Obtain cardiac records from [facility] including recent event monitor, stress test, echocardiogram Eliquis for stroke prevention Continue current secondary prevention measures. Further pending review of cardiac records PRERNA SPAIN APRN Dec 13, 2019 08:43
[2019-12-13] MEDS ORDERED: ONDANSETRON PF 4 MG/2 ML VIAL. IVP PRN (08:45)
--- NOTE | 2019-12-13 08:46 | NUR ---
IP: patient PUI for COVID-19, requires contact and airborne precautions.
--- NOTE | 2019-12-13 09:36 | NUR ---
The patient, TOMASA BAER, 74 y/o, F admitted by MARIA E FERRARA MD, was given written information regarding hospital policies, unit procedures and contact persons. medications and belongings reviewed with patient. pt was brought to ICU 4 by EMS and ED staff on a gurney. Pt is A&Ox4, poor historian at times and somewhat forgetful. she is on 2L NC at this time, O2 sat 99%. pt is SOA "feels like I can't catch my breath". otherwise, VSS at this time. Arely ORTEGA from cardiology at bedside assessing pt at this time. Valuables were checked and left with pt. Kassandra STEWART
[2019-12-13] MEDS ORDERED: FERR325T20 PO (11:15)
[2019-12-13] MEDS ORDERED: QUET25TA5 PO (11:21)
[2019-12-13] MEDS ORDERED: NEBI20TA2 PO (11:21)
[2019-12-13] MEDS ORDERED: ASPI-630 PO (11:21)
[2019-12-13] MEDS ORDERED: HYDR25TA PO (11:21)
[2019-12-13] MEDS ORDERED: POTA10TA12 PO (11:21)
[2019-12-13] MEDS ORDERED: FURO20TA3 PO (11:21)
[2019-12-13] MEDS ORDERED: ERGO500027 PO (11:21)
--- NOTE | 2019-12-13 12:38 | RAD ---
PULMONARY PERFUSION IMG PARTIC History:Reason: Hypoxia, Elevated d-dimer / Spl. Instructions: no vent during Covid per radiologist / History: Comparison: Chest x-ray December 13, 2019 Findings: Perfusion examination was performed. Ventilation images were not obtained due to Covid protocol. Perfusion images were acquired after the patient was injected with 5.3 mCi of technetium 99m MAA. Heterogeneous perfusion with small regions of perfusion defects predominantly centrally within the lungs. No medial or large peripheral perfusion defect identified. Impression: 1. Low probability for pulmonary embolic disease. Electronically signed by: Partha Sofia DO (12/13/2019 12:35 PM) [id number]
--- NOTE | 2019-12-13 13:27 | NUR ---
Pharmacy Vancomycin Dosing Note S:Consulted to monitor and dose vancomycin started . O:TOMASA BAER is a 74 year old F with Pneumonia, . Height: 5 feet, 2 inches Weight: 61.2 kg [place] Body Weight: 50.10 Adjusted Body Weight: 54.46 Dosing Weight: Actual Other Antibiotics: LABS: Last BUN: 23 Last Creatinine: 1.3 Creatinine Clearance: Last WBC: 21.1 Last Procalcitonin: Tmax (past 24 hours): Microbiology: I/O: Drug Levels: Last level: on at Last dose given 12/13/19 at 0900 Vancomycin Dosing: Loading Dose: 1500 mg x1 Dosing Weight: Actual Target Trough: 15-20 A: Based on: P: 1. Begin Vancomycin 1000 mg IV q24h 2. Follow up Trough level on 12/15/19 at 0830 3. Pharmacy will continue to monitor, follow and adjust therapy as needed. KAREN DUEÑAS RPH, 12/13/19 [id number]
[2019-12-13] MEDS ORDERED: FUROSEMIDE 40 MG/4 ML VIAL IVP ONE (14:00)
[2019-12-13] MEDS ORDERED: POTASSIUM CHLORIDE 20 MEQ TABLET.ER. PO ONE (14:00)
--- NOTE | 2019-12-13 14:15 | NUR ---
Patient had a fall in room with getting from bed to bedside commode. pt was pulling brief down, with assistance and felt sudden dizziness and weak in legs. pt fell and hit back of head and complains of lower back pain near posterior ribs and back of head at a rate of 7-8/10. Dr alves notified and held eliquis and ASA and ordered STAT CT head and neck and CT of lumbar spine. Will continue to monitor.
[2019-12-13 14:19] LABS: BACTERIA,URINE 0 /HPF (0-FEW); BILIRUBIN,URINE NEG (NEG); CLARITY,URINE CLEAR; COLOR,URINE AMBER; GLUCOSE,URINE NEG (NEG); NITRITE,URINE NEG (NEG); UROBILINOGEN,URINE 0.2 mg/dL (0.2 mg/dL); WBC,URINE OCC /HPF (0-4)
[2019-12-13 15:23] LABS: THYROID STIM HORMONE (TSH) 149.24 uIU/mL (0.358-3.740)
[2019-12-13] MEDS: FUROSEMIDE 20 MG TABLET PO SCH (17:00)
--- NOTE | 2019-12-13 18:05 | RAD ---
CT HEAD AND CERVICAL SPINE WO dated 12/13/2019 4:16 PM. Comparison: None. Clinical Indication: Reason: fall / Spl. Instructions: / History: Technical factors: Contiguous 5 mm axial images of the head were obtained from the skullbase to the vertex. No contrast was administered. In addition, 3 mm axial images of the cervical spine were acquired with thin cut coronal and sagittal reconstructions. Findings head: Ventricles and sulci are mildly prominent for age. No midline shift or mass effect. Moderate patchy low density in the deep/subcortical periventricular white matter. No hemorrhage or extra-axial collection. There is a small remote lacunar infarct of the left thalamus. Posterior fossa and brainstem unremarkable. Visualized paranasal sinuses and mastoid air cells are clear. No apparent calvarial abnormality. IMPRESSION HEAD: 1. No evidence of acute intracranial hemorrhage or mass. 2. Moderate chronic small vessel ischemic changes and atrophy. Findings cervical spine: Images were acquired from the skull base to C7. There is straightening of the normal cervical lordosis, otherwise sagittal alignment is anatomic. Vertebral body heights are maintained. No prevertebral soft tissue swelling. Posterior elements are intact. No fractures are identified. Mild endplate hypertrophic changes throughout. There is partial fusion at the C6-C7 disc level and posterior elements. Mild multilevel uncovertebral spurring and facet arthropathy with mild endplate hypertrophic changes throughout. There is mild right foraminal stenosis at C5-C6 no apparent focal disc herniation or significant central canal compromise. Visualized soft tissue structures are unremarkable. IMPRESSION CERVICAL SPINE: 1. No evidence of fracture or malalignment. 2. Mild multilevel spondylosis with fusion anomaly at C6-C7. Electronically signed by: Abdelrahman Humphries MD (12/13/2019 6:02 PM) JAMIR
[2019-12-13] MEDS: ACETAMINOPHEN 325 MG TABLET PO PRN ×2 (18:24→20:32)
[2019-12-13] MEDS: PIPERACILLIN/TAZOBACTAM 2.25 GM in IV NORMAL SALINE 50ML 50 ML IV SCH (18:24)
[2019-12-13] MEDS: LOSARTAN 50 MG TABLET. PO SCH (18:25)
--- NOTE | 2019-12-13 18:28 | HP ---
ADMIT DATE: 12/13/2019 HISTORY OF PRESENT ILLNESS: The patient is a 74-year-old female patient who came to the Emergency Room complaining of shortness of breath. She stated she started to feel more short of breath about 90 minutes prior to arrival. She has woken up from sleep, feeling more short of breath. She has a history of recent trauma. She fell down an escalator for which she was seen at [facility] and admitted for several days. She has been placed on a new blood thinner, as she has atrial fibrillation at baseline. She is not on rate controlling medications as far as she knows. She stated that she has atrial fibrillation that comes and goes. She denies any fevers or chills. She has some chest discomfort. She has not had this since she had a fall. Her chest is very sore. On arrival, her oxygen saturation was 88%-89%. Her oxygen improved to 95% on 2 liters of oxygen. The patient is not on oxygen at home. She is known to have no official diagnosis of COPD, even though she is a former smoker. She was extensively investigated. Her lab work showed that her white cell count was extremely high at 21,000, hemoglobin and hematocrit were normal. Her MCV was 89 and platelet count of 572,000. Her D-dimer was high at 2.24. Her prothrombin time, INR slightly elevated and aPTT was 27. Her chemistry showed that she has elevated BUN and creatinine. Her total bilirubin is also slightly elevated. Her beta-natriuretic peptide was 2024. Her troponin was 0.019 and her lactic acid was high at 3.1. Her TSH was extremely high at ____. Urinalysis essentially unremarkable. Her chest x-ray showed congestive heart failure with moderate cardiomegaly, pulmonary vascular congestion, pulmonary interstitial edema, no pleural effusion, and she did have pulmonary perfusion imaging without ventilation and basically it showed that the patient has heterogenous perfusion with small regions of perfusion defects predominantly centrally within the lungs. No medial or large peripheral perfusion defects identified, and the impression is that the patient has low probability for pulmonary embolic disease. She did have ultrasound of both lower extremities, which showed no evidence of deep vein thrombosis. She was admitted with atrial fibrillation with rapid ventricular response, acute congestive heart failure, severe sepsis, acute hypoxic respiratory failure, and suspected 2019 novel coronavirus infection. She was admitted to ICU, was treated initially with IV fluid; however, she became more short of breath, was treated with vancomycin and Zosyn. PAST MEDICAL HISTORY: Significant for atrial fibrillation with rapid ventricular response, coronary artery disease, hypertension, hyperlipidemia and hypothyroidism. PAST SURGICAL HISTORY: Significant for appendectomy and bilateral cataract extraction. FAMILY HISTORY: Positive for coronary artery disease and hypertension. SOCIAL HISTORY: She lives alone. She is an ex-smoker, does not drink alcohol or use any recreational drugs. REVIEW OF SYSTEMS: As per history of present illness. ALLERGIES: She is allergic to AMLODIPINE, HYDRALAZINE, MORPHINE, SULFAMETHOXAZOLE, TRIMETHOPRIM. MEDICATIONS: She is currently on ferrous sulfate 325 mg once a day, apixaban 5 mg twice a day, simvastatin 40 mg at bedtime, isosorbide mononitrate 15 mg daily, Bystolic 20 mg once a day, losartan potassium 100 mg once a day, aspirin 81 mg once a day, quetiapine fumarate 25 mg twice a day, hydroxyzine 25 mg at bedtime, potassium chloride 20 mEq twice a day, furosemide 20 mg once a day, levothyroxine sodium 100 mcg once a day. PHYSICAL EXAMINATION: GENERAL: On arrival to the Emergency Room, she was pale, not jaundiced or cyanosed. No lymphadenopathy, no thyromegaly. No jugular venous distention. Mild bilateral lower limb edema. VITAL SIGNS: Her heart rate was 125, blood pressure was 145/106, temperature was 97.7, respiratory rate 22, and oxygen saturation was 95% on 2 liters of oxygen. HEAD, EYES, EARS, NOSE AND THROAT: Showed normocephalic, atraumatic. She has multiple bruises around her eyes and both sides of her cheeks. NECK: Supple. HEART: Showed normal first and second heart sounds. No gallop or murmur. CHEST: Showed central trachea, equal bilateral expansion, air entry equal expansion, bilateral basal crepitation. I could not appreciate any rhonchi. ABDOMEN: Distended, soft, nontender. NEUROLOGIC: She was awake, alert, responding appropriately. All cranial nerves intact. EXTREMITIES: She moves extremities without difficulty. She has multiple bruises on both upper and lower extremities that resulted from her fall in the escalator when she was at [facility]. LABORATORY DATA: Her lab work on arrival showed a white cell count 21,100, hemoglobin 12.7, hematocrit 42, MCV 89 and platelet count 572,000. Her chemistry showed a serum sodium 140, potassium 4.9, chloride 103, bicarbonate 25, anion gap of 12, BUN 23, creatinine 1.3, estimated GFR was 40 mL per minute. Her glucose was ____, calcium was 8.6. Total bilirubin, AST, ALT, alkaline phosphatase were normal. Troponin was less than 0.019. Beta-natriuretic peptide was 2024. Total protein 6.6, albumin 3.5. PT was 12.7, INR 1.2, aPTT was 27. D-dimer was 2.24. Urinalysis essentially unremarkable. Her chest x-ray showed that the patient has congestive heart failure with moderate cardiomegaly, pulmonary vascular congestion and pulmonary interstitial edema, no pleural effusion. Her pulmonary perfusion scan was read as low probability for pulmonary embolic disease and her bilateral lower extremity venous Doppler ultrasound showed no evidence of deep vein thrombosis. ASSESSMENT AND PLAN: The patient was treated with metoprolol and was given also digoxin 250 mcg IV and furosemide 40 mg IV together with potassium chloride. She was started on vancomycin and Zosyn. We will continue with these both antibiotics. We will reconcile her medication. I will hold her apixaban given that she has fallen and we will monitor her closely. MARIA E FERRARA MD DR: JAVI/francis JOB#: [id number] / [id number]
--- NOTE | 2019-12-13 18:32 | RAD ---
CT LUMBAR SPINE WO CONTRAST Indication: Fall Technique: Noncontrast CT imaging was performed of the lumbar spine, multiplanar reconstruction images submitted. One or more of the following individualized dose reduction techniques were utilized for this examination: 1. Automated exposure control 2. Adjustment of the mA and/or kV according to patient size 3. Use of iterative reconstruction technique. Comparison: None Findings: There is transitional anatomy of the lumbar spine. For the purpose of this report, most inferior fully formed intervertebral disc space will be considered L5-S1, assumption of 5 lumbar type vertebral bodies although there are very small bilateral ribs at what is considered L1. There is mild degenerative disc disease with vacuum phenomenon at L5-S1. Lumbar vertebral body stature and AP alignment are maintained. There is mild superior endplate concavity of what is considered T11 without osseous retropulsion. There is multilevel lumbar facet degenerative change greater inferiorly. Disc osteophyte complex and dissecting contributes to [id number] narrowing of the right L5-S1 neural foramen. No significant lumbar spinal stenosis is identified on this nonmyelographic exam. There is very mild lumbar dextroscoliosis. There is more solid-appearing left adnexal mass about 4.4 cm, although also some adjacent cystic density more superiorly and anteriorly at least 6.8 cm. There is mild free fluid in the pelvis. There are small bilateral pleural effusions right greater than left. There is coronary calcification. IMPRESSION: 1. There is transitional anatomy of the lumbar spine, most inferior fully formed intervertebral space considered L5-S1 with assumption of 5 lumbar vertebral bodies. There are very small bilateral rib at what is considered L1. 2. There is mild superior endplate concavity of what is considered T11 without osseous retropulsion, could be acute. 3. Not fully evaluated, there is more solid-appearing left adnexal mass, also adjacent focus of cystic density more superiorly. Concern would be for ovarian neoplasm although it is possible the more solid-appearing mass arises from the left aspect of the uterus. There is mild free fluid in the pelvis. 3. There are small bilateral pleural effusions greater on the right. There is some coronary calcification. Electronically signed by: Paresh Holder MD (12/13/2019 6:29 PM) [facility]
[2019-12-13] MEDS: hydrOXYzine HCL 25 MG TABLET PO SCH (20:32)
[2019-12-13] MEDS: POTASSIUM CHLORIDE 10 MEQ TABLET.ER. PO SCH (20:32)
[2019-12-13] MEDS: SIMVASTATIN 40 MG TABLET. PO SCH (20:32)
[2019-12-13] MEDS: QUEtiapine 25 MG TABLET. PO SCH (20:32)
[2019-12-13] MEDS: METOPROLOL TART IMMED RELEASE 50 MG TABLET PO SCH (20:32)
[2019-12-13] MEDS: oxyCODONE IR 5 MG TABLET PO PRN (20:32)
--- NOTE | 2019-12-13 21:11 | EKG ---
[address] [address] Test Date: 2019-12-13 Test Time: 04:36:36 Pat Name: TOMASA BAER Department: Room: Gender: F Office Executive: : 1945 Requested By: KADEN LONGORIA Order Number: [id number] Reading MD: Measurements Intervals [place] Rate: 124 P: RI: QRS: -2 QRSD: 84 T: 129 QT: 336 QTc: 487 Interpretive Statements IRREGULAR RHYTHM, NO P-WAVE FOUND LEFTWARD AXIS LOW LIMB LEAD VOLTAGE QRS(T) CONTOUR ABNORMALITY CONSIDER INFERIOR MYOCARDIAL DAMAGE ST & T ABNORMALITY, CONSIDER LATERAL ISCHEMIA OR LEFT VENTRICULAR STRAIN ABNORMAL ECG RI6.02 No previous ECG available for comparison
[2019-12-14] VITALS (14 sets, daily range): BP systolic 95–146; BP diastolic 52–85
[2019-12-14] MEDS: PIPERACILLIN/TAZOBACTAM 2.25 GM in IV NORMAL SALINE 50ML 50 ML IV SCH ×4 (00:05→23:19)
--- NOTE | 2019-12-14 05:33 | NUR ---
Shift Note: Pt is a/o x4 (forgetful), VSS (2 liters oxygen required during HS), unsteady gait observed (fall precautions followed), pt has no c/o nausea, pt continues to c/o generalized body aches and pains (Oxycodone ordered and administered at HS, pt able to sleep, advised pt we would wait until dayshift nurse assesses pt to administer another dose so she is not so sleepy, pt agrees w/plan), pt given bed bath this am, pt voiding clear yellow urine (pull ups for some intermittent incontinence), antibiotics administered as ordered, Covid results pending.
[2019-12-14 07:12] LABS: ALBUMIN 2.2 g/dL (3.4-5.0); ALBUMIN/GLOBULIN RATIO 0.8 (1.0-1.7); CALCIUM 7.6 mg/dL (8.5-10.1); CREATININE 1.2 mg/dL (0.6-1.0); GFR 43.9; TOTAL PROTEIN 4.9 g/dL (6.4-8.2)
[2019-12-14] MEDS ORDERED: LEVOTHYROXINE 88 MCG TABLET PO SCH (08:00)
[2019-12-14 08:25] LABS: HEMATOCRIT 36.1 % (36.0-47.0); HEMOGLOBIN 10.9 g/dL (12.0-15.5); RED BLOOD COUNT 3.98 x10^6/uL (3.50-5.40); RED CELL DISTRIBUTION WIDTH 26.6 % (11.5-14.5); WHITE BLOOD COUNT 12.2 x10^3/uL (4.0-11.0)
--- NOTE | 2019-12-14 08:38 | PDOC ---
CARDIO Progress Notes Date & Time Date of Service DATE: 12/14/19 TIME: 08:36 Time of Evaluation 08:36 Subjective Notes no chest pain, pain palpitation. SOA better. Vitals Vitals Vital Signs Date Time Temp Pulse Resp B/P (MAP) Pulse Ox O2 Delivery O2 Flow Rate FiO2 12/14/19 07:00 74 15 137/83 (101) 99 Nasal Cannula 2.0 12/14/19 05:35 98.5 Weight Weight [ ] Input and Output I.O. Intake and Output 12/14/19 07:00 Intake Total 2660 ml Balance 2660 ml Intake Oral 1000 ml IV Total 1660 ml # Voids 5 Laboratory Labs Laboratory Tests Test 12/13/19 04:29 12/13/19 05:08 12/13/19 06:57 12/13/19 08:40 Urine Collection Type Unknown Urine Color Janiya Urine Clarity Clear Urine pH 6.0 Urine Specific Goodwin 1.020 Urine Protein Neg (NEG-TRACE) Urine Glucose (UA) Neg mg/dL (NEG) Urine Ketones (Stick) Neg mg/dL (NEG) Urine Blood Neg (NEG) Urine Nitrite Neg (NEG) Urine Bilirubin Neg (NEG) Urine Urobilinogen Dipstick 0.2 mg/dL (0.2 mg/dL) Urine Leukocyte Esterase Neg (NEG) Urine RBC 1-2 /HPF (0-2) Urine WBC Occ /HPF (0-4) Urine Bacteria 0 /HPF (0-FEW) White Blood Count 21.1 x10^3/uL (4.0-11.0) Red Blood Count 4.76 x10^6/uL (3.50-5.40) Hemoglobin 12.7 g/dL (12.0-15.5) Hematocrit 42.2 % (36.0-47.0) Mean Corpuscular Volume 89 fL (79-100) Mean Corpuscular Hemoglobin 27 pg (25-35) Mean Corpuscular Hemoglobin Concent 30 g/dL (31-37) Red Cell Distribution Width 27.3 % (11.5-14.5) Platelet Count 572 x10^3/uL (140-400) Neutrophils (%) (Auto) 87 % (31-73) Lymphocytes (%) (Auto) 9 % (24-48) Monocytes (%) (Auto) 2 % (0-9) Eosinophils (%) (Auto) 2 % (0-3) Basophils (%) (Auto) 1 % (0-3) Neutrophils # (Auto) 18.3 x10^3uL (1.8-7.7) Lymphocytes # (Auto) 1.9 x10^3/uL (1.0-4.8) Monocytes # (Auto) 0.4 x10^3/uL (0.0-1.1) Eosinophils # (Auto) 0.4 x10^3/uL (0.0-0.7) Basophils # (Auto) 0.1 x10^3/uL (0.0-0.2) Segmented Neutrophils % 87 % (35-66) Band Neutrophils % 5 % (0-9) Lymphocytes % 7 % (24-48) Monocytes % 1 % (0-10) Platelet Estimate Increased (ADEQUATE) Anisocytosis Mod Microcytosis Slight Sodium Level 140 mmol/L (136-145) Potassium Level 4.9 mmol/L (3.5-5.1) Chloride Level 103 mmol/L (98-107) Carbon Dioxide Level 25 mmol/L (21-32) Anion Gap 12 (6-14) Blood Urea Nitrogen 23 mg/dL (7-20) Creatinine 1.3 mg/dL (0.6-1.0) Estimated GFR (Cockcroft-Gault) 40.0 BUN/Creatinine Ratio 18 (6-20) Glucose Level 119 mg/dL (70-99) Lactic Acid Level 3.1 mmol/L (0.4-2.0) 2.5 mmol/L (0.4-2.0) Calcium Level 8.6 mg/dL (8.5-10.1) Total Bilirubin 1.7 mg/dL (0.2-1.0) Aspartate Amino Transf (AST/SGOT) 57 U/L (15-37) Alanine Aminotransferase (ALT/SGPT) 37 U/L (14-59) Alkaline Phosphatase 139 U/L (46-116) Troponin I Quantitative 0.019 ng/mL (0-0.055) 0.017 ng/mL (0-0.055) SI-Sqr-O-Type Natriuretic Peptide 94836 pg/mL (0-124) Total Protein 6.6 g/dL (6.4-8.2) Albumin 3.5 g/dL (3.4-5.0) Albumin/Globulin Ratio 1.1 (1.0-1.7) Triglycerides Level 131 mg/dL (0-150) Cholesterol Level 128 mg/dL (0-200) LDL Cholesterol, Calculated 43 mg/dL (0-100) VLDL Cholesterol, Calculated 26 mg/dL (0-40) Non-HDL Cholesterol Calculated 69 mg/dL (0-129) HDL Cholesterol 59 mg/dL (40-60) Cholesterol/HDL Ratio 2.0 Thyroid Stimulating Hormone (TSH) 149.240 uIU/mL (0.358-3.740) Prothrombin Time 12.7 SEC (9.4-11.4) Prothromb Time International Ratio 1.2 (0.9-1.1) Activated Partial Thromboplast Time 27 SEC (23-33) D-Dimer (Tracy) 2.24 mg/L (0.00-0.50) Test 12/13/19 13:10 12/14/19 06:08 Troponin I Quantitative 0.024 ng/mL (0-0.055) White Blood Count 12.2 x10^3/uL (4.0-11.0) Red Blood Count 3.98 x10^6/uL (3.50-5.40) Hemoglobin 10.9 g/dL (12.0-15.5) Hematocrit 36.1 % (36.0-47.0) Mean Corpuscular Volume 91 fL (79-100) Mean Corpuscular Hemoglobin 27 pg (25-35) Mean Corpuscular Hemoglobin Concent 30 g/dL (31-37) Red Cell Distribution Width 26.6 % (11.5-14.5) Platelet Count 373 x10^3/uL (140-400) Sodium Level 140 mmol/L (136-145) Potassium Level 4.0 mmol/L (3.5-5.1) Chloride Level 108 mmol/L (98-107) Carbon Dioxide Level 23 mmol/L (21-32) Anion Gap 9 (6-14) Blood Urea Nitrogen 19 mg/dL (7-20) Creatinine 1.2 mg/dL (0.6-1.0) Estimated GFR (Cockcroft-Gault) 43.9 BUN/Creatinine Ratio 16 (6-20) Glucose Level 89 mg/dL (70-99) Calcium Level 7.6 mg/dL (8.5-10.1) Total Bilirubin 1.0 mg/dL (0.2-1.0) Aspartate Amino Transf (AST/SGOT) 28 U/L (15-37) Alanine Aminotransferase (ALT/SGPT) 20 U/L (14-59) Alkaline Phosphatase 96 U/L (46-116) Total Protein 4.9 g/dL (6.4-8.2) Albumin 2.2 g/dL (3.4-5.0) Albumin/Globulin Ratio 0.8 (1.0-1.7) Microbiology Micro Microbiology 12/13/19 Blood Culture - Preliminary, Resulted NO GROWTH AFTER 1 DAY... Physical Exams HEENT: Neck Supple W Full Motion Chest: Symmetric Lungs: Other Heart: irregularly irregular (AFIB- rate controlled ) Abdomen: Soft N/T Extremities: Other (left arm ecchymosis) Neurology: alert, oriented, follow commands, other (forgetful) Assessment Assessment 1. Acute on chronic probable diastolic CHF; improved with IV diuresis in ED. induced by RVR? 2. PAFIB with RVR; rate now well controlled with resumption of BB. Now bradycardia noted. Reports recent event monitor with primary alarm installation technician, Dr. Duncan at [facility]. Awaiting these records 3. Leukocytosis, lactic acidosis; received IV antibiotic therapy 4. Hypertension; controlled overall 5. CAD s/p PCI/stents; primary alarm installation technician, Dr. Duncan 6. Hyperlipidemia; statin 7. YUE on CKD; improved 8. Hypothyroidism; TSH 149. as per PCP 9. ? Noncompliance Recommendations Resume oral diuresis Obtain cardiac records from [facility] Continue metoprolol for rate control Agree with holding Eliquis therapy due to recent, recurrent falls, ecchymosis Continue current secondary prevention measures. Patient will likely need HH upon discharge Further pending review of cardiac records PRERNA SPAIN APRN Dec 14, 2019 08:38
[2019-12-14] MEDS: METOPROLOL TART IMMED RELEASE 50 MG TABLET PO SCH ×2 (09:08→20:37)
[2019-12-14] MEDS: ISOSORBIDE MONONITRATE ER 30 MG TAB.ER.24H PO SCH (09:09)
[2019-12-14] MEDS: FUROSEMIDE 20 MG TABLET PO SCH (09:09)
[2019-12-14] MEDS: QUEtiapine 25 MG TABLET. PO SCH ×2 (09:09→20:37)
[2019-12-14] MEDS: POTASSIUM CHLORIDE 10 MEQ TABLET.ER. PO SCH ×2 (09:09→20:36)
[2019-12-14] MEDS: LOSARTAN 50 MG TABLET. PO SCH (09:10)
[2019-12-14] MEDS: VANCOMYCIN 1 GM in IV NORMAL SALINE 250ML 250 ML IV SCH (09:11)
[2019-12-14] MEDS: FERROUS SULFATE 325 MG TABLET. PO SCH (17:15)
--- NOTE | 2019-12-14 17:57 | NUR ---
SHIFT NOTE: pt has been sleeping alot of the day. arousable to name. Has gotten up to BSC with assistance by RN and gait belt. has not complained of pain, only "sore" but not requesting any medication. Pt COVID swab resulted negative today so precautions have been lifted. A&Ox4(forgetful) but pleasant. PT/OT consulted for evaluation.
--- NOTE | 2019-12-14 18:15 | NUR ---
Patients felicity Adams at [phone] called and patient gave this RN permission to release information and give updates to her.
[2019-12-14] MEDS: LACTOBACILLUS RHAMNOSUS GG 1 CAPSULE. PO SCH (20:36)
[2019-12-14] MEDS: hydrOXYzine HCL 25 MG TABLET PO SCH (20:36)
[2019-12-14] MEDS: oxyCODONE IR 5 MG TABLET PO PRN (20:36)
[2019-12-14] MEDS: APIXABAN 5 MG TABLET. PO SCH (20:36)
[2019-12-14] MEDS: SIMVASTATIN 40 MG TABLET. PO SCH (20:36)
[2019-12-15] VITALS (7 sets, daily range): BP systolic 129–157; BP diastolic 65–99
--- NOTE | 2019-12-15 01:37 | PN ---
DATE: 12/14/2019 SUBJECTIVE: The patient is resting, slightly propped up in bed, in no apparent distress. She is definitely more awake, alert, feeling much better in terms of her shortness of breath. She has mild discomfort in her back and her ecchymosis on her face particularly are fading away slowly. Nursing staff did not voice any concerns that she had an uneventful night. PHYSICAL EXAMINATION: GENERAL: When I examined her, she was pale, no jaundice, cyanosis or thyromegaly. No jugular venous distention. No lower limb edema. VITAL SIGNS: Her heart rate was 66, blood pressure was 138/66, temperature was 98.5, respiratory rate was 15 and oxygen saturation was 99% on 2 liters of oxygen. HEAD, EYES. EARS, NOSE, AND THROAT: Showed normocephalic and atraumatic. NECK: Supple. HEART: Showed normal first and second heart sounds. No gallop or murmur. CHEST: Clear to auscultation. No crepitation or rhonchi. ABDOMEN: Distended, soft, and nontender. NEUROLOGIC: She is grossly intact. Her intake and output are incompletely recorded. LABORATORY DATA: Her lab work this morning showed a white cell count of 12,200, hemoglobin 11, hematocrit 36, MCV 91, and platelet count 373,000. Serum sodium was 140, potassium 4, chloride 108, bicarbonate 23, anion gap of 9, BUN 19, creatinine 1.2. Her estimated GFR was 44 mL per minute. Her glucose was 89. Calcium was 7.6. Total bilirubin, AST, ALT, alkaline phosphatase were normal. Total protein was ____. Albumin was 2.2. Her prothrombin time showed a D-dimer of 2.24 and urinalysis was essentially unremarkable. Her coronavirus by PCR was not detected. ASSESSMENT: Acute probably on chronic diastolic congestive heart failure, cardiomegaly, pulmonary vascular congestion, pulmonary interstitial edema, probably has also healthcare-associated pneumonia superimposed. Her pulmonary perfusion scan was read as low probability for pulmonary emboli. She has also obviously atrial fibrillation with rapid ventricular response, hypertension, hyperlipidemia and hypothyroidism. Her TSH was extremely high at 143. PLAN: My plan is to obviously continue with IV antibiotic. Continue with diuresis. She was started on Eliquis for stroke prevention. I will arrange to check her free T4, free T3 and we will decide further management accordingly. MARIA E FERRARA MD DR: Sharmin JOB#: [id number] / [id number]
[2019-12-15] MEDS: LEVOTHYROXINE 88 MCG TABLET PO SCH (05:49)
[2019-12-15 06:23] LABS: HEMATOCRIT 35.6 % (36.0-47.0); RED BLOOD COUNT 4.02 x10^6/uL (3.50-5.40); RED CELL DISTRIBUTION WIDTH 25.7 % (11.5-14.5); WHITE BLOOD COUNT 10.3 x10^3/uL (4.0-11.0)
[2019-12-15 06:48] LABS: CALCIUM 7.5 mg/dL (8.5-10.1); CREATININE 1.2 mg/dL (0.6-1.0); GFR 43.9; POTASSIUM 3.9 mmol/L (3.5-5.1)
[2019-12-15] MEDS: PIPERACILLIN/TAZOBACTAM 2.25 GM in IV NORMAL SALINE 50ML 50 ML IV SCH ×3 (08:23→23:47)
[2019-12-15] MEDS: LACTOBACILLUS RHAMNOSUS GG 1 CAPSULE. PO SCH ×2 (08:24→20:13)
[2019-12-15] MEDS: ISOSORBIDE MONONITRATE ER 30 MG TAB.ER.24H PO SCH (08:24)
[2019-12-15] MEDS: POTASSIUM CHLORIDE 10 MEQ TABLET.ER. PO SCH ×2 (08:24→20:13)
[2019-12-15] MEDS: METOPROLOL TART IMMED RELEASE 50 MG TABLET PO SCH ×2 (08:24→20:14)
[2019-12-15] MEDS: FUROSEMIDE 20 MG TABLET PO SCH (08:24)
[2019-12-15] MEDS: APIXABAN 5 MG TABLET. PO SCH ×2 (08:25→20:12)
[2019-12-15] MEDS: FERROUS SULFATE 325 MG TABLET. PO SCH (08:25)
[2019-12-15] MEDS: QUEtiapine 25 MG TABLET. PO SCH ×2 (08:25→20:13)
[2019-12-15] MEDS: LOSARTAN 50 MG TABLET. PO SCH (08:25)
--- NOTE | 2019-12-15 08:50 | PDOC ---
PRERNA SPAIN JORDAN 12/15/19 0850: CARDIO Progress Notes Date & Time Date of Service DATE: 12/15/19 TIME: 08:49 Time of Evaluation 08:49 Subjective Notes no chest pain, palpitations, dizziness, diaphoresis Vitals Vitals Vital Signs Date Time Temp Pulse Resp B/P (MAP) Pulse Ox O2 Delivery O2 Flow Rate FiO2 12/15/19 08:25 74 153/84 12/15/19 06:11 98.4 18 97 Nasal Cannula 2.0 Weight Weight [ ] Input and Output I.O. Intake and Output 12/15/19 07:00 Intake Total 1100 ml Balance 1100 ml Intake Oral 700 ml IV Total 400 ml # Voids 4 Laboratory Labs Laboratory Tests Test 12/13/19 13:10 12/14/19 06:08 12/15/19 06:10 Troponin I Quantitative 0.024 ng/mL (0-0.055) White Blood Count 12.2 x10^3/uL (4.0-11.0) 10.3 x10^3/uL (4.0-11.0) Red Blood Count 3.98 x10^6/uL (3.50-5.40) 4.02 x10^6/uL (3.50-5.40) Hemoglobin 10.9 g/dL (12.0-15.5) 11.0 g/dL (12.0-15.5) Hematocrit 36.1 % (36.0-47.0) 35.6 % (36.0-47.0) Mean Corpuscular Volume 91 fL (79-100) 88 fL (79-100) Mean Corpuscular Hemoglobin 27 pg (25-35) 27 pg (25-35) Mean Corpuscular Hemoglobin Concent 30 g/dL (31-37) 31 g/dL (31-37) Red Cell Distribution Width 26.6 % (11.5-14.5) 25.7 % (11.5-14.5) Platelet Count 373 x10^3/uL (140-400) 392 x10^3/uL (140-400) Sodium Level 140 mmol/L (136-145) 141 mmol/L (136-145) Potassium Level 4.0 mmol/L (3.5-5.1) 3.9 mmol/L (3.5-5.1) Chloride Level 108 mmol/L (98-107) 107 mmol/L (98-107) Carbon Dioxide Level 23 mmol/L (21-32) 30 mmol/L (21-32) Anion Gap 9 (6-14) 4 (6-14) Blood Urea Nitrogen 19 mg/dL (7-20) 15 mg/dL (7-20) Creatinine 1.2 mg/dL (0.6-1.0) 1.2 mg/dL (0.6-1.0) Estimated GFR (Cockcroft-Gault) 43.9 43.9 BUN/Creatinine Ratio 16 (6-20) Glucose Level 89 mg/dL (70-99) 74 mg/dL (70-99) Calcium Level 7.6 mg/dL (8.5-10.1) 7.5 mg/dL (8.5-10.1) Total Bilirubin 1.0 mg/dL (0.2-1.0) Aspartate Amino Transf (AST/SGOT) 28 U/L (15-37) Alanine Aminotransferase (ALT/SGPT) 20 U/L (14-59) Alkaline Phosphatase 96 U/L (46-116) Total Protein 4.9 g/dL (6.4-8.2) Albumin 2.2 g/dL (3.4-5.0) Albumin/Globulin Ratio 0.8 (1.0-1.7) VR-Axn-C-Type Natriuretic Peptide 9356 pg/mL (0-124) Microbiology Micro Microbiology 12/13/19 Blood Culture - Preliminary, Resulted NO GROWTH AFTER 2 DAYS... Physical Exams HEENT: Neck Supple W Full Motion Chest: Symmetric Lungs: Clear to Auscultation, Other Heart: irregularly irregular (AFIB- rate controlled ) Abdomen: Soft N/T Extremities: Other (left arm ecchymosis) Neurology: alert, oriented, follow commands, other (forgetful) Assessment Assessment 1. Acute on chronic probable diastolic CHF; improved with IV diuresis in ED. induc 2. PAFIB with RVR; Reports recent event monitor with primary converter skimmer, Dr. Duncan at [facility]. Did not receive these records 3. Leukocytosis, lactic acidosis; received IV antibiotic therapy 4. Hypertension; controlled overall 5. CAD s/p PCI/stents; clinically stable. CP free 6. Hyperlipidemia; statin 7. YUE on CKD; improved 8. Hypothyroidism; TSH 149. as per PCP 9. ? Noncompliance Recommendations Oral diuresis Continue metoprolol for rate control Eliquis for stroke prophylaxis; would discontinue if further fall occur and place on ASA only Consider for LAAO, will defer to primary converter skimmer, Dr. Duncan Continue current secondary prevention measures. Plans for SNU upon discharge DYLAN SANTIAGO MD 12/15/19 2017: CARDIO Progress Notes Assessment Assessment Patient seen and examined. Agree with DIRECTOR COMMUNICATIONS's assessment and plan. Ac on chr diast HF better compensated AF rate controlled - continue eliquis for stroke prophylaxis CAD clinically stable Follow up with primary converter skimmer PRERNA SPAIN APRN Dec 15, 2019 08:50 DYLAN SANTIAGO MD Dec 15, 2019 20:17
[2019-12-15 09:03] LABS: VANC TR 15.7 mcg/mL (10.0-20.0)
[2019-12-15] MEDS: VANCOMYCIN 1 GM in IV NORMAL SALINE 250ML 250 ML IV SCH (09:49)
[2019-12-15] MEDS: VANCOMYCIN PER PHARMACY MC PRN (11:12)
--- NOTE | 2019-12-15 11:12 | NUR ---
Pharmacy Vancomycin Dosing Note S:Consulted to monitor and dose vancomycin started . O:TOMASA BAER is a 74 year old F with Pneumonia, . Height: 5 feet, 2 inches Weight: 59.7 kg [place] Body Weight: 50.10 Adjusted Body Weight: 53.66 Dosing Weight: Actual Other Antibiotics: ZOSYN 2.25GRAM Q8HRS LABS: Last BUN: 15 Last Creatinine: 1.2 Creatinine Clearance: Last WBC: 10.3 Last Procalcitonin: Tmax (past 24 hours): Microbiology: I/O: Drug Levels: Last Trough level: 15.7 on 12/15/19 at 0830 Last dose given 12/14/19 at 0900 Vancomycin Dosing: Loading Dose: 1500 mg x1 Dosing Weight: Actual Target Trough: 15-20 A: Based on: P: 1. Continue Vancomycin 1000 mg IV q24h 2. Follow up Trough level on 12/17/19 at 0830 3. Pharmacy will continue to monitor, follow and adjust therapy as needed. KAREN DUEÑAS [facility], 12/15/19 0325
--- NOTE | 2019-12-15 13:40 | NUR ---
ORTHOS DONE PER PHYSICIAN REQUEST
--- NOTE | 2019-12-15 13:47 | NUR ---
ATTEMPTED TO TAKE PT OFF O2 EARLIER, SHE DOES NOT NORMALLY WEAR O2 AT HOME, ON RA PT WAS CONSISTENTLY 89% WHEN AWAKE AND DROPPED TO 85% WHEN SHE WAS SLEEPING Addendum: 12/15/19 at 1348 by DAVID URIAS RN REPLACED Cami ALVARENGA
[2019-12-15] MEDS: hydrOXYzine HCL 25 MG TABLET PO SCH (20:13)
[2019-12-15] MEDS: SIMVASTATIN 40 MG TABLET. PO SCH (20:13)
[2019-12-15] MEDS: oxyCODONE IR 5 MG TABLET PO PRN (20:14)
--- NOTE | 2019-12-15 20:25 | PN ---
DATE: 12/15/2019 SUBJECTIVE: The patient was resting slightly propped up in bed, in no apparent respiratory distress. On questioning her, she continued to have some weakness, has no evidence of any postural hypertension. Her bruises are fading slowly. Nursing staff did not voice any concern. PHYSICAL EXAMINATION: GENERAL: When I examined her, she was pale, no jaundice, cyanosis or thyromegaly. No jugular venous distention or limb edema. VITAL SIGNS: Her heart rate was 72, blood pressure was 146/78 supine, 145/86 sitting and 140/80 standing, her temperature was 98.4, respiratory rate was 12 and oxygen saturation was 92% on room air. HEENT: Showed normocephalic, atraumatic. NECK: Supple. HEART: Showed normal first and second heart sounds. No gallop or murmur. CHEST: Showed central trachea, equal bilateral expansion, air entry, vesicular sounds with bilateral basal crepitation posteriorly. I could not appreciate any rhonchi. ABDOMEN: Distended, soft, nontender. NEUROLOGIC: She is confused at times; however, all her cranial nerves are intact. She moves extremities without difficulty. She apparently was able to ambulate with a walker and participated in physical therapy today. Her intake was 2616, output was recorded. LABORATORY DATA: Her lab work this morning showed a white cell count of 10,000, hemoglobin 11, hematocrit 35, MCV 88 and platelet count 392,000. Serum sodium was 141, potassium 3.9, chloride 107, bicarbonate 30, anion gap of 4, BUN 15, creatinine 1.2, estimated GFR was 44 mL per minute. Her glucose was 74, calcium 7.5. Beta natriuretic peptide was 9356. Her prothrombin time was 12.7, INR 1.2, APTT was 27 and D-dimer was 2.24. Urinalysis was unremarkable. Toxic screen showed vancomycin trough level was 15 and her coronavirus by PCR was not detectable. ASSESSMENT: 1. Acute on chronic diastolic congestive heart failure. 2. Pulmonary edema. 3. Healthcare-associated pneumonia. 4. Pulmonary perfusion scan was read as low probability for pulmonary emboli. 5. Atrial fibrillation with rapid ventricular response. 6. Hypertension. 7. Hyperlipidemia. 8. Hypothyroidism. Her TSH is extremely high at 143. PLAN: My plan is obviously to continue with IV antibiotic. We will continue with diuresis. She was started on Eliquis for stroke prevention. I did check her free T4 and free T3, the results of which are still pending at the time of this dictation. She was seen by the Cardiology team and apparently their recommendation is to contact her tail trimmer at [facility] for perhaps Watchman procedure given that she is high risk for bleeding given her multiple falls. MARIA E FERRARA MD DR: JAVI/francis JOB#: [id number] / [id number]
[2019-12-16] MEDS: LEVOTHYROXINE 88 MCG TABLET PO SCH (04:53)
[2019-12-16 05:45] VITALS: BP 159/90
[2019-12-16] MEDS: PIPERACILLIN/TAZOBACTAM 2.25 GM in IV NORMAL SALINE 50ML 50 ML IV SCH ×2 (08:30→17:15)
[2019-12-16] MEDS: FERROUS SULFATE 325 MG TABLET. PO SCH (08:31)
[2019-12-16] MEDS: APIXABAN 5 MG TABLET. PO SCH ×2 (08:31→20:44)
[2019-12-16] MEDS: QUEtiapine 25 MG TABLET. PO SCH ×2 (08:31→20:45)
[2019-12-16] MEDS: LOSARTAN 50 MG TABLET. PO SCH (08:31)
[2019-12-16] MEDS: POTASSIUM CHLORIDE 10 MEQ TABLET.ER. PO SCH ×2 (08:31→20:44)
[2019-12-16] MEDS: LACTOBACILLUS RHAMNOSUS GG 1 CAPSULE. PO SCH ×2 (08:31→20:44)
[2019-12-16] MEDS: FUROSEMIDE 20 MG TABLET PO SCH (08:31)
[2019-12-16] MEDS: METOPROLOL TART IMMED RELEASE 50 MG TABLET PO SCH ×2 (08:32→20:44)
[2019-12-16] MEDS: ISOSORBIDE MONONITRATE ER 30 MG TAB.ER.24H PO SCH (08:32)
[2019-12-16] MEDS: VANCOMYCIN 1 GM in IV NORMAL SALINE 250ML 250 ML IV SCH (09:34)
[2019-12-16 11:00] VITALS: BP 125/74
[2019-12-16] MEDS: oxyCODONE IR 5 MG TABLET PO PRN ×2 (12:13→17:39)
--- NOTE | 2019-12-16 12:15 | NUR ---
Patient pain almost unbearable now, change from this morning when she was comfortable. Pain intensified by working w PT, sitting up in chair ~90 min, and being repositioned in the bed. Pain primarily in her L hip (swollen, very tender to the lightest touch, slight bruising) and L rib pain, unable to take a proper deep breath. Pt in no distress while lying still. Dr Brady notified of changes, orders for xray L hip, L rib placed. Addendum: 12/16/19 at 1303 by ANDRAE GRANGER RN Correction-pain effecting Right side of body, R rib and R Hip. Orders corrected to reflect the correct side for imaging.
--- NOTE | 2019-12-16 14:00 | RAD ---
EXAM: Right hip, 2 views. HISTORY: Fall. Pain. COMPARISON: 09/06/2018 FINDINGS: 2 views of the right hip are obtained. No acute fracture is seen. There is decreased femoral head-neck offset, a finding which can be seen with chronic hip impingement. There is degenerative change at the lumbosacral junction. IMPRESSION: 1. No acute osseous finding. 2. Findings suggesting a component of chronic hip impingement. Electronically signed by: Charlene Goel MD (12/16/2019 1:57 PM) [id number]
--- NOTE | 2019-12-16 14:01 | RAD ---
EXAM: Chest and right ribs, 4 views. HISTORY: Pain. Fall. COMPARISON: 12/13/2019 FINDINGS: A frontal view of the chest and 3 views of the right ribs are obtained. There are increased or new small bilateral pleural effusions. There is stable trace pulmonary congestion with suspected superimposed lower lobe atelectasis or infiltrate. There is a stable enlarged cardiac silhouette. There is no pneumothorax. No displaced rib fracture is seen. There are coronary artery stents. IMPRESSION: 1. New or increased small pleural effusions. 2. Stable trace pulmonary congestion with suspected superimposed lower lobe atelectasis or infiltrate. Electronically signed by: Charlene Goel MD (12/16/2019 1:58 PM) [id number]
--- NOTE | 2019-12-16 15:53 | PDOC ---
DATE OF SERVICE: DOS: DATE: 12/16/19 TIME: 15:49 SUBJECTIVE: Patient seen and examined OBJECTIVE: Problems: Problems Medical Problems: (1) Acute CHF (congestive heart failure) Status: Acute (2) Elevated d-dimer Status: Acute (3) Hypoxia Status: Acute (4) Severe sepsis Status: Acute (5) Suspected 2019 novel coronavirus infection Status: Acute Vital Signs/I&O: Vital Signs Date Time Temp Pulse Resp B/P (MAP) Pulse Ox O2 Delivery O2 Flow Rate FiO2 12/16/19 13:45 16 Nasal Cannula 12/16/19 12:13 2.0 12/16/19 11:00 75 125/74 (91) 98 12/16/19 05:45 98.5 I & O 12/15/19 12/15/19 12/16/19 15:00 23:00 07:00 Intake Total 0 ml Output Total 600 ml Balance -600 ml 0 ml Physical Exam: Chest. Mildly decreased breath sounds. CV. Regular rate and rhythm. Abdomen. Soft ASSESSMENT: 1. Acute on chronic probable diastolic CHF; continue oral diuresis. 2. PAFIB with RVR; Reports recent event monitor with primary business services officer, Dr. Duncan at [facility]. Continue present treatments including beta-blockers and Eliquis. 3. Leukocytosis, lactic acidosis; received IV antibiotic therapy 4. Hypertension; controlled overall 5. CAD s/p PCI/stents; clinically stable. CP free 6. Hyperlipidemia; statin 7. YUE on CKD; improving 8. Hypothyroidism; TSH 149. as per PCP CARDIO Progress Notes Justification of Admission: Justification of Admission: Justification of Admission Dx: Yes KAREN REDDY MD Dec 16, 2019 15:53
[2019-12-16 16:41] VITALS: BP 153/100
[2019-12-16 20:00] VITALS: BP 146/93
[2019-12-16] MEDS: hydrOXYzine HCL 25 MG TABLET PO SCH (20:44)
[2019-12-16] MEDS: SIMVASTATIN 40 MG TABLET. PO SCH (20:44)
--- NOTE | 2019-12-16 20:53 | PN ---
DATE: 12/16/2019 SUBJECTIVE: The patient is resting, slightly propped up in bed, in no apparent distress. She is complaining of pain along the sternum, pain in her back and also in her right gluteal area. Pain is aggravated by movement, coughing and taking a deep breath. OBJECTIVE: GENERAL: When I examined her this afternoon, she looked pale. No jaundice, cyanosis or thyromegaly. No jugular venous distention. No limb edema. VITAL SIGNS: Her heart rate was 75, blood pressure was 125/74, temperature was 98.5, respiratory rate was 16, and oxygen saturation was 98% on 2 liters of oxygen. HEAD, EYES, EARS, NOSE AND THROAT: Showed normocephalic, atraumatic. NECK: Supple. HEART: Showed normal first and second heart sounds with no gallop, rub or murmur. CHEST: Clear to auscultation. No crepitation or rhonchi. ABDOMEN: Distended, soft, nontender. NEUROLOGIC: She was awake, alert. All her cranial nerves intact. She moves extremities without difficulty. DIAGNOSTIC DATA: We did actually CT scan of the rib views, which showed no new or increased small pleural effusion, stable trace pulmonary congestion with suspected superimposed lower lobe atelectasis or infiltrate. Her x-ray of the right hip showed no acute fracture is seen. There is decreased femoral head and neck offset finding, which can be seen with chronic hip impingement. There are degenerative changes at the lumbosacral junction. PLAN: To change her Lasix to be given IV at 40 mg, starting tomorrow morning. I will also arrange for her to have a bone scan. She has multiple areas of pain after she fell about almost 2 weeks ago. DICTATION ENDS HERE MARIA E FERRARA MD DR: JAVI/francis JOB#: [id number] / [id number]
[2019-12-17 00:01] VITALS: BP 144/97
[2019-12-17] MEDS: PIPERACILLIN/TAZOBACTAM 2.25 GM in IV NORMAL SALINE 50ML 50 ML IV SCH ×3 (00:43→16:30)
--- NOTE | 2019-12-17 01:14 | NUR ---
Pt states, "I feel better." Call light at bedside. Will continue to monitor.
[2019-12-17 05:44] VITALS: BP 161/90
[2019-12-17] MEDS: LOSARTAN 50 MG TABLET. PO SCH (05:46)
[2019-12-17] MEDS: LEVOTHYROXINE 88 MCG TABLET PO SCH (05:46)
[2019-12-17] MEDS: METOPROLOL TART IMMED RELEASE 50 MG TABLET PO SCH ×2 (06:39→20:10)
[2019-12-17 06:40] VITALS: BP 170/81
[2019-12-17] MEDS: oxyCODONE IR 5 MG TABLET PO PRN ×4 (06:43→21:00)
[2019-12-17] MEDS: ISOSORBIDE MONONITRATE ER 30 MG TAB.ER.24H PO SCH (06:54)
[2019-12-17] MEDS: FERROUS SULFATE 325 MG TABLET. PO SCH (08:13)
[2019-12-17] MEDS: FUROSEMIDE 40 MG/4 ML VIAL IVP SCH (08:13)
[2019-12-17] MEDS: LACTOBACILLUS RHAMNOSUS GG 1 CAPSULE. PO SCH ×2 (08:13→20:09)
[2019-12-17] MEDS: POTASSIUM CHLORIDE 10 MEQ TABLET.ER. PO SCH ×2 (08:13→20:10)
[2019-12-17] MEDS: QUEtiapine 25 MG TABLET. PO SCH ×2 (08:13→20:10)
[2019-12-17] MEDS: APIXABAN 5 MG TABLET. PO SCH ×2 (08:13→20:09)
[2019-12-17 08:55] LABS: HEMATOCRIT 35.6 % (36.0-47.0); HEMOGLOBIN 11.1 g/dL (12.0-15.5); RED BLOOD COUNT 4.04 x10^6/uL (3.50-5.40); RED CELL DISTRIBUTION WIDTH 25.5 % (11.5-14.5); WHITE BLOOD COUNT 14.5 x10^3/uL (4.0-11.0)
--- NOTE | 2019-12-17 08:59 | NUR ---
Nuc med here to admin medication for bone scan, Keon from Nuc Med recommended hydration d/t pt creatinine clearance. Dr Brady called to request IVF for this, per Dr Brady no IVF for concerns of pt heart failure. No new orders.
[2019-12-17 09:13] LABS: ALBUMIN 2.7 g/dL (3.4-5.0); ALBUMIN/GLOBULIN RATIO 0.9 (1.0-1.7); CALCIUM 7.9 mg/dL (8.5-10.1); CREATININE 1.1 mg/dL (0.6-1.0); GFR 48.6; TOTAL BILIRUBIN 0.9 mg/dL (0.2-1.0); TOTAL PROTEIN 5.7 g/dL (6.4-8.2); VANC TR 14.6 mcg/mL (10.0-20.0)
[2019-12-17] MEDS: VANCOMYCIN PER PHARMACY MC PRN (10:06)
[2019-12-17] MEDS ORDERED: VANCOMYCIN IV SCH (10:30)
[2019-12-17] MEDS ORDERED: NORMAL SALINE IV SCH (10:30)
[2019-12-17 13:00] VITALS: BP 151/74
--- NOTE | 2019-12-17 13:25 | RAD ---
Nuclear medicine whole body bone scan History: Reason: fall with severe pain in multiple areas Comparison: CT head and cervical spine and lumbar spine without contrast, December 13, 2019. Left rib and hip radiographs December 16, 2019. Technique: Examination performed after intravenous administration of 25 mCi Technetium 99m MDP. Images of the whole body were obtained in the anterior and posterior projections. Findings: There is abnormal increased tracer uptake at the inferior tip of the sternum. Tracer distribution in the spine is mildly heterogeneous. No significantly increased tracer uptake localizing to the T11 vertebral body is identified to suggest that the fracture noted on CT is definitely acute. Tracer uptake in the pelvis is symmetric. No abnormal tracer uptake of ribs is identified. Mildly increased tracer uptake acromioclavicular, glenohumeral, and sternoclavicular bilaterally is likely degenerative. Kidneys are less well seen than expected. Impression: There is abnormal increased tracer uptake of the inferior tip of the sternum which may be posttraumatic. Electronically signed by: Ezra Sanon MD (12/17/2019 1:22 PM) GEOVANY
--- NOTE | 2019-12-17 14:36 | NUR ---
Pharmacy Vancomycin Dosing Note S:Consulted to monitor and dose vancomycin started . O:TOMASA BAER is a 74 year old F with Sepsis Pneumonia Height: 5 feet, 2 inches Weight: 60.9 kg [place] Body Weight: 50.10 Adjusted Body Weight: 54.42 Dosing Weight: Actual Other Antibiotics: ZOSYN 2.25GRAM Q8HRS LABS: Last BUN: 13 Last Creatinine: 1.1 Creatinine Clearance: 38.5 Last WBC: 14.5 Drug Levels: Last Trough level: 15.7 on 12/15/19 at 0830 Last dose given 12/14/19 at 0900 Vancomycin Dosing: Loading Dose: 1500 mg x1 Dosing Weight: Actual Target Trough: 15-20 A: Based on: Patient admitted for sepsis, trough slightly below goal with increasing renal clearance. Will adjust dose and frequency for goal trough 15-20. P: 1. Change Vancomycin 500 mg IV q12h 2. Follow up Trough level on 12/17/19 at 0830 3. Pharmacy will continue to monitor, follow and adjust therapy as needed. MICHELLE ENGLAND, 12/17/19 [id number]
--- NOTE | 2019-12-17 14:47 | PDOC ---
DATE OF SERVICE: DOS: DATE: 12/17/19 TIME: 14:45 SUBJECTIVE: Patient seen and examined OBJECTIVE: Problems: Problems Medical Problems: (1) Acute CHF (congestive heart failure) Status: Acute (2) Elevated d-dimer Status: Acute (3) Hypoxia Status: Acute (4) Severe sepsis Status: Acute (5) Suspected 2019 novel coronavirus infection Status: Acute Vital Signs/I&O: Vital Signs Date Time Temp Pulse Resp B/P (MAP) Pulse Ox O2 Delivery O2 Flow Rate FiO2 12/17/19 13:00 90 18 151/74 (99) 95 Room Air 12/17/19 06:43 2.0 12/16/19 20:00 99.0 I & O 12/16/19 12/16/19 12/17/19 15:00 23:00 07:00 Intake Total 290 ml 600 ml 0 ml Balance 290 ml 600 ml 0 ml Labs: Laboratory Tests Test 12/17/19 08:30 White Blood Count 14.5 x10^3/uL (4.0-11.0) H Red Blood Count 4.04 x10^6/uL (3.50-5.40) Hemoglobin 11.1 g/dL (12.0-15.5) L Hematocrit 35.6 % (36.0-47.0) L Mean Corpuscular Volume 88 fL (79-100) Mean Corpuscular Hemoglobin 27 pg (25-35) Mean Corpuscular Hemoglobin Concent 31 g/dL (31-37) Red Cell Distribution Width 25.5 % (11.5-14.5) H Platelet Count 485 x10^3/uL (140-400) H Sodium Level 137 mmol/L (136-145) Potassium Level 4.0 mmol/L (3.5-5.1) Chloride Level 104 mmol/L (98-107) Carbon Dioxide Level 26 mmol/L (21-32) Anion Gap 7 (6-14) Blood Urea Nitrogen 13 mg/dL (7-20) Creatinine 1.1 mg/dL (0.6-1.0) H Estimated GFR (Cockcroft-Gault) 48.6 BUN/Creatinine Ratio 12 (6-20) Glucose Level 103 mg/dL (70-99) H Calcium Level 7.9 mg/dL (8.5-10.1) L Total Bilirubin 0.9 mg/dL (0.2-1.0) Aspartate Amino Transferase (AST) 18 U/L (15-37) Alanine Aminotransferase (ALT) 14 U/L (14-59) Alkaline Phosphatase 92 U/L (46-116) Total Protein 5.7 g/dL (6.4-8.2) L Albumin 2.7 g/dL (3.4-5.0) L Albumin/Globulin Ratio 0.9 (1.0-1.7) L Vancomycin Level Trough 14.6 mcg/mL (10.0-20.0) Vancomycin Last Dose Date 12/16/19 Vancomycin Last Dose Time 0900 Physical Exam: Chest. Mildly decreased breath sounds. CV. Regular rate and rhythm. Abdomen. Soft. ASSESSMENT: 1. Acute on chronic probable diastolic CHF; improved. Would continue present treatment. 2. PAFIB with RVR; Reports recent event monitor with primary roller gold leaf, Dr. Duncan at [facility]. Continue present treatments including beta-blockers and Eliquis. 3. Leukocytosis, lactic acidosis; IV antibiotic therapy 4. Hypertension; controlled overall 5. CAD s/p PCI/stents; clinically stable. CP free 6. Hyperlipidemia; statin 7. YUE on CKD; improving 8. Hypothyroidism; TSH 149. as per PCP Justification of Admission: Justification of Admission: Justification of Admission Dx: Yes KAREN REDDY MD Dec 17, 2019 14:47
[2019-12-17 16:07] VITALS: BP 135/62
--- NOTE | 2019-12-17 17:25 | NUR ---
Pt had good day overall, her pain was better controlled and her mobility is better today than it was yesterday. She has been sitting in her chair since she got back to room from Nuclear Medicine, 1300. She was not able to tolerate sitting for more than an hour yesterday without it bothering her hip badly.
--- NOTE | 2019-12-17 19:35 | PN ---
DATE: 12/17/2019 SUBJECTIVE: The patient is sitting comfortably in her recliner, sleeping comfortably, in no apparent distress. She did better today and has walked around. She continued to complain of back pain and pain in her chest. We did a bone scan, which showed that the patient has abnormal increased tracer uptake at the inferior tip of the sternum. A tracer distribution in the spine is mildly heterogenous, no significantly increased tracer uptake localizing to the T11 vertebral body identified to suggest that healed fracture noted. On a CT scan, it is definitely acute. The tracer uptake in the pelvis is symmetric. No abnormal tracer uptake of the ribs identified. Mildly increased tracer uptake at the acromioclavicular, glenohumeral, and sternoclavicular bilaterally is likely degenerative. Kidneys are less well seen than expected. IMPRESSION: There is abnormal increased tracer uptake at the inferior tip of the sternum, which may be posttraumatic. PHYSICAL EXAMINATION: GENERAL: When I examined her, the patient looked well and was clearly in no apparent respiratory distress. She is pale. No jaundice, cyanosis or thyromegaly. No jugular venous distention. No limb edema. VITAL SIGNS: Her heart rate was 90, blood pressure was 151/74, temperature was 99, respiratory rate was 18 and oxygen saturation was 95% on room air. HEAD, EYES, EARS, NOSE AND THROAT: Showed normocephalic, atraumatic. NECK: Supple. CARDIAC: Normal first and second heart sounds. No gallop or murmur. CHEST: Clear to auscultation. No crepitation or rhonchi. ABDOMEN: Distended, soft, nontender. NEUROLOGIC: She was grossly intact. Her intake over the last 24 hours was incompletely recorded, output was 600. LABORATORY DATA: As of this morning, her white cell count was 14,500, hemoglobin 11, hematocrit 35, MCV 88 and platelet count of 485,000. Her serum sodium was 137, potassium 4, chloride 104, bicarbonate 26, anion gap of 7, BUN 13, creatinine 1.1, estimated GFR was 48 mL per minute, her glucose 103, calcium was 7.9. Total bilirubin, AST, ALT, alkaline phosphatase were normal. Total protein 5.7, albumin was 2.7. PLAN: If her blood cultures are negative after 4 days, I will discontinue her vancomycin and hopefully arrange for her to be discharged to a nursing home facility if her insurance authorize that tomorrow. MARIA E FERRARA MD DR: JAVI/francis JOB#: [id number] / [id number]
[2019-12-17] MEDS: hydrOXYzine HCL 25 MG TABLET PO SCH (20:09)
[2019-12-17] MEDS: SIMVASTATIN 40 MG TABLET. PO SCH (20:10)
[2019-12-17 20:20] VITALS: BP 148/85
[2019-12-18] MEDS: PIPERACILLIN/TAZOBACTAM 2.25 GM in IV NORMAL SALINE 50ML 50 ML IV SCH ×2 (01:00→08:20)
[2019-12-18 05:00] VITALS: BP 146/89
[2019-12-18] MEDS: LEVOTHYROXINE 88 MCG TABLET PO SCH (05:23)
[2019-12-18 08:15] VITALS: BP 153/86
[2019-12-18] MEDS: FUROSEMIDE 40 MG/4 ML VIAL IVP SCH (08:20)
[2019-12-18] MEDS: APIXABAN 5 MG TABLET. PO SCH (08:21)
[2019-12-18] MEDS: LACTOBACILLUS RHAMNOSUS GG 1 CAPSULE. PO SCH (08:21)
[2019-12-18] MEDS: oxyCODONE IR 5 MG TABLET PO PRN (08:21)
[2019-12-18] MEDS: FERROUS SULFATE 325 MG TABLET. PO SCH (08:21)
[2019-12-18] MEDS: QUEtiapine 25 MG TABLET. PO SCH (08:22)
[2019-12-18] MEDS: POTASSIUM CHLORIDE 10 MEQ TABLET.ER. PO SCH (08:22)
[2019-12-18] MEDS: METOPROLOL TART IMMED RELEASE 50 MG TABLET PO SCH (08:23)
[2019-12-18] MEDS: ISOSORBIDE MONONITRATE ER 30 MG TAB.ER.24H PO SCH (08:23)
[2019-12-18] MEDS: LOSARTAN 50 MG TABLET. PO SCH (08:23)
[2019-12-18 11:12] VITALS: BP 106/76
--- NOTE | 2019-12-18 15:18 | NUR ---
PATIENT IS DISCHARGED TO [facility]. DISCHARGED INSTRUCTIONS DISCUSSED, PATIENT VERBALIZED UNDERSTANDING. REPORT GIVEN TO [facility] OFFICE AGENT, HARD COPY PRESCRIPTION OF OXYCODONE OBTAINED FROM MD. PATIENT LEFT UNIT VIA W/C ACCOMPANIED BY STAFF MEMBER. PATIENT TAKEN TO THE FACILITY VIA [facility] TRANSPORTATION.
--- NOTE | 2019-12-18 15:42 | DS ---
DATE OF DISCHARGE: 12/18/2019 HOSPITAL COURSE: The patient admitted a 74-year-old female patient who was admitted with shortness of breath. She stated that she has started to feel more short of breath about 90 minutes prior to the arrival. She has woken up from sleep, feeling more short of breath. She has history of recent trauma. She fell down an escalator for which she was seen at the trauma center at [facility], was admitted for several days. She has been placed on new blood thinner as she has atrial fibrillation at baseline. She has paroxysmal form of atrial fibrillation that comes and goes. She has not had any since she had a fall. Her chest is very sore. On arrival, her oxygen saturation was only 88-89% and that has improved to 95-96% on 2 liters of oxygen. She is not normally on oxygen at home and has no known official diagnosis of COPD, even though she is a former smoker. She was extensively investigated and was found to have marked leukocytosis. Her chemistry showed elevated BUN and creatinine. Her total bilirubin was also slightly elevated. Beta natriuretic peptide was 2024. Her troponin was 0.019 and her lactic acid was 3.1. TSH was extremely high at 139. Her urinalysis was essentially unremarkable. Chest x-ray showed congestive heart failure with moderate cardiomegaly, pulmonary vascular congestion, pulmonary interstitial edema, no pleural effusion and she did have pulmonary perfusion imaging without ventilation, which basically showed the patient has heterogenous perfusion with small regions of the perfusion defects predominantly centrally within the lungs. No medial or peripheral perfusion defects identified and the impression that the patient has low probability for pulmonary embolic disease. She did have ultrasound of both lower extremities, which showed no evidence of deep vein thrombosis. She was admitted with atrial fibrillation with rapid ventricular response, acute congestive heart failure, severe sepsis, acute hypoxic respiratory failure, suspected 2019 novel coronavirus infection. She was initially started on IV fluid; however, she became clear that she is more short of breath and was treated with vancomycin and Zosyn as well as IV Lasix and she did actually very well. Her heart rate is much better controlled, heart failure is much better compensated and infection has been treated, although her cultures are so far negative. We discontinued initially the vancomycin and I discontinued her piperacillin and tazobactam and switched her to Augmentin. I increased her Synthroid to 125 mcg and we did resume her apixaban and the patient was discharged to [facility] to continue the process of rehabilitation. She was advised to make an appointment with her drain technician at [facility] for Watchman procedure given her recurrent falls. PHYSICAL EXAMINATION: GENERAL: When I examined her this afternoon, she was resting, slightly propped up in bed, in no apparent respiratory distress. No pallor, jaundice, cyanosis or thyromegaly. No jugular venous distention. No lower limb edema. VITAL SIGNS: Her heart rate was 84, blood pressure was 106/76, temperature was 98.7, respiratory rate was 18 and oxygen saturation was 94% on room air. HEAD, EYES, EARS, NOSE AND THROAT: Normocephalic, atraumatic. NECK: Supple. HEART: Normal first and second heart sounds. No gallop, rub or murmur. CHEST: Clear to auscultation. No crepitation or rhonchi. ABDOMEN: Distended, soft, nontender. No guarding or rigidity. No organomegaly. Hernial orifice intact. Bowel sounds normal. NEUROLOGIC: She does have memory problems, but she is generally grossly neurologically intact. Her intake was 890, no output was recorded. Her lab work showed her serum sodium was 137, potassium 4, chloride 104, bicarbonate 26, anion gap of 7, BUN 13, creatinine 1.1, estimated GFR was 48 mL per minute. Her glucose 103, calcium was 7.9. Total bilirubin, AST, ALT, alkaline phosphatase were normal. Her total protein 5.7, albumin was 2.7. Her TSH was 139, free T4 was only 0.49, free T3 was 0.35. Her prothrombin time was 12.7, INR 1.2, APTT was 27. D-dimer was 2.24. Serology showed the patient's coronavirus PCR was not detectable. DISCHARGE MEDICATIONS: She was discharged to [facility] to continue apixaban 5 mg twice a day; aspirin 81 mg once a day; ferrous sulfate 325 mg once a day; furosemide 20 mg daily; hydroxyzine 25 mg at bedtime; isosorbide mononitrate 50 mg daily; levothyroxine, I increased the dose to 125 mcg once a day; Bystolic 20 mg once a day; potassium chloride 20 mEq twice a day; quetiapine fumarate for Seroquel 25 mg twice a day; simvastatin 40 mg at bedtime. FINAL DISCHARGE DIAGNOSES: 1. [id number] diastolic congestive heart failure. 2. Paroxysmal atrial fibrillation, rate controlled. 3. Healthcare-associated pneumonia. 4. Hypertension. 5. Hyperlipidemia. 6. Hypothyroidism. MARIA E FERRARA MD DR: JAVI/francis JOB#: [id number] / [id number]
== END 2019-12-18 15:15 | DRG 871 ==
LOC: ER 04:21 → ICU 07:19
PROVIDERS: ADMIT Internal Medicine; ATTEND Internal Medicine
DX: A41.9 Sepsis, unspecified organism (principal); J18.9 Pneumonia, unspecified organism; I50.33 Acute on chronic diastolic (congestive) heart failure; J96.01 Acute respiratory failure with hypoxia; E87.2 Acidosis; I13.0 Hypertensive heart and chronic kidney disease with heart failure and stage 1 through stage 4 chronic kidney disease, or unspecified chronic kidney disease; N17.9 Acute kidney failure, unspecified; E03.9 Hypothyroidism, unspecified; E78.00 Pure hypercholesterolemia, unspecified; E78.5 Hyperlipidemia, unspecified; I25.10 Atherosclerotic heart disease of native coronary artery without angina pectoris; I48.0 Paroxysmal atrial fibrillation; N18.9 Chronic kidney disease, unspecified; R65.20 Severe sepsis without septic shock; Y95 Nosocomial condition; G43.909 Migraine, unspecified, not intractable, without status migrainosus; G47.33 Obstructive sleep apnea (adult) (pediatric); Z60.2 Problems related to living alone; Z20.828 Contact with and (suspected) exposure to other viral communicable diseases; Z82.3 Family history of stroke; Z82.49 Family history of ischemic heart disease and other diseases of the circulatory system; Z87.891 Personal history of nicotine dependence; Z91.19 Patient's noncompliance with other medical treatment and regimen; Z98.41 Cataract extraction status, right eye; Z98.42 Cataract extraction status, left eye; Z98.61 Coronary angioplasty status; Z88.5 Allergy status to narcotic agent; Z88.8 Allergy status to other drugs, medicaments and biological substances
CPT/HCPCS: 36415; 70450; 71045; 71101; 72125; 72131; 73502; 78306; 78580; 80048; 80053; 80061; 80202; 81001; 83605; 83880; 84439; 84443; 84481; 84484; 85007; 85025; 85027; 85379; 85610; 85730; 87040; 93005; 93970; 96365; 96372; 96374; 96375; 96376; A9503; A9540; J1160; J1940; J2405; J2543; J3370; J3490; J7040; J7050; Q9967; 97110; 97530; 99291-25; J7030; U0003-CS

== ENCOUNTER 2020-01-12 08:46 | Inpatient (IN) | payer MEDICARE ==
[~2020-01-12] VITALS: Ht 157.5 cm; Wt 56.1 kg
[~2020-01-12 08:46] MED LIST changes: +ERGO500027 PO; +FERR325T20 PO; +FURO20TA3 PO; +HYDR25TA PO; +NEBI20TA2 PO; +POTA10TA12 PO; +QUET25TA5 PO
--- NOTE | 2020-01-12 09:01 | PHYS DOC ---
Past History Past Medical History: CHF Past Surgical History: Angioplasty, Appendectomy Smoking: Quit Greater Than 1 Year Alcohol Use: Occasionally Drug Use: None General Adult EDM: Chief Complaint: Shortness of breath HPI: HPI: 74-year-old female presents with shortness of breath. She has been feeling this way for the last couple of days. Patient has a recent history of trauma where she fell down an escalator. She was transferred from this facility to a trauma center. She has mostly recovered at this time, but still has a right lower leg wound over her richards and she has not been feeling great. She says that for the last 2 days she has had some worsening shortness of breath. She denies chest pain or diaphoresis. She has not been moving around very much at home. A family member called EMS today because they thought that she did not sound right on the phone. Patient denies fever or chills. She has not been taking her medications for the last 4 days because she isn't feeling well. Review of Systems: Review of Systems: Constitutional: Denies fever or chills. Fatigue. Eyes: Denies change in visual acuity HENT: Denies nasal congestion or sore throat Respiratory: shortness of breath Cardiovascular: Denies chest pain or edema GI: Denies abdominal pain, nausea, vomiting, bloody stools or diarrhea : Denies dysuria Musculoskeletal: Denies back pain or joint pain Integument: Denies rash Neurologic: Denies headache, focal weakness or sensory changes Endocrine: Denies polyuria or polydipsia Lymphatic: Denies swollen glands Psychiatric: Denies depression or anxiety Allergies: Allergies: Allergies Coded Allergies Type Severity Reaction Last Updated Verified amlodipine Allergy Intermediate 08/11/14 Yes hydralazine Allergy Intermediate 08/11/14 Yes sulfamethoxazole Allergy Intermediate 08/11/14 Yes trimethoprim Allergy Intermediate 08/11/14 Yes morphine Adverse Reaction Intermediate 12/13/19 Yes Physical Exam: PE: Constitutional: Well developed, well nourished, no acute distress, non-toxic appearance. [] HENT: Normocephalic, atraumatic, bilateral external ears normal, oropharynx moist, no oral exudates, nose normal. [] Eyes: PERRLA, EOMI, conjunctiva normal, no discharge. [] Neck: Normal range of motion, no tenderness, supple, no stridor. [] Cardiovascular:Heart rate 127, irregular rhythm, no murmur [] Lungs & Thorax: Bilateral breath sounds clear to auscultation [] Abdomen: Bowel sounds normal, soft, no tenderness, no masses, no pulsatile masses. [] Skin: healing 5cm long wound of right lower leg [] Back: No tenderness, no CVA tenderness. [] Extremities: No tenderness, no cyanosis, no clubbing, ROM intact, no edema. [] Neurologic: Alert and oriented X 3, normal motor function, normal sensory function, no focal deficits noted. [] Psychologic: Affect normal, judgement normal, mood normal. [] EKG: EKG: Irregular rhythm, rate 127, leftward axis, ST depression V4 through V6. No ST elevation. [] Radiology/Procedures: Radiology/Procedures: [] Impressions: EXAM: CT angiography of the chest with intravenous contrast. HISTORY: Shortness of breath. Tachycardia. TECHNIQUE: Computed tomographic images of the chest were obtained following the administration of intravenous contrast according to angiography protocol. Multiplanar reformatting was performed and three dimensional maximum intensity projection images were obtained. *One or more of the following individualized dose reduction techniques were utilized for this examination: 1. Automated exposure control. 2. Adjustment of the mA and/or kV according to patient size. 3. Use of iterative reconstruction technique. COMPARISON: None. FINDINGS: There is no evidence of pulmonary embolism. The aorta is normal in caliber. There is aortic atherosclerosis. The left vertebral artery originates directly from the aortic arch, a normal aortic arch branching variant. There is severe cardiomegaly. There is heavily calcified atherosclerotic plaque involving the coronary arteries. There are enlarged mediastinal and hilar lymph nodes. For reference purposes, there is a subcarinal lymph node or lymph node conglomerate measuring 2.5 cm. There are small right and trace left pleural effusions. There is mild emphysema. There is groundglass opacity with peripheral septal line thickening involving both lungs likely due to pulmonary congestion. There is bandlike atelectasis or scarring within the medial right middle lobe and lingula. There is central bronchial wall thickening likely due to the sequela of bronchitis. There is patchy interstitial infiltrate within the right lower lobe. There are few small pleural-based nodular opacities are likely due to atelectasis. There are few small groundglass opacities which are likely due to aforementioned infiltrate. There is splenomegaly. There is stranding at the root of the mesentery which is partially included on the [id number]. There is no suspicious osseous lesion. There is no acute osseous finding. There are heterogeneous sclerotic changes involving the sternum which may be due to a bone infarct or hemangioma. IMPRESSION: 1. No convincing pulmonary embolism. 2. Pulmonary congestion with suspected superimposed right lower lobe interstitial infiltrate and small right and trace left pleural effusions. 3. Severe cardiomegaly. 4. Central bronchial wall thickening likely due to bronchitis. 5. Bandlike right middle lobe and lingular pleural parenchymal scarring. 6. Mediastinal lymphadenopathy. This may be reactive in etiology. 7. Splenomegaly. Electronically signed by: Charlene Prieto MD (01/12/2020 10:40 AM) [id number] DICTATED AND SIGNED BY: CHARLENE PRIETO MD DATE: 01/12/20 1040 CC: KADEN LONGORIA DO; NOÉ KULKARNI ~ Heart Score: Risk Factors: Risk Factors: DM, Current or recent (<one month) smoker, HTN, HLP, family history of CAD, obesity. Risk Scores: Score 0 - 3: 2.5% MACE over next 6 weeks - Discharge Home Score 4 - 6: 20.3% MACE over next 6 weeks - Admit for Clinical Observation Score 7 - 10: 72.7% MACE over next 6 weeks - Early Invasive Strategies Course & Med Decision Making: Course & Med Decision Making Pertinent Labs and Imaging studies reviewed. (See chart for details) The patient has an elevated white count and some other lab abnormalities. See labs for more details. Her EKG had a rapid heart rate, A. fib. There is some ST depression especially in the lateral leads. Her troponin is 0.024. This is within normal limits. I have given her 2 different 5 mg doses of metoprolol IV. I have ordered a CT angiogram of the chest due to her risk for PE. The patient CTA is negative for pulmonary embolus. There is evidence of pneumonia. I will cover her with Zosyn and admit her to the hospital. I have ordered a liter of normal saline, but will not give the full 30 mL/kg of fluid because COVID-19 is still in the differential. She also has a history of CHF and has significant cardiomegaly. As of Dr. Brady about the patient and he has recommended 500 of digoxin and admission to the hospital. He has accepted her for admission. [] Dragon Disclaimer: Dragon Disclaimer: This electronic medical record was generated, in whole or in part, using a voice recognition dictation system. Departure Departure: Impression: Primary Impression: Atrial fibrillation with RVR Additional Impression: Pneumonia, community acquired Qualified Codes: J18.9 - Pneumonia, unspecified organism Disposition: ADMITTED INPT THIS HOSP Admitting Physician: Henry Brady Condition: GUARDED Referrals: NOÉ KULKARNI (PCP) KADEN LONGORIA DO Jan 12, 2020 09:01
[2020-01-12] MEDS ORDERED: METOPROLOL TARTRATE 5 MG/5 ML VIAL. IV ONE ×2 (09:15→10:15)
[2020-01-12] MEDS ORDERED: IV NORMAL SALINE 500ML 500 ML IV ONE ×2 (09:15→10:15)
[2020-01-12 09:33] LABS: BASO # 0.1 x10^3/uL (0.0-0.2); BASO % 0 % (0-3); EOS % 0 % (0-3); HEMATOCRIT 40.9 % (36.0-47.0); HEMOGLOBIN 12.2 g/dL (12.0-15.5); LYMPH # 2.2 x10^3/uL (1.0-4.8); LYMPH % 11 % (24-48); MEAN CORPUSCULAR HEMOGLOBIN 30 pg (25-35); MEAN CORPUSCULAR HGB CONC 30 g/dL (31-37); MEAN CORPUSCULAR VOLUME 99 fL (79-100); MONO # 0.5 x10^3/uL (0.0-1.1); MONO % 3 % (0-9); NEUT % 86 % (31-73); PLATELET COUNT 428 x10^3/uL (140-400); RED BLOOD COUNT 4.13 x10^6/uL (3.50-5.40); RED CELL DISTRIBUTION WIDTH 21.5 % (11.5-14.5); WHITE BLOOD COUNT 20.9 x10^3/uL (4.0-11.0)
[2020-01-12 09:45] LABS: CALCIUM 9.5 mg/dL (8.5-10.1); CREATININE 1.3 mg/dL (0.6-1.0); POTASSIUM 4.3 mmol/L (3.5-5.1)
[2020-01-12] MEDS ORDERED: IOHEXOL 350 MG/ML 100 ML VIAL. IV ONE (09:45)
[2020-01-12 09:51] LABS: ALBUMIN 3.7 g/dL (3.4-5.0); TOTAL BILIRUBIN 2.3 mg/dL (0.2-1.0); TOTAL PROTEIN 7.3 g/dL (6.4-8.2)
--- NOTE | 2020-01-12 09:54 | RAD ---
EXAM: Chest, single view. HISTORY: Chest pain. COMPARISON: 12/16/2019 FINDINGS: A frontal view of the chest is obtained. There is decreased right lower lobe atelectasis or interstitial infiltrate. There is a stable enlarged cardiac silhouette. There is no pleural effusion or pneumothorax. IMPRESSION: Decreased right lower lobe atelectasis or interstitial infiltrate. Electronically signed by: Charlene Goel MD (01/12/2020 9:51 AM) [id number]
--- NOTE | 2020-01-12 10:43 | RAD ---
EXAM: CT angiography of the chest with intravenous contrast. HISTORY: Shortness of breath. Tachycardia. TECHNIQUE: Computed tomographic images of the chest were obtained following the administration of intravenous contrast according to angiography protocol. Multiplanar reformatting was performed and three dimensional maximum intensity projection images were obtained. *One or more of the following individualized dose reduction techniques were utilized for this examination: 1. Automated exposure control. 2. Adjustment of the mA and/or kV according to patient size. 3. Use of iterative reconstruction technique. COMPARISON: None. FINDINGS: There is no evidence of pulmonary embolism. The aorta is normal in caliber. There is aortic atherosclerosis. The left vertebral artery originates directly from the aortic arch, a normal aortic arch branching variant. There is severe cardiomegaly. There is heavily calcified atherosclerotic plaque involving the coronary arteries. There are enlarged mediastinal and hilar lymph nodes. For reference purposes, there is a subcarinal lymph node or lymph node conglomerate measuring 2.5 cm. There are small right and trace left pleural effusions. There is mild emphysema. There is groundglass opacity with peripheral septal line thickening involving both lungs likely due to pulmonary congestion. There is bandlike atelectasis or scarring within the medial right middle lobe and lingula. There is central bronchial wall thickening likely due to the sequela of bronchitis. There is patchy interstitial infiltrate within the right lower lobe. There are few small pleural-based nodular opacities are likely due to atelectasis. There are few small groundglass opacities which are likely due to aforementioned infiltrate. There is splenomegaly. There is stranding at the root of the mesentery which is partially included on the [id number]. There is no suspicious osseous lesion. There is no acute osseous finding. There are heterogeneous sclerotic changes involving the sternum which may be due to a bone infarct or hemangioma. IMPRESSION: 1. No convincing pulmonary embolism. 2. Pulmonary congestion with suspected superimposed right lower lobe interstitial infiltrate and small right and trace left pleural effusions. 3. Severe cardiomegaly. 4. Central bronchial wall thickening likely due to bronchitis. 5. Bandlike right middle lobe and lingular pleural parenchymal scarring. 6. Mediastinal lymphadenopathy. This may be reactive in etiology. 7. Splenomegaly. Electronically signed by: Charlene Goel MD (01/12/2020 10:40 AM) [id number]
[2020-01-12] MEDS ORDERED: PIP/TAZO PER PHARMACY MC PRN (11:15)
[2020-01-12] MEDS ORDERED: DIGOXIN IV 500 MCG/2 ML AMPUL. IV ONE (11:45)
--- NOTE | 2020-01-12 11:47 | EKG ---
[address] [address] Test Date: 2020-01-12 Test Time: 08:43:25 Pat Name: TOMASA BAER Department: Room: Gender: F [employer] Attendant: GLENIS : 1945 Requested By: KADEN LONGORIA Order Number: [id number] Reading MD: Matti Whitt Measurements Intervals [place] Rate: 127 P: MT: QRS: -11 QRSD: 90 T: 114 QT: 338 QTc: 497 Interpretive Statements ATRIL FIBRILLATION WITH RVR LEFTWARD AXIS LVH WITH SECONDARY REPOLARIZATION ABNORMALITY ABNORMAL ECG Electronically Signed On 01-12-2020 18:25:40 CONTENT MANAGEMENT CONSULTANT by Matti Whitt
[2020-01-12] MEDS ORDERED: PIPERACILLIN/TAZOBACTAM 3.375 GM VIAL IV ONE (11:49)
[2020-01-12] MEDS ORDERED: IV NORMAL SALINE 50ML 50 ML ONE (11:49)
[2020-01-12 11:50] LABS: BILIRUBIN,URINE NEG (NEG); CLARITY,URINE CLEAR; COLOR,URINE AMBER; GLUCOSE,URINE NEG (NEG)
[2020-01-12 11:51] LABS: BACTERIA,URINE FEW /HPF (0-FEW); NITRITE,URINE POS (NEG); SQUAMOUS EPITHELIAL CELL,UR MOD /LPF
[2020-01-12] MEDS ORDERED: PIPERACILLIN/TAZOBACTAM 3.375 GM in IV NORMAL SALINE 50ML 50 ML IV SCH (12:00)
[2020-01-12 13:44] LABS: % BANDS 1 % (0-9); % LYMPHS 13 % (24-48); % MONOS 3 % (0-10); % SEGS 83 % (35-66); PLT ESTIMATE ADEQUATE (ADEQUATE)
[2020-01-12 13:45] LABS: ANISOCYTOSIS SLIGHT
[2020-01-12] MEDS ORDERED: ACETAMINOPHEN 325 MG TABLET PO PRN (14:00)
[2020-01-12] MEDS ORDERED: ONDANSETRON PF 4 MG/2 ML VIAL. IVP PRN (14:00)
[2020-01-12 14:04] VITALS: BP 168/97
[2020-01-12] MEDS ORDERED: OXYC10TA46 PO (14:15)
[2020-01-12] MEDS ORDERED: METO100T7 PO (14:15)
[2020-01-12] MEDS ORDERED: ASCO500T3 PO (14:15)
[2020-01-12] MEDS: METOPROLOL TART IMMED RELEASE 50 MG TABLET PO SCH ×2 (17:31→21:00)
--- NOTE | 2020-01-12 17:41 | HP ---
ADMIT DATE: 01/12/2020 HISTORY OF PRESENT ILLNESS: The patient is a 74-year-old female patient, who was brought to the Emergency Room by her niece as she has not been feeling well for the last couple of days. The patient has recent history of trauma where she fell down an escalator while at [facility]. She was transferred from that facility to a trauma center and was admitted to [facility], after which she was admitted here with an episode of atrial fibrillation with rapid ventricular response as well as congestive heart failure and eventually went to [facility]. Apparently she was discharged from there to her home, has been living on her own. She apparently has not been taking her medication for the last 4 days because she has not been feeling well, is complaining of shortness of breath. She was evaluated in the Emergency Room and was found to be in atrial fibrillation with rapid ventricular response. She has a chest x-ray, which showed decreased right lower lobe atelectasis or interval interstitial infiltrate. She has had a CT scan of the chest, which showed no convincing pulmonary embolism, pulmonary congestion with suspected superimposed right lower lobe interstitial infiltrate, small right and trace left lower lobe pleural effusion, severe cardiomegaly, central bronchial wall thickening, likely due to bronchitis, band-like right middle lobe and lingular pleural parenchymal scarring, mediastinal lymphadenopathy, ____ etiology and splenomegaly. The patient was admitted with diagnosis of atrial fibrillation with rapid ventricular response and she was also admitted with community-acquired pneumonia. She was treated with digoxin 500 mcg IV once as the patient was APPARENTLY ALLERGIC TO AMLODIPINE and ER physician said that SHE IS ALSO ALLERGIC TO DILTIAZEM. PAST MEDICAL HISTORY: Significant for atrial fibrillation with rapid ventricular response, coronary artery disease, hypertension, hyperlipidemia and hypothyroidism. PAST SURGICAL HISTORY: Significant for appendectomy and bilateral cataract extraction. FAMILY HISTORY: Positive for coronary artery disease and hypertension. SOCIAL HISTORY: She lives alone. She is an ex-smoker, does not drink alcohol or use any recreational drugs. REVIEW OF SYSTEMS: As per history of present illness. PHYSICAL EXAMINATION: GENERAL: On arrival to the Emergency Room, the patient was clearly somewhat tachypneic, tachycardic. VITAL SIGNS: Her heart rate up to 147, irregularly irregular; blood pressure 152/116, temperature was 98, respiratory rate was 18 and oxygen saturation was 96%. HEAD, EYES, EARS, NOSE AND THROAT: Showed normocephalic, atraumatic. NECK: Supple. HEART: Showed normal first and second heart sounds. No gallop, rub or murmur. CHEST: Clear to auscultation. No crepitation or rhonchi. ABDOMEN: Distended, soft, nontender. NEUROLOGIC: She was hard of hearing, otherwise all cranial nerves intact. EXTREMITIES: She moves extremities without difficulty. LABORATORY DATA: Her white cell count was 20,900, hemoglobin 12, hematocrit 40, MCV 99 and platelet count of 428,000. Her chemistry showed a serum sodium of 137, potassium 4.3, chloride 103, bicarbonate 18, anion gap of 16, BUN 28, creatinine 1.3, estimated GFR was 40 mL per minute. Her glucose was 123, calcium was 9.5. Total bilirubin 2.3. Total bilirubin, AST, ALT, alkaline phosphatase were normal. Her total protein 7.3, albumin was 3.7. Her prothrombin time was 12.7, INR 1.2, APTT was 27. D-dimer was high at 2.27. The patient has had a chest x-ray, which basically showed there is decreased right lower lobe atelectasis, interstitial infiltrate. There is a stable enlarged cardiac silhouette. There is no pleural effusion or pneumothorax; however, given her elevated D-dimer, the patient underwent CT angio of the chest, which showed that the patient has no convincing pulmonary embolism, pulmonary congestion with suspected superimposed right lower lobe interstitial infiltrate with small right and trace left pleural effusion, severe cardiomegaly, central bronchial wall thickening, likely due to bronchitis, band-like right middle lobe and lingular pulmonary parenchymal scarring. Does have also mediastinal lymphadenopathy that is reactive in etiology and she has had also splenomegaly. ASSESSMENT AND PLAN: The patient was admitted with atrial fibrillation with rapid ventricular response. She was given 500 mcg of IV digoxin. She did receive about 500 mL normal saline and was started on Zosyn and was admitted for further evaluation and treatment. I reconciled all her medication and I will basically continue with IV antibiotic. Her TSH was extremely high before so I will repeat her TSH again. I would also work with the Physical and Occupational Therapy to evaluate and treat. MARIA E FERRARA MD DR: JAVI/francis JOB#: [id number] / [id number]
[2020-01-12 18:42] VITALS: BP 126/74
[2020-01-12 19:15] VITALS: BP 171/83
[2020-01-12] MEDS: POTASSIUM CHLORIDE 20 MEQ TABLET.ER. PO SCH (20:49)
[2020-01-12] MEDS: DOXYCYCLINE HYCLATE 100 MG TABLET PO SCH (20:49)
[2020-01-12] MEDS: QUEtiapine 25 MG TABLET. PO SCH (20:49)
[2020-01-12] MEDS: APIXABAN 5 MG TABLET. PO SCH (20:49)
[2020-01-12] MEDS: LACTOBACILLUS RHAMNOSUS GG 1 CAPSULE. PO SCH (20:49)
[2020-01-12] MEDS: SIMVASTATIN 40 MG TABLET. PO SCH (20:49)
[2020-01-12] MEDS: hydrOXYzine HCL 25 MG TABLET PO SCH (20:49)
[2020-01-12 23:00] VITALS: BP 164/73
[2020-01-13 04:00] VITALS: BP 152/79
[2020-01-13] MEDS: LEVOTHYROXINE 125 MCG TABLET PO SCH (06:35)
[2020-01-13 07:08] LABS: HEMATOCRIT 33.2 % (36.0-47.0); HEMOGLOBIN 10.7 g/dL (12.0-15.5); RED BLOOD COUNT 3.54 x10^6/uL (3.50-5.40); RED CELL DISTRIBUTION WIDTH 21.2 % (11.5-14.5); WHITE BLOOD COUNT 10.4 x10^3/uL (4.0-11.0)
[2020-01-13 07:19] LABS: CALCIUM 8.4 mg/dL (8.5-10.1); GFR 54.2; POTASSIUM 3.7 mmol/L (3.5-5.1); TOTAL BILIRUBIN 0.9 mg/dL (0.2-1.0); TOTAL PROTEIN 5.9 g/dL (6.4-8.2)
[2020-01-13 07:20] VITALS: BP 159/86
[2020-01-13] MEDS: ASCORBIC ACID 500 MG TABLET PO SCH (09:20)
[2020-01-13] MEDS: QUEtiapine 25 MG TABLET. PO SCH ×2 (09:20→22:27)
[2020-01-13] MEDS: APIXABAN 5 MG TABLET. PO SCH (09:20)
[2020-01-13] MEDS: ISOSORBIDE MONONITRATE ER 30 MG TAB.ER.24H PO SCH (09:20)
[2020-01-13] MEDS: DOXYCYCLINE HYCLATE 100 MG TABLET PO SCH ×2 (09:20→22:26)
[2020-01-13] MEDS: LACTOBACILLUS RHAMNOSUS GG 1 CAPSULE. PO SCH ×2 (09:20→22:26)
[2020-01-13] MEDS: METOPROLOL TART IMMED RELEASE 50 MG TABLET PO SCH ×2 (09:20→22:26)
[2020-01-13] MEDS: LOSARTAN 50 MG TABLET. PO SCH (09:21)
[2020-01-13] MEDS: FERROUS SULFATE 325 MG TABLET. PO SCH (09:21)
[2020-01-13] MEDS: FUROSEMIDE 20 MG TABLET PO SCH (09:21)
[2020-01-13] MEDS: POTASSIUM CHLORIDE 20 MEQ TABLET.ER. PO SCH ×2 (09:22→22:27)
[2020-01-13 11:00] VITALS: BP 155/82
[2020-01-13 15:03] VITALS: BP 158/81
--- NOTE | 2020-01-13 18:17 | PN ---
DATE: 01/13/2020 SUBJECTIVE: The patient is resting, slightly propped up in bed, in no apparent respiratory distress. She is awake, alert, responding appropriately. All cranial nerves intact. On questioning her, she denied any complaint. The nursing staff did not voice any concerns, but generally has an uneventful night. PHYSICAL EXAMINATION: GENERAL: When I examined her, she was pale. No jaundice, cyanosis or thyromegaly. No jugular venous distention or limb edema. VITAL SIGNS: Her heart rate was 88, blood pressure was 164/98, temperature was 98.4, respiratory rate 22, and oxygen saturation was 95% on room air. HEAD, EYES, EARS, NOSE AND THROAT: Showed normocephalic, atraumatic. NECK: Supple. CARDIAC: Normal first and second heart sounds. No gallop, rub or murmur. CHEST: Shows central trachea. Equal bilateral expansion, air entry, vesicular breath sounds. Crepitation mostly on the right side. I could not appreciate any rhonchi. ABDOMEN: Distended, soft, nontender. NEUROLOGIC: She is hard of hearing, but otherwise all her cranial nerves are intact. Her intake and output are incompletely recorded. LABORATORY DATA: Her lab work this morning showed a white cell count down to 10,400, hemoglobin 10.7, hematocrit 33, MCV 94 and platelet count of 307,000. Her serum sodium was 141, potassium 3.7, chloride 108, bicarbonate 25, anion gap of 8, BUN 23, creatinine 1, estimated GFR was 54 mL per minute. Her glucose was 94 and calcium was 8.4. Total bilirubin, AST, ALT, alkaline phosphatase were normal. Total protein was 5.9, albumin was 3. Urinalysis was essentially unremarkable. ASSESSMENT: 1. Atrial fibrillation with rapid ventricular response. Heart rate is much better controlled this morning. She was treated with digoxin yesterday and she is now back on her beta-blockers. 2. Community-acquired pneumonia, responding very well to IV ceftriaxone and Zithromax. 3. Chronic obstructive pulmonary disease. 4. Chronic hypoxic respiratory failure. OTHER MEDICAL PROBLEMS: Include: A. Hypertension. B. Hyperlipidemia. C. Hypothyroidism. PLAN: To continue with IV antibiotic. Continue with all her other medications. We will consult Physical and Occupational Therapy. I would also consult [facility] as she is probably better off in an assisted living facility. MARIA E FERRARA MD DR: Sharmin JOB#: [id number] / [id number]
[2020-01-13 18:57] VITALS: BP 159/81
[2020-01-13] MEDS: SIMVASTATIN 40 MG TABLET. PO SCH (22:26)
[2020-01-13] MEDS: hydrOXYzine HCL 25 MG TABLET PO SCH (22:26)
[2020-01-13 23:06] VITALS: BP 153/79
[2020-01-14] MEDS: LEVOTHYROXINE 125 MCG TABLET PO SCH (05:49)
[2020-01-14] MEDS: METOPROLOL TART IMMED RELEASE 50 MG TABLET PO SCH ×2 (05:50→20:29)
[2020-01-14 06:19] VITALS: BP 175/83
[2020-01-14] MEDS: ISOSORBIDE MONONITRATE ER 30 MG TAB.ER.24H PO SCH (08:07)
[2020-01-14] MEDS: DOXYCYCLINE HYCLATE 100 MG TABLET PO SCH ×2 (08:07→20:28)
[2020-01-14] MEDS: LACTOBACILLUS RHAMNOSUS GG 1 CAPSULE. PO SCH ×2 (08:07→20:28)
[2020-01-14] MEDS: FERROUS SULFATE 325 MG TABLET. PO SCH (08:07)
[2020-01-14] MEDS: POTASSIUM CHLORIDE 20 MEQ TABLET.ER. PO SCH ×2 (08:07→20:29)
[2020-01-14] MEDS: ASCORBIC ACID 500 MG TABLET PO SCH (08:07)
[2020-01-14] MEDS: LOSARTAN 50 MG TABLET. PO SCH (08:08)
[2020-01-14] MEDS: FUROSEMIDE 20 MG TABLET PO SCH (08:08)
[2020-01-14] MEDS: QUEtiapine 25 MG TABLET. PO SCH ×2 (08:08→20:28)
[2020-01-14 08:33] LABS: HEMATOCRIT 33.1 % (36.0-47.0); HEMOGLOBIN 10.6 g/dL (12.0-15.5); RED BLOOD COUNT 3.51 x10^6/uL (3.50-5.40); RED CELL DISTRIBUTION WIDTH 20.9 % (11.5-14.5); WHITE BLOOD COUNT 7.4 x10^3/uL (4.0-11.0)
[2020-01-14 08:41] LABS: CALCIUM 8.5 mg/dL (8.5-10.1); CREATININE 0.9 mg/dL (0.6-1.0); GFR 61.2; POTASSIUM 3.7 mmol/L (3.5-5.1)
[2020-01-14 10:27] VITALS: BP 169/87
--- NOTE | 2020-01-14 10:46 | RAD ---
ABDOMEN COMPLETE History: Reason: POSTMENOPAUSAL BLEEDING / Spl. Instructions: / History: Chest pain Comparison: CT January 12, 2020 Technique: Sonographic examination of the abdomen was performed and multiple grayscale and color Doppler static images were obtained. Findings: Liver demonstrates normal echogenicity. The liver measures 15.5 cm. Portal flow is patent. Common bile duct measures 4.1 mm in diameter. Cholelithiasis. Gallbladder sludge. Mild gallbladder wall thickening with pericholecystic fluid. Visualized pancreas is homogeneous. The right kidney measures 12.0 x 4.4 x 4.1 cm. No hydronephrosis. The left kidney measures 11.0 x 4.2 x 4.1 cm. No hydronephrosis. The spleen measures 14 cm. Small accessory splenule. Visualized portions of the abdominal aorta and IVC are normal. IMPRESSION: 1. Cholelithiasis with sludge and mild gallbladder wall thickening as well as pericholecystic fluid, can be seen with acute cholecystitis in the appropriate clinical setting. If persistent clinical concern, HIDA scan can better evaluate gallbladder function. 2. Mild splenomegaly. Electronically signed by: Partha Sofia DO (01/14/2020 10:43 AM) [facility]
[2020-01-14 15:02] VITALS: BP 165/80
[2020-01-14 19:35] VITALS: BP 176/82
[2020-01-14] MEDS: hydrOXYzine HCL 25 MG TABLET PO SCH (20:28)
[2020-01-14] MEDS: SIMVASTATIN 40 MG TABLET. PO SCH (20:28)
--- NOTE | 2020-01-14 21:08 | PN ---
DATE: 01/14/2020 SUBJECTIVE: The patient is resting, almost flat in bed, in no apparent distress. She is sleepy, but arousable. On questioning her, denied any complaint. Nursing staff did not voice any concerns that she actually had a shower today and managed to walk. PHYSICAL EXAMINATION: GENERAL: When I examined her, she looked pale, no jaundice, cyanosis or thyromegaly. No jugular venous distention or limb edema. VITAL SIGNS: Her heart rate was 71, blood pressure was 169/87, temperature was 97.9, respiratory rate was 18 and oxygen saturation was 98% on room air. HEAD, EYES, EARS, NOSE AND THROAT: She is normocephalic, atraumatic. NECK: Supple. HEART: Normal first and second heart sounds. No gallop or murmur. CHEST: Clear to auscultation. No crepitation or rhonchi. ABDOMEN: Distended, soft, nontender. There is no guarding or rigidity. No organomegaly. All hernial orifice intact. Bowel sounds normal. NEUROLOGIC: She was awake, alert, hard of hearing, but all other cranial nerves are intact. She moves extremities without difficulty. She ambulates with a walker. Her intake over the last 24 hours was 1517, no output was recorded. LABORATORY DATA: Her lab work this morning showed her white cell count is down to 7400, hemoglobin 10, hematocrit 33, MCV 94 and platelet count 337,000. Her chemistry showed a serum sodium 142, potassium 3.7, chloride 107, bicarbonate 26, anion gap of 9, BUN 15, creatinine 0.9, estimated GFR was 61 mL per minute. Her glucose was 87, calcium was 8.7. Her beta natriuretic peptide was 8600. Her TSH is a way down to 27.23, down from 149 on 12/13/2019. ASSESSMENT: 1. Atrial fibrillation with rapid ventricular response. Heart rate is much better controlled now. She is treated with digoxin initially and then she was started back on her beta blockers. 2. Community-acquired pneumonia, responding to IV ceftriaxone and Zithromax. 3. Chronic obstructive pulmonary disease. 4. Chronic hypoxic respiratory failure. PLAN: We will continue with IV antibiotic for now, continue with physical and occupational therapy and hopefully discharge her home tomorrow. MARIA E FERRARA MD DR: JAVI/francis JOB#: [id number] / [id number]
[2020-01-14 23:15] VITALS: BP 152/69
[2020-01-15] MEDS: LEVOTHYROXINE 125 MCG TABLET PO SCH (05:25)
[2020-01-15 06:49] VITALS: BP 170/76
[2020-01-15] MEDS: DOXYCYCLINE HYCLATE 100 MG TABLET PO SCH (08:22)
[2020-01-15] MEDS: LACTOBACILLUS RHAMNOSUS GG 1 CAPSULE. PO SCH (08:22)
[2020-01-15] MEDS: FERROUS SULFATE 325 MG TABLET. PO SCH (08:22)
[2020-01-15] MEDS: POTASSIUM CHLORIDE 20 MEQ TABLET.ER. PO SCH (08:22)
[2020-01-15] MEDS: ISOSORBIDE MONONITRATE ER 30 MG TAB.ER.24H PO SCH (08:22)
[2020-01-15] MEDS: ASCORBIC ACID 500 MG TABLET PO SCH (08:23)
[2020-01-15] MEDS: FUROSEMIDE 20 MG TABLET PO SCH (08:23)
[2020-01-15] MEDS: LOSARTAN 50 MG TABLET. PO SCH (08:23)
[2020-01-15] MEDS: QUEtiapine 25 MG TABLET. PO SCH (08:23)
[2020-01-15 10:30] VITALS: BP 166/86
[2020-01-15 10:41] VITALS: BP 166/86
[2020-01-15] MEDS: METOPROLOL TART IMMED RELEASE 50 MG TABLET PO SCH (10:41)
[2020-01-15] MEDS ORDERED: CEFD300C PO (14:17)
[2020-01-15] MEDS ORDERED: DOXY100C2 PO (14:17)
== END 2020-01-15 16:44 | disposition home health service (06) | DRG 871 ==
LOC: ER 08:46 → ICU 11:37 → 1 SOUTH 01-13 17:10
PROVIDERS: ADMIT Internal Medicine; ATTEND Internal Medicine
DX: A41.9 Sepsis, unspecified organism (principal); J18.9 Pneumonia, unspecified organism; J44.0 Chronic obstructive pulmonary disease with (acute) lower respiratory infection; J96.11 Chronic respiratory failure with hypoxia; J98.11 Atelectasis; Z88.8 Allergy status to other drugs, medicaments and biological substances; E03.9 Hypothyroidism, unspecified; E78.5 Hyperlipidemia, unspecified; I11.0 Hypertensive heart disease with heart failure; I25.10 Atherosclerotic heart disease of native coronary artery without angina pectoris; I48.91 Unspecified atrial fibrillation; I50.9 Heart failure, unspecified; Z82.49 Family history of ischemic heart disease and other diseases of the circulatory system; Z87.891 Personal history of nicotine dependence; Z91.14 Patient's other noncompliance with medication regimen; Z98.41 Cataract extraction status, right eye; Z98.42 Cataract extraction status, left eye; Z79.899 Other long term (current) drug therapy; Z90.49 Acquired absence of other specified parts of digestive tract; Z91.81 History of falling
CPT/HCPCS: 36415; 71045; 71275; 76700; 80048; 80053; 81001; 83880; 84443; 84484; 85007; 85025; 85027; 87086; 93005; 96365; 96366; 96375; 96376; 99285; J0696; J1160; J2405; J2543; J3490; J7040; Q9967; 97110

== ENCOUNTER 2020-01-25 00:02 | Observation (INO) | payer MEDICARE ==
[~2020-01-25] VITALS: Ht 157.5 cm; Wt 55.2 kg
[~2020-01-25 00:02] MED LIST changes: +ASCO500T3 PO; +CEFD300C PO; +DOXY100C2 PO; +METO100T7 PO; +OXYC10TA46 PO
--- NOTE | 2020-01-25 00:25 | PHYS DOC ---
Past History Past Medical History: A-Fib, Anemia, CHF, Hypertension, Hypothyroid, Pneumonia, UTI Past Surgical History: Angioplasty, Appendectomy Smoking: Quit Greater Than 1 Year Alcohol Use: None Drug Use: None General Adult EDM: Chief Complaint: CHEST PAIN HPI: HPI: 75-year-old female presents with sudden onset of chest pain and shortness of breath. Patient was sitting on the couch about an hour ago when she began to feel short of breath and had a central chest discomfort. The shortness of breath is the most distressing to her. She has a history of atrial fibrillation. She is not sure what medication she is taking. She does not feel that her heart rate is elevated. She denies fever or chills. She denies any falls or trauma. Review of Systems: Review of Systems: Constitutional: Denies fever or chills Eyes: Denies change in visual acuity HENT: Denies nasal congestion or sore throat Respiratory: shortness of breath Cardiovascular: Chest pain GI: Denies abdominal pain, nausea, vomiting, bloody stools or diarrhea : Denies dysuria Musculoskeletal: Denies back pain or joint pain Integument: Denies rash Neurologic: Denies headache, focal weakness or sensory changes Endocrine: Denies polyuria or polydipsia Lymphatic: Denies swollen glands Psychiatric: Denies depression or anxiety Allergies: Allergies: Allergies Coded Allergies Type Severity Reaction Last Updated Verified amlodipine Allergy Intermediate 01/12/20 Yes hydralazine Allergy Intermediate 01/12/20 Yes sulfamethoxazole Allergy Intermediate 01/12/20 Yes trimethoprim Allergy Intermediate 01/12/20 Yes morphine Adverse Reaction Intermediate 01/12/20 Yes Physical Exam: PE: Constitutional: Well developed, well nourished, mild acute distress, non-toxic appearance. [] HENT: Normocephalic, atraumatic, bilateral external ears normal, oropharynx dry, no oral exudates, nose normal. [] Eyes: PERRLA, EOMI, conjunctiva normal, no discharge. [] Neck: Normal range of motion, no tenderness, supple, no stridor. [] Cardiovascular: Heart rate 130, irregular rhythm, no murmur [] Lungs & Thorax: Bilateral breath sounds clear to auscultation [] Abdomen: Bowel sounds normal, soft, no tenderness, no masses, no pulsatile masses. [] Skin: Warm, dry, no erythema, no rash. [] Back: No tenderness, no CVA tenderness. [] Extremities: No tenderness, no cyanosis, no clubbing, ROM intact, no edema. [] Neurologic: Alert and oriented X 3, normal motor function, normal sensory function, no focal deficits noted. [] Psychologic: Affect normal, judgement normal, mood normal. [] Current Patient Data: Vital Signs: Vital Signs Date Time Temp Pulse Resp B/P (MAP) Pulse Ox O2 Delivery O2 Flow Rate FiO2 01/25/20 00:02 130 26 121/54 (76) 100 Room Air EKG: EKG: Irregular rhythm, rate 133, normal axis, no ST patient depressions, atrial fibrillation [] Radiology/Procedures: Radiology/Procedures: [] Impressions: CHEST AP ONLY Clinical History: Reason: CP / Spl. Instructions: / History: Technique: AP view of the chest was obtained at 01/25/2020 12:10 AM. Comparison: January 12, 2020. Findings: The heart is moderately enlarged. The pulmonary vessels appear normal. Curvilinear images of the right are overlying skin folds. There is a few linear opacities in the right lung bases likely discoid atelectasis. Impression: Moderate cardiomegaly. Stable appearance of the chest. Electronically signed by: Noé Roberson III, MD (01/25/2020 1:52 AM) [facility] DICTATED AND SIGNED BY: NOÉ ROBERSON III, MD DATE: 01/25/20 0152 CC: KADEN LONGORIA DO; NOÉ KULKARNI ~ Heart Score: HEART Score for Chest Pain: HEART Score for Chest Pain Response (Comments) Value History Moderately Suspicious 1 ECG Nonspecific Repolarizatio 1 Age > 65 2 Risk Factors 1 or 2 Risk Factors 1 Troponin < Normal Limit 0 Total 5 Risk Factors: Risk Factors: DM, Current or recent (<one month) smoker, HTN, HLP, family history of CAD, obesity. Risk Scores: Score 0 - 3: 2.5% MACE over next 6 weeks - Discharge Home Score 4 - 6: 20.3% MACE over next 6 weeks - Admit for Clinical Observation Score 7 - 10: 72.7% MACE over next 6 weeks - Early Invasive Strategies Course & Med Decision Making: Course & Med Decision Making Pertinent Labs and Imaging studies reviewed. (See chart for details) Patient has multiple abnormal labs including an elevated white count of 17.3, potassium 5.3, and increased anion gap. See labs for more details. I have given the patient a liter normal saline. She has also appeared clinically dry. This is not improved her heart rate. The last time I saw this patient we gave her digoxin due to her allergy to calcium channel blockers and the fact that she is already on beta-blockers. Her blood pressure is not low, but I am hesitant to give her more beta blockers at this time. I spoke with Dr. Brady about the patient and he has accepted her for admission. He has requested a lactic acid, CT abdomen pelvis, and procalcitonin. These have been ordered. [] Dragon Disclaimer: Dragon Disclaimer: This electronic medical record was generated, in whole or in part, using a voice recognition dictation system. Departure Departure: Impression: Primary Impression: Atrial fibrillation with RVR Additional Impressions: Elevated WBC count Qualified Codes: D72.829 - Elevated white blood cell count, unspecified Elevated serum creatinine Disposition: ADMITTED INPT THIS HOSP Admitting Physician: Henry Brady Condition: GUARDED Referrals: NOÉ KULKARNI (PCP) KADEN LONGORIA DO Jan 25, 2020 00:25
[2020-01-25] MEDS ORDERED: ASPIRIN CHEWABLE 81 MG TABLET. PO ONE (00:30)
[2020-01-25 00:34] LABS: BASO # 0.1 x10^3/uL (0.0-0.2); BASO % 1 % (0-3); EOS # 0.2 x10^3/uL (0.0-0.7); EOS % 1 % (0-3); HEMATOCRIT 44.9 % (36.0-47.0); HEMOGLOBIN 13.5 g/dL (12.0-15.5); LYMPH # 2.7 x10^3/uL (1.0-4.8); LYMPH % 16 % (24-48); MEAN CORPUSCULAR HEMOGLOBIN 30 pg (25-35); MEAN CORPUSCULAR HGB CONC 30 g/dL (31-37); MEAN CORPUSCULAR VOLUME 99 fL (79-100); MONO # 0.3 x10^3/uL (0.0-1.1); MONO % 2 % (0-9); NEUT # 13.9 x10^3uL (1.8-7.7); NEUT % 81 % (31-73); PLATELET COUNT 542 x10^3/uL (140-400); RED BLOOD COUNT 4.56 x10^6/uL (3.50-5.40); RED CELL DISTRIBUTION WIDTH 20.4 % (11.5-14.5); WHITE BLOOD COUNT 17.2 x10^3/uL (4.0-11.0)
[2020-01-25 00:38] LABS: CALCIUM 9.9 mg/dL (8.5-10.1); CREATININE 1.8 mg/dL (0.6-1.0); GFR 27.4; POTASSIUM 5.3 mmol/L (3.5-5.1)
--- NOTE | 2020-01-25 00:40 | EKG ---
[address] [address] Test Date: 2020-01-25 Test Time: 00:10:23 Pat Name: TOMASA BARE Department: Room: Gender: F Photoresist Contact Printer: MAYUR : 1945 Requested By: KADEN LONGORIA Order Number: [id number] Reading MD: Measurements Intervals Chandler Rate: 133 P: CA: QRS: 102 QRSD: 106 T: 221 QT: 340 QTc: 507 Interpretive Statements IRREGULAR RHYTHM, NO P-WAVE FOUND RIGHTWARD AXIS LVH WITH REPOLARIZATION ABNORMALITY ABNORMAL ECG RI6.02 No previous ECG available for comparison
[2020-01-25 00:44] LABS: ALBUMIN 4.2 g/dL (3.4-5.0); ALBUMIN/GLOBULIN RATIO 1.3 (1.0-1.7); TOTAL BILIRUBIN 2.5 mg/dL (0.2-1.0); TOTAL PROTEIN 7.5 g/dL (6.4-8.2)
[2020-01-25] MEDS ORDERED: IV NORMAL SALINE 1,000ML 1,000 ML IV ONE (01:00)
--- NOTE | 2020-01-25 01:55 | RAD ---
CHEST AP ONLY Clinical History: Reason: CP / Spl. Instructions: / History: Technique: AP view of the chest was obtained at 01/25/2020 12:10 AM. Comparison: January 12, 2020. Findings: The heart is moderately enlarged. The pulmonary vessels appear normal. Curvilinear images of the right are overlying skin folds. There is a few linear opacities in the right lung bases likely discoid atelectasis. Impression: Moderate cardiomegaly. Stable appearance of the chest. Electronically signed by: Abilio Tolbert III, MD (01/25/2020 1:52 AM) [facility]
[2020-01-25] MEDS ORDERED: DIGOXIN IV 500 MCG/2 ML AMPUL. IV ONE (02:15)
[2020-01-25] MEDS ORDERED: ONDANSETRON PF 4 MG/2 ML VIAL. ONE (02:44)
[2020-01-25] MEDS ORDERED: NITROGLYCERIN SUBLINGUAL 0.4 MG BOTTLE OF 25. SL PRN (03:00)
[2020-01-25] MEDS ORDERED: ACETAMINOPHEN 325 MG TABLET PO PRN (03:00)
[2020-01-25] MEDS ORDERED: ONDANSETRON PF 4 MG/2 ML VIAL. IVP PRN (03:00)
[2020-01-25] MEDS ORDERED: ONDANSETRON PF 4 MG/2 ML VIAL. IVP ONE (03:00)
--- NOTE | 2020-01-25 03:13 | RAD ---
Abdominal and Pelvis CT, Without Contrast: History: Reason: Elevated WBC without cause.Non contrast due to lab values / Spl. Instructions: / History: Comparison: None. Procedure: Axial images are obtained of the abdomen and pelvis, without IV or oral contrast. Oral Contrast: No Findings: Evaluation of solid organs is limited without contrast. The heart is moderately dilated. There is significant coronary artery calcium patients. The gallbladder is not well seen and there is fluid and edema around the gallbladder fossa and loss of fat planes between the gallbladder and the lyric hepatis and liver and distal stomach and duodenal sweep and pancreatic head. Small amount of fluid is seen tracking along the right paracolic gutter. There is a 4.0 x 3.6 cm solid mass to the left of the uterus and there is a 8.7 cm x 4.9 cm septated cystic structure more anteriorly in the left adnexa. Liver: Normal. Spleen: Mildly enlarged. Pancreas: Normal. Adrenal Glands: Normal. Kidneys: Normal. There is no free air. There is no lymphadenopathy. The urinary bladder appears normal. There is no pericolonic inflammation identified. Impression: 1. Coronary artery calcifications. Moderately dilated cardiomegaly likely secondary to ischemic cardiomyopathy. 2. Poor visualization of the gallbladder with fluid and edema and loss of fat planes between the gallbladder fossa and surrounding structures suggest acute cholecystitis. Gallbladder cancer is felt be less likely. 3. Mild splenomegaly. 4. Mild ascites. 5. Cystic and solid lesions in the left adnexa likely ovarian cancer. End impression PQRS Compliance Statement: One or more of the following individualized dose reduction techniques were utilized for this examination: 1. Automated exposure control 2. Adjustment of the mA and/or kV according to patient size 3. Use of iterative reconstruction technique Electronically signed by: Abilio Tolbert III, MD (01/25/2020 3:10 AM) [facility]
[2020-01-25 03:45] VITALS: BP 123/84
[2020-01-25 04:17] LABS: % BASOS 1 % (0-3); % LYMPHS 13 % (24-48); % MONOS 4 % (0-10); % SEGS 82 % (35-66); ANISOCYTOSIS MOD
[2020-01-25 04:18] LABS: PLT ESTIMATE INCREASED (ADEQUATE)
[2020-01-25] MEDS ORDERED: BUPR300T92 PO (04:25)
[2020-01-25] MEDS ORDERED: HYDR500C16 PO (04:25)
[2020-01-25] MEDS ORDERED: BUPR-192 PO (04:25)
[2020-01-25] MEDS ORDERED: CITA10TA4 PO (04:25)
[2020-01-25] MEDS ORDERED: CEFD300C PO (04:26)
[2020-01-25] MEDS ORDERED: DOXY100T PO (04:26)
[2020-01-25 07:41] VITALS: BP 157/103
[2020-01-25] MEDS ORDERED: IV NORMAL SALINE 1,000ML 1,000 ML IV SCH (08:00)
[2020-01-25] MEDS ORDERED: ISOSORBIDE MONONITRATE ER 30 MG TAB.ER.24H PO SCH (09:00)
[2020-01-25] MEDS ORDERED: FLU VACC QS 2020-21(6MOS+)/PF 0.5 ML SYRINGE. VAX IM ONE (09:00)
--- NOTE | 2020-01-25 09:23 | PDOC2 ---
CARDIAC CONSULT DATE OF CONSULT DOS: DATE: 01/25/20 TIME: 09:09 REASON FOR CONSULT Reason for Consult SOA, chest pain REFERRING PHYSICIAN Referring Physician Dr. Brady SOURCE Source: Chart review, Patient HPI History of Present Illness This is a 75 yo female who presented secondary to shortness of breath and chest pain/palpitation. Was here last week and treated for CAP. Was discharge home 01/15/20. [place] well upon discharge but began having palpitations, central chest pressure and shortness of breath yesterday. Also reports recent vaginal bleeding. No dizziness, diaphoresis, or nausea/vomiting. She reports compliance with medications, but cannot recall med list. PAST MEDICAL HISTORY Past Medical History Coronary artery disease s/p PCI/stents placement CHF PAFIB Hypertension Hyperlipidemia Hypothyroidism Chronic kidney disease Obstructive sleep apnea PAST SURGICAL HISTORY Past Surgical History Cataract surgery Appendectomy FAMILY HISTORY Family History: Cancer, Stroke SOCIAL HISTORY Social History Smoke: Quit ALCOHOL: none Drugs: None Lives: home alone CURRENT MEDICATIONS Current Medications Current Medications Sodium Chloride 1,000 ml @ 1,000 mls/hr 1X ONCE IV Last administered on 01/25/20at 00:23; Start 01/25/20 at 01:00; Stop 01/25/20 at 01:59; Status DC Aspirin (Aspirin Chewable) 324 mg 1X ONCE PO Last administered on 01/25/20at 00:24; Start 01/25/20 at 00:30; Stop 01/25/20 at 00:31; Status DC Digoxin (Lanoxin) 250 mcg 1X ONCE IV Last administered on 01/25/20at 02:15; Start 01/25/20 at 02:15; Stop 01/25/20 at 02:16; Status DC Ondansetron HCl (Zofran) 4 mg STK-MED ONCE .ROUTE ; Start 01/25/20 at 02:44; Stop 01/25/20 at 02:44; Status DC Ondansetron HCl (Zofran) 4 mg PRN Q4HRS PRN IVP NAUSEA/VOMITING; Start 01/25/20 at 03:00; Stop 01/26/20 at 02:59 Fentanyl Citrate (Fentanyl 2ml Vial) 50 mcg PRN Q2HR PRN IVP PAIN; Start 01/25/20 at 03:00; Stop 01/25/20 at 08:04; Status DC Acetaminophen (Tylenol) 650 mg PRN Q4HRS PRN PO FEVER > 100.3'F; Start 01/25/20 at 03:00; Stop 01/26/20 at 02:59 Nitroglycerin (Nitrostat) 0.4 mg PRN Q5MIN PRN SL CHEST PAIN; Start 01/25/20 a t 03:00; Stop 01/26/20 at 02:59 Ondansetron HCl (Zofran) 4 mg 1X ONCE IVP Last administered on 01/25/20at 03:02; Start 01/25/20 at 03:00; Stop 01/25/20 at 03:01; Status DC Influenza Virus Vaccine Quadrival (Fluzone Quad [id number] Syringe) 0.5 ml ONCE ONCE VAX IM ; Start 01/25/20 at 09:00; Stop 01/25/20 at 09:01; Status DC Sodium Chloride 1,000 ml @ 100 mls/hr Q10H IV Last administered on 01/25/20at 08:00; Start 01/25/20 at 08:00 Piperacillin Sod/ Tazobactam Sod 2.25 gm/Sodium Chloride 50 ml @ 100 mls/hr Q6HRS IV ; Start 01/25/20 at 12:00; Status UNV Linezolid (Zyvox) 600 mg BID PO ; Start 01/25/20 at 09:00; Status UNV Active Scripts Active Eliquis (Apixaban) 5 Mg Tablet 5 Mg PO BID 30 Days Reported Cefdinir 300 Mg Capsule 1 Cap PO BID Doxycycline Hyclate 100 Mg Tablet 1 Tab PO BID Bupropion Xl (Bupropion Hcl) 300 Mg Tab.er.24h 1 Tab PO DAILY Hydroxyurea 500 Mg Capsule 1 Cap PO DAILY Citalopram Hbr (Citalopram Hydrobromide) 10 Mg Tablet 1 Tab PO DAILY Bupropion Xl (Bupropion Hcl) 150 Mg Tab.er.24h 1 Tab PO QAM Oxycontin (Oxycodone HCl) 10 Mg Tab.er.12h 0.5 Tab PO PRN Q4-6HRS PRN MDD 2 Tablet(s) 30 Days Ascorbic Acid 500 Mg Tablet 500 Mg PO DAILY Metoprolol Tartrate 100 Mg Tablet 1 Tab PO BID Potassium Chloride (Potassium Chloride) 10 Meq Tab.er.prt 20 Meq PO BID Hydroxyzine Hcl 25 Mg Tablet 1 Tab PO HS Seroquel (Quetiapine Fumarate) 25 Mg Tablet 1 Tab PO BID Furosemide 20 Mg Tablet 2 Tab PO DAILY Ferosul (Ferrous Sulfate) 325 Mg Tablet 325 Mg PO DAILY Levothyroxine Sodium 100 Mcg Tablet 125 Mcg PO DAILYAC LAST DOSE GIVEN: DATE: TODAY TIME: AM NEXT DOSE DUE: DATE: TOMORROW TIME: AM Isosorbide Mononitrate Er (Isosorbide Mononitrate) 30 Mg Tab.er.24h 30 Mg PO DA NICOLAS LAST DOSE GIVEN: DATE: TODAY TIME: AM NEXT DOSE DUE: DATE: TOMORROW TIME: AM Losartan Potassium 100 Mg Tablet 100 Mg PO DAILY LAST DOSE GIVEN: DATE: TODAY TIME: AM NEXT DOSE DUE: DATE: TOMORROW TIME: AM Simvastatin 40 Mg Tablet 40 Mg PO HS LAST DOSE GIVEN: DATE: YESTERDAY TIME: AT BEDTIME NEXT DOSE DUE: DATE: TODAY TIME: AT BEDTIME ALLERGIES Allergies: Coded Allergies: amlodipine (Verified Allergy, Intermediate, 01/12/20) hydralazine (Verified Allergy, Intermediate, 01/12/20) sulfamethoxazole (Verified Allergy, Intermediate, 01/12/20) trimethoprim (Verified Allergy, Intermediate, 01/12/20) morphine (Verified Adverse Reaction, Intermediate, 01/12/20) tolerates oxycodone ROS Review of Systems 14 point ROS conducted with pertinent positives noted above in HPI PHYSICAL EXAM Physical Exam General: Alert, Oriented to person and place, Cooperative, No acute distress HEENT: Mucous membr. moist/pink Lungs: Other (CTA, diminished bases ) Heart: Other (AFIB with intermittent RVR) Abdomen: Soft, No tenderness Extremities: No edema Skin: No rashes Neuro: Normal speech, Sensation intact Psych/Mental Status: Mood NL. follows commands. forgetful MUSCULOSKELETAL: Osteoarthritic changes both hands VITALS Vital Signs Vital Signs Date Time Temp Pulse Resp B/P (MAP) Pulse Ox O2 Delivery O2 Flow Rate FiO2 01/25/20 07:41 98.1 115 20 157/103 (121) 98 Room Air LABS LABS Laboratory Tests Test 01/25/20 00:10 01/25/20 02:14 01/25/20 05:50 01/25/20 06:37 White Blood Count 17.2 x10^3/uL (4.0-11.0) Red Blood Count 4.56 x10^6/uL (3.50-5.40) Hemoglobin 13.5 g/dL (12.0-15.5) Hematocrit 44.9 % (36.0-47.0) Mean Corpuscular Volume 99 fL (79-100) Mean Corpuscular Hemoglobin 30 pg (25-35) Mean Corpuscular Hemoglobin Concent 30 g/dL (31-37) Red Cell Distribution Width 20.4 % (11.5-14.5) Platelet Count 542 x10^3/uL (140-400) Neutrophils (%) (Auto) 81 % (31-73) Lymphocytes (%) (Auto) 16 % (24-48) Monocytes (%) (Auto) 2 % (0-9) Eosinophils (%) (Auto) 1 % (0-3) Basophils (%) (Auto) 1 % (0-3) Neutrophils # (Auto) 13.9 x10^3uL (1.8-7.7) Lymphocytes # (Auto) 2.7 x10^3/uL (1.0-4.8) Monocytes # (Auto) 0.3 x10^3/uL (0.0-1.1) Eosinophils # (Auto) 0.2 x10^3/uL (0.0-0.7) Basophils # (Auto) 0.1 x10^3/uL (0.0-0.2) Segmented Neutrophils % 82 % (35-66) Lymphocytes % 13 % (24-48) Monocytes % 4 % (0-10) Basophils % 1 % (0-3) Platelet Estimate Increased (ADEQUATE) Anisocytosis Mod Sodium Level 141 mmol/L (136-145) Potassium Level 5.3 mmol/L (3.5-5.1) Chloride Level 100 mmol/L (98-107) Carbon Dioxide Level 15 mmol/L (21-32) Anion Gap 26 (6-14) Blood Urea Nitrogen 26 mg/dL (7-20) Creatinine 1.8 mg/dL (0.6-1.0) Estimated GFR (Cockcroft-Gault) 27.4 BUN/Creatinine Ratio 14 (6-20) Glucose Level 102 mg/dL (70-99) Calcium Level 9.9 mg/dL (8.5-10.1) Total Bilirubin 2.5 mg/dL (0.2-1.0) Aspartate Amino Transf (AST/SGOT) 24 U/L (15-37) Alanine Aminotransferase (ALT/SGPT) 16 U/L (14-59) Alkaline Phosphatase 86 U/L (46-116) Troponin I Quantitative < 0.017 ng/mL (0-0.055) 0.022 ng/mL (0-0.055) Total Protein 7.5 g/dL (6.4-8.2) Albumin 4.2 g/dL (3.4-5.0) Albumin/Globulin Ratio 1.3 (1.0-1.7) Lactic Acid Level 11.6 mmol/L (0.4-2.0) 8.9 mmol/L (0.4-2.0) ASSESSMENT/PLAN Assessment/Plan 1. PAFIB with RVR; rate remains elevated overnight. oral rate control therapy has not been resumed 2. Chronic probable diastolic CHF; appears compensated 3. Leukocytosis, lactic acidosis 4. YUE on CKD, hyperkalemia 5. Hypertension; controlled 6. 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 Hyperlipidemia; statin 8. Hypothyroidism; TSH 24. as per IM 9. Abnormal uterine bleeding. Abdominal CT with cystic and solid lesions in the left adnexa likely ovarian cancer. US pending 9. Abd US with cholelithiasis 10.. Encephalopathy vs dementia Recommendations Resume metopolol for rate control Can use Dig PRN Continue current secondary prevention measures. Plans for transfer to [facility] for oncology/GI evaluation Will hold Eliquis for now until seen by hemonc with uterine bleeding and concerns for CA Add ASA therapy. Supportive care PRERNA SPAIN APRN Jan 25, 2020 09:23
[2020-01-25] MEDS ORDERED: PIPERACILLIN/TAZOBACTAM 2.25 GM in IV NORMAL SALINE 50ML 50 ML IV SCH (09:30)
[2020-01-25] MEDS ORDERED: LINEZOLID 600 MG TABLET PO SCH (09:30)
[2020-01-25] MEDS ORDERED: METOPROLOL TART IMMED RELEASE 50 MG TABLET PO SCH (09:45)
[2020-01-25 10:55] VITALS: BP 155/75
--- NOTE | 2020-01-25 14:07 | RAD ---
Transabdominal pelvic ultrasound. INDICATION: Elevated white blood cell count and abnormal pelvis CT. COMPARISON: CT abdomen and pelvis with IV contrast 01/25/2020 FINDINGS: Sonographic evaluation of the pelvis shows a uterus measuring 8.3 x 4.8 x 2.3 cm with heterogeneity to the uterine parenchyma that obscures the endometrial stripe. The right ovary measures 2.4 x 1.5 x 1.8 cm and is unremarkable. The left ovary measures 6.4 x 7.4 x 3.5 cm and contains a large cyst with internal septation measuring 5.8 x 7.2 x 3.5 cm. The solid component to the left adnexal mass identified on earlier same day CT is less well seen due to bowel gas. Small amount of pelvic free fluid is present. IMPRESSION: Abnormal pelvic ultrasound showing large left adnexal 7.2 cm cyst and a small amount of pelvic free fluid. The solid mass of the left adnexa seen on earlier same day CT is obscured on transabdominal pelvic ultrasound by bowel gas but remains concerning for possible primary left ovarian neoplasm. This could be benign or malignant. Gynecologic oncology referral is recommended. Consider also endovaginal ultrasound when clinically feasible. Electronically signed by: Yanet Mejia MD (01/25/2020 2:04 PM) [id number]
[2020-01-25] MEDS ORDERED: LACTOBACILLUS RHAMNOSUS GG 1 CAPSULE. PO SCH (21:00)
[2020-01-25] MEDS ORDERED: POTASSIUM CHLORIDE 10 MEQ TABLET.ER. PO SCH (21:00)
[2020-01-25] MEDS ORDERED: SIMVASTATIN 40 MG TABLET. PO SCH (21:00)
[2020-01-26] MEDS ORDERED: LEVOTHYROXINE 100 MCG TABLET PO SCH (07:30)
== END 2020-01-25 12:20 | disposition short-term general hospital (02) ==
LOC: ER 00:02 → 1 SOUTH 03:09 → INTOOBSV 03:09
PROVIDERS: ADMIT Internal Medicine; ATTEND Internal Medicine
DX: I48.0 Paroxysmal atrial fibrillation (principal); R07.89 Other chest pain; D72.829 Elevated white blood cell count, unspecified; I13.0 Hypertensive heart and chronic kidney disease with heart failure and stage 1 through stage 4 chronic kidney disease, or unspecified chronic kidney disease; I50.30 Unspecified diastolic (congestive) heart failure; N18.9 Chronic kidney disease, unspecified; E03.9 Hypothyroidism, unspecified; I25.10 Atherosclerotic heart disease of native coronary artery without angina pectoris; E78.5 Hyperlipidemia, unspecified; E87.5 Hyperkalemia; D64.9 Anemia, unspecified; G47.33 Obstructive sleep apnea (adult) (pediatric); R74.8 Abnormal levels of other serum enzymes; N39.0 Urinary tract infection, site not specified; Z87.891 Personal history of nicotine dependence; Z90.49 Acquired absence of other specified parts of digestive tract; Z95.1 Presence of aortocoronary bypass graft; Z98.61 Coronary angioplasty status; Z98.49 Cataract extraction status, unspecified eye
CPT/HCPCS: 36415; 71045; 74176; 76856; 80053; 83605; 84145; 84484; 85007; 85025; 93005; 96361; 96365; 96375; 99285; G0378; J1160; J2405; J2543; J7030; G0379

== ENCOUNTER 2020-02-15 11:42 | Emergency (ER) | payer MEDICARE ==
[~2020-02-15] VITALS: Ht 157.5 cm; Wt 52.0 kg
[~2020-02-15 11:42] MED LIST changes: +BUPR-192 PO; +BUPR300T92 PO; +CITA10TA4 PO; +DOXY100T PO; +HYDR500C16 PO
[2020-02-15 12:17] LABS: BASO % 1 % (0-3); EOS # 0.3 x10^3/uL (0.0-0.7); EOS % 4 % (0-3); HEMATOCRIT 39.7 % (36.0-47.0); HEMOGLOBIN 12.8 g/dL (12.0-15.5); LYMPH # 0.6 x10^3/uL (1.0-4.8); LYMPH % 9 % (24-48); MEAN CORPUSCULAR HEMOGLOBIN 30 pg (25-35); MEAN CORPUSCULAR HGB CONC 32 g/dL (31-37); MEAN CORPUSCULAR VOLUME 94 fL (79-100); MONO # 0.2 x10^3/uL (0.0-1.1); MONO % 3 % (0-9); NEUT # 6.1 x10^3uL (1.8-7.7); NEUT % 84 % (31-73); PLATELET COUNT 172 x10^3/uL (140-400); RED BLOOD COUNT 4.22 x10^6/uL (3.50-5.40); RED CELL DISTRIBUTION WIDTH 20.7 % (11.5-14.5); WHITE BLOOD COUNT 7.2 x10^3/uL (4.0-11.0)
--- NOTE | 2020-02-15 12:22 | RAD ---
Examination: XR CHEST 1V History: Reason: need surgery, rt hip fracture / Spl. Instructions: / History: Comparison/Correlation: None Findings: Frontal view the chest obtained by portable technique. The patient was supine for this exam . Limited pulmonary inflation. Heart size and pulmonary vasculature are normal. No infiltrate. No def inite pneumothorax. Lurdes structures are grossly intact. Impression: No active disease. Electronically signed by: Farhan Aviles MD (02/15/2020 12:20 PM) [id number]
--- NOTE | 2020-02-15 12:22 | RAD ---
Examination: XR BILATERAL HIP (WITH OR WITHOUT PELVIS) 2 VIEWS_RIGHT History: Reason: fall, pain / Comparison/Correlation: 01/25/2020 CT abdomen and pelvis without contrast Findings: Frontal view of the pelvis, frontal view of the right hip, and frog leg lateral views right hip were obtained. Joint spaces are symmetric and unremarkable. Right femoral neck fracture is present without significant displacement or significant angulation. Soft tissue calcification densities present lateral to the right hip. Calcific density along the lateral right abdomen measuring 0.5 cm diameter is of indeterminate signif icance without a corresponding bony finding on recent CT exam of 01/25/2020. Impression: Right femoral neck fracture without displacement Electronically signed by: Farhan Aviles MD (02/15/2020 12:19 PM) [id number]
--- NOTE | 2020-02-15 12:25 | RAD ---
Examination: CT HEAD/BRAIN WO History: Reason: confusion, fall / Spl. Instructions: / History: Comparison/Correlation: 12/13/2019 Findings: Axial images of the head were obtained without contrast. Moderate atrophy is present. Chronic ischemic changes are noted. No intracranial hemorrhage, midline shift, or mass effect. Old left thalamic lacunar infarct is again seen. Bony structures are unremarka ble. Old left cerebellar lacunar infarct again seen. Impression: No suspicious process. 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 PQRS Compliance Statement: One or more of the following individualized dose reduction techniques were utilized for this examinat ion: 1. Automated exposure control 2. Adjustment of the mA and/or kV according to patient size 3. Use of iterative reconstruction technique Electronically signed by: Farhan Aviles MD (02/15/2020 12:23 PM) [id number]
[2020-02-15 12:28] LABS: CALCIUM 8.9 mg/dL (8.5-10.1); GFR 54.1; POTASSIUM 3.1 mmol/L (3.5-5.1)
[2020-02-15 12:34] LABS: ALBUMIN 3.7 g/dL (3.4-5.0); ALBUMIN/GLOBULIN RATIO 1.3 (1.0-1.7); TOTAL PROTEIN 6.5 g/dL (6.4-8.2)
[2020-02-15 12:51] LABS: PLT ESTIMATE ADEQUATE (ADEQUATE); POLYCHROMASIA PRESENT
[2020-02-15 12:52] LABS: MICROCYTOSIS SLIGHT; OVALOCYTES OCC; TEAR DROP CELLS OCC
--- NOTE | 2020-02-15 12:55 | PHYS DOC ---
Past History Past Medical History: A-Fib, Anemia, CHF, Hypertension, Hypothyroid, Pneumonia, UTI Past Surgical History: Angioplasty, Appendectomy Smoking: Quit Greater Than 1 Year Alcohol Use: None Drug Use: None Adult General Chief Complaint Chief Complaint: MECHANICAL FALL HPI HPI Patient is 75-year-old female who presents to the emergency room after having a fall. Patient was walking down the alley way of the [employer] store when she states she slipped. She was unable to get off the ground and laid there for 15 minutes. The stairs drove by and saw her stop reading. They called an ambulance for her. She is complaining of severe right hip pain. Patient also reportedly had a fall earlier this week where she fell off of the left nare into a bathtub. She is unsure if she lost consciousness. She is on Eliquis. Of note patient appears to be confused. Review of Systems Review of Systems Complete ROS is negative unless otherwise documented in HPI Current Medications Current Medications Current Medications Medications (Trade) Dose Ordered Sig/Fermin Start Time Stop Time Status Last Admin Dose Admin Fentanyl Citrate (Fentanyl 2ml Vial) 50 mcg 1X ONCE 02/15/20 12:00 02/15/20 12:01 DC Allergies Allergies Allergies Coded Allergies Type Severity Reaction Last Updated Verified amlodipine Allergy Intermediate 01/12/20 Yes hydralazine Allergy Intermediate 01/12/20 Yes sulfamethoxazole Allergy Intermediate 01/12/20 Yes trimethoprim Allergy Intermediate 01/12/20 Yes morphine Adverse Reaction Intermediate 01/12/20 Yes Physical Exam Physical Exam General: Awake, alert, NAD. Well Nourished, well hydrated. Cooperative HEENT: Atraumatic, EOMI, PERRL, airway patent, moist oral mucosa Neck: Supple, trachea midline Respiratory: CTA bilaterally, normal effort, no wheezing/crackles CV: RRR, no murmur, cap refill <2 GI: Soft, nondistended, nontender, no masses MSK: R hip tenderness and decreased ROM, 2+ DP pulse R side Skin: Warm, dry, intact Neuro: A&O x2, speech NL, sensory and motor grossly intact, no focal deficits Psych: Normal affect, normal mood, not suicidal or homicidal Current Patient Data Lab Results Laboratory Tests Test 02/15/20 11:49 02/15/20 11:52 White Blood Count 7.2 x10^3/uL (4.0-11.0) Red Blood Count 4.22 x10^6/uL (3.50-5.40) Hemoglobin 12.8 g/dL (12.0-15.5) Hematocrit 39.7 % (36.0-47.0) Mean Corpuscular Volume 94 fL (79-100) Mean Corpuscular Hemoglobin 30 pg (25-35) Mean Corpuscular Hemoglobin Concent 32 g/dL (31-37) Red Cell Distribution Width 20.7 % (11.5-14.5) H Platelet Count 172 x10^3/uL (140-400) Neutrophils (%) (Auto) 84 % (31-73) H Lymphocytes (%) (Auto) 9 % (24-48) L Monocytes (%) (Auto) 3 % (0-9) Eosinophils (%) (Auto) 4 % (0-3) H Basophils (%) (Auto) 1 % (0-3) Neutrophils # (Auto) 6.1 x10^3uL (1.8-7.7) Lymphocytes # (Auto) 0.6 x10^3/uL (1.0-4.8) L Monocytes # (Auto) 0.2 x10^3/uL (0.0-1.1) Eosinophils # (Auto) 0.3 x10^3/uL (0.0-0.7) Basophils # (Auto) 0.0 x10^3/uL (0.0-0.2) Sodium Level 143 mmol/L (136-145) Potassium Level 3.1 mmol/L (3.5-5.1) L Chloride Level 103 mmol/L (98-107) Carbon Dioxide Level 30 mmol/L (21-32) Anion Gap 10 (6-14) Blood Urea Nitrogen 16 mg/dL (7-20) Creatinine 1.0 mg/dL (0.6-1.0) Estimated GFR (Cockcroft-Gault) 54.1 BUN/Creatinine Ratio 16 (6-20) Glucose Level 72 mg/dL (70-99) Calcium Level 8.9 mg/dL (8.5-10.1) Total Bilirubin 1.0 mg/dL (0.2-1.0) Aspartate Amino Transferase (AST) 19 U/L (15-37) Alanine Aminotransferase (ALT) 12 U/L (14-59) L Alkaline Phosphatase 65 U/L (46-116) Creatine Kinase 39 U/L (26-192) Troponin I Quantitative < 0.017 ng/mL (0-0.055) Total Protein 6.5 g/dL (6.4-8.2) Albumin 3.7 g/dL (3.4-5.0) Albumin/Globulin Ratio 1.3 (1.0-1.7) Ethyl Alcohol Level < 10 mg/dL (0-10) Glucose (Fingerstick) 71 mg/dL (70-99) EKG EKG [] Radiology/Procedures Radiology/Procedures [] Heart Score Risk Factors: Risk Factors: DM, Current or recent (<one month) smoker, HTN, HLP, family history of CAD, obesity. Risk Scores: Risk Factors: DM, Current or recent (<one month) smoker, HTN, HLP, family history of CAD, obesity. Course & Med Decision Making Course & Med Decision Making Pertinent Labs and Imaging studies reviewed. (See chart for details) Patient is 75-year-old female presents to the emergency room after a fall. X- ray shows a femoral neck fracture. Orthopedic surgery at [place] was consulted. Patient does appear to be somewhat confused. It is unclear whether this is her baseline or not. Lab work was ordered. I discussed the case with Dr. Neri who is happy to accept her and evaluate her further. I discussed her with Dr Granados who will evaluate her at [facility]. Dragon Disclaimer Dragon Disclaimer This electronic medical record was generated, in whole or in part, using a voice recognition dictation system. Departure Departure: Impression: Primary Impression: Femoral neck fracture Disposition: 02 DC/TRF OTHER SHORT TERM HOS Condition: STABLE Referrals: NOÉ KULKARNI (PCP) RADHA VALDES MD Feb 15, 2020 12:55
[2020-02-15 13:27] VITALS: BP 202/71
[2020-02-15 13:41] LABS: AMPHETAMINE/METHAMPHETAMINE NEG (NEG); BARBITURATES NEG (NEG); BENZODIAZEPINES NEG (NEG); CANNABINOIDS NEG (NEG); COCAINE NEG (NEG); METHADONE NEG (NEG); OPIATES NEG (NEG); PHENCYCLIDINE NEG (NEG)
[2020-02-15] MEDS ORDERED: HYDROmorphone PF 1 MG/ML DISP.SYRIN IVP ONE (13:45)
[2020-02-15 13:46] LABS: BILIRUBIN,URINE NEG (NEG); CLARITY,URINE HAZY; COLOR,URINE AMBER; GLUCOSE,URINE NEG (NEG)
[2020-02-15 13:47] LABS: BACTERIA,URINE FEW /HPF (0-FEW); NITRITE,URINE NEG (NEG); SQUAMOUS EPITHELIAL CELL,UR FEW /LPF; UROBILINOGEN,URINE 0.2 mg/dL (0.2 mg/dL)
[2020-02-15] MEDS ORDERED: HYDROmorphone PF 1 MG/ML DISP.SYRIN IV ONE (14:45)
== END 2020-02-15 14:30 | disposition short-term general hospital (02) ==
LOC: ER 11:42
DX: S72.001A Fracture of unspecified part of neck of right femur, initial encounter for closed fracture (principal); I48.91 Unspecified atrial fibrillation; I11.0 Hypertensive heart disease with heart failure; I50.9 Heart failure, unspecified; E03.9 Hypothyroidism, unspecified; Z87.440 Personal history of urinary (tract) infections; Z86.2 Personal history of diseases of the blood and blood-forming organs and certain disorders involving the immune mechanism; Z87.891 Personal history of nicotine dependence; Z98.61 Coronary angioplasty status; Z88.2 Allergy status to sulfonamides; Z88.1 Allergy status to other antibiotic agents; Z88.8 Allergy status to other drugs, medicaments and biological substances; W18.39XA Other fall on same level, initial encounter; Y93.01 Activity, walking, marching and hiking; Y92.89 Other specified places as the place of occurrence of the external cause; Y99.8 Other external cause status
CPT/HCPCS: 36415; 51702; 70450; 71045; 73502; 80053; 80307; 81001; 82550; 82947; 84484; 85025; 96374; 96375; 99285; G0480; J1170; J3010

== ENCOUNTER 2020-02-20 16:09 | Observation (INO) | payer MEDICARE ==
[~2020-02-20] VITALS: Ht 157.5 cm; Wt 52.5 kg
--- NOTE | 2020-02-20 16:24 | PHYS DOC ---
Past History Past Medical History: A-Fib, CHF, Other Additional Past Medical Histor: cognitive impairment Past Surgical History: Angioplasty, Appendectomy Smoking: Quit Greater Than 1 Year Alcohol Use: None Drug Use: None Adult General Chief Complaint Chief Complaint: HIP PAIN HPI HPI Patient is a 75yo female presenting from home via EMS for inability to care for self. Patient recently had total right hip performed 2 days ago at [facility] ans subsequently discharged to [facility] yesterday for continued rehab. Per patient, she was discharged home from facility to home where she lives alone for continued supportive post-op care. Per EMS, patient reportedly "signed out AMA" and was transported back home. Patient was placed in her bed by EMS and did not move from this position for past 12 hours. She reports she is non- ambulatory. She suffered no falls. She states she was stuck in bed without electricity and/or heat as she forgot to pay her bills at home. Concerned friend/family member who did not hear from patient called EMS to do a wellness check this afternoon when she was found immobile in bed. On arrival, she complains of typical post-op right hip pain. She has not taken any of her daily medications and admits she does not know what daily medications she is supposed to be on. No other complaints at this time Review of Systems Review of Systems Fourteen body systems of review of systems have been reviewed. See HPI for pertinent positives and negative responses, other mak all other systems are negative, non-pertinent or non-contributory Allergies Allergies Allergies Coded Allergies Type Severity Reaction Last Updated Verified amlodipine Allergy Intermediate 01/12/20 Yes hydralazine Allergy Intermediate 01/12/20 Yes sulfamethoxazole Allergy Intermediate 01/12/20 Yes trimethoprim Allergy Intermediate 01/12/20 Yes morphine Adverse Reaction Intermediate 01/12/20 Yes Physical Exam Physical Exam Constitutional: Pt is oriented to person, place, and time. Pt appears thin and malnourished HEENT: Head: Normocephalic and atraumatic. External ears unremarkable Conjunctivae and EOM are normal. Pupils are equal, round, and reactive to light. Oropharynx is clear and dry No hematomas or lacerations or abrasions to face or scalp OP clear, no blood, no malocclusion, dentition intact Nares clear, no nasal septal hematoma Midface stable Neck: C-spine midline nontender, no step-offs Cardiovascular: Normal rate, regular rhythm and normal heart sounds. Pulmonary/Chest: Effort normal and breath sounds normal. No respiratory distress. No wheezes. CTA bilaterally Abdominal: Soft. Bowel sounds are normal. Pt exhibits no distension. There is no tenderness. Musculoskeletal: No bony tenderness to extremities, no deformities, full ROM extremities Chest wall stable Pelvis stable and tender on right s/p right EDGAR. Well appearing incision with brennon present, no wound dehiscence or other concerning signs of infection No vertebral TTP and spine without stepoffs Neurological: Pt is alert and oriented to person, place, and time. Moving all extremities willfully, able to wiggle all fingers and toes Alert and oriented x 3 Sensation grossly intact Skin: Skin is warm and dry. No abrasions, no lacerations Psychiatric: Behavior is appropriate for situation Current Patient Data Vital Signs Vital Signs Date Time Temp Pulse Resp B/P (MAP) Pulse Ox O2 Delivery O2 Flow Rate FiO2 02/20/20 18:31 60 18 192/85 (120) 97 Room Air 02/20/20 16:23 98.0 Lab Results Laboratory Tests Test 02/20/20 17:33 White Blood Count 7.2 x10^3/uL (4.0-11.0) Red Blood Count 3.35 x10^6/uL (3.50-5.40) Hemoglobin 10.4 g/dL (12.0-15.5) Hematocrit 31.9 % (36.0-47.0) Mean Corpuscular Volume 95 fL (79-100) Mean Corpuscular Hemoglobin 31 pg (25-35) Mean Corpuscular Hemoglobin Concent 33 g/dL (31-37) Red Cell Distribution Width 21.3 % (11.5-14.5) Platelet Count 290 x10^3/uL (140-400) Neutrophils (%) (Auto) 82 % (31-73) Lymphocytes (%) (Auto) 11 % (24-48) Monocytes (%) (Auto) 3 % (0-9) Eosinophils (%) (Auto) 4 % (0-3) Basophils (%) (Auto) 1 % (0-3) Neutrophils # (Auto) 5.8 x10^3uL (1.8-7.7) Lymphocytes # (Auto) 0.8 x10^3/uL (1.0-4.8) Monocytes # (Auto) 0.2 x10^3/uL (0.0-1.1) Eosinophils # (Auto) 0.3 x10^3/uL (0.0-0.7) Basophils # (Auto) 0.0 x10^3/uL (0.0-0.2) Sodium Level 134 mmol/L (136-145) Potassium Level 5.4 mmol/L (3.5-5.1) Chloride Level 101 mmol/L (98-107) Carbon Dioxide Level 29 mmol/L (21-32) Anion Gap 4 (6-14) Blood Urea Nitrogen 14 mg/dL (7-20) Creatinine 0.6 mg/dL (0.6-1.0) Estimated GFR (Cockcroft-Gault) 97.5 BUN/Creatinine Ratio 23 (6-20) Glucose Level 89 mg/dL (70-99) Calcium Level 8.2 mg/dL (8.5-10.1) Total Bilirubin 1.0 mg/dL (0.2-1.0) Aspartate Amino Transf (AST/SGOT) 36 U/L (15-37) Alanine Aminotransferase (ALT/SGPT) 8 U/L (14-59) Alkaline Phosphatase 71 U/L (46-116) Creatine Kinase 195 U/L (26-192) Troponin I Quantitative < 0.017 ng/mL (0-0.055) Total Protein 6.0 g/dL (6.4-8.2) Albumin 3.1 g/dL (3.4-5.0) Albumin/Globulin Ratio 1.1 (1.0-1.7) EKG EKG EKG ordered and interpreted by myself at 1736 hrs. as sinus rhythm at 58 bpm, prolonged QTC at 499 otherwise unremarkable intervals, left axis deviation, no acute ischemic findings, no STEMI Radiology/Procedures Radiology/Procedures Study: XR CHEST 1V Indication: Weakness. Comparison: 02/15/2020 Findings: Unchanged prominence of the cardiomediastinal silhouette. Aortic atherosclerotic calcifications. Increased lung markings not significantly different from the comparison. Faint haziness overlying the right eighth rib is favored summation artifact or a manifestation of atelectasis/scarring. No layering effusion or pneumothorax. Osteopenia. Coronary artery stents. Impression: No significant change from 02/15/2020 with redemonstration of cardiomediastinal silhouette enlargement. Electronically signed by: ALEX OLIVAS MD (02/20/2020 5:40 PM) UIC-ONOF Heart Score HEART Score for Chest Pain: HEART Score for Chest Pain Response (Comments) Value History Slighlty/Non-Suspicious 0 ECG Normal 0 Age > 65 2 Risk Factors >3 Risk Factors or Hx CAD 2 Troponin < Normal Limit 0 Total 4 Risk Factors: Risk Factors: DM, Current or recent (<one month) smoker, HTN, HLP, family history of CAD, obesity. Risk Scores: Risk Factors: DM, Current or recent (<one month) smoker, HTN, HLP, family history of CAD, obesity. Course & Med Decision Making Course & Med Decision Making Pertinent Labs and Imaging studies reviewed. (See chart for details) Discussed no obvious emergent and/or surgical pathology based on ED workup. Nonetheless, patient suffering from hyperkalemia. She is a poor historian regarding her personal health. Patient unable to safely ambulate and care for self at home. Does not have regular care at home to assist through personal deficits. Unsafe to disposition home; at minimum plan admission for home safety evaluation, social and physical therapy evaluations, possible placement. Case discussed with Dr. Del Valle who accepted patient under his care. Patient updated on plan of care and amenable to admission, all questions and concerns addressed prior to ED transport to [facility] Steve Disclaimer [facility] Disclaimer This electronic medical record was generated, in whole or in part, using a voice recognition dictation system. Departure Departure: Impression: Primary Impression: Inability to bear weight Additional Impressions: At high risk for falls Hyperkalemia Disposition: ADMITTED INPT THIS HOSP Admitting Physician: Pasha Del Valle Condition: STABLE Referrals: NOÉ KULKARNI (PCP) Problem Qualifiers ALYSE NIETO DO Feb 20, 2020 16:24
--- NOTE | 2020-02-20 17:42 | RAD ---
Study: XR CHEST 1V Indication: Weakness. Comparison: 02/15/2020 Findings: Unchanged prominence of the cardiomediastinal silhouette. Aortic atherosclerotic calcifications. Increased lung markings not significantly different from the comparison. Faint haziness overlying the right eighth rib is favored summation artifact or a manifestation of atelectasis/scarring. No layeri ng effusion or pneumothorax. Osteopenia. Coronary artery stents. Impression: No significant change from 02/15/2020 with redemonstration of cardiomediastinal silhouette theresa kaur Electronically signed by: ALEX OLIVAS MD (02/20/2020 5:40 PM) [facility]
[2020-02-20 17:45] LABS: BASO % 1 % (0-3); EOS # 0.3 x10^3/uL (0.0-0.7); EOS % 4 % (0-3); HEMATOCRIT 31.9 % (36.0-47.0); HEMOGLOBIN 10.4 g/dL (12.0-15.5); LYMPH # 0.8 x10^3/uL (1.0-4.8); LYMPH % 11 % (24-48); MEAN CORPUSCULAR HEMOGLOBIN 31 pg (25-35); MEAN CORPUSCULAR HGB CONC 33 g/dL (31-37); MEAN CORPUSCULAR VOLUME 95 fL (79-100); MONO # 0.2 x10^3/uL (0.0-1.1); MONO % 3 % (0-9); NEUT # 5.8 x10^3uL (1.8-7.7); NEUT % 82 % (31-73); PLATELET COUNT 290 x10^3/uL (140-400); RED BLOOD COUNT 3.35 x10^6/uL (3.50-5.40); RED CELL DISTRIBUTION WIDTH 21.3 % (11.5-14.5); WHITE BLOOD COUNT 7.2 x10^3/uL (4.0-11.0)
--- NOTE | 2020-02-20 17:46 | EKG ---
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
[2020-02-20 17:53] LABS: CALCIUM 8.2 mg/dL (8.5-10.1); CREATININE 0.6 mg/dL (0.6-1.0); GFR 97.5; POTASSIUM 5.4 mmol/L (3.5-5.1)
[2020-02-20 17:59] LABS: ALBUMIN 3.1 g/dL (3.4-5.0); ALBUMIN/GLOBULIN RATIO 1.1 (1.0-1.7)
[2020-02-20] MEDS ORDERED: FUROSEMIDE 40 MG TABLET PO ONE (18:30)
[2020-02-20] MEDS: ACETAMINOPHEN 325 MG TABLET PO PRN (18:32)
--- NOTE | 2020-02-20 18:33 | RAD ---
EXAM: PELVIS 1 VIEW. HISTORY: Fracture fixation. COMPARISON: 02/15/2020. FINDINGS: A right femoral neck fracture is fixed by 3 cannulated screws. There is mild impaction wilian g the fracture line. Surrounding soft tissue swelling is noted. Skin brennon are noted. The joint spaces and alignment of the left hip are maintained. There are mild degenerative changes of the lower lumbar spine. IMPRESSION: 1. Internal fixation of a right femoral neck fracture as above. Electronically signed by: Leny Middleton MD (02/20/2020 6:31 PM) [facility]
[2020-02-20 19:30] VITALS: BP 198/81
[2020-02-20 21:06] LABS: % EOS 2 % (0-5); % LYMPHS 9 % (24-48); % MONOS 4 % (0-10); % SEGS 85 % (35-66); ANISOCYTOSIS MOD; PLT ESTIMATE ADEQUATE (ADEQUATE)
[2020-02-20] MEDS ORDERED: NEBI20TA2 PO (21:38)
[2020-02-20] MEDS ORDERED: POTA10CA PO (21:38)
[2020-02-20] MEDS ORDERED: APIX2.5T PO (21:54)
[2020-02-20] MEDS ORDERED: HYDR25TA PO (21:56)
[2020-02-20] MEDS ORDERED: HYDR25CA75 PO (22:11)
[2020-02-20 23:59] VITALS: BP 205/79
[2020-02-21] MEDS ORDERED: CLON1PAT3 TD (00:04)
[2020-02-21] MEDS ORDERED: cloNIDine TTS-3 1 PATCH PATCH TD ONE (00:15)
[2020-02-21] MEDS: ACETAMINOPHEN 325 MG TABLET PO PRN ×2 (00:43→16:44)
[2020-02-21] MEDS: hydrOXYzine PAMOATE 25 MG CAPSULE PO PRN ×2 (03:23→21:29)
[2020-02-21] MEDS: LEVOTHYROXINE 125 MCG TABLET PO SCH (05:31)
[2020-02-21] MEDS ORDERED: LEVOTHYROXINE 100 MCG TABLET PO SCH (07:30)
[2020-02-21] MEDS: ISOSORBIDE MONONITRATE ER 30 MG TAB.ER.24H PO SCH (08:12)
[2020-02-21] MEDS: buPROPion XL 150 MG TAB.ER.24H PO SCH (08:13)
[2020-02-21] MEDS: APIXABAN 2.5 MG TABLET PO SCH ×2 (08:13→21:29)
[2020-02-21] MEDS: CITALOPRAM 10 MG TABLET. PO SCH (08:13)
[2020-02-21] MEDS: POTASSIUM CHLORIDE 10 MEQ TABLET.ER. PO SCH ×2 (08:13→21:29)
[2020-02-21] MEDS: METOPROLOL TART IMMED RELEASE 50 MG TABLET PO SCH ×2 (08:13→21:29)
[2020-02-21] MEDS: FUROSEMIDE 20 MG TABLET PO SCH (08:13)
[2020-02-21 08:22] LABS: BASO % 1 % (0-3); EOS # 0.3 x10^3/uL (0.0-0.7); EOS % 5 % (0-3); HEMATOCRIT 30.1 % (36.0-47.0); HEMOGLOBIN 9.9 g/dL (12.0-15.5); LYMPH # 0.8 x10^3/uL (1.0-4.8); LYMPH % 13 % (24-48); MEAN CORPUSCULAR HEMOGLOBIN 31 pg (25-35); MEAN CORPUSCULAR HGB CONC 33 g/dL (31-37); MEAN CORPUSCULAR VOLUME 95 fL (79-100); MONO # 0.2 x10^3/uL (0.0-1.1); MONO % 3 % (0-9); NEUT # 4.7 x10^3uL (1.8-7.7); NEUT % 78 % (31-73); PLATELET COUNT 281 x10^3/uL (140-400); RED BLOOD COUNT 3.17 x10^6/uL (3.50-5.40); RED CELL DISTRIBUTION WIDTH 21.4 % (11.5-14.5)
[2020-02-21 08:51] LABS: ALBUMIN/GLOBULIN RATIO 1.2 (1.0-1.7); CALCIUM 8.1 mg/dL (8.5-10.1); CREATININE 0.8 mg/dL (0.6-1.0); GFR 69.9; POTASSIUM 3.3 mmol/L (3.5-5.1); TOTAL BILIRUBIN 1.2 mg/dL (0.2-1.0); TOTAL PROTEIN 5.5 g/dL (6.4-8.2)
[2020-02-21] MEDS ORDERED: NEBIVOLOL HCL PO SCH (09:00)
[2020-02-21 10:04] VITALS: BP 173/73
--- NOTE | 2020-02-21 13:07 | HP ---
ADMIT DATE: 02/20/2020 HISTORY OF PRESENT ILLNESS: The patient is a 75-year-old female patient who apparently fell sustaining a right nondisplaced mid cervical fracture of the right femur for which she underwent percutaneous screw fixation, right hip femoral neck fracture and this was done on 02/16/2020 and the patient was apparently discharged to [facility] to continue the process of rehabilitation there. Apparently, the patient signed herself against medical advice and left the [facility]. She was transported to her house and apparently the house was very cold. There is no electricity and the patient was basically unable to take care of herself. According to the EMS, the patient reportedly signed out against medical advice and was transported back home. The patient was placed in her bed by EMS and did not move from this position for the past 12 hours. She reports she is nonambulatory. She suffered no falls. She states she was stuck in bed without electricity and/or heat as she forgot to pay her bills at home, concerned friends and family members who did not hear from the patient called EMS to do a wellness check yesterday afternoon when she was found immobile in bed. On arrival, she complains of typical postoperative right hip pain. She has not taken any of her daily medication, admits she does not know what daily medication she is supposed to be. No other complaints at this time and she was extensively evaluated in the Emergency Room and she has had lab work that was mostly unremarkable. Her chemistry showed that she has mild hyperkalemia. Otherwise, all her other lab works are within acceptable range and she was admitted with basically severe self-care deficit, a recent fall with right femoral neck fracture, status post open reduction and internal fixation. The patient is nonweightbearing. She is a high fall risk. She did have mild hyperkalemia. We will obviously consult the social contact worker for placement and will have to investigate to get hold of her family as she stated that she has 2 nieces that are trying to convince her to be moved to assisted living facility. PAST MEDICAL HISTORY: Significant for chronic atrial fibrillation with rapid ventricular response, coronary artery disease, hypertension, hyperlipidemia, hypothyroidism. The patient has also large cystic masses in her ovaries. PAST SURGICAL HISTORY: Significant for appendectomy and bilateral cataract extraction, most recently open reduction and internal fixation of her right femoral neck fracture. FAMILY HISTORY: Significant for coronary artery disease and hypertension. SOCIAL HISTORY: She lives alone. She is an ex-smoker, does not drink alcohol or use any recreational drugs. REVIEW OF SYSTEMS: As per history of present illness. ALLERGIES: SHE IS ALLERGIC TO AMLODIPINE, HYDRALAZINE, MORPHINE, SULFAMETHOXAZOLE, AND TRIMETHOPRIM. MEDICATIONS: She is currently on following medications: She is on cefdinir 300 mg twice a day, hydroxyurea 500 mg daily, ferrous sulfate 325 mg daily, apixaban 2.5 mg twice a day, simvastatin 40 mg at bedtime. She is on clonidine TTS-3 patch topically once a week. She is on isosorbide mononitrate 30 mg daily, metoprolol tartrate 100 mg twice a day. She is on nebivolol 40 mg daily, losartan potassium 100 mg daily, oxycodone extended release 10 mg twice a day, Wellbutrin-XL 150 mg daily, Wellbutrin 300 mg daily, citalopram hydrobromide 10 mg daily. She is on quetiapine fumarate 25 mg twice a day, hydroxyzine 25 mg at bedtime. She is on hydroxyzine pamoate 25 mg as needed. She is on potassium chloride 10 mEq twice a day, furosemide 40 mg once a day, levothyroxine sodium 125 mcg daily, ascorbic acid 500 mg daily. PHYSICAL EXAMINATION: GENERAL: On arrival to the Emergency Room, the patient was pale, no jaundice, cyanosis or thyromegaly. No jugular venous distention. No limb edema. VITAL SIGNS: Her heart rate was 53, blood pressure was 184/71, temperature was 98, respiratory rate was 18, and oxygen saturation was 92% on room air. HEAD, EYES, EARS, NOSE AND THROAT: Showed normocephalic, atraumatic. NECK: Supple. HEART: Showed normal first and second heart sounds. No gallop, rub or murmur. CHEST: Clear to auscultation. No crepitation or rhonchi. ABDOMEN: Distended, soft, nontender. NEUROLOGIC: She is obviously confused, but without any obvious lateralizing sign. She does have a surgical incision of her right hip surgery covered with dressing. LABORATORY DATA: Her lab work on arrival showed a white cell count 7200, hemoglobin 10, hematocrit 32, MCV 95, platelet count 290,000 with normal manual differential. Her serum sodium was 134, potassium 5.4, chloride 101, bicarbonate 29, anion gap of 4, BUN 14, creatinine 0.6, estimated GFR was 97 mL per minute. Her glucose was 89, calcium was 8.2. Total bilirubin, AST, ALT, alkaline phosphatase were normal. CK was 195. Total protein 6, albumin 3.1. ASSESSMENT AND PLAN: In summary, this is a 75-year-old female patient who was probably demented and unable to take care of herself. She unfortunately still makes her own decisions, which are inappropriate and not to the best of her interest. She ended up leaving [facility] against medical advice and stayed in her home for 12 hours without electricity or heating. She is unable to take care of herself. She also is nonweightbearing given her recent surgery and fall with fracture of her right femoral neck fracture and did have mild hyperkalemia. The patient was admitted and was continued on her medication. We will obviously consult Physical and Occupational Therapy. Continue obviously with apixaban for deep vein thrombosis prophylaxis and also for the stroke prevention. We will consult the social contact worker for placement and also to contact her family as she definitely needs a DPOA as she is definitely now making inappropriate decision putting herself at risk. MARIA E FERRARA MD DR: JAVI/francis JOB#: [id number] / [id number]
--- NOTE | 2020-02-21 13:22 | PN ---
DATE: 02/20/2020 SUBJECTIVE: The patient was admitted yesterday after she was found by EMS in her bed, unable to move. She has right femoral neck fracture treated with open reduction and internal fixation. She left [facility] against medical advice. She was apparently given Haldol and was discharged home and stayed there for almost 12 hours without any electricity or heat. She was unable to take care of herself and was admitted to the Emergency Room where she was admitted for placement. PHYSICAL EXAMINATION: GENERAL: When I saw her this afternoon, she looked well and was clearly in no apparent respiratory distress. No pallor, jaundice, cyanosis or thyromegaly. No jugular venous distention. No lower limb edema. VITAL SIGNS: Her heart rate was 64, blood pressure was 173/73, temperature 98.5, respiratory rate was 20, and oxygen saturation was 97%. HEAD, EYES, EARS, NOSE AND THROAT: Showed normocephalic and atraumatic. NECK: Supple. HEART: Showed normal first and second heart sounds. No gallop, rub or murmur. CHEST: Clear to auscultation. No crepitation or rhonchi. ABDOMEN: Distended, soft, nontender. NEUROLOGIC: She was very confused, forgetful, but without any obvious lateralizing sign. LABORATORY DATA: Her lab work this morning showed a serum sodium 138, potassium 3.3, chloride 102, bicarbonate 28, anion gap of 8, BUN 11, creatinine was 0.8, estimated GFR was 69 mL per minute. Her glucose was 77, calcium was 8.1. Total bilirubin, AST, ALT, alkaline phosphatase were normal. Her total protein was 5.5, albumin was 3. ASSESSMENT: This patient definitely has dementia and severe self-care deficit. She is a high risk for fall and she obviously needs to be placed. She is not able to take care of herself. She has a multitude of medical problems including fall with right femoral neck fracture, status post open reduction and internal fixation. She has multiple other medical problems including chronic atrial fibrillation, hypertension, hyperlipidemia, and hypothyroidism. She did have also large cystic lesions in both ovaries and she was supposed to see a sales coordinator oncologist. I did actually make an appointment for her, but I doubt that she has even made it to that appointment. We will continue with pain management. Continue with physical and occupational therapy. We obviously have to contact her family or apply for court appointed DPOA. She is definitely unable to make the right decisions for herself. MARIA E FERRARA MD DR: JAVI/francis JOB#: [id number] / [id number]
[2020-02-21 14:23] VITALS: BP 168/70
[2020-02-21 19:24] VITALS: BP 200/87
[2020-02-21] MEDS ORDERED: SIMVASTATIN 40 MG TABLET. PO SCH (21:00)
[2020-02-21 23:19] VITALS: BP 191/77
[2020-02-22] MEDS: ACETAMINOPHEN 325 MG TABLET PO PRN ×2 (04:32→08:37)
[2020-02-22] MEDS: LEVOTHYROXINE 125 MCG TABLET PO SCH (05:08)
[2020-02-22 06:13] VITALS: BP 204/87
[2020-02-22] MEDS: buPROPion XL 150 MG TAB.ER.24H PO SCH (08:36)
[2020-02-22] MEDS: ISOSORBIDE MONONITRATE ER 30 MG TAB.ER.24H PO SCH (08:37)
[2020-02-22] MEDS: POTASSIUM CHLORIDE 10 MEQ TABLET.ER. PO SCH (08:37)
[2020-02-22] MEDS: METOPROLOL TART IMMED RELEASE 50 MG TABLET PO SCH (08:38)
[2020-02-22] MEDS: CITALOPRAM 10 MG TABLET. PO SCH (08:38)
[2020-02-22] MEDS: APIXABAN 2.5 MG TABLET PO SCH (08:38)
[2020-02-22] MEDS: FUROSEMIDE 20 MG TABLET PO SCH (08:38)
[2020-02-22 10:38] VITALS: BP 163/72
--- NOTE | 2020-02-22 13:20 | DISCH ---
DISCHARGE ORDERS DISCHARGE DATE: Feb 22, 2020 FINAL DIAGNOSIS rIGHT HIP FRACTURE S/PORIF A FIB HYPERTENSION CHF CONDITION AT DISCHARGE: Stable Code Status: Full SNF STAY <30 DAYS: Yes POST DISCHARGE ORDERS: ACTIVITY ORDERS: Activity as tolerated WEIGHT BEARING STATUS: As tolerated DIET AFTER DISCHARGE: Cardiac CHECKS AFTER DISCHARGE: CHECKS AFTER DISCHARGE: Check blood press - daily FOLLOW-UP: FFOLLOW-UP WITH: YOUR DOCTOR IN 7-10 DAYS TREATMENT/EQUIPMENT ORDERS: ADAPTIVE EQUIPMENT NEEDED: None DISCHARGE MEDICATIONS: Home Meds Reported Medications Clonidine (CLONIDINE TTS-3) 1 Each Patch.tdwk, 1 PATCH TD 1X for HTN, PATCH 02/21/20 Hydroxyzine Pamoate (HYDROXYZINE PAMOATE) 25 Mg Capsule, 1 CAP PO PRN QHS PRN for ., #60 CAP 2 Refills 02/20/20 Hydroxyzine Hcl (HYDROXYZINE HCL) 25 Mg Tablet, 1 TAB PO PRN QHS for ., #30 TAB 02/20/20 Apixaban (ELIQUIS) 2.5 Mg Tablet, 2.5 MG PO BID for ., TAB 02/20/20 Potassium Chloride (POTASSIUM CHLORIDE) 10 Meq Capsule.er, 2 CAP PO BID for . 02/20/20 Nebivolol Hcl (BYSTOLIC) 20 Mg Tablet, 2 TAB PO DAILY for . 02/20/20 Bupropion Hcl (BUPROPION XL) 300 Mg Tab.er.24h, 1 TAB PO DAILY for . 01/25/20 Citalopram Hydrobromide (CITALOPRAM HBR) 10 Mg Tablet, 1 TAB PO DAILY for depression 01/25/20 Bupropion Hcl (BUPROPION XL) 150 Mg Tab.er.24h, 1 TAB PO QAM for depression 01/25/20 Oxycodone HCl (Oxycontin) 10 Mg Tab.er.12h, 0.5 TAB PO PRN Q4-6HRS PRN for SEVERE PAIN 7-10 MDD 2 Tablet(s) for 30 Days, TAB 0 Refills 01/12/20 Ascorbic Acid (ASCORBIC ACID) 500 Mg Tablet, 500 MG PO DAILY for Anemia, TAB 01/12/20 Metoprolol Tartrate (METOPROLOL TARTRATE) 100 Mg Tablet, 1 TAB PO BID for a fib, #60 TAB 5 Refills 01/12/20 Potassium Chloride (POTASSIUM CHLORIDE ) 10 Meq Tab.er.prt, 20 MEQ PO BID for SUPPLEMENT, TAB.SR 12/13/19 Quetiapine Fumarate (SEROQUEL) 25 Mg Tablet, 1 TAB PO BID for mood , #30 TAB 2 Refills 12/13/19 Furosemide (FUROSEMIDE) 20 Mg Tablet, 2 TAB PO DAILY for diuretic, #90 TAB 1 Refill 12/13/19 Levothyroxine Sodium (LEVOTHYROXINE SODIUM) 100 Mcg Tablet, 125 MCG PO DAILYAC for . LAST DOSE GIVEN: DATE: TODAY TIME: AM NEXT DOSE DUE: DATE: TOMORROW TIME: AM 09/20/14 Isosorbide Mononitrate (ISOSORBIDE MONONITRATE ER) 30 Mg Tab.er.24h, 30 MG PO DAILY for . LAST DOSE GIVEN: DATE: TODAY TIME: AM NEXT DOSE DUE: DATE: TOMORROW TIME: AM 09/20/14 Losartan Potassium (LOSARTAN POTASSIUM) 100 Mg Tablet, 100 MG PO DAILY LAST DOSE GIVEN: DATE: TODAY TIME: AM NEXT DOSE DUE: DATE: TOMORROW TIME: AM 09/20/14 Simvastatin (SIMVASTATIN) 40 Mg Tablet, 40 MG PO HS for FOR CHOLESTEROL LAST DOSE GIVEN: DATE: YESTERDAY TIME: AT BEDTIME NEXT DOSE DUE: DATE: TODAY TIME: AT BEDTIME 09/20/14 Discontinued Reported Medications Cefdinir (CEFDINIR) 300 Mg Capsule, 1 CAP PO BID for . 01/25/20 Doxycycline Hyclate (DOXYCYCLINE HYCLATE) 100 Mg Tablet, 1 TAB PO BID for . 01/25/20 Hydroxyurea (HYDROXYUREA) 500 Mg Capsule, 1 CAP PO DAILY for . 01/25/20 Ferrous Sulfate (FEROSUL) 325 Mg Tablet, 325 MG PO DAILY for ., TAB 12/13/19 MARIA E FERRARA MD Feb 22, 2020 13:20
[2020-02-22] MEDS ORDERED: POTA20TA4 PO (13:31)
[2020-02-22] MEDS ORDERED: POTASSIUM CHLORIDE 20 MEQ TABLET.ER. PO SCH (14:00)
--- NOTE | 2020-02-22 14:39 | DS ---
DATE OF DISCHARGE: 02/22/2020 HOSPITAL COURSE: The patient is a 75-year-old female patient who was admitted through the Emergency Room. She was found in her house without any electricity or heating. After she was brought from [facility], she is demented and unable to take care of herself and she apparently had had right femoral neck fracture treated with open reduction and internal fixation at [facility] and from there, she was admitted to [facility] where she left against medical advice. In any case, she is doing well today. On questioning her, she denied any complaints. She continued to be obviously confused and demented. Unfortunately, she does not have a DPOA. PHYSICAL EXAMINATION: GENERAL: When I examined her, she was pale, somewhat cachectic, but no jaundice, cyanosis or thyromegaly. No jugular venous distention. No limb edema. VITAL SIGNS: Her heart rate was 58, blood pressure was 163/72, temperature was 98.4, respiratory rate was 18 and oxygen saturation was 95%. HEAD, EYES, EARS, NOSE AND THROAT: Showed normocephalic, atraumatic. NECK: Supple. CARDIAC: Normal first and second heart sounds. No gallop, rub or murmur. CHEST: Clear to auscultation. No crepitation or rhonchi. ABDOMEN: Distended, soft, nontender. NEUROLOGIC: She is definitely demented, but without any obvious lateralizing sign. All cranial nerves intact. EXTREMITIES: She moves extremities without difficulty. She ambulates with a walker. LABORATORY DATA: Showed a white cell count 6000, hemoglobin 10, hematocrit 30, MCV 95, platelet count 281,000. Her chemistry showed a serum sodium 138, potassium 3.3, chloride 102, bicarbonate 28, anion gap of 8, BUN 11, creatinine 0.8, estimated GFR was 70 mL per minute. Her glucose was 77, calcium was 8.1. Total bilirubin, AST, ALT, alkaline phosphatase were all normal. Total protein 5.5, albumin was 3.3. DISCHARGE MEDICATIONS: She was discharged to [facility] to continue on apixaban 2.5 mg twice a day, ascorbic acid 500 mg daily, Wellbutrin 150 mg in the morning and Wellbutrin 300 mg daily. She is on citalopram hydrobromide 10 mg once a day; clonidine TTS 1 patch topically once a week; furosemide 20 mg twice a day; hydroxyzine 25 mg at bedtime, hydroxyzine 25 mg once a day; isosorbide dinitrate 30 mg once a day; levothyroxine sodium 125 mcg daily; losartan potassium 100 mg once a day; metoprolol tartrate 100 mg twice a day; oxycodone 10 mg, she takes half a tablet every 4-6 hours as needed. She is on potassium chloride 10 mEq, she takes 20 mEq twice a day; quetiapine fumarate for Seroquel 25 mg twice a day; simvastatin 40 mg at bedtime. FINAL DISCHARGE DIAGNOSES: 1. Fall with right femoral neck fracture, status post open reduction and internal fixation. 2. The patient has dementia with severe self-care deficit. She apparently was accepted at [facility]. She has multiple other medical problems including: A. Chronic atrial fibrillation. B. Hypertension. C. Hyperlipidemia. D. Hypothyroidism. E. She has large cystic lesion in both ovaries and she was supposed to see a skin peeling machine operator-oncologist at [facility]. MARIA E FERRARA MD DR: JAVI/francis JOB#: [id number] / [id number]
== END 2020-02-22 13:55 | disposition short-term general hospital (02) ==
LOC: ER 16:09 → 1 SOUTH 19:28 → INTOOBSV 19:28
PROVIDERS: ADMIT Hospitalist; ATTEND Hospitalist
DX: S72.001A Fracture of unspecified part of neck of right femur, initial encounter for closed fracture (principal); F03.90 Unspecified dementia, unspecified severity, without behavioral disturbance, psychotic disturbance, mood disturbance, and anxiety; I11.0 Hypertensive heart disease with heart failure; I50.9 Heart failure, unspecified; I25.10 Atherosclerotic heart disease of native coronary artery without angina pectoris; I48.91 Unspecified atrial fibrillation; E03.9 Hypothyroidism, unspecified; E87.5 Hyperkalemia; E78.5 Hyperlipidemia, unspecified; Z82.49 Family history of ischemic heart disease and other diseases of the circulatory system; Z87.891 Personal history of nicotine dependence; Z98.41 Cataract extraction status, right eye; Z98.42 Cataract extraction status, left eye; Z91.81 History of falling; Z90.49 Acquired absence of other specified parts of digestive tract; N83.202 Unspecified ovarian cyst, left side; N83.201 Unspecified ovarian cyst, right side; W19.XXXA Unspecified fall, initial encounter; Y93.89 Activity, other specified; Y92.89 Other specified places as the place of occurrence of the external cause; Y99.8 Other external cause status
CPT/HCPCS: 36415; 71045; 72170; 80053; 82550; 84484; 85007; 85025; 93005; 97162; 97166; 97530; 97535; 99285; G0378; Q0177; G0379

== ENCOUNTER 2020-10-12 17:36 | Inpatient (IN) | payer MEDICARE ==
[~2020-10-12] VITALS: Ht 162.6 cm; Wt 60.9 kg
[~2020-10-12 17:36] MED LIST changes: +APIX2.5T PO; -BUPR-192 PO; +BUPR150T21 PO; +CLON1PAT3 TD; -DOXY100C2 PO; +DOXY100C3 PO; -ERGO500027 PO; +ERGO500090 PO; +HYDR25CA75 PO; -ISOS30TA4 PO; +ISOS30TA68 PO; +MIRT-7 PO; -MIRT15TA3 PO; +POTA10CA PO
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
[2020-10-12] MEDS ORDERED: ASPIRIN CHEWABLE 81 MG TABLET. PO ONE (18:15)
--- NOTE | 2020-10-12 18:28 | EKG ---
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
[2020-10-12] MEDS: IV RINGERS SOLUTION,LACTATED 1,000 ML IV SCH (18:44)
[2020-10-12 18:55] LABS: BASO # 0.1 x10^3/uL (0.0-0.2); BASO % 1 % (0-3); EOS # 0.5 x10^3/uL (0.0-0.7); EOS % 4 % (0-3); HEMATOCRIT 43.4 % (36.0-47.0); HEMOGLOBIN 13.2 g/dL (12.0-15.5); LYMPH # 1.7 x10^3/uL (1.0-4.8); LYMPH % 14 % (24-48); MEAN CORPUSCULAR HEMOGLOBIN 21 pg (25-35); MEAN CORPUSCULAR HGB CONC 30 g/dL (31-37); MEAN CORPUSCULAR VOLUME 70 fL (79-100); MONO # 0.2 x10^3/uL (0.0-1.1); MONO % 2 % (0-9); NEUT # 9.4 x10^3uL (1.8-7.7); NEUT % 79 % (31-73); PLATELET COUNT 295 x10^3/uL (140-400); RED BLOOD COUNT 6.24 x10^6/uL (3.50-5.40); RED CELL DISTRIBUTION WIDTH 24.2 % (11.5-14.5); WHITE BLOOD COUNT 11.9 x10^3/uL (4.0-11.0)
[2020-10-12 19:03] LABS: ANION GAP 7 (6-14); BLOOD UREA NITROGEN 13 mg/dL (7-20); CALCIUM 8.9 mg/dL (8.5-10.1); CARBON DIOXIDE 30 mmol/L (21-32); CHLORIDE 106 mmol/L (98-107); GFR 54.1; GLUCOSE 93 mg/dL (70-99); POTASSIUM 4.1 mmol/L (3.5-5.1); SODIUM 143 mmol/L (136-145)
--- NOTE | 2020-10-12 19:04 | RAD ---
EXAM: XR CHEST 1V 10/12/2020 6:20 PM CLINICAL INDICATION: Dyspnea, CHF COMPARISON: Chest radiograph 02/20/2020 TECHNIQUE: AP upright view the chest FINDINGS: Mild cardiomegaly. Lungs are adequately expanded. There is a calcified granuloma in the ri ght upper lobe, unchanged. There is no consolidation, pleural effusion, or pneumothorax. No acute oss eous abnormality. IMPRESSION: No acute cardiopulmonary abnormality. Electronically signed by: Alize Mcclellan MD (10/12/2020 7:01 PM) [id number]
[2020-10-12 19:05] LABS: AMPHETAMINE/METHAMPHETAMINE NEG (NEG); BARBITURATES NEG (NEG); BENZODIAZEPINES NEG (NEG); CANNABINOIDS NEG (NEG); COCAINE NEG (NEG); METHADONE NEG (NEG); OPIATES NEG (NEG); PHENCYCLIDINE NEG (NEG)
[2020-10-12 19:08] LABS: BILIRUBIN,URINE NEG (NEG); CLARITY,URINE HAZY; COLOR,URINE YELLOW; GLUCOSE,URINE NEG (NEG); NITRITE,URINE NEG (NEG); UROBILINOGEN,URINE 0.2 mg/dL (0.2 mg/dL)
[2020-10-12 19:15] LABS: ALBUMIN 4.1 g/dL (3.4-5.0); ALK PHOS 80 U/L (46-116); ALT (SGPT) 20 U/L (14-59); AST (SGOT) 47 U/L (15-37); LIPASE 218 U/L (73-393); MAGNESIUM 2.2 mg/dL (1.8-2.4); TOTAL BILIRUBIN 0.8 mg/dL (0.2-1.0); TOTAL PROTEIN 6.8 g/dL (6.4-8.2)
[2020-10-12 19:18] LABS: BACTERIA,URINE 0 /HPF (0-FEW); RBC,URINE 0 /HPF (0-2); SQUAMOUS EPITHELIAL CELL,UR MOD /LPF
[2020-10-12 19:22] LABS: DIRECT BILIRUBIN < 0.1 mg/dL (0.0-0.2)
[2020-10-12 19:43] LABS: PLT ESTIMATE ADEQUATE (ADEQUATE)
[2020-10-12 19:45] LABS: HYPOCHROMIA PRESENT
[2020-10-12] MEDS ORDERED: cloNIDine TTS-2 1 PATCH PATCH TD ONE ×2 (19:45→22:00)
[2020-10-12] MEDS ORDERED: levoFLOXacin 500 MG TABLET PO ONE (19:45)
[2020-10-12] MEDS ORDERED: cloNIDine HCL 0.1 MG TABLET PO ONE (19:45)
[2020-10-12 19:51] LABS: ANISOCYTOSIS PRESENT; MICROCYTOSIS PRESENT
[2020-10-12 19:52] LABS: OVALOCYTES PRESENT
[2020-10-12 19:55] LABS: POLYCHROMASIA SLIGHT
[2020-10-12] MEDS ORDERED: ACETAMINOPHEN 325 MG TABLET PO PRN (22:00)
[2020-10-12] MEDS ORDERED: ONDANSETRON PF 4 MG/2 ML VIAL. IVP PRN (22:00)
[2020-10-12] MEDS ORDERED: cloNIDine TTS-3 1 PATCH PATCH TD SCH (23:15)
[2020-10-12] MEDS ORDERED: STARTER PACK-hydrOXYzine 1 STARTPACK TABLET PO SCH (23:15)
[2020-10-12] MEDS ORDERED: oxyCODONE ER 10 MG TAB.ER.12H PO PRN (23:15)
[2020-10-12] MEDS ORDERED: hydrOXYzine HCL 25 MG TABLET PO PRN (23:45)
[2020-10-13 00:31] VITALS: BP_SYST 204; BP_SYST 80; BP_DIAS 80
--- NOTE | 2020-10-13 00:34 | NUR ---
The patient, TOMASA BAER, 75 y/o, F admitted by LAMONT ARAIS MD, to room 113, was given written information regarding hospital policies, unit procedures and contact persons. Valuables were checked and left with the patient.
--- NOTE | 2020-10-13 01:41 | NUR ---
Pt expressed concern that she may have ear and eye infections. She states her eyes "itch, burn and are watery" and ears are itching. She states she had been diagnosed with infections last time she felt this way. Will continue to monitor.
[2020-10-13] MEDS ORDERED: ASPI-889 PO (01:50)
[2020-10-13] MEDS ORDERED: HYDR25CA75 PO (01:50)
[2020-10-13] MEDS ORDERED: DONE5TAB7 PO (01:50)
[2020-10-13] MEDS ORDERED: NEBI20TA2 PO (01:50)
[2020-10-13] MEDS ORDERED: POTA20TA40 (01:50)
[2020-10-13] MEDS ORDERED: LISI2.5T12 PO (01:50)
[2020-10-13] MEDS ORDERED: METO50TA6 PO (01:50)
[2020-10-13] MEDS ORDERED: LEVO50TA5 PO (01:50)
[2020-10-13] MEDS: IV RINGERS SOLUTION,LACTATED 1,000 ML IV SCH (03:57)
[2020-10-13] MEDS ORDERED: IPRATRPIUM/ALBUTEROL 0.5/2.5MG 3 ML NEBU. ONE (05:04)
[2020-10-13] MEDS: IPRATRPIUM/ALBUTEROL 0.5/2.5MG 3 ML NEBU. NEB SCH ×2 (05:38→12:05)
[2020-10-13 05:55] VITALS: BP 173/75
[2020-10-13] MEDS ORDERED: LEVOTHYROXINE 125 MCG TABLET PO SCH (06:00)
[2020-10-13 06:45] LABS: BASO # 0.1 x10^3/uL (0.0-0.2); BASO % 1 % (0-3); EOS # 0.4 x10^3/uL (0.0-0.7); EOS % 4 % (0-3); HEMATOCRIT 39.2 % (36.0-47.0); HEMOGLOBIN 11.8 g/dL (12.0-15.5); LYMPH # 1.2 x10^3/uL (1.0-4.8); LYMPH % 13 % (24-48); MEAN CORPUSCULAR HEMOGLOBIN 21 pg (25-35); MEAN CORPUSCULAR HGB CONC 30 g/dL (31-37); MEAN CORPUSCULAR VOLUME 70 fL (79-100); MONO # 0.2 x10^3/uL (0.0-1.1); MONO % 2 % (0-9); NEUT # 7.3 x10^3uL (1.8-7.7); NEUT % 80 % (31-73); PLATELET COUNT 240 x10^3/uL (140-400); RED BLOOD COUNT 5.58 x10^6/uL (3.50-5.40); RED CELL DISTRIBUTION WIDTH 23.8 % (11.5-14.5); WHITE BLOOD COUNT 9.1 x10^3/uL (4.0-11.0)
[2020-10-13 07:42] LABS: PLT ESTIMATE ADEQUATE (ADEQUATE)
[2020-10-13 07:44] LABS: ANISOCYTOSIS PRESENT; MICROCYTOSIS PRESENT
[2020-10-13 07:46] LABS: HEMOGLOBIN ISTAT 13.3 gm/dL; POTASSIUM ISTAT 3.2 mmol/L (3.5-5.0)
[2020-10-13] MEDS: buPROPion XL 150 MG TAB.ER.24H PO SCH (08:09)
[2020-10-13] MEDS: LACTOBACILLUS RHAMNOSUS GG 1 CAPSULE. PO SCH ×2 (08:10→20:45)
[2020-10-13] MEDS: ASCORBIC ACID 500 MG TABLET PO SCH (08:10)
[2020-10-13] MEDS: POTASSIUM CHLORIDE 20 MEQ TABLET.ER. PO SCH ×3 (08:10→17:00)
[2020-10-13] MEDS: LOSARTAN 50 MG TABLET. PO SCH (08:10)
[2020-10-13] MEDS: ISOSORBIDE MONONITRATE ER 30 MG TAB.ER.24H PO SCH (08:11)
[2020-10-13] MEDS: QUEtiapine 25 MG TABLET. PO SCH ×2 (08:11→20:46)
[2020-10-13] MEDS: APIXABAN 2.5 MG TABLET PO SCH ×2 (08:12→20:45)
[2020-10-13] MEDS: CITALOPRAM 10 MG TABLET. PO SCH (08:12)
[2020-10-13] MEDS: FUROSEMIDE 40 MG TABLET PO SCH (08:12)
[2020-10-13] MEDS: METOPROLOL TART IMMED RELEASE 50 MG TABLET PO SCH ×2 (09:00→20:46)
[2020-10-13] MEDS ORDERED: APIXABAN 5 MG TABLET. PO SCH (09:00)
[2020-10-13] MEDS ORDERED: buPROPion XL 300 MG TAB.ER.24H. PO SCH (09:00)
[2020-10-13] MEDS ORDERED: POTASSIUM CHLORIDE PO SCH (09:00)
[2020-10-13] MEDS ORDERED: ASPIRIN 325 MG TABLET PO SCH (09:00)
[2020-10-13 11:05] VITALS: BP 153/72
[2020-10-13] MEDS ORDERED: LEVOTHYROXINE SODIUM 100 MCG VIAL. IVP SCH (13:00)
--- NOTE | 2020-10-13 13:40 | RAD ---
CT head without contrast dated 10/13/2020 1:37 PM Comparison: 02/15/2020 CLINICAL INDICATION: Mental status change TECHNIQUE: Contiguous axial imaging of the head was performed from skull base to vertex. One or more of the following individualized dose reduction techniques were utilized for this examinat ion: 1. Automated exposure control 2. Adjustment of the mA and/or kV according to patient size 3. Use of iterative reconstruction technique. FINDINGS: Ventricles and sulci are mildly prominent for age. No midline shift or mass effect. Moderate patchy l ow density in the deep/subcortical periventricular white matter. No hemorrhage or extra-axial collect ion. Posterior fossa and brainstem unremarkable. Visualized paranasal sinuses and mastoid air cells are clear. No apparent calvarial abnormality. IMPRESSION: 1. No evidence of acute intracranial hemorrhage or mass. 2. Moderate chronic small vessel ischemic changes and atrophy. Electronically signed by: Abdelrahman Humphries MD (10/13/2020 1:38 PM) [id number]
[2020-10-13] MEDS ORDERED: LEVOTHYROXINE SODIUM 100 MCG VIAL. IVP ONE (14:15)
--- NOTE | 2020-10-13 14:39 | HP ---
ADMIT DATE: 10/12/2020 HISTORY OF PRESENT ILLNESS: A 75-year-old female patient had a rough social system. Apparently, she is living in a [place], apparently been kicked out, it is not quite clear of all the social dynamics that need to be evaluated. However, the patient has become increasingly lethargic as she stopped taking her thyroid medication. She has a change in mental status. She is markedly lethargic, has trouble with her words and is having problems, as a result. Her TSH is noted to be almost 260. She is showing some signs of myxedema in terms of her mental status, although her blood pressure and temperature seemed to be basically stable. She did have an elevated CPK, which could not go along with myxedema. The patient is not in a coma, but certainly is not her normal self and has trouble remembering as well. She was admitted for generalized weakness, myxedema and continue to monitor. She will require IV medications for this situation until she can start taking them orally. PAST MEDICAL HISTORY: Surgical fixation of her cataracts, dementia, headache, heart attack in 2005, chronic atrial fib, angina, congestive heart failure, angioplasty, cardiac catheterization, coronary stent placement x5, respiratory symptoms, pneumonia, abdominal surgery, appendix removed, urinary tract infection, pain during urination. Hypothyroidism, depression, smoking history [id number], anemia. PAST SURGICAL HISTORY: Orthopedic surgery, left forearm metal plate insertion post-fracture, right hip joint replacement. IMMUNIZATIONS: For tetanus, influenza, pneumococcal, and COVID-19 immunizations. ALLERGIES: NORVASC, HYDRALAZINE, MORPHINE, SULFA AND TRIMETHOPRIM. SOCIAL HISTORY: The patient has a [id number] history of smoking. Denies alcohol or hard drug use and is a full code. REVIEW OF SYSTEMS: The patient is somewhat confused and lethargic, has trouble with her thoughts and definitely trouble taking care of herself as a result of her myxedema. The patient denies chest pain or shortness of breath per se. The patient neurologically as noted above shows definite signs of neurological problems as a result of her extremely low thyroid levels, which are being checked as we speak. PHYSICAL EXAMINATION: GENERAL: This is a very pleasant white female looking older than her stated age. Blood pressure anywhere from 170/75-150/72, respiratory rate 20, pulse 50. VITAL SIGNS: She is afebrile, presently 96 on room air. HEENT: Atraumatic, normocephalic. Eyes: PERRLA without jaundice. Poor dentition noted. NECK: Supple. There was no thyroidmegaly. No masses noted in the neck, nor carotid bruits. LUNGS: Diminished throughout, but basically clear. HEART: Regular sinus rhythm, S1, S2, without murmur, rub, thrill, or extra heart sound. ABDOMEN: Soft, nontender, no rebound or guarding. Positive bowel sounds, no hepatosplenomegaly, no bruits were noted. EXTREMITIES: No clubbing, cyanosis. Trace edema noted to the pretibial areas. Pulses are as noted 1-2/4. NEUROLOGIC: Alert, slightly confused as to dates and date of and so forth and has other memory issues, although her speech is somewhat appropriate content is appropriate in her speech. Cranial nerves 2-12 are grossly intact. Eyes are conjugate. PERRL. EOMI. Sclerae are clear. The patient otherwise reflexes were diminished in both the upper and lower extremities. Neurologically, otherwise is stable as noted. LABORATORY DATA: Indicate a white count of 12,000, hemoglobin 13.2, MCV low of 70, platelets 295. Chemistries demonstrate TSH close to 300. Sodium, potassium, 143, 3.2, BUN, creatinine 22 and 1.11. The patient's GFR 54, glucose 93, magnesium 2.2, ionized calcium 1.16, AST slightly elevated at 47, ALT 20, alkaline phosphatase 80. Creatine kinase elevated 240, the troponins were negative. BNP of 802. UA did show 11-20 white blood cells. D-dimer was elevated. Head CT present. The patient had a chest x-ray, was unremarkable, may end up doing a CTA with elevated D-dimer. IMPRESSION: Myxedema, TSH close to 300. Bradycardia, essential hypertension, mild dementia, exacerbated by her hypothyroidism, hypokalemia, elevated creatine kinase, elevated BNP, elevated liver enzymes. The patient will be admitted for further evaluation, IV levothyroxine at least for the first day or so to evaluate this patient's situation. LUIS FERNANDO/GIBSON/JIMBO DR: Sonia TID: [id number]
[2020-10-13 14:42] VITALS: BP 171/76
[2020-10-13] MEDS ORDERED: IPRATRPIUM/ALBUTEROL 0.5/2.5MG 3 ML NEBU. NEB PRN (16:15)
--- NOTE | 2020-10-13 17:59 | EKG ---
[address] [address] Test Date: 2020-10-13 Test Time: 16:39:16 Pat Name: TOMASA BAER Department: Room: 113 A Gender: F Marketing Regional Consultant: : 1945 Requested By: LAMONT ARIAS Order Number: [id number] Reading MD: Measurements Intervals [place] Rate: 54 P: 59 NM: 180 QRS: -23 QRSD: 86 T: 131 QT: 492 QTc: 469 Interpretive Statements SINUS RHYTHM LEFTWARD AXIS CONSIDER LEFT VENTRICULAR HYPERTROPHY QRS(T) CONTOUR ABNORMALITY CONSIDER ANTEROLATERAL MYOCARDIAL DAMAGE POSSIBLY ABNORMAL ECG RI6.01 No previous ECG available for comparison
[2020-10-13 18:52] VITALS: BP 175/69
[2020-10-13] MEDS: SIMVASTATIN 40 MG TABLET. PO SCH (20:45)
[2020-10-13 23:00] VITALS: BP 176/81
[2020-10-14 05:55] VITALS: BP 193/77
[2020-10-14] MEDS ORDERED: LEVOTHYROXINE SODIUM 100 MCG VIAL. IVP SCH (06:00)
[2020-10-14 06:17] LABS: HEMOGLOBIN 12.4 g/dL (12.0-15.5)
--- NOTE | 2020-10-14 06:31 | NUR ---
Patient is alert and oriented x4, although forgetful at times. She is KEWEENAW. She has been pleasant, cooperative and calm this shift.
[2020-10-14] MEDS: ASPIRIN CHEWABLE 81 MG TABLET. PO SCH (07:48)
[2020-10-14] MEDS: POTASSIUM CHLORIDE 20 MEQ TABLET.ER. PO SCH ×3 (07:49→17:20)
[2020-10-14] MEDS: LACTOBACILLUS RHAMNOSUS GG 1 CAPSULE. PO SCH ×2 (07:49→21:17)
[2020-10-14] MEDS: APIXABAN 2.5 MG TABLET PO SCH ×2 (07:49→21:17)
[2020-10-14] MEDS: buPROPion XL 150 MG TAB.ER.24H PO SCH (07:49)
[2020-10-14] MEDS: ASCORBIC ACID 500 MG TABLET PO SCH (07:49)
[2020-10-14] MEDS: FUROSEMIDE 40 MG TABLET PO SCH (07:49)
[2020-10-14] MEDS: QUEtiapine 25 MG TABLET. PO SCH ×2 (07:49→21:17)
[2020-10-14] MEDS: ISOSORBIDE MONONITRATE ER 30 MG TAB.ER.24H PO SCH (07:50)
[2020-10-14] MEDS: CITALOPRAM 10 MG TABLET. PO SCH (07:50)
[2020-10-14] MEDS: LOSARTAN 50 MG TABLET. PO SCH (07:51)
[2020-10-14] MEDS: METOPROLOL TART IMMED RELEASE 50 MG TABLET PO SCH ×2 (07:59→21:17)
[2020-10-14 10:35] VITALS: BP 166/77
[2020-10-14] MEDS: LEVOTHYROXINE 100 MCG TABLET PO SCH (11:40)
[2020-10-14] MEDS ORDERED: ELECTROLYTE (NON-ICU) PROTOCOL. MC PRN (13:45)
[2020-10-14 14:57] VITALS: BP 134/66
[2020-10-14] MEDS ORDERED: amLODIPine BESYLATE 5 MG TABLET PO ONE (15:00)
--- NOTE | 2020-10-14 15:47 | NUR ---
PATIENT HAD ONE TIME ORDER FOR AMLODIPINE, PATIENT STATED SHE IS ALLERGIC REACTION TO THIS MEDICATION, PATIENT REFUSED TO TAKE IT. PHARMACY NOTIFIED, BLOOD PRESSURE CHECKED AND CURRENTLY IS 134/66.
[2020-10-14 18:47] VITALS: BP 184/71
[2020-10-14] MEDS ORDERED: ACETAMINOPHEN 500 MG TABLET PO PRN (21:00)
[2020-10-14] MEDS: SIMVASTATIN 40 MG TABLET. PO SCH (21:17)
--- NOTE | 2020-10-15 04:03 | PN ---
SUBJECTIVE: A 75-year-old female in with hypothyroidism and myxedema. The patient is resting fairly comfortably, making fairly good progress overall. She says she feels much better, still receiving IV antibiotic therapy. Hemoglobin up to 12. The patient's T4 was 0.21 and T3 total 33 low. ____ otherwise potassium still low. She is on electrolyte replacement. Continue with such. Final culture on her urine is pending and otherwise unremarkable. We will probably go ahead and discontinue her IV antibiotic therapy and prepare for probable discharge in the a.m. Patient receiving physical and occupational therapy as well. PHYSICAL EXAMINATION: VITAL SIGNS: Her blood pressure ____, respiratory rate 17, pulse 55, afebrile at 96. GENERAL: The patient is alert and oriented. The patient otherwise continues to be monitored carefully. LUNGS: Diminished but clear. CARDIOVASCULAR: Stable. ABDOMEN: Soft, nontender. EXTREMITIES: No clubbing, cyanosis or edema. IMPRESSION: Myxedema, hypothyroidism, essential hypertension, hypertensive urgency. PLAN: Continue to monitor the patient accordingly, make further evaluation on her as indicated per those results. LUIS FERNANDO/ANNA MARIE/MOY DR: Sonia TID: [id number]
[2020-10-15] MEDS: LEVOTHYROXINE 100 MCG TABLET PO SCH (05:42)
[2020-10-15 05:56] VITALS: BP 161/67
[2020-10-15] MEDS: ASPIRIN CHEWABLE 81 MG TABLET. PO SCH (08:26)
[2020-10-15] MEDS: ISOSORBIDE MONONITRATE ER 30 MG TAB.ER.24H PO SCH (08:27)
[2020-10-15] MEDS: FUROSEMIDE 40 MG TABLET PO SCH (08:27)
[2020-10-15] MEDS: LOSARTAN 50 MG TABLET. PO SCH (08:27)
[2020-10-15] MEDS: buPROPion XL 150 MG TAB.ER.24H PO SCH (08:27)
[2020-10-15] MEDS: LACTOBACILLUS RHAMNOSUS GG 1 CAPSULE. PO SCH ×2 (08:27→20:38)
[2020-10-15] MEDS: QUEtiapine 25 MG TABLET. PO SCH ×2 (08:27→20:38)
[2020-10-15] MEDS: ASCORBIC ACID 500 MG TABLET PO SCH (08:27)
[2020-10-15] MEDS: CITALOPRAM 10 MG TABLET. PO SCH (08:28)
[2020-10-15] MEDS: METOPROLOL TART IMMED RELEASE 50 MG TABLET PO SCH ×2 (08:28→20:39)
[2020-10-15] MEDS: APIXABAN 2.5 MG TABLET PO SCH ×2 (08:28→20:38)
[2020-10-15] MEDS: POTASSIUM CHLORIDE 20 MEQ TABLET.ER. PO SCH ×3 (08:31→17:05)
[2020-10-15] MEDS: amLODIPine BESYLATE 10 MG TABLET PO SCH (09:50)
[2020-10-15] MEDS ORDERED: ONDANSETRON PF 4 MG/2 ML VIAL. IVP PRN (10:15)
[2020-10-15 10:53] VITALS: BP 115/61
[2020-10-15 14:41] VITALS: BP 150/73
--- NOTE | 2020-10-15 18:25 | NUR ---
Nursing Note Patient has had an uneventful shift, no acute events, patient received shower, ate meals well, blood pressures are beginning to come down to normal level, refer to chart.
[2020-10-15] MEDS: hydrOXYzine HCL 25 MG TABLET PO PRN (20:38)
[2020-10-15] MEDS: SIMVASTATIN 40 MG TABLET. PO SCH (20:38)
[2020-10-15 21:00] VITALS: BP 164/79
--- NOTE | 2020-10-16 02:37 | PN ---
SUBJECTIVE: A 75-year-old female who is with myxedema, hypothyroidism, feeling much better. However, this is presenting a social situation. The patient does not have any money, needs to get medications from her pharmacy. Also needs to go to some living situation. She does not have a home. She ____ to go to the homeless assisted. Again, we are trying to arrange transportation for these various events to occur. OBJECTIVE: VITAL SIGNS: Blood pressure 115/60, respiratory rate 20, running low-grade temperature of 99.2, pulse 56. GENERAL: The patient is alert and oriented. LUNGS: Diminished, basically clear. CARDIOVASCULAR: Stable. ABDOMEN: Soft, nontender. EXTREMITIES: No clubbing, cyanosis or edema. NEUROLOGIC: The patient alert and oriented x 3. IMPRESSION: Myxedema, hypothyroidism. PLAN: We will go ahead and continue to monitor the patient, accordingly make further evaluation on her as indicated. The patient will continue to monitor her social situation to get her out of the hospital to living quarters that are safe as well as with her medications. PRADEEP/ARAM DR: LUIS FERNANDO/francis TID: [id number]
[2020-10-16 05:49] VITALS: BP 158/77
[2020-10-16] MEDS: LEVOTHYROXINE 100 MCG TABLET PO SCH (06:25)
--- NOTE | 2020-10-16 06:32 | NUR ---
Pt pleasant with all interactions. Eating and drinking well. Pt awoke for Synthroid this morning and reports sleeping well overnight.
[2020-10-16] MEDS: LACTOBACILLUS RHAMNOSUS GG 1 CAPSULE. PO SCH ×2 (08:05→20:57)
[2020-10-16] MEDS: METOPROLOL TART IMMED RELEASE 50 MG TABLET PO SCH ×2 (08:09→20:58)
[2020-10-16] MEDS: QUEtiapine 25 MG TABLET. PO SCH ×2 (08:10→20:57)
[2020-10-16] MEDS: ASPIRIN CHEWABLE 81 MG TABLET. PO SCH (08:10)
[2020-10-16] MEDS: buPROPion XL 150 MG TAB.ER.24H PO SCH (08:10)
[2020-10-16] MEDS: FUROSEMIDE 40 MG TABLET PO SCH (08:10)
[2020-10-16] MEDS: APIXABAN 2.5 MG TABLET PO SCH ×2 (08:10→20:57)
[2020-10-16] MEDS: LOSARTAN 50 MG TABLET. PO SCH (08:10)
[2020-10-16] MEDS: POTASSIUM CHLORIDE 20 MEQ TABLET.ER. PO SCH ×3 (08:10→16:57)
[2020-10-16] MEDS: CITALOPRAM 10 MG TABLET. PO SCH (08:10)
[2020-10-16] MEDS: ASCORBIC ACID 500 MG TABLET PO SCH (08:10)
[2020-10-16] MEDS: amLODIPine BESYLATE 10 MG TABLET PO SCH (08:11)
[2020-10-16] MEDS: ISOSORBIDE MONONITRATE ER 30 MG TAB.ER.24H PO SCH (08:11)
[2020-10-16 10:37] VITALS: BP 102/60
[2020-10-16 14:40] VITALS: BP 126/62
--- NOTE | 2020-10-16 18:49 | NUR ---
Nursing Note Patient has had an uneventful shift, no acute events, patient received shower, ate meals well, blood pressures have normalized in ranger (see chart), case management following with assist to discharge.
[2020-10-16 20:35] VITALS: BP 154/81
[2020-10-16] MEDS: SIMVASTATIN 40 MG TABLET. PO SCH (20:57)
[2020-10-16] MEDS: hydrOXYzine HCL 25 MG TABLET PO PRN (20:57)
[2020-10-16 23:30] VITALS: BP 145/85
[2020-10-17] MEDS: LEVOTHYROXINE 100 MCG TABLET PO SCH (05:41)
[2020-10-17 06:27] VITALS: BP 174/78
[2020-10-17] MEDS: FUROSEMIDE 40 MG TABLET PO SCH (08:22)
[2020-10-17] MEDS: LOSARTAN 50 MG TABLET. PO SCH (08:22)
[2020-10-17] MEDS: ISOSORBIDE MONONITRATE ER 30 MG TAB.ER.24H PO SCH (08:22)
[2020-10-17] MEDS: METOPROLOL TART IMMED RELEASE 50 MG TABLET PO SCH (08:22)
[2020-10-17] MEDS: CITALOPRAM 10 MG TABLET. PO SCH (08:22)
[2020-10-17] MEDS: QUEtiapine 25 MG TABLET. PO SCH (08:22)
[2020-10-17] MEDS: APIXABAN 2.5 MG TABLET PO SCH (08:22)
[2020-10-17] MEDS: ASCORBIC ACID 500 MG TABLET PO SCH (08:22)
[2020-10-17] MEDS: ASPIRIN CHEWABLE 81 MG TABLET. PO SCH (08:22)
[2020-10-17 08:23] VITALS: BP 174/78
[2020-10-17] MEDS: POTASSIUM CHLORIDE 20 MEQ TABLET.ER. PO SCH ×2 (08:23→12:22)
[2020-10-17] MEDS: LACTOBACILLUS RHAMNOSUS GG 1 CAPSULE. PO SCH (08:23)
[2020-10-17] MEDS: amLODIPine BESYLATE 10 MG TABLET PO SCH (08:23)
[2020-10-17] MEDS: buPROPion XL 150 MG TAB.ER.24H PO SCH (08:23)
[2020-10-17] MEDS ORDERED: AMLO-187 PO (10:35)
[2020-10-17] MEDS ORDERED: LEVO200T5 PO (10:35)
--- NOTE | 2020-10-17 14:01 | NUR ---
NSG NOTE; DISCHARGE VERBAL AND WRITTEN DISCHARGE INSTRUCTIONS GIVEN TO PT WITH VERBAL UNDERSTANDING. 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
== END 2020-10-17 14:00 | disposition home or self-care (01) | DRG 644 ==
LOC: ER 17:36 → 1 SOUTH 22:17
PROVIDERS: ADMIT Family Medicine; ATTEND Family Medicine
DX: E03.9 Hypothyroidism, unspecified (principal); I48.20 Chronic atrial fibrillation, unspecified; N39.0 Urinary tract infection, site not specified; E87.6 Hypokalemia; E78.5 Hyperlipidemia, unspecified; F03.90 Unspecified dementia, unspecified severity, without behavioral disturbance, psychotic disturbance, mood disturbance, and anxiety; I11.0 Hypertensive heart disease with heart failure; I16.0 Hypertensive urgency; I25.2 Old myocardial infarction; I50.9 Heart failure, unspecified; Z59.0 Homelessness; Z87.891 Personal history of nicotine dependence; Z95.5 Presence of coronary angioplasty implant and graft; Z96.649 Presence of unspecified artificial hip joint; F32.9 Major depressive disorder, single episode, unspecified; R74.8 Abnormal levels of other serum enzymes; R79.89 Other specified abnormal findings of blood chemistry; Z88.6 Allergy status to analgesic agent; Z88.5 Allergy status to narcotic agent; Z88.8 Allergy status to other drugs, medicaments and biological substances
CPT/HCPCS: 36415; 70450; 71045; 80047; 80048; 80076; 80307; 81001; 82533; 82550; 83540; 83550; 83605; 83690; 83735; 83880; 84439; 84443; 84480; 84484; 85014; 85018; 85025; 85379; 85610; 85730; 87086; 93005; 94640; G0238; J0696; J1956; J2405; J7120; 97110; 97116; 97530; 97535; 99285-25

== ENCOUNTER 2020-11-16 18:20 | Observation (INO) | payer MEDICARE ==
[~2020-11-16] VITALS: Ht 158.8 cm; Wt 58.6 kg
[~2020-11-16 18:20] MED LIST changes: +AMLO-187 PO; +ASPI-889 PO; +DONE5TAB7 PO; +LEVO200T5 PO; +LEVO50TA5 PO; +LISI2.5T12 PO; +METO50TA6 PO; +POTA-121 PO; -POTA20TA4 PO; +POTA20TA40
--- NOTE | 2020-11-16 18:24 | PHYS DOC ---
Past History Past Medical History: A-Fib, Angina, Anxiety, Arthritis, Bronchitis, CHF, COPD, Dementia, GERD, Hypertension, Hypothyroid, Other Additional Past Medical Histor: cognitive impairment Past Surgical History: No Surgical History, Hip Replacement Past Surgical History Lt forearm - fx repair Smoking: Cigarettes, Quit Greater Than 1 Year Alcohol Use: None Drug Use: None General Adult EDM: Chief Complaint: HOMELESS HPI: HPI: ".. I am short of breath.. I cant wall across the room with out getting short of breath.. I am weak.. I ve been out of my meds for a week now.. I was in halfway before the kicked me out... . I don't have any where to stay.. I was staying at the [facility].. and I though I had another night... but they said I did not... and I ve been out of my meds for a week now... and I have no way to get more..... ".. " So I had the ambulance take me here to get checked.. out..." Patient is a 75 year old female who presents with multiple complaints dyspnea, fatigue, malaise, weakness. Primary complaint list of multiple complaints is out of meds the past week, no where to stay except the halfway. Pt. has followed with Dr. Castorena in past. Had previous admit for similar presentation on 10/12/20. Patient has past medical history of cataracts, dementia, heart attack in 2006, chronic A. fib, angina, congestive heart failure, angioplasty, cardiac catheterization with coronary stents x5., Pneumonia, abdomen surgeries, appendectomy, urinary tract infections, hypothyroidism, depression, tobacco [id number] history and anemia. Patient has had previous pneumococcal vaccine and COVID-19 vaccinations. Patient denies any alcohol or other illicit drugs. Does continue to smoke. No recent travel. No specific ill contacts. Has recently been thrown out of the halfway for some reason. Review of Systems: Review of Systems: Constitutional: Denies fever or chills Eyes: Denies change in visual acuity HENT: Denies nasal congestion or sore throat Respiratory: Complains of of shortness of breath Cardiovascular: Denies chest pain or edema GI: Denies abdominal pain, , vomiting, bloody stools or diarrhea. Complains of nausea : Denies dysuria Musculoskeletal: Denies back pain or joint pain. Complains of generalized myalgia arthralgia Integument: Denies rash Neurologic: Denies headache, focal weakness or sensory changes Endocrine: Denies polyuria or polydipsia Lymphatic: Denies swollen glands Psychiatric: Complains of depression and anxiety Family History: Family History: Noncontributory to presentation Current Medications: Current Meds: See nursing for home meds. Has not taken any home meds for the past week Allergies: Allergies: Allergies Coded Allergies Type Severity Reaction Last Updated Verified hydralazine Allergy Intermediate 02/20/20 Yes sulfamethoxazole Allergy Intermediate 02/20/20 Yes trimethoprim Allergy Intermediate 02/20/20 Yes morphine Adverse Reaction Intermediate 02/20/20 Yes Physical Exam: PE: Constitutional: no acute distress, non-toxic appearance. [] HENT: Normocephalic, atraumatic, bilateral external ears normal, oropharynx moist, no oral exudates, nose normal. [] Eyes: PERRLA, EOMI, conjunctiva normal, no discharge. [] Neck: Normal range of motion, no tenderness, supple, no stridor. [] JVD in the sitting position. Cardiovascular: Tachycardia heart rate regular rhythm, no murmur [] PMI to the left Lungs & Thorax: Bilateral breath sounds equal apex with scattered crackles th roughout and wheezing auscultation [] Abdomen: Bowel sounds normal, soft, no tenderness, no masses, no pulsatile masses. [] Old surgery scars Skin: Warm, dry, no erythema, no rash. Poor turgor Back: No tenderness, no CVA tenderness. [] Extremities: No tenderness, no cyanosis, no clubbing, ROM intact, no edema. [] Surgical scar left forearm. Right hip scar. Neurologic: Alert and oriented X 3, normal motor function, normal sensory function, no focal deficits noted. [] Psychologic: Affect anxious, judgement at times appears to be confused and lack insight, mood normal. [] EKG: EKG: My interpretation of EKG shows a sinus rhythm at 62 bpm. Leftward axis. No findings acute STEMI of contralateral changes. [] Radiology/Procedures: Radiology/Procedures: [] Heart Score: C/O Chest Pain: N/A HEART Score for Chest Pain: HEART Score for Chest Pain Response (Comments) Value History Slighlty/Non-Suspicious 0 ECG Nonspecific Repolarizatio 1 Age > 65 2 Risk Factors 1 or 2 Risk Factors 1 Troponin < Normal Limit 0 Total 4 Risk Factors: Risk Factors: DM, Current or recent (<one month) smoker, HTN, HLP, family history of CAD, obesity. Risk Scores: Score 0 - 3: 2.5% MACE over next 6 weeks - Discharge Home Score 4 - 6: 20.3% MACE over next 6 weeks - Admit for Clinical Observation Score 7 - 10: 72.7% MACE over next 6 weeks - Early Invasive Strategies Course & Med Decision Making: Course & Med Decision Making Pertinent Labs and Imaging studies reviewed. (See chart for details) Discussed presentation, testing and treatment plan with Dr. Castorena. Admit to his service for further evaluation and treatment. Pt. to have also a social service consult. Impression: 1. Accelerated HTN 2. Tobacco Use 3. CHF-diastolic dysfunction - bnp 1322 4. Weakness 5. COPD 6. Dementia 7. Non-compliance [] Dragon Disclaimer: Dragon Disclaimer: This electronic medical record was generated, in whole or in part, using a voice recognition dictation system. Departure Departure: Referrals: NOÉ KULKARNI (PCP) Steve Disclaimer This chart was dictated in whole or in part using Voice Recognition software in a busy, high-work load, and often noisy Emergency Department environment. It may contain unintended and wholly unrecognized errors or omissions. Dragon Disclaimer This chart was dictated in whole or in part using Voice Recognition software in a busy, high-work load, and often noisy Emergency Department environment. It may contain unintended and wholly unrecognized errors or omissions. Dragon Disclaimer This chart was dictated in whole or in part using Voice Recognition software in a busy, high-work load, and often noisy Emergency Department environment. It may contain unintended and wholly unrecognized errors or omissions. BELA CANO MD Nov 16, 2020 18:24
[2020-11-16] MEDS ORDERED: hydrOXYzine HCL 25 MG TABLET PO PRN ×2 (18:45→21:30)
[2020-11-16] MEDS ORDERED: IV RINGERS SOLUTION,LACTATED 1,000 ML IV SCH (18:45)
[2020-11-16] MEDS ORDERED: CITALOPRAM 20 MG TABLET. PO ONE (19:15)
[2020-11-16] MEDS ORDERED: LEVOTHYROXINE 125 MCG TABLET PO ONE (19:15)
[2020-11-16] MEDS ORDERED: APIXABAN 2.5 MG TABLET PO ONE (19:15)
[2020-11-16] MEDS ORDERED: LISINOPRIL 5 MG TABLET. PO ONE (19:15)
[2020-11-16] MEDS ORDERED: buPROPion XL 150 MG TAB.ER.24H PO ONE (19:15)
[2020-11-16] MEDS ORDERED: ISOSORBIDE MONONITRATE ER 30 MG TAB.ER.24H PO ONE (19:15)
[2020-11-16] MEDS ORDERED: FUROSEMIDE 40 MG TABLET PO ONE (19:30)
[2020-11-16 20:26] LABS: CREATININE 0.8 mg/dL (0.6-1.0); GFR 69.9; POTASSIUM 4.3 mmol/L (3.5-5.1)
[2020-11-16 20:27] LABS: BASO # 0.1 x10^3/uL (0.0-0.2); BASO % 1 % (0-3); EOS # 0.5 x10^3/uL (0.0-0.7); EOS % 4 % (0-3); HEMATOCRIT 42.1 % (36.0-47.0); HEMOGLOBIN 12.7 g/dL (12.0-15.5); LYMPH # 1.4 x10^3/uL (1.0-4.8); LYMPH % 14 % (24-48); MEAN CORPUSCULAR HEMOGLOBIN 22 pg (25-35); MEAN CORPUSCULAR HGB CONC 30 g/dL (31-37); MEAN CORPUSCULAR VOLUME 73 fL (79-100); MONO # 0.3 x10^3/uL (0.0-1.1); MONO % 3 % (0-9); NEUT # 8.4 x10^3uL (1.8-7.7); NEUT % 79 % (31-73); PLATELET COUNT 204 x10^3/uL (140-400); RED BLOOD COUNT 5.76 x10^6/uL (3.50-5.40); RED CELL DISTRIBUTION WIDTH 23.2 % (11.5-14.5); WHITE BLOOD COUNT 10.7 x10^3/uL (4.0-11.0)
[2020-11-16 20:38] LABS: DIRECT BILIRUBIN 0.2 mg/dL (0.0-0.2); MAGNESIUM 2.4 mg/dL (1.8-2.4); TOTAL BILIRUBIN 0.5 mg/dL (0.2-1.0); TOTAL PROTEIN 6.4 g/dL (6.4-8.2)
[2020-11-16 20:59] LABS: PLT ESTIMATE ADEQUATE (ADEQUATE)
[2020-11-16 21:00] LABS: ANISOCYTOSIS SLIGHT; HYPOCHROMIA MOD; MICROCYTOSIS MOD; OVALOCYTES FEW; SCHISTOCYTES OCC
--- NOTE | 2020-11-16 21:06 | RAD ---
XR CHEST 1V CLINICAL INDICATIONS: Reason: DYSPNEA COMPARISON: October 12 2020. Findings: Old granulomatous disease is seen. No acute lung infiltrate or pleural effusion or pulmonar y edema or lung mass or pneumothorax is seen. The heart size, pulmonary vasculature, mediastinum and both aubrey are stable. IMPRESSION: No acute radiographic abnormality is seen. Electronically signed by: Parker Tamayo MD (11/16/2020 9:03 PM) [id number]
[2020-11-16] MEDS ORDERED: ACETAMINOPHEN 325 MG TABLET PO PRN (21:30)
[2020-11-16] MEDS ORDERED: ONDANSETRON PF 4 MG/2 ML VIAL. IVP PRN (21:30)
[2020-11-16] MEDS ORDERED: ANTI-COAG MONITOR BY PHARMACY. MC PRN (21:45)
[2020-11-16 21:57] LABS: BACTERIA,URINE 0 /HPF (0-FEW); BILIRUBIN,URINE NEG (NEG); CLARITY,URINE CLEAR; COLOR,URINE YELLOW; GLUCOSE,URINE NEG (NEG); NITRITE,URINE NEG (NEG); RBC,URINE 0 /HPF (0-2); SQUAMOUS EPITHELIAL CELL,UR OCC /LPF; UROBILINOGEN,URINE 0.2 mg/dL (0.2 mg/dL); WBC,URINE 0 /HPF (0-4)
[2020-11-16] MEDS ORDERED: FUROSEMIDE 40 MG/4 ML VIAL IVP ONE (22:00)
[2020-11-16] MEDS ORDERED: ASPIRIN CHEWABLE 81 MG TABLET. PO ONE (22:00)
[2020-11-16 22:02] LABS: BARBITURATES NEG (NEG); BENZODIAZEPINES NEG (NEG); CANNABINOIDS NEG (NEG); COCAINE NEG (NEG); METHADONE NEG (NEG); OPIATES NEG (NEG); PHENCYCLIDINE NEG (NEG)
[2020-11-16 22:03] LABS: AMPHETAMINE/METHAMPHETAMINE NEG (NEG)
--- NOTE | 2020-11-16 23:11 | NUR ---
The patient, TOMASA BAER, 75 y/o, F admitted by LAMONT ARIAS MD, was given written information regarding hospital policies, unit procedures and contact persons. Valuables were checked and left with patient.
[2020-11-16 23:43] VITALS: BP 197/101
[2020-11-17 01:45] VITALS: BP 150/73
--- NOTE | 2020-11-17 04:51 | EKG ---
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
[2020-11-17] MEDS: IPRATRPIUM/ALBUTEROL 0.5/2.5MG 3 ML NEBU. NEB SCH ×4 (05:44→19:49)
[2020-11-17] MEDS: LEVOTHYROXINE 125 MCG TABLET PO SCH (05:45)
[2020-11-17 06:06] VITALS: BP 141/62
--- NOTE | 2020-11-17 06:27 | NUR ---
Nursing note: Pt BP elevated on admission to floor; lasix given per orders and BP rechecked. SBP now 140s-150s. Pt resting comfortably in bed, minimal SOA, not requiring O2.
[2020-11-17] MEDS: FUROSEMIDE 40 MG/4 ML VIAL IVP SCH ×2 (07:48→14:13)
[2020-11-17] MEDS: CITALOPRAM 10 MG TABLET. PO SCH (07:48)
[2020-11-17] MEDS: APIXABAN 2.5 MG TABLET PO SCH ×2 (07:48→19:49)
[2020-11-17] MEDS: buPROPion XL 150 MG TAB.ER.24H PO SCH (07:48)
[2020-11-17] MEDS: ISOSORBIDE MONONITRATE ER 30 MG TAB.ER.24H PO SCH (07:50)
[2020-11-17] MEDS ORDERED: LISINOPRIL 5 MG TABLET. PO SCH (09:00)
[2020-11-17 09:15] LABS: BASO # 0.1 x10^3/uL (0.0-0.2); BASO % 1 % (0-3); EOS # 0.4 x10^3/uL (0.0-0.7); EOS % 5 % (0-3); HEMATOCRIT 38.4 % (36.0-47.0); HEMOGLOBIN 11.8 g/dL (12.0-15.5); LYMPH # 1.2 x10^3/uL (1.0-4.8); LYMPH % 15 % (24-48); MEAN CORPUSCULAR HEMOGLOBIN 22 pg (25-35); MEAN CORPUSCULAR HGB CONC 31 g/dL (31-37); MEAN CORPUSCULAR VOLUME 73 fL (79-100); MONO # 0.1 x10^3/uL (0.0-1.1); MONO % 2 % (0-9); NEUT # 6.5 x10^3uL (1.8-7.7); NEUT % 78 % (31-73); PLATELET COUNT 201 x10^3/uL (140-400); RED BLOOD COUNT 5.25 x10^6/uL (3.50-5.40); RED CELL DISTRIBUTION WIDTH 23.1 % (11.5-14.5); WHITE BLOOD COUNT 8.3 x10^3/uL (4.0-11.0)
[2020-11-17 10:07] LABS: CALCIUM 8.7 mg/dL (8.5-10.1); CREATININE 0.9 mg/dL (0.6-1.0); POTASSIUM 3.8 mmol/L (3.5-5.1)
[2020-11-17 11:45] VITALS: BP 134/68
[2020-11-17 15:39] VITALS: BP 148/63
[2020-11-17 19:00] VITALS: BP 164/67
[2020-11-17] MEDS ORDERED: hydrOXYzine PAMOATE 25 MG CAPSULE PO PRN (19:00)
--- NOTE | 2020-11-17 19:36 | HP ---
HISTORY OF PRESENT ILLNESS: A 75-year-old female came in short of breath. The patient has been very weak, apparently lives at a fpc and run out of her medications and said she did not have any money to get them refilled. As a result of this, the patient was admitted to the hospital for further evaluation of her shortness of breath and further evaluation on her other elements of her medical and other problems that are still provoking her not to come in through the Emergency Room. PAST MEDICAL HISTORY: Extensive for severe hypothyroidism, cataract surgery, dementia, cardiac disorders, heart attack, angina, congestive heart failure, angioplasty, cardiac catheterization, coronary stent placement x5, hypertension, respiratory symptoms, hiatal hernia, abdominal surgery, appendectomy, urinary tract, osteoarthritis, osteoporosis, joint replacement, left forearm metal plate insertion post-fracture, right hip repair, depression, anxiety, smoking, blood disorders, anemia. Immunizations for tetanus and pneumococcal up to date. Does not know if she had one for COVID. ALLERGIES: HYDRALAZINE, MORPHINE, SEPTRA, SULFA, TRIMETHOPRIM. FAMILY HISTORY: Noncontributory, unknown. SOCIAL HISTORY: Has about a [id number] history of smoking, occasional heavy drinking, but none recently and is a full code. REVIEW OF SYSTEMS: The patient has generalized weakness, generalized problems with shortness of breath, no chest pain or abdominal pain. Some mild nausea, but no vomiting. No problem with her bowels, otherwise unremarkable in that regard. PHYSICAL EXAMINATION: GENERAL: White female, looking stated age. VITAL SIGNS: Blood pressure 140/62, respiratory rate 18, pulse 60, afebrile, 96% on room air. HEENT: The patient's head was atraumatic, normocephalic. Eyes: PERRLA without jaundice. The mouth and throat normal. NECK: Supple. LUNGS: Lungs are diminished, but basically clear. SKIN: Dry. CARDIOVASCULAR: The CVR exam was regular sinus rhythm. ABDOMEN: Soft, nontender. EXTREMITIES: No clubbing, cyanosis. Trace edema. NEUROLOGIC: Intact for her. She is alert and oriented; however, she does show some poor judgment in her living situation and the like. Otherwise, doing reasonably well. LABORATORY DATA: White count 10, hemoglobin 12, hematocrit 42. The patient's chemistries showed 142, 3.8, BUN and creatinine 14 and 0.9. TSH now is low at 0.256. BNP of 1322. Chest x-ray, no acute findings noted. IMPRESSION: Increased shortness of breath, mild acute on top of chronic diastolic heart failure, hypothyroidism. The patient continued to be monitored carefully and make further evaluation on her as indicated. LUIS FERNANDO/GIBSON DR: Sonia TID: [id number]
[2020-11-17] MEDS: QUEtiapine 25 MG TABLET. PO SCH (19:49)
[2020-11-17] MEDS ORDERED: SIMVASTATIN 40 MG TABLET. PO SCH (21:00)
[2020-11-17] MEDS ORDERED: APIXABAN 2.5 MG TABLET PO SCH (21:00)
[2020-11-17 22:35] VITALS: BP 150/69
[2020-11-18 06:06] VITALS: BP 167/66
[2020-11-18] MEDS: LEVOTHYROXINE 125 MCG TABLET PO SCH (06:10)
--- NOTE | 2020-11-18 08:14 | PDOC2 ---
CARDIAC CONSULT DATE OF CONSULT DOS: DATE: 11/18/20 TIME: 08:09 REASON FOR CONSULT Reason for Consult CHF REFERRING PHYSICIAN Referring Physician Dr. Yanez SOURCE Source: Chart review, Patient HPI History of Present Illness This is a 75 yo female who presented secondary to shortness of breath, weakness. Unfortunately, patient is homeless and has been staying in a local fpc. Reports she decided to leave homeless fpc over the weekend and thought she had a free nights stay at the [facility]. Reports she walked to the [facility] in the heat and was extremely short of breath upon arrival and EMS was called. Reports she ran out of medications about 3 weeks ago and has had no resources to get them refilled. She denies any dizziness, diaphoresis, palpitations, or chest pain. SOA has resolved and is feeling well this morning. PAST MEDICAL HISTORY Past Medical History Coronary artery disease s/p PCI/stent placement CHF PAFIB Hypertension Hyperlipidemia Hypothyroidism Chronic kidney disease Obstructive sleep apnea PAST SURGICAL HISTORY Past Surgical History Cataract surgery Appendectomy SOCIAL HISTORY Social History Smoke: Quit ALCOHOL: none Drugs: None Lives: homeless, fpc CURRENT MEDICATIONS Current Medications Current Medications Lactated Ringer's 1,000 ml @ 100 mls/hr Q10H IV Last administered on 11/16/20at 20:51; Start 11/16/20 at 18:45; Stop 11/17/20 at 04:44; Status DC Apixaban (Eliquis) 2.5 mg 1X ONCE PO Last administered on 11/16/20at 21:41; Start 11/16/20 at 19:15; Stop 11/16/20 at 19:16; Status DC Bupropion HCl (Wellbutrin Xl) 150 mg 1X ONCE PO Last administered on 11/16/20at 21:39; Start 11/16/20 at 19:15; Stop 11/16/20 at 19:16; Status DC Citalopram Hydrobromide (CeleXA) 10 mg 1X ONCE PO Last administered on 11/16/20at 21:40; Start 11/16/20 at 19:15; Stop 11/16/20 at 19:16; Status DC Furosemide (Lasix) 40 mg 1X ONCE PO Last administered on 11/16/20at 20:50; Start 11/16/20 at 19:30; Stop 11/16/20 at 19:31; Status DC Hydroxyzine HCl (Atarax) 25 mg PRN Q6HRS PRN PO ITCHING Last administered on 11/16/20at 20:42; Start 11/16/20 at 18:45; Stop 11/16/20 at 21:45; Status DC Isosorbide Mononitrate (Imdur) 30 mg 1X ONCE PO Last administered on 11/16/20at 21:39; Start 11/16/20 at 19:15; Stop 11/16/20 at 19:16; Status DC Levothyroxine Sodium (Synthroid) 125 mcg 1X ONCE PO Last administered on 11/16/20at 21:41; Start 11/16/20 at 19:15; Stop 11/16/20 at 19:16; Status DC Lisinopril (Prinivil) 2.5 mg 1X ONCE PO Last administered on 11/16/20at 21:42; Start 11/16/20 at 19:15; Stop 11/16/20 at 19:16; Status DC Furosemide (Lasix) 40 mg 1X ONCE IVP Last administered on 11/16/20at 23:18; Start 11/16/20 at 22:00; Stop 11/16/20 at 22:01; Status DC Ondansetron HCl (Zofran) 4 mg PRN Q4HRS PRN IVP NAUSEA/VOMITING; Start 11/16/20 at 21:30; Stop 11/17/20 at 21:29; Status DC Acetaminophen (Tylenol) 650 mg PRN Q4HRS PRN PO FEVER > 100.3'F; Start 11/16/20 at 21:30; Stop 11/17/20 at 21:29; Status DC Albuterol/ Ipratropium (Duoneb) 3 ml RTQID NEB Last administered on 11/17/20at 19:49; Start 11/17/20 at 08:00; Stop 11/18/20 at 07:59; Status DC Aspirin (Aspirin Chewable) 81 mg 1X ONCE PO Last administered on 11/16/20at 2 3:17; Start 11/16/20 at 22:00; Stop 11/16/20 at 22:01; Status DC Apixaban (Eliquis) 2.5 mg BID PO Last administered on 11/17/20at 19:49; Start 11/17/20 at 09:00 Bupropion HCl (Wellbutrin Xl) 150 mg DAILY PO Last administered on 11/17/20at 07:48; Start 11/17/20 at 09:00 Citalopram Hydrobromide (CeleXA) 10 mg DAILY PO Last administered on 11/17/20at 07:48; Start 11/17/20 at 09:00 Furosemide (Lasix) 40 mg BID92 IVP Last administered on 11/17/20at 14:13; Start 11/17/20 at 09:00; Stop 11/18/20 at 08:59 Hydroxyzine HCl (Atarax) 25 mg PRN Q6HRS PRN PO ITCHING; Start 11/16/20 at 21:30 Isosorbide Mononitrate (Imdur) 30 mg DAILY PO Last administered on 11/17/20at 07:50; Start 11/17/20 at 09:00 Levothyroxine Sodium (Synthroid) 125 mcg DAILY06 PO Last administered on 11/18/20at 06:10; Start 11/17/20 at 06:00 Lisinopril (Prinivil) 2.5 mg DAILY PO Last administered on 11/17/20at 07:49; Start 11/17/20 at 09:00; Stop 11/18/20 at 08:59 Info (Anti-Coagulation Monitoring By Pharmacy) 1 each PRN DAILY PRN MC PER PROTOCOL; Start 11/16/20 at 21:45 Apixaban (Eliquis) 2.5 mg BID PO ; Start 11/17/20 at 21:00; Stop 11/17/20 at 18:57; Status DC Aspirin (Aspirin Enteric Coated) 81 mg DAILY PO ; Start 11/18/20 at 09:00 Bupropion HCl (Wellbutrin Xl) 150 mg QAM PO ; Start 11/18/20 at 09:00; Stop 11/17/20 at 18:58; Status DC Citalopram Hydrobromide (CeleXA) 10 mg DAILY PO ; Start 11/18/20 at 09:00; Stop 11/17/20 at 18:58; Status DC Furosemide (Lasix) 40 mg DAILY PO ; Start 11/18/20 at 09:00 Hydroxyzine Pamoate (Vistaril) 25 mg PRN DAILY PRN PO ITCHING; Start 11/17/20 at 19:00; Stop 11/17/20 at 18:58; Status DC Isosorbide Mononitrate (Imdur) 30 mg DAILY PO ; Start 11/18/20 at 09:00; Stop 11/17/20 at 18:59; Status DC Quetiapine Fumarate (SEROquel) 25 mg BID PO Last administered on 11/17/20at 19:49; Start 11/17/20 at 21:00 Simvastatin (Zocor) 40 mg HS PO Last administered on 11/17/20at 19:49; Start 11/17/20 at 21:00 Losartan Potassium (Cozaar) 100 mg DAILY PO ; Start 11/18/20 at 09:00 Active Scripts Active Levothyroxine Sodium 200 Mcg Tablet 1 Tab PO DAILY Reported Aspirin Ec (Aspirin) 81 Mg Tablet.dr 1 Tab PO DAILY LAST DOSE GIVEN: DATE: TODAY TIME: AM NEXT DOSE DUE: DATE: TOMORROW TIME: AM Hydroxyzine Pamoate 25 Mg Capsule 1 Cap PO PRN DAILY PRN NEXT DOSE DUE: DATE: TODAY TIME: IF AND WHEN NEEDED Eliquis (Apixaban) 2.5 Mg Tablet 2.5 Mg PO BID LAST DOSE GIVEN: DATE: TODAY TIME: AM NEXT DOSE DUE: DATE: TODAY TIME: PM Citalopram Hbr (Citalopram Hydrobromide) 10 Mg Tablet 1 Tab PO DAILY LAST DOSE GIVEN: DATE: TODAY TIME: AM NEXT DOSE DUE: DATE: TOMORROW TIME: AM Bupropion Xl (Bupropion Hcl) 150 Mg Tab.er.24h 1 Tab PO QAM LAST DOSE GIVEN: DATE: TODAY TIME: AM NEXT DOSE DUE: DATE: TOMORROW TIME: AM Ascorbic Acid 500 Mg Tablet 500 Mg PO DAILY LAST DOSE GIVEN: DATE: TODAY TIME: AM NEXT DOSE DUE: DATE: TOMORROW TIME: AM Seroquel (Quetiapine Fumarate) 25 Mg Tablet 1 Tab PO BID LAST DOSE GIVEN: DATE: TODAY TIME: AM NEXT DOSE DUE: DATE: TODAY TIME: PM Furosemide 20 Mg Tablet 2 Tab PO DAILY LAST DOSE GIVEN: DATE: TODAY TIME: AM NEXT DOSE DUE: DATE: TOMORROW TIME: AM Isosorbide Mononitrate Er (Isosorbide Mononitrate) 30 Mg Tab.er.24h 30 Mg PO DAILY LAST DOSE GIVEN: DATE: TODAY TIME: AM NEXT DOSE DUE: DATE: TIME: AM Losartan Potassium 100 Mg Tablet 100 Mg PO DAILY LAST DOSE GIVEN: DATE: TODAY TIME: AM NEXT DOSE DUE: DATE: TOMORROW TIME: AM Simvastatin 40 Mg Tablet 40 Mg PO HS LAST DOSE GIVEN: DATE: YESTERDAY TIME: AT BEDTIME NEXT DOSE DUE: DATE: TODAY TIME: AT BEDTIME ALLERGIES Allergies: Coded Allergies: hydralazine (Verified Allergy, Intermediate, 02/20/20) sulfamethoxazole (Verified Allergy, Intermediate, 02/20/20) trimethoprim (Verified Allergy, Intermediate, 02/20/20) morphine (Verified Adverse Reaction, Intermediate, 02/20/20) tolerates oxycodone ROS Review of Systems 14 point ROS conducted with pertinent positives noted above in HPI. PHYSICAL EXAM Physical Exam General: Alert, Oriented to person and place, Cooperative, No acute distress HEENT: Mucous membr. moist/pink Lungs: Other (CTA, diminished bases ) Heart: RRR, tele SR Abdomen: Soft, No tenderness Extremities: No edema Skin: No rashes Neuro: Normal speech, Sensation intact Psych/Mental Status: Mood NL. follows commands. forgetful MUSCULOSKELETAL: Osteoarthritic changes both hands VITALS Vital Signs Vital Signs Date Time Temp Pulse Resp B/P (MAP) Pulse Ox O2 Delivery O2 Flow Rate FiO2 11/18/20 06:06 98.4 67 18 167/66 (99) 95 Room Air 11/17/20 19:00 1.0 LABS LABS Laboratory Tests Test 11/16/20 19:56 11/16/20 20:55 11/16/20 21:32 11/16/20 23:46 White Blood Count 10.7 x10^3/uL (4.0-11.0) Red Blood Count 5.76 x10^6/uL (3.50-5.40) Hemoglobin 12.7 g/dL (12.0-15.5) Hematocrit 42.1 % (36.0-47.0) Mean Corpuscular Volume 73 fL (79-100) Mean Corpuscular Hemoglobin 22 pg (25-35) Mean Corpuscular Hemoglobin Concent 30 g/dL (31-37) Red Cell Distribution Width 23.2 % (11.5-14.5) Platelet Count 204 x10^3/uL (140-400) Neutrophils (%) (Auto) 79 % (31-73) Lymphocytes (%) (Auto) 14 % (24-48) Monocytes (%) (Auto) 3 % (0-9) Eosinophils (%) (Auto) 4 % (0-3) Basophils (%) (Auto) 1 % (0-3) Neutrophils # (Auto) 8.4 x10^3uL (1.8-7.7) Lymphocytes # (Auto) 1.4 x10^3/uL (1.0-4.8) Monocytes # (Auto) 0.3 x10^3/uL (0.0-1.1) Eosinophils # (Auto) 0.5 x10^3/uL (0.0-0.7) Basophils # (Auto) 0.1 x10^3/uL (0.0-0.2) Platelet Estimate Adequate (ADEQUATE) Hypochromasia Mod Anisocytosis Slight Microcytosis Mod Ovalocytes Few Schistocytes Occ Sodium Level 142 mmol/L (136-145) Potassium Level 4.3 mmol/L (3.5-5.1) Chloride Level 104 mmol/L (98-107) Carbon Dioxide Level 31 mmol/L (21-32) Anion Gap 7 (6-14) Blood Urea Nitrogen 17 mg/dL (7-20) Creatinine 0.8 mg/dL (0.6-1.0) Estimated GFR (Cockcroft-Gault) 69.9 Glucose Level 100 mg/dL (70-99) Calcium Level 9.0 mg/dL (8.5-10.1) Magnesium Level 2.4 mg/dL (1.8-2.4) Total Bilirubin 0.5 mg/dL (0.2-1.0) Direct Bilirubin 0.2 mg/dL (0.0-0.2) Aspartate Amino Transf (AST/SGOT) 15 U/L (15-37) Alanine Aminotransferase (ALT/SGPT) 15 U/L (14-59) Alkaline Phosphatase 91 U/L (46-116) Creatine Kinase 24 U/L (26-192) Troponin I Quantitative < 0.017 ng/mL (0-0.055) < 0.017 ng/mL (0-0.055) SR-Pjb-M-Type Natriuretic Peptide 1322 pg/mL (0-449) Total Protein 6.4 g/dL (6.4-8.2) Albumin 4.0 g/dL (3.4-5.0) Thyroid Stimulating Hormone (TSH) 0.256 uIU/mL (0.358-3.740) Urine Collection Type Void Urine Color Yellow Urine Clarity Clear Urine pH 7.0 Urine Specific [place] 1.015 Urine Protein Neg (NEG-TRACE) Urine Glucose (UA) Neg mg/dL (NEG) Urine Ketones (Stick) Neg mg/dL (NEG) Urine Blood Neg (NEG) Urine Nitrite Neg (NEG) Urine Bilirubin Neg (NEG) Urine Urobilinogen Dipstick 0.2 mg/dL (0.2 mg/dL) Urine Leukocyte Esterase Neg (NEG) Urine RBC 0 /HPF (0-2) Urine WBC 0 /HPF (0-4) Urine Squamous Epithelial Cells Occ /LPF Urine Bacteria 0 /HPF (0-FEW) Urine Opiates Screen Neg (NEG) Urine Methadone Screen Neg (NEG) Urine Barbiturates Neg (NEG) Urine Phencyclidine Screen Neg (NEG) Urine Amphetamine/Methamphetamine Neg (NEG) Urine Benzodiazepines Screen Neg (NEG) Urine Cocaine Screen Neg (NEG) Urine Cannabinoids Screen Neg (NEG) Urine Ethyl Alcohol Neg (NEG) Coronavirus (COVID-19)(PCR) Negative (NEGATIVE) SARS-CoV-2 Antigen (Rapid) Negative (NEGATIVE) Test 11/17/20 07:15 White Blood Count 8.3 x10^3/uL (4.0-11.0) Red Blood Count 5.25 x10^6/uL (3.50-5.40) Hemoglobin 11.8 g/dL (12.0-15.5) Hematocrit 38.4 % (36.0-47.0) Mean Corpuscular Volume 73 fL (79-100) Mean Corpuscular Hemoglobin 22 pg (25-35) Mean Corpuscular Hemoglobin Concent 31 g/dL (31-37) Red Cell Distribution Width 23.1 % (11.5-14.5) Platelet Count 201 x10^3/uL (140-400) Neutrophils (%) (Auto) 78 % (31-73) Lymphocytes (%) (Auto) 15 % (24-48) Monocytes (%) (Auto) 2 % (0-9) Eosinophils (%) (Auto) 5 % (0-3) Basophils (%) (Auto) 1 % (0-3) Neutrophils # (Auto) 6.5 x10^3uL (1.8-7.7) Lymphocytes # (Auto) 1.2 x10^3/uL (1.0-4.8) Monocytes # (Auto) 0.1 x10^3/uL (0.0-1.1) Eosinophils # (Auto) 0.4 x10^3/uL (0.0-0.7) Basophils # (Auto) 0.1 x10^3/uL (0.0-0.2) Sodium Level 142 mmol/L (136-145) Potassium Level 3.8 mmol/L (3.5-5.1) Chloride Level 103 mmol/L (98-107) Carbon Dioxide Level 30 mmol/L (21-32) Anion Gap 9 (6-14) Blood Urea Nitrogen 14 mg/dL (7-20) Creatinine 0.9 mg/dL (0.6-1.0) Estimated GFR (Cockcroft-Gault) 61.0 Glucose Level 98 mg/dL (70-99) Calcium Level 8.7 mg/dL (8.5-10.1) Troponin I Quantitative < 0.017 ng/mL (0-0.055) ASSESSMENT/PLAN Assessment/Plan 1. Mild acute on chronic probable diastolic CHF; s/p IV Lasix. appears compen sated 2. Hypertensive urgency; out of meds for last week 3. PAFIB; presently SR. On ASA. OAC discontinued in past due to uterine bleeding 4. CAD s/p PCI/stents; [facility]ape [facility] 5. Hyperlipidemia; statin 6. Hypothyroidism; TSH 0.25. as per IM Recommendations Home antiHTN therapy resumed. Discontinue IV Lasix. Continue oral Lasix Will need to clarify OAC. Patient does not think she take blood thinner at home. ASA therapy SS consult Supportive care PRERNA SPAIN APRN Nov 18, 2020 08:14
[2020-11-18] MEDS: APIXABAN 2.5 MG TABLET PO SCH (08:30)
[2020-11-18] MEDS: ISOSORBIDE MONONITRATE ER 30 MG TAB.ER.24H PO SCH (08:32)
[2020-11-18] MEDS: CITALOPRAM 10 MG TABLET. PO SCH (08:32)
[2020-11-18] MEDS: QUEtiapine 25 MG TABLET. PO SCH (08:32)
[2020-11-18] MEDS: buPROPion XL 150 MG TAB.ER.24H PO SCH (08:32)
[2020-11-18] MEDS ORDERED: CITALOPRAM 10 MG TABLET. PO SCH (09:00)
[2020-11-18] MEDS ORDERED: ISOSORBIDE MONONITRATE ER 30 MG TAB.ER.24H PO SCH (09:00)
[2020-11-18] MEDS ORDERED: buPROPion XL 150 MG TAB.ER.24H PO SCH (09:00)
[2020-11-18] MEDS ORDERED: ASPIRIN ENTERIC COATED 81 MG TABLET.DR. PO SCH (09:00)
[2020-11-18] MEDS ORDERED: LOSARTAN 50 MG TABLET. PO SCH (09:00)
[2020-11-18] MEDS ORDERED: FUROSEMIDE 20 MG TABLET PO SCH (09:00)
[2020-11-18 10:52] VITALS: BP 95/56
[2020-11-18 14:42] VITALS: BP 138/68
--- NOTE | 2020-11-18 15:06 | NUR ---
NURSING NOTE MORENO FALLASSEN [facility] CALLED STATED PT IS FORGETFUL ALL THE TIME, WANDERING THE STREET, CHECKED INTO A HOTEL AND NEVER CHECKED OUT AND GOT CHARGED FOR A LOT OF STAYS WHEN SHE WASNT EVEN THERE. CASE MANAGEMENT NOTIFIED. TERRY REA.
--- NOTE | 2020-11-18 17:23 | NUR ---
NURSING NOTE DISCHARGE PT DISCHARGED TO [facility]. REPORT GIVEN TO ANABELLA AT [facility], PT PICKED UP BY [facility]. PT GIVEN WRITTEN AND VERBAL DISCHARGE INSTRUCTIONS GIVEN TO PT. TERRY REA.
--- NOTE | 2020-11-20 13:51 | DS ---
DATE OF DISCHARGE: 11/18/2020 HOSPITAL COURSE: A 75-year-old female, came in, lives at a homeless [facility], came in. She apparently ran out of her medications according to the patient and became quite short of breath. The patient has a 57-molc-pktu history of smoking. The patient has a long history of hypothyroidism with a TSH close to 200 or so. The patient, however, because she ran out of her medications, began to have more problems with her breathing as well as control of her thyroid problems. Her last blood pressure 138/60, respiratory rate 20, pulse 70. She did have some blood pressures going as high as 204/93, respiratory rate 20, pulse 66 due to her lack of blood pressure medications. The patient, however, came down as noted. She made relatively good progress. She was sent on to a nursing facility since she was unable to take care of herself and her home medications. IMPRESSION: Acute onset of respiratory distress, hypertensive urgency, noncompliance, hypothyroidism that thyroid medicine needs to be adjusted accordingly. She was COVID-19 negative. The patient will be monitored as an outpatient as noted at the nursing facility for further rehabilitation and care. MADELINE DR: Sonia TID: [id number]
== END 2020-11-18 17:25 ==
LOC: ER 18:20 → INTOOBSV 21:24 → 1 SOUTH 21:24
PROVIDERS: ADMIT Family Medicine; ATTEND Family Medicine
DX: R06.03 Acute respiratory distress (principal); I13.0 Hypertensive heart and chronic kidney disease with heart failure and stage 1 through stage 4 chronic kidney disease, or unspecified chronic kidney disease; I50.32 Chronic diastolic (congestive) heart failure; N18.9 Chronic kidney disease, unspecified; I16.0 Hypertensive urgency; Z20.822 Contact with and (suspected) exposure to COVID-19; E03.9 Hypothyroidism, unspecified; E78.5 Hyperlipidemia, unspecified; F03.90 Unspecified dementia, unspecified severity, without behavioral disturbance, psychotic disturbance, mood disturbance, and anxiety; I25.10 Atherosclerotic heart disease of native coronary artery without angina pectoris; I25.2 Old myocardial infarction; I48.0 Paroxysmal atrial fibrillation; J44.9 Chronic obstructive pulmonary disease, unspecified; M81.0 Age-related osteoporosis without current pathological fracture; N93.9 Abnormal uterine and vaginal bleeding, unspecified; F17.200 Nicotine dependence, unspecified, uncomplicated; Z59.0 Homelessness; Z91.19 Patient's noncompliance with other medical treatment and regimen; Z95.5 Presence of coronary angioplasty implant and graft; Z79.01 Long term (current) use of anticoagulants
CPT/HCPCS: 36415; 71045; 80048; 80076; 80307; 81001; 82550; 83735; 83880; 84443; 84484; 85025; 87426; 93005; 94640; 94760; 96361; 96374; 96376; 97161; 97165; 97535; 99285; G0238; G0378; J1940; J7120; U0003; 96360; G0379

== ENCOUNTER 2021-03-21 16:11 | Emergency (ER) | payer MEDICARE, MEDICAID ==
[~2021-03-21] VITALS: Ht 158.8 cm; Wt 58.6 kg
[~2021-03-21 16:11] MED LIST changes: -CITA10TA4 PO; +CITA10TA5 PO; -CITA40TA5 PO; +CITA40TA6 PO
[2021-03-21] MEDS ORDERED: cloNIDine HCL 0.1 MG TABLET PO ONE (16:30)
--- NOTE | 2021-03-21 16:30 | EKG ---
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
--- NOTE | 2021-03-21 16:36 | PHYS DOC ---
Past History Past Medical History: A-Fib, Angina, Anxiety, Arthritis, Bronchitis, CHF, COPD, Dementia, GERD, Hypertension, Hypothyroid, Other Additional Past Medical Histor: cognitive impairment Past Surgical History: Appendectomy, Hip Replacement, Other Additional Past Surgical Histo: HEART STENTS Smoking: Cigarettes, Quit Greater Than 1 Year Alcohol Use: None Drug Use: None General Adult EDM: Chief Complaint: CHEST PAIN HPI: HPI: 76-year-old female presents via EMS from care facility with left-sided chest pain. She states that it was more of a nagging pain and mild pressure 2 out of 10. It is pretty much gone at this time. She is not sure exactly how that lasted. She does have shingles under her left breast. She states that she has had these for about a week. She denies shortness of breath or diaphoresis. The other is in the [facility] sent her here is that her blood pressure is high. She is 200s over 90s. She has no other complaints at this time. Review of Systems: Review of Systems: Constitutional: Denies fever or chills Eyes: Denies change in visual acuity HENT: Denies nasal congestion or sore throat Respiratory: Denies cough or shortness of breath Cardiovascular: Chest pain GI: Denies abdominal pain, nausea, vomiting, bloody stools or diarrhea : Denies dysuria Musculoskeletal: Denies back pain or joint pain Integument: Rash Neurologic: Denies headache, focal weakness or sensory changes Endocrine: Denies polyuria or polydipsia Lymphatic: Denies swollen glands Psychiatric: Denies depression or anxiety Allergies: Allergies: Allergies Coded Allergies Type Severity Reaction Last Updated Verified hydralazine Allergy Intermediate 03/21/21 Yes sulfamethoxazole Allergy Intermediate 03/21/21 Yes trimethoprim Allergy Intermediate 03/21/21 Yes morphine Adverse Reaction Intermediate 03/21/21 Yes Physical Exam: PE: Constitutional: Well developed, well nourished, no acute distress, non-toxic appearance. [] HENT: Normocephalic, atraumatic, bilateral external ears normal, oropharynx moist, no oral exudates, nose normal. Hard of hearing. [] Eyes: PERRLA, EOMI, conjunctiva normal, no discharge. [] Neck: Normal range of motion, no tenderness, supple, no stridor. [] Cardiovascular: Heart rate 59, regular rhythm, no murmur [] Lungs & Thorax: Bilateral breath sounds clear to auscultation [] Abdomen: Bowel sounds normal, soft, no tenderness, no masses, no pulsatile masses. [] Skin: Shingles left chest wall [] Back: No tenderness, no CVA tenderness. [] Extremities: No tenderness, no cyanosis, no clubbing, ROM intact, no edema. [] Neurologic: Alert and oriented X 3, normal motor function, normal sensory func tion, no focal deficits noted. [] Psychologic: Affect normal, judgement normal, mood normal. [] Current Patient Data: Vital Signs: Vital Signs Date Time Temp Pulse Resp B/P (MAP) Pulse Ox O2 Delivery O2 Flow Rate FiO2 03/21/21 16:24 98.6 63 18 218/96 (136) 95 Room Air EKG: EKG: [] Radiology/Procedures: Radiology/Procedures: [] Impressions: EXAMINATION: Chest radiograph. VIEWS: 1 COMPARISON: 11/16/2020 INDICATION:76 years, Female, chest pain. FINDINGS: Stable cardiomediastinal silhouette. Tortuous thoracic aorta. Calcified granuloma in the right midlung. No focal consolidation. No pleural effusion or pneumothorax. No acute osseous process. IMPRESSION: No acute cardiopulmonary process. Electronically signed by: Savannah Santana MD (03/21/2021 4:44 PM) [facility] DICTATED AND SIGNED BY: SAVANNAH SANTANA MD DATE: 03/21/21 1642 CC: KADEN LONGORIA DO; NOÉ KULKARNI ~MTH0 0 Heart Score: C/O Chest Pain: Yes HEART Score for Chest Pain: HEART Score for Chest Pain Response (Comments) Value History Slighlty/Non-Suspicious 0 ECG Nonspecific Repolarizatio 1 Age > 65 2 Risk Factors 1 or 2 Risk Factors 1 Total 4 Risk Factors: Risk Factors: DM, Current or recent (<one month) smoker, HTN, HLP, family history of CAD, obesity. Risk Scores: Score 0 - 3: 2.5% MACE over next 6 weeks - Discharge Home Score 4 - 6: 20.3% MACE over next 6 weeks - Admit for Clinical Observation Score 7 - 10: 72.7% MACE over next 6 weeks - Early Invasive Strategies Course & Med Decision Making: Course & Med Decision Making Pertinent Labs and Imaging studies reviewed. (See chart for details) The patient's EKG is negative for acute findings. Her troponin is negative. Her chest x-ray is negative for acute findings. She has an elevated white count with a left shift. This could be caused by her shingles but her urine is pending. I am signing the patient out to Dr. Blount at 1800. [] [place] Disclaimer: Steve Disclaimer: This electronic medical record was generated, in whole or in part, using a voice recognition dictation system. Departure Departure: Impression: Primary Impression: Chest pain Additional Impression: Shingles Referrals: NOÉ KULKARNI (PCP) KADEN LONGORIA DO Mar 21, 2021 16:36
--- NOTE | 2021-03-21 16:46 | RAD ---
EXAMINATION: Chest radiograph. VIEWS: 1 COMPARISON: 11/16/2020 INDICATION:76 years, Female, chest pain. FINDINGS: Stable cardiomediastinal silhouette. Tortuous thoracic aorta. Calcified granuloma in the right midlun g. No focal consolidation. No pleural effusion or pneumothorax. No acute osseous process. IMPRESSION: No acute cardiopulmonary process. Electronically signed by: Vivien Santana MD (03/21/2021 4:44 PM) [facility]
[2021-03-21 17:24] LABS: CALCIUM 8.5 mg/dL (8.5-10.1); CREATININE 0.9 mg/dL (0.6-1.0); GFR 60.9; POTASSIUM 3.2 mmol/L (3.5-5.1)
[2021-03-21 17:27] LABS: ALBUMIN 3.9 g/dL (3.4-5.0); ALBUMIN/GLOBULIN RATIO 1.3 (1.0-1.7); TOTAL BILIRUBIN 0.9 mg/dL (0.2-1.0); TOTAL PROTEIN 6.8 g/dL (6.4-8.2)
[2021-03-21 17:28] LABS: BASO # 0.2 x10^3/uL (0.0-0.2); BASO % 1 % (0-3); EOS # 0.7 x10^3/uL (0.0-0.7); EOS % 4 % (0-3); HEMATOCRIT 42.2 % (36.0-47.0); HEMOGLOBIN 12.8 g/dL (12.0-15.5); LYMPH # 1.6 x10^3/uL (1.0-4.8); LYMPH % 9 % (24-48); MEAN CORPUSCULAR HEMOGLOBIN 21 pg (25-35); MEAN CORPUSCULAR HGB CONC 30 g/dL (31-37); MEAN CORPUSCULAR VOLUME 69 fL (79-100); MONO # 0.3 x10^3/uL (0.0-1.1); MONO % 2 % (0-9); NEUT # 15.8 x10^3uL (1.8-7.7); NEUT % 85 % (31-73); PLATELET COUNT 500 x10^3/uL (140-400); RED BLOOD COUNT 6.09 x10^6/uL (3.50-5.40); RED CELL DISTRIBUTION WIDTH 22.4 % (11.5-14.5); WHITE BLOOD COUNT 18.6 x10^3/uL (4.0-11.0)
[2021-03-21 17:45] LABS: % BANDS 2 % (0-9); % EOS 2 % (0-5); % LYMPHS 10 % (24-48); % SEGS 86 % (35-66); PLT ESTIMATE INCREASED (ADEQUATE)
[2021-03-21 17:46] LABS: ANISOCYTOSIS MOD; HYPOCHROMIA SLIGHT
[2021-03-21] MEDS ORDERED: METOPROLOL TARTRATE 5 MG/5 ML VIAL. IV ONE (18:00)
[2021-03-21 19:16] LABS: BACTERIA,URINE 0 /HPF (0-FEW); BILIRUBIN,URINE NEG (NEG); CLARITY,URINE CLEAR; COLOR,URINE YELLOW; GLUCOSE,URINE NEG (NEG); NITRITE,URINE NEG (NEG); RBC,URINE 0 /HPF (0-2); UROBILINOGEN,URINE 0.2 mg/dL (0.2 mg/dL)
[2021-03-21 19:17] LABS: SQUAMOUS EPITHELIAL CELL,UR OCC /LPF
[2021-03-21] MEDS ORDERED: POTASSIUM CHLORIDE 20 MEQ TABLET.ER. PO ONE (19:30)
--- NOTE | 2021-03-21 19:45 | RAD ---
EXAMINATION: CT head and cervical spine without IV contrast. INDICATION:76 years, Female, possible fall. blood thinner COMPARISON: 10/13/2020 TECHNIQUE: Spiral acquisition of contiguous images from the skull base to the vertex were obtained. C T of the cervical spine was obtained using contiguous spiral imaging from the skull base to the upper thoracic level. Sagittal and coronal 2D reformatted series were provided by the technologist. Soft t issue and bone window algorithms were reviewed. Exposure: One or more of the following individualized dose reduction techniques were utilized for thi s examination: 1. Automated exposure control 2. Adjustment of the mA and/or kV according to patient size 3. Use of iterative reconstruction technique. FINDINGS: CT HEAD: Unchanged moderate to severe brain parenchymal volume loss. Similar extensive supratentorial perivent ricular white matter hypodensities, indeterminate but most likely representing chronic microangiopath ic disease. Redemonstrated old lacunar infarcts in the left basal ganglia and left cerebellum. Neithe r mass, midline shift, intracranial hemorrhage, acute/subacute ischemic changes, nor extraaxial fluid collections are seen. The paranasal sinuses, mastoid air cells, and middle ears are clear. The orbi yanet contents appear within normal limits. CT CERVICAL SPINE: Anatomic alignment of the cervical spine is maintained. Neither fracture, subluxation, nor traumatic spondylolisthesis is seen. The vertebral body heights are preserved. Moderate atrophic changes with d isc space narrowing and osteophytes. Mild multilevel bilateral facet and uncovertebral arthropathy, w orst at C5-6. There is no evidence of a large intraspinal hematoma. The prevertebral and paravertebra l soft tissues are within normal limits. IMPRESSION: 1. No acute intracranial abnormality. 2. No acute fracture of the cervical spine. 3. Similar other chronic/incidental findings, as above. Electronically signed by: Vivien Santana MD (03/21/2021 7:42 PM) [facility]
--- NOTE | 2021-03-21 21:10 | RAD ---
EXAMINATION: CT Chest Without IV contrast. INDICATION:76 years, Female, fall, left hip pain. COMPARISON: None. TECHNIQUE: Spiral CT was obtained from the jugular notch through the posterior costophrenic recess. S agittal and coronal reformats were obtained. Exposure: One or more of the following individualized dose reduction techniques were utilized for thi s examination: 1. Automated exposure control 2. Adjustment of the mA and/or kV according to patient size 3. Use of iterative reconstruction technique. FINDINGS: LUNGS/PLEURA: Central airways are patent. Dependent bibasilar subsegmental atelectasis. Diffuse heter ogeneous throughout both lungs with mosaic attenuations and interlobular septal thickening. Bilateral bronchial wall thickening. No focal consolidation, pleural effusion or pneumothorax. Stable 6 mm ple ural-based nodule in the right middle lobe. Calcified granuloma in the right upper lobe. MEDIASTINUM: No pathologic mediastinal or hilar adenopathy. Calcified right hilar lymph node. The tho racic aorta and pulmonary arteries are normal in caliber. Cardiomegaly. No pericardial effusion. Kathleen nary artery stents. Thyroid is not visualized. Esophagus is unremarkable. AXILLA/SOFT TISSUE: No supraclavicular or axillary adenopathy. Regional soft tissues are within jeff l limits. UPPER ABDOMEN: Splenomegaly, essentially unchanged since prior exam. Calcified granulomas in the live r and spleen. BONES: No evidence of acute fractures or aggressive osseous lesions. Multilevel degenerative changes in the spine. IMPRESSION: 1. No acute left rib fracture. 2. Cardiomegaly with findings suggesting of mild pulmonary edema. Electronically signed by: Vivien Santana MD (03/21/2021 9:07 PM) [facility]
[2021-03-21 21:26] VITALS: BP 187/84
== END 2021-03-21 21:27 | disposition left against medical advice (07) ==
LOC: ER 16:11
DX: R07.89 Other chest pain (principal); B02.9 Zoster without complications; I48.91 Unspecified atrial fibrillation; M19.90 Unspecified osteoarthritis, unspecified site; I11.0 Hypertensive heart disease with heart failure; I50.9 Heart failure, unspecified; J44.9 Chronic obstructive pulmonary disease, unspecified; K21.9 Gastro-esophageal reflux disease without esophagitis; E03.9 Hypothyroidism, unspecified; Z87.891 Personal history of nicotine dependence; Z88.1 Allergy status to other antibiotic agents; Z88.2 Allergy status to sulfonamides; Z88.8 Allergy status to other drugs, medicaments and biological substances
CPT/HCPCS: 36415; 70450; 71045; 71250; 72125; 80053; 81001; 83735; 84484; 85007; 85025; 85379; 85610; 85730; 87086; 93005; 99285; P9612

== ENCOUNTER 2021-07-02 11:09 | Emergency (ER) | payer MEDICARE, MEDICAID ==
[~2021-07-02] VITALS: Ht 158.8 cm; Wt 58.6 kg
[2021-07-02] MEDS ORDERED: IV NORMAL SALINE 1,000ML 1,000 ML IV ONE (11:30)
[2021-07-02] MEDS ORDERED: methylPREDNISolone SOD SUCC PF 125 MG/2 ML VIAL. IV ONE (11:30)
[2021-07-02] MEDS ORDERED: ONDANSETRON PF 4 MG/2 ML VIAL. IVP ONE (11:30)
[2021-07-02] MEDS ORDERED: ASPIRIN CHEWABLE 81 MG TABLET. PO ONE (11:30)
--- NOTE | 2021-07-02 11:37 | PHYS DOC ---
Past History Past Medical History: A-Fib, Angina, Anxiety, Arthritis, Bronchitis, CHF, COPD, Dementia, GERD, Hypertension, Hypothyroid, Other Additional Past Medical Histor: cognitive impairment Past Surgical History: Appendectomy, Hip Replacement, Other Additional Past Surgical Histo: HEART STENTS Smoking: Cigarettes, Quit Greater Than 1 Year Alcohol Use: None Drug Use: None General Adult EDM: Chief Complaint: CHEST PAIN HPI: HPI: 76-year-old female presents from rehab facility via EMS with chest pain and stomach pain. EMS reports that she started complaining of chest pain around 1030. Patient does not tell me how long its been hurting. She says that her chest hurts her stomach hurts. She does not give me a pain level, but it appears to be moderate to severe. She states feeling nauseous. No reported vomiting, fever, chills. Patient has no other specific complaints this time. Review of Systems: Review of Systems: Constitutional: Denies fever or chills Eyes: Denies change in visual acuity HENT: Denies nasal congestion or sore throat Respiratory: Denies cough or shortness of breath Cardiovascular: Chest pain GI: Generalized abdominal pain, nausea. : Denies dysuria Musculoskeletal: Denies back pain or joint pain Integument: Denies rash Neurologic: Denies headache, focal weakness or sensory changes Endocrine: Denies polyuria or polydipsia Lymphatic: Denies swollen glands Psychiatric: Denies depression or anxiety Current Medications: Current Meds: Current Medications Medications (Trade) Dose Ordered Sig/Fermin Start Time Stop Time Status Last Admin Dose Admin Aspirin (Aspirin Chewable) 324 mg 1X ONCE 07/02/21 11:30 07/02/21 11:31 Ondansetron HCl (Zofran) 4 mg 1X ONCE 07/02/21 11:30 07/02/21 11:31 Sodium Chloride 1,000 ml @ 1,000 mls/hr 1X ONCE 07/02/21 11:30 07/02/21 12:29 Allergies: Allergies: Allergies Coded Allergies Type Severity Reaction Last Updated Verified hydralazine Allergy Intermediate 03/21/21 Yes sulfamethoxazole Allergy Intermediate 03/21/21 Yes trimethoprim Allergy Intermediate 03/21/21 Yes amlodipine Allergy Unknown 03/21/21 Yes morphine Adverse Reaction Intermediate 03/21/21 Yes Physical Exam: PE: Constitutional: Well developed, well nourished, moderate acute distress, low blood pressure [] HENT: Normocephalic, atraumatic, bilateral external ears normal, oropharynx moist, no oral exudates, nose normal. [] Eyes: PERRLA, EOMI, conjunctiva normal, no discharge. [] Neck: Normal range of motion, no tenderness, supple, no stridor. [] Cardiovascular: Heart rate 133, regular rhythm, no murmur [] Lungs & Thorax: Bilateral breath sounds diminished. [] Abdomen: Bowel sounds normal, soft, no tenderness, no masses, no pulsatile masses. [] Skin: Diffuse, mildly erythematous rash over the abdomen and back. [] Back: No tenderness, no CVA tenderness. [] Extremities: No tenderness, no cyanosis, no clubbing, ROM intact, no edema. [] Neurologic: Alert and oriented X 3, normal motor function, normal sensory function, no focal deficits noted. [] Psychologic: Affect normal, judgement normal, mood anxious. [] EKG: EKG: Sinus rhythm, rate 133, leftward axis, possible ST depression in V4 through V6. No obvious ST elevation. [] Radiology/Procedures: Radiology/Procedures: [] Impressions: CT scan abdomen and pelvis without contrast 07/02/2021 CLINICAL HISTORY: Abdominal pain. Hypotension. TECHNIQUE: Unenhanced, contiguous, 3 mm axial sections were obtained through the abdomen and pelvis. One or more of the following individualized dose reduction techniques were utilized for this study: 1. Automated exposure control. 2. Adjustment of the mA and/or kV according to patient size. 3. Use of iterative reconstruction technique. FINDINGS: Comparison study is dated 01/25/2020. Images through the lung bases demonstrate mild cardiomegaly. Minimal dependent subsegmental atelectasis is seen bilaterally. Calcified granulomas are seen scattered throughout the liver and spleen. The spleen is enlarged measuring 14.5 cm in length. The pancreas, adrenal glands and kidneys are within normal limits. Atherosclerotic calcification of the abdominal aorta is seen. The abdominal aorta tapers normally. Calcified gallstones are seen within the gallbladder. No free fluid or free air is seen within the abdomen. There is no evidence of bowel obstruction. Images through the pelvis demonstrate the urinary bladder distended with urine. An oval-shaped complex cystic mass is seen in the left adnexa which measures 9.0 x 5.8 x 5.8 cm in transverse, AP and craniocaudal dimensions. This has not significantly changed since the previous examination. It remains concerning for a benign or malignant ovarian neoplasm. A 4.6 cm mass is seen projecting laterally from the left uterine body which likely represents an exophytic fibroid. It has not significantly changed. A 1.3 cm rounded low-attenuation structure is seen in the right ovary which likely represents a cyst. No pelvic or inguinal lymphadenopathy is seen. A small amount of free fluid is seen within the pelvis. Calcifications are seen within the pelvis consistent with phleboliths. Very mild S-shaped curvature of the thoracolumbar spine is seen. Degenerative changes are seen involving lower thoracic and throughout the lumbar spine along with both hips. Screws are seen within the proximal right femur. IMPRESSION: 1. Mild splenomegaly. 2. Cholelithiasis. 3. 9 cm complex cystic mass is seen in the left adnexa which remains concerning for a benign or malignant ovarian neoplasm. This is unchanged from previous study. 4. Small amount of free fluid is seen within the pelvis. Electronically signed by: Jeremiah Phillips MD (07/02/2021 1:30 PM) [id number] DICTATED AND SIGNED BY: JEREMIAH PHILLIPS MD DATE: 07/02/21 1312 CC: KADEN LONGORIA DO; NOÉ KULKARNI ~ Heart Score: C/O Chest Pain: Yes HEART Score for Chest Pain: HEART Score for Chest Pain Response (Comments) Value History Moderately Suspicious 1 ECG Nonspecific Repolarizatio 1 Age > 65 2 Risk Factors 1 or 2 Risk Factors 1 Troponin < Normal Limit 0 Total 5 Risk Factors: Risk Factors: DM, Current or recent (<one month) smoker, HTN, HLP, family history of CAD, obesity. Risk Scores: Score 0 - 3: 2.5% MACE over next 6 weeks - Discharge Home Score 4 - 6: 20.3% MACE over next 6 weeks - Admit for Clinical Observation Score 7 - 10: 72.7% MACE over next 6 weeks - Early Invasive Strategies Course & Med Decision Making: Course & Med Decision Making Pertinent Labs and Imaging studies reviewed. (See chart for details) Patient's labs are significant for a creatinine of 2.8. She has an elevated lipase of 859 and an elevated white count of 21.8 with a left shift. The patient's blood pressure is low. We have given 30 mL/kg of fluids. She is mapping above 60. We gave the patient Zosyn. The patient appears to be septic. This could be from the pancreas but urinalysis is also pending. The patient CT scan does not show findings of acute pancreatitis. See official read for incidental findings. Patient's urinalysis is negative for infection. I do not have a source for her elevated white count and sepsis presentation. Her blood pressure has improved and she is now keeping a mean arterial pressure of 81. Heart rate is 109. I spoke with the hospitalist, Dr. Robles at [facility] and he has accepted the patient for transfer. [] Dragon Disclaimer: Dragon Disclaimer: This electronic medical record was generated, in whole or in part, using a voice recognition dictation system. Departure Departure: Impression: Primary Impression: Chest pain Additional Impressions: Pancreatitis Sepsis, unspecified organism Disposition: 02 SHORT TERM HOSPITAL Condition: GUARDED Referrals: NOÉ KULKARNI (PCP) KADEN LONGORIA DO Jul 02, 2021 11:37
[2021-07-02] MEDS ORDERED: IOHEXOL 300 MG/ML 75 ML VIAL. IV ONE (12:00)
[2021-07-02 12:04] LABS: CALCIUM 9.3 mg/dL (8.5-10.1); CREATININE 2.8 mg/dL (0.6-1.0); GFR 16.4
[2021-07-02 12:10] LABS: ALBUMIN 3.8 g/dL (3.4-5.0); ALBUMIN/GLOBULIN RATIO 1.4 (1.0-1.7); TOTAL BILIRUBIN 0.8 mg/dL (0.2-1.0); TOTAL PROTEIN 6.5 g/dL (6.4-8.2)
[2021-07-02] MEDS ORDERED: CONTRAST GIVEN. MC PRN (12:15)
--- NOTE | 2021-07-02 12:15 | RAD ---
XR CHEST 1V History: Reason: CP / Spl. Instructions: / History: Comparison: March 21, 2021 Findings: No consolidation or pleural effusion. Normal heart size. No pneumothorax. Calcified right midlung pul monary nodule, likely prior granulomatous disease, unchanged. Impression: 1. No acute cardiopulmonary process. Electronically signed by: Partha Sofia DO (07/02/2021 12:13 PM) [id number]
[2021-07-02 12:28] LABS: BASO # 0.1 x10^3/uL (0.0-0.2); BASO % 0 % (0-3); EOS # 0.6 x10^3/uL (0.0-0.7); EOS % 3 % (0-3); HEMATOCRIT 41.5 % (36.0-47.0); HEMOGLOBIN 12.9 g/dL (12.0-15.5); LYMPH % 5 % (24-48); MEAN CORPUSCULAR HEMOGLOBIN 22 pg (25-35); MEAN CORPUSCULAR HGB CONC 31 g/dL (31-37); MEAN CORPUSCULAR VOLUME 71 fL (79-100); MONO # 0.3 x10^3/uL (0.0-1.1); MONO % 1 % (0-9); NEUT # 19.8 x10^3uL (1.8-7.7); NEUT % 91 % (31-73); PLATELET COUNT 248 x10^3/uL (140-400); RED BLOOD COUNT 5.86 x10^6/uL (3.50-5.40); RED CELL DISTRIBUTION WIDTH 24.8 % (11.5-14.5); WHITE BLOOD COUNT 21.8 x10^3/uL (4.0-11.0)
[2021-07-02] MEDS ORDERED: NORMAL SALINE IV SCH (12:45)
[2021-07-02] MEDS ORDERED: PIP/TAZO PER PHARMACY MC PRN (12:45)
[2021-07-02 12:48] LABS: % BANDS 6 % (0-9); % LYMPHS 9 % (24-48); % MONOS 3 % (0-10); % SEGS 82 % (35-66); ANISOCYTOSIS SLIGHT; HYPOCHROMIA SLIGHT; MICROCYTOSIS MOD; PLT ESTIMATE ADEQUATE (ADEQUATE)
[2021-07-02] MEDS ORDERED: IV NORMAL SALINE 50ML 50 ML ONE (13:07)
[2021-07-02] MEDS ORDERED: PIPERACILLIN/TAZOBACTAM 2.25 GM VIAL IV ONE (13:07)
[2021-07-02] MEDS ORDERED: PIPERACILLIN/TAZOBACTAM 2.25 GM in IV NORMAL SALINE 50ML 50 ML IV ONE (13:15)
--- NOTE | 2021-07-02 13:33 | RAD ---
CT scan abdomen and pelvis without contrast 07/02/2021 CLINICAL HISTORY: Abdominal pain. Hypotension. TECHNIQUE: Unenhanced, contiguous, 3 mm axial sections were obtained through the abdomen and pelvis. One or more of the following individualized dose reduction techniques were utilized for this study: 1. Automated exposure control. 2. Adjustment of the mA and/or kV according to patient size. 3. Use of iterative reconstruction technique. FINDINGS: Comparison study is dated 01/25/2020. Images through the lung bases demonstrate mild cardiomegaly. Minimal dependent subsegmental atelectas is is seen bilaterally. Calcified granulomas are seen scattered throughout the liver and spleen. The spleen is enlarged measu ring 14.5 cm in length. The pancreas, adrenal glands and kidneys are within normal limits. Atherosclerotic calcification of the abdominal aorta is seen. The abdominal aorta tapers normally. Ca lcified gallstones are seen within the gallbladder. No free fluid or free air is seen within the abdo men. There is no evidence of bowel obstruction. Images through the pelvis demonstrate the urinary bladder distended with urine. An oval-shaped comple x cystic mass is seen in the left adnexa which measures 9.0 x 5.8 x 5.8 cm in transverse, AP and cran iocaudal dimensions. This has not significantly changed since the previous examination. It remains co ncerning for a benign or malignant ovarian neoplasm. A 4.6 cm mass is seen projecting laterally from the left uterine body which likely represents an exophytic fibroid. It has not significantly changed. A 1.3 cm rounded low-attenuation structure is seen in the right ovary which likely represents a cyst . No pelvic or inguinal lymphadenopathy is seen. A small amount of free fluid is seen within the pelv is. Calcifications are seen within the pelvis consistent with phleboliths. Very mild S-shaped curvature of the thoracolumbar spine is seen. Degenerative changes are seen involv ing lower thoracic and throughout the lumbar spine along with both hips. Screws are seen within the p roximal right femur. IMPRESSION: 1. Mild splenomegaly. 2. Cholelithiasis. 3. 9 cm complex cystic mass is seen in the left adnexa which remains concerning for a benign or malig nant ovarian neoplasm. This is unchanged from previous study. 4. Small amount of free fluid is seen within the pelvis. Electronically signed by: Jeremiah Phillips MD (07/02/2021 1:30 PM) [id number]
[2021-07-02 14:10] LABS: HYALINE CASTS, URINE FEW /HPF
[2021-07-02 14:11] LABS: BACTERIA,URINE 0 /HPF (0-FEW); CLARITY,URINE CLEAR; COLOR,URINE YELLOW; GLUCOSE,URINE NEG (NEG); NITRITE,URINE NEG (NEG); SQUAMOUS EPITHELIAL CELL,UR MOD /LPF; UROBILINOGEN,URINE 0.2 mg/dL (0.2 mg/dL)
[2021-07-02 18:48] VITALS: BP 140/79
--- NOTE | 2021-07-02 18:56 | EKG ---
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
== END 2021-07-02 18:51 | disposition short-term general hospital (02) ==
LOC: ER 11:09
DX: A41.9 Sepsis, unspecified organism (principal); K85.90 Acute pancreatitis without necrosis or infection, unspecified; I48.91 Unspecified atrial fibrillation; M19.90 Unspecified osteoarthritis, unspecified site; I11.0 Hypertensive heart disease with heart failure; I50.9 Heart failure, unspecified; J44.9 Chronic obstructive pulmonary disease, unspecified; K21.9 Gastro-esophageal reflux disease without esophagitis; E03.9 Hypothyroidism, unspecified; Z87.891 Personal history of nicotine dependence; Z90.89 Acquired absence of other organs; Z88.5 Allergy status to narcotic agent; Z88.2 Allergy status to sulfonamides; Z88.1 Allergy status to other antibiotic agents; Z88.8 Allergy status to other drugs, medicaments and biological substances
CPT/HCPCS: 36415; 51702; 71045; 74176; 80053; 81001; 83605; 83690; 84484; 85007; 85025; 87040; 93005; 96361; 96365; 96366; 96375; 99285; J2405; J2543; J2930; J7030

== ENCOUNTER 2021-07-21 08:52 | Emergency (ER) | payer MEDICARE, MEDICAID ==
[~2021-07-21] VITALS: Ht 158.8 cm; Wt 58.6 kg
--- NOTE | 2021-07-21 09:12 | PHYS DOC ---
Past History Past Medical History: A-Fib, Angina, Anxiety, Arthritis, Bronchitis, CHF, COPD, Dementia, GERD, Hypertension, Hypothyroid, Other Additional Past Medical Histor: cognitive impairment Past Surgical History: Appendectomy, Hip Replacement, Other Additional Past Surgical Histo: HEART STENTS Smoking: Cigarettes, Quit Greater Than 1 Year Alcohol Use: None Drug Use: None General Adult EDM: Chief Complaint: Syncope HPI: HPI: 76-year-old female presents via EMS from her nursing facility. She was reported to have a syncopal episode while eating breakfast. When she recovered from this, she seemed to have some slurred speech and a low blood pressure. They are very concerned so they called an ambulance. The patient does not remember this event though she states she did not fall. It was also reported that the patient did not fall but was lowered to the ground by staff from her chair. Patient states that she feels fine at this time. She denies any pain or other complaints. Review of Systems: Review of Systems: Constitutional: Denies fever or chills Eyes: Denies change in visual acuity HENT: Denies nasal congestion or sore throat Respiratory: Denies cough or shortness of breath Cardiovascular: Denies chest pain or edema GI: Denies abdominal pain, nausea, vomiting, bloody stools or diarrhea : Denies dysuria Musculoskeletal: Denies back pain or joint pain Integument: Denies rash Neurologic: Denies headache, focal weakness or sensory changes Endocrine: Denies polyuria or polydipsia Lymphatic: Denies swollen glands Psychiatric: Denies depression or anxiety Current Medications: Current Meds: Current Medications Medications (Trade) Dose Ordered Sig/[facility] Start Time Stop Time Status Last Admin Dose Admin Sodium Chloride 500 ml @ 0 mls/hr 1X ONCE 07/21/21 09:15 07/21/21 09:16 Allergies: Allergies: Allergies Coded Allergies Type Severity Reaction Last Updated Verified hydralazine Allergy Intermediate 03/21/21 Yes sulfamethoxazole Allergy Intermediate 03/21/21 Yes trimethoprim Allergy Intermediate 03/21/21 Yes amlodipine Allergy Unknown 03/21/21 Yes morphine Adverse Reaction Intermediate 03/21/21 Yes Physical Exam: PE: Constitutional: Well developed, well nourished, no acute distress, non-toxic appearance. [] HENT: Normocephalic, atraumatic, bilateral external ears normal, oropharynx moist, no oral exudates, nose normal. [] Eyes: PERRLA, EOMI, conjunctiva normal, no discharge. [] Neck: Normal range of motion, no tenderness, supple, no stridor. [] Cardiovascular: Heart rate regular rhythm, no murmur [] Lungs & Thorax: Bilateral breath sounds clear to auscultation [] Abdomen: Bowel sounds normal, soft, no tenderness, no masses, no pulsatile masses. [] Skin: Warm, dry, no erythema, no rash. [] Back: No tenderness, no CVA tenderness. [] Extremities: No tenderness, no cyanosis, no clubbing, ROM intact, no edema. [] Neurologic: Alert and oriented X 3, normal motor function, normal sensory function, no focal deficits noted. [] Psychologic: Affect normal, judgement normal, mood normal. [] EKG: EKG: [] Radiology/Procedures: Radiology/Procedures: [] Impressions: EXAMINATION: CT HEAD/BRAIN WO CLINICAL HISTORY: Slurred speech, syncope. TECHNIQUE: Serial axial images without IV contrast were obtained from the vertex to the foramen magnum. CT Dose Reduction Employed: One or more of the following individualized dose reduction techniques were utilized for this examination: 1. Automated exposure control 2. Adjustment of the mA and/or kV according to patient size 3. Use of iterative reconstruction technique. COMPARISON: 03/21/2021 FINDINGS: Acute Change: No evidence of an acute infarct or other acute parenchymal process. Hemorrhage: No evidence of acute intracranial hemorrhage. Mass Lesion/Mass Effect: No evidence of intracranial mass or extraaxial fluid collection. No significant mass effect. 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 Extensive confluent foci of hypoattenuation in the supratentorial white matter, nonspecific but likely represents marked microvascular ischemia. Atherosclerotic calcification of the intracranial portion of the bilateral internal carotid arteries. Parenchyma: Moderate generalized volume loss. Ventricles: Ventricular enlargement concordant with degree of parenchymal volume loss. Paranasal Sinuses and Skull Base: Visualized paranasal sinuses clear. Visualized skull base and soft tissues unremarkable. IMPRESSION: No evidence of acute intracranial abnormality or significant interval change. Recommend MRI for further evaluation if concern for acute stroke. Electronically signed by: Tonio Chatterjee DO (07/21/2021 9:33 AM) [facility] DICTATED AND SIGNED BY: TONIO CHATTERJEE DO DATE: 07/21/21927 CC: KADEN LONGORIA DO; NOÉ KULKARNI ~ XR CHEST 1V History: Syncope. Comparison: 07/02/2021, 03/21/2021. CT chest 03/21/2021. Technique: Portable AP radiograph of the chest. Findings: The lungs are adequately inflated. There is chronic prominence of the pulmonary interstitial markings. No pleural effusion or pneumothorax. No focal airspace consolidation. Cardiac silhouette is normal in size. Coronary stent is present. The Pulmonary vasculature is unremarkable. No acute osseous abnormality is identified. Coil projects in the left upper quadrant may represent overlying artifact versus postprocedural change. Impression: 1. No acute cardiopulmonary process. Electronically signed by: Celestine Martell MD (07/21/2021 9:34 AM) [id number] DICTATED AND SIGNED BY: CELESTINE MARTELL MD DATE: 07/21/21927 CC: KADEN LONGORIA DO; NOÉ KULKARNI ~ Heart Score: C/O Chest Pain: N/A Risk Factors: Risk Factors: DM, Current or recent (<one month) smoker, HTN, HLP, family history of CAD, obesity. Risk Scores: Score 0 - 3: 2.5% MACE over next 6 weeks - Discharge Home Score 4 - 6: 20.3% MACE over next 6 weeks - Admit for Clinical Observation Score 7 - 10: 72.7% MACE over next 6 weeks - Early Invasive Strategies Course & Med Decision Making: Course & Med Decision Making Pertinent Labs and Imaging studies reviewed. (See chart for details) The patient's head CT and chest x-ray are negative for acute findings. The patient has an elevated white count but this is similar to previous in the chart recently. She also has a creatinine 1.9. She has had both higher and lower numbers in the last 6 months. We have given her 500 normal saline. The patient's urinalysis is negative for infection. I do not see a reason to admit the patient. She is stable for discharge at this time. [] Dragon Disclaimer: Dragon Disclaimer: This electronic medical record was generated, in whole or in part, using a voice recognition dictation system. Departure Departure: Impression: Primary Impression: Syncope Disposition: HOME / SELF CARE / HOMELESS Condition: STABLE Referrals: NOÉ KULKARNI (PCP) KADEN LONGORIA DO July 21, 2021 09:12
[2021-07-21] MEDS ORDERED: IV NORMAL SALINE 500ML 500 ML IV ONE (09:15)
--- NOTE | 2021-07-21 09:35 | RAD ---
EXAMINATION: CT HEAD/BRAIN WO CLINICAL HISTORY: Slurred speech, syncope. TECHNIQUE: Serial axial images without IV contrast were obtained from the vertex to the foramen magnu m. CT Dose Reduction Employed: One or more of the following individualized dose reduction techniques janine e utilized for this examination: 1. Automated exposure control 2. Adjustment of the mA and/or kV ac cording to patient size 3. Use of iterative reconstruction technique. COMPARISON: 03/21/2021 FINDINGS: Acute Change: No evidence of an acute infarct or other acute parenchymal process. Hemorrhage: No evidence of acute intracranial hemorrhage. Mass Lesion/Mass Effect: No evidence of intracranial mass or extraaxial fluid collection. No signific ant mass effect. 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 Exten sive confluent foci of hypoattenuation in the supratentorial white matter, nonspecific but likely rep resents marked microvascular ischemia. Atherosclerotic calcification of the intracranial portion of t he bilateral internal carotid arteries. Parenchyma: Moderate generalized volume loss. Ventricles: Ventricular enlargement concordant with degree of parenchymal volume loss. Paranasal Sinuses and Skull Base: Visualized paranasal sinuses clear. Visualized skull base and soft tissues unremarkable. IMPRESSION: No evidence of acute intracranial abnormality or significant interval change. Recommend MRI for furth er evaluation if concern for acute stroke. Electronically signed by: Tonio Burger DO (07/21/2021 9:33 AM) [facility]
--- NOTE | 2021-07-21 09:37 | RAD ---
XR CHEST 1V History: Syncope. Comparison: 07/02/2021, 03/21/2021. CT chest 03/21/2021. Technique: Portable AP radiograph of the chest. Findings: The lungs are adequately inflated. There is chronic prominence of the pulmonary interstitial markings . No pleural effusion or pneumothorax. No focal airspace consolidation. Cardiac silhouette is normal in size. Coronary stent is present. The Pulmonary vasculature is unremarkable. No acute osseous abnor mality is identified. Coil projects in the left upper quadrant may represent overlying artifact versu s postprocedural change. Impression: 1. No acute cardiopulmonary process. Electronically signed by: Celestine Ervin MD (07/21/2021 9:34 AM) [id number]
[2021-07-21 10:30] LABS: BASO % 0 % (0-3); EOS # 1.2 x10^3/uL (0.0-0.7); EOS % 7 % (0-3); HEMATOCRIT 34.4 % (36.0-47.0); HEMOGLOBIN 10.5 g/dL (12.0-15.5); LYMPH # 1.1 x10^3/uL (1.0-4.8); LYMPH % 6 % (24-48); MEAN CORPUSCULAR HEMOGLOBIN 22 pg (25-35); MEAN CORPUSCULAR HGB CONC 31 g/dL (31-37); MEAN CORPUSCULAR VOLUME 71 fL (79-100); MONO # 0.2 x10^3/uL (0.0-1.1); MONO % 1 % (0-9); NEUT # 14.9 x10^3uL (1.8-7.7); NEUT % 86 % (31-73); PLATELET COUNT 319 x10^3/uL (140-400); RED BLOOD COUNT 4.87 x10^6/uL (3.50-5.40); RED CELL DISTRIBUTION WIDTH 22.2 % (11.5-14.5); WHITE BLOOD COUNT 17.4 x10^3/uL (4.0-11.0)
[2021-07-21 10:32] LABS: CALCIUM 8.8 mg/dL (8.5-10.1); CREATININE 1.9 mg/dL (0.6-1.0); GFR 25.7; POTASSIUM 4.2 mmol/L (3.5-5.1)
[2021-07-21 10:37] LABS: ALBUMIN 3.4 g/dL (3.4-5.0); ALBUMIN/GLOBULIN RATIO 1.2 (1.0-1.7); TOTAL BILIRUBIN 0.6 mg/dL (0.2-1.0); TOTAL PROTEIN 6.2 g/dL (6.4-8.2)
[2021-07-21 12:48] LABS: CLARITY,URINE CLEAR; COLOR,URINE YELLOW; GLUCOSE,URINE NEG (NEG); NITRITE,URINE NEG (NEG); RBC,URINE 0 /HPF (0-2); UROBILINOGEN,URINE 0.2 mg/dL (0.2 mg/dL)
[2021-07-21 12:49] LABS: BACTERIA,URINE 0 /HPF (0-FEW); SQUAMOUS EPITHELIAL CELL,UR OCC /LPF
[2021-07-21 13:29] LABS: % EOS 9 % (0-5); % LYMPHS 3 % (24-48); % SEGS 88 % (35-66); ANISOCYTOSIS MOD; HYPOCHROMIA SLIGHT; PLT ESTIMATE ADEQUATE (ADEQUATE)
[2021-07-21 13:30] LABS: MICROCYTOSIS MOD
[2021-07-21 14:00] VITALS: BP 102/53
== END 2021-07-21 15:05 | disposition home or self-care (01) ==
LOC: ER 08:52
DX: R55 Syncope and collapse (principal); I11.0 Hypertensive heart disease with heart failure; I50.9 Heart failure, unspecified; J44.9 Chronic obstructive pulmonary disease, unspecified; M19.90 Unspecified osteoarthritis, unspecified site; F17.210 Nicotine dependence, cigarettes, uncomplicated; Z90.89 Acquired absence of other organs
CPT/HCPCS: 36415; 70450; 71045; 80053; 81001; 84484; 85007; 85025; 87086; 93005; 96360; 96361; 99285; J7040